=== PATIENT | female | born 1955 ===

== ENCOUNTER → 2024-04-05 | Outpatient (CLI) | payer MEDICARE, OTHER ==
--- NOTE | 2024-04-06 10:08 | CA ---
Transthoracic Echo Report Name: Juliana Clement Age: 68 Gender: F : 1955 Exam Date: 04/05/2024 11:27 Exam Location: [facility] Ht (in): 61 Wt (lb): 145 Ordering Physician: Kathie Guillen MD Attending/Referring Phys: Kathie Guillen MD [employer] Mae Mcgee RDCS Procedure CPT: Indications: R06.02 SOB Cardiac Hx: Technical Quality: Fair Contrast 1: Total Dose (mL): Contrast 2: Total Dose (mL): MEASUREMENTS (Male / Female) Normal Values 2D ECHO LV Diastolic Diameter PLAX 4.6 cm 4.2 - 5.9 / 3.9 - 5.3 cm LV Systolic Diameter PLAX 2.6 cm IVS Diastolic Thickness 1.0 cm 0.6 - 1.0 / 0.6 - 0.9 cm LVPW Diastolic Thickness 0.9 cm 0.6 - 1.0 / 0.6 - 0.9 cm LV Relative Wall Thickness 0.4 RV Internal Dim ED PLAX 3.8 cm LVOT Diameter 1.8 cm LA Volume 78.8 cm??? 18 - 58 / 22 - 52 cm??? LA Volume Index 46.3 cm???/m??? 16 - 28 cm???/m??? M-MODE Aortic Root Diameter MM 2.9 cm LA Systolic Diameter MM 4.5 cm LA Ao Ratio MM 1.6 AV Cusp Separation MM 2.0 cm DOPPLER AV Peak Velocity 130.0 cm/s AV Peak Gradient 6.8 mmHg AV Mean Velocity 101.8 cm/s AV Mean Gradient 4.5 mmHg AV Velocity Time Integral 34.1 cm LVOT Peak Velocity 101.2 cm/s LVOT Peak Gradient 4.1 mmHg LVOT Velocity Time Integral 23.1 cm LVOT Stroke Volume 58.7 cm??? LVOT Stroke Volume Index 35.6 ml/m??? AV Area Cont Eq vti 1.7 cm??? AV Area Cont Eq pk 2.0 cm??? MV Area PHT 4.1 cm??? Mitral E Point Velocity 86.8 cm/s Mitral A Point Velocity 71.5 cm/s Mitral E to A Ratio 1.2 MV Deceleration Time 184.4 ms MV E' Velocity 7.6 cm/s Mitral E to MV E' Ratio 11.3 TR Peak Velocity 254.8 cm/s TR Peak Gradient 26.0 mmHg Right Ventricular Systolic Press 29.5 mmHg FINDINGS Left Ventricle Mildly increased left ventricular wall thickness. Left ventricular cavity size normal. Normal left ventricular systolic function with no obvious regional wall motion abnormalities. Left ventricular ejection fraction is estimated at 55-60 %. Grade 1 diastolic dysfunction. Right Ventricle Mild right ventricular dilatation. Right ventricular systolic pressure within normal limits. Right Atrium Normal right atrial size. Left Atrium Severely increased left atrial volume. Mildly increased left atrial area. Mitral Valve Structurally normal mitral valve. Moderate mitral regurgitation. Aortic Valve Trileaflet aortic valve. No aortic valve stenosis or regurgitation. Tricuspid Valve Structurally normal tricuspid valve. Mild tricuspid regurgitation. Pulmonic Valve Structurally normal pulmonic valve. Pericardium Small Loculated pericardial effusion. Aorta Normal size aortic root and proximal ascending aorta. CONCLUSIONS Normal LV systolic function Small loculated pericardial effusion Moderate mitral regurgitation Previewed by: Dr. French Palacios MD (Electronically Signed) Final Date: 06 April 2024 10:07
== END | disposition home or self-care (01) ==
LOC: RADECHMAIN 10:31
PROVIDERS: ATTEND Family Medicine
DX: I34.0 Nonrheumatic mitral (valve) insufficiency (principal); I31.39 Other pericardial effusion (noninflammatory)
CPT/HCPCS: 93306

== ENCOUNTER 2024-07-26 16:57 | Inpatient (IN) | payer MEDICARE, OTHER ==
--- NOTE | 2024-07-26 18:12 | XR ---
EXAMINATION TYPE: XR chest 2V DATE OF EXAM: 07/26/2024 COMPARISON: None INDICATION: Difficulty breathing, history of lung cancer and right lung removal TECHNIQUE: Frontal and lateral views of the chest are obtained. FINDINGS: The heart size is normal. The pulmonary vasculature is normal. There is a mild left lower lobe infiltrate. Some patchy infiltrate may be in the mid to outer left mi d lung. Consider atypical pneumonia. A small left pleural effusion is present. Patient's post right pneumonectomy. There is opacification to the right lung. No significant shift of mediastinum is evident.. IMPRESSION: 1. Mild left lower lobe infiltrate. Correlate for atelectasis and pneumonia. Consider atypical pneumo krupa. 2. Small left pleural effusion. [facility], , 07/26/2024 6:09 PM
--- NOTE | 2024-07-26 18:38 | ED ---
SOB HPI - General Source: patient, RN notes reviewed Mode of arrival: wheelchair Limitations: no limitations <Nury Molina - Last Filed: 07/26/24 18:37> - General Source: patient, RN notes reviewed Mode of arrival: wheelchair Limitations: no limitations <Bob Mayberry - Last Filed: 07/26/24 20:19> - General Chief Complaint: Shortness of Breath Stated Complaint: congestion,vomiting Time Seen by Provider: 07/26/24 17:12 - History of Present Illness Initial Comments: Quick [id number] female with history of COPD presents emergency department chief complaint of shortness of breath that has been worsening over the past week. States that she does have a history of right lobe lung cancer that she believes is currently in remission and she is on oral chemotherapy. Patient was evaluated yesterday at [facility] and was discharged home in stable condition. (Nury Molina) 68-year-old female presents emergency department chief complaint shortness of breath, cough congestion, weakness. Patient states that she has not felt well for over a week. She states she has a productive cough. Patient states she does have a history of COPD, lung cancer with lobectomy right lung in 2015. Patient states that she was seen at an outside ER facility and was sent home. Patient states that she has had increased nausea vomiting and dyspnea. (Bob Mayberry) - Related Data Allergies Allergy/AdvReac Type Severity Reaction Status Date / Time diphenhydramine Allergy Unknown Verified 07/26/24 17:17 [From Benadryl] Penicillins Allergy Unknown Verified 07/26/24 17:17 Review of Systems ROS Other: All systems not noted in ROS Statement are negative. <Nury Molina - Last Filed: 07/26/24 18:37> ROS Other: All systems not noted in ROS Statement are negative. <Bob Mayberry - Last Filed: 07/26/24 20:19> ROS Statement: Those systems with pertinent positive or pertinent negative responses have been documented in the HPI. Past Medical History Past Medical History: Cancer, COPD, Hypertension, Seizure Disorder Additional Past Medical History / Comment(s): lung cancer History of Any Multi-Drug Resistant Organisms: None Reported Additional Past Surgical History / Comment(s): lower right lobectomy 2014 Past Psychological History: No Psychological Hx Reported Smoking Status: Former smoker Past Alcohol Use History: None Reported Past Drug Use History: None Reported <Nury Molina - Last Filed: 07/26/24 18:37> General Exam Limitations: no limitations <Nury Molina - Last Filed: 07/26/24 18:37> General appearance: alert, in no apparent distress Head exam: Present: atraumatic, normocephalic, normal inspection Eye exam: Present: normal appearance, PERRL, EOMI. Absent: scleral icterus, conjunctival injection, periorbital swelling ENT exam: Present: normal exam, normal oropharynx, mucous membranes moist Neck exam: Present: normal inspection, full ROM. Absent: tenderness, meningismus, lymphadenopathy Respiratory exam: Present: wheezes, rhonchi. Absent: respiratory distress, rales, stridor Cardiovascular Exam: Present: normal rhythm, tachycardia, normal heart sounds. Absent: systolic murmur, diastolic murmur, rubs, gallop, clicks GI/Abdominal exam: Present: soft, normal bowel sounds. Absent: distended, tenderness, guarding, rebound, rigid <Bob Mayberry - Last Filed: 07/26/24 20:19> - General Exam Comments Initial Comments: Visual Physical Exam Vital signs reviewed General: Well-appearing, nontoxic, no acute distress. Head: Normocephalic, atraumatic Eyes: PERRLA, EOMI ENT: Airway patent Chest: Nonlabored breathing Skin: No visual rash, normal skin tone Neuro: Alert and oriented 3 Musculoskeletal: No gross abnormalities (Nury Molina) Course Vital Signs 07/26/24 17:11 Temperature 98.7 F Pulse Rate 132 H Respiratory 20 Rate Blood Pressure 98/70 O2 Sat by Pulse 93 L Oximetry Medical Decision Making <Nury Molina - Last Filed: 07/26/24 18:37> - Lab Data Result diagrams: 07/26/24 19:21 07/26/24 19:21 - EKG Data -: EKG Interpreted by Me <Bob Mayberry - Last Filed: 07/26/24 20:19> - Medical Decision Making I completed the quick note portion of this chart signed Nury Molina PA-C (Nury Molina) Was pt. sent in by a medical professional or institution (DERRICK Perez, DESULPHURING OPERATOR, urgent care, hospital, or fpc...) When possible be specific @ -No Did you speak to anyone other than the patient for history (EMS, parent, family, police, friend...)? What history was obtained from this source @ -No Did you review nursing and triage notes (agree or disagree)? Why? @ -I reviewed and agree with nursing and triage notes Were old charts reviewed (outside hosp., previous admission, EMS record, old EKG, old radiological studies, urgent care reports/EKG's, fpc records)? Report findings @ -No old charts were reviewed Differential Diagnosis (chest pain, altered mental status, abdominal pain women, abdominal pain men, vaginal bleeding, weakness, fever, dyspnea, syncope, headache, dizziness, GI bleed, back pain, seizure, CVA, palpatations, mental health, musculoskeletal)? @ -Differential Dyspnea: Coronary syndrome, arrhythmia, tamponade, asthma, COPD, pulmonary embolism, pneumonia, pneumothorax, pulmonary effusion, anaphylaxis, diabetic ketoacidosis, flailed chest, pulmonary contusion, diaphragmatic rupture, anemia, neuromuscular, this is not meant to be an all-inclusive list. EKG interpreted by me (3pts min.). @ -As above X-rays interpreted by me (1pt min.). @ -Chest x-ray shows left lobe pneumonia CT interpreted by me (1pt min.). @ -None done U/S interpreted by me (1pt. min.). @ -None done What testing was considered but not performed or refused? (CT, X-rays, U/S, labs)? Why? @ -None What meds were considered but not given or refused? Why? @ -None Did you discuss the management of the patient with other professionals (professionals i.e. DERRICK Perez, DESULPHURING OPERATOR, lab, RT, psych nurse, protective services social worker, case sealer, teacher, environmental technical officer, case repairer)? Give summary @ -EMH for admission Was smoking cessation discussed for >3mins.? @ -No Was critical care preformed (if so, how long)? @ -No Were there social determinants of health that impacted care today? How? (Homelessness, low income, unemployed, alcoholism, drug addiction, transportation, low edu. Level, literacy, decrease access to med. care, penitentiary, rehab)? @ -No Was there de-escalation of care discussed even if they declined (Discuss DNR or withdrawal of care, Hospice)? DNR status @ -No What co-morbidities impacted this encounter? (DM, HTN, Smoking, COPD, CAD, Cancer, CVA, ARF, Chemo, Hep., AIDS, mental health diagnosis, sleep apnea, morbid obesity)? @ -COPD, lung cancer Was patient admitted / discharged? Hospital course, mention meds given and route, prescriptions, significant lab abnormalities, going to OR and other pertinent info. @ -Admitted patient is found to have left pneumonia, patient started on Rocephin, azithromycin. Patient said increased tachycardia, leukocytosis IV fluids ordered, blood cultures, lactic acid, breathing treatments. Patient on pulmonary consult. Undiagnosed new problem with uncertain prognosis? @ -No Drug Therapy requiring intensive monitoring for toxicity (Heparin, Nitro, Insulin, Cardizem)? @ -No Were any procedures done? @ -No Diagnosis/symptom? @ -Pneumonia, dehydration, leukocytosis Acute, or Chronic, or Acute on Chronic? @ -Acute Uncomplicated (without systemic symptoms) or Complicated (systemic symptoms)? @ -Complicated Side effects of treatment? @ -No Exacerbation, Progression, or Severe Exacerbation? @ -No Poses a threat to life or bodily function? How? (Chest pain, [place], NH, pneumonia, PE, COPD, DKA, ARF, appy, cholecystitis, CVA, Diverticulitis, Homicidal, Suicidal, threat to staff... and all critical care pts) @ -Yes pneumonia, respiratory failure (Bob Mayberry) - Lab Data Lab Results 07/26/24 07/26/24 07/26/24 Range/Units 19:21 19:21 19:21 WBC 24.1 H (3.8-10.6) k/uL RBC 4.46 (3.80-5.40) m/uL Hgb 12.5 (11.4-16.0) gm/dL Hct 39.0 (34.0-46.0) % MCV 87.5 (80.0-100.0) fL MCH 27.9 (25.0-35.0) pg MCHC 31.9 (31.0-37.0) g/dL RDW 13.3 (11.5-15.5) % Plt Count 385 (150-450) k/uL MPV 8.1 Neutrophils % 90 % Lymphocytes % 3 % Monocytes % 6 % Eosinophils % 1 % Basophils % 0 % Neutrophils # 21.5 H (1.3-7.7) k/uL Lymphocytes # 0.6 L (1.0-4.8) k/uL Monocytes # 1.5 H (0-1.0) k/uL Eosinophils # 0.1 (0-0.7) k/uL Basophils # 0.0 (0-0.2) k/uL PT 11.7 (10.0-12.5) sec INR 1.1 (<1.2) APTT 27.5 (22.0-30.0) sec Sodium 132 L (137-145) mmol/L Potassium 5.3 H (3.5-5.1) mmol/L Chloride 92 L (98-107) mmol/L Carbon Dioxide 26 (22-30) mmol/L Anion Gap 14 mmol/L BUN 15 (7-17) mg/dL Creatinine 0.77 (0.52-1.04) mg/dL Est GFR (CKD-EPI)AfAm >90 (>60 ml/min/1.73 sqM) Est GFR (CKD-EPI)NonAf 80 (>60 ml/min/1.73 sqM) Glucose 103 H (74-99) mg/dL Plasma Lactic Acid Lionel (0.7-2.0) mmol/L Calcium 10.5 H (8.4-10.2) mg/dL Total Bilirubin 1.1 (0.2-1.3) mg/dL AST 29 (14-36) U/L ALT 8 (4-34) U/L Alkaline Phosphatase 60 (38-126) U/L Troponin I (0.000-0.034) ng/mL NT-Pro-B Natriuret Pep 414 pg/mL Total Protein 7.3 (6.3-8.2) g/dL Albumin 4.6 (3.5-5.0) g/dL 07/26/24 07/26/24 Range/Units 19:21 19:21 WBC (3.8-10.6) k/uL RBC (3.80-5.40) m/uL Hgb (11.4-16.0) gm/dL Hct (34.0-46.0) % MCV (80.0-100.0) fL MCH (25.0-35.0) pg MCHC (31.0-37.0) g/dL RDW (11.5-15.5) % Plt Count (150-450) k/uL MPV Neutrophils % % Lymphocytes % % Monocytes % % Eosinophils % % Basophils % % Neutrophils # (1.3-7.7) k/uL Lymphocytes # (1.0-4.8) k/uL Monocytes # (0-1.0) k/uL Eosinophils # (0-0.7) k/uL Basophils # (0-0.2) k/uL PT (10.0-12.5) sec INR (<1.2) APTT (22.0-30.0) sec Sodium (137-145) mmol/L Potassium (3.5-5.1) mmol/L Chloride (98-107) mmol/L Carbon Dioxide (22-30) mmol/L Anion Gap mmol/L BUN (7-17) mg/dL Creatinine (0.52-1.04) mg/dL Est GFR (CKD-EPI)AfAm (>60 ml/min/1.73 sqM) Est GFR (CKD-EPI)NonAf (>60 ml/min/1.73 sqM) Glucose (74-99) mg/dL Plasma Lactic Acid Lionel 1.8 (0.7-2.0) mmol/L Calcium (8.4-10.2) mg/dL Total Bilirubin (0.2-1.3) mg/dL AST (14-36) U/L ALT (4-34) U/L Alkaline Phosphatase (38-126) U/L Troponin I <0.012 (0.000-0.034) ng/mL NT-Pro-B Natriuret Pep pg/mL Total Protein (6.3-8.2) g/dL Albumin (3.5-5.0) g/dL - EKG Data EKG Comments: EKG performed at 19: 05 sinus tachycardia rate of 118 VT 140 QRS 80 QT/QTc 334/404 (Bob Mayberry) Disposition <Nury Molina - Last Filed: 07/26/24 18:37> Time of Disposition: 20:19 <Bob Mayberry - Last Filed: 07/26/24 20:19> Clinical Impression: Pneumonia Disposition: ADMITTED IP TO THIS HOSP Condition: Fair Referrals: Kathie Guillen MD [Primary Care Provider] - 1-2 days
[2024-07-26 19:44] LABS: Basophils % (A) 0 %; Eosinophils # (A) 0.1 k/uL (0-0.7); Eosinophils % (A) 1 %; HGB 12.5 gm/dL (11.4-16.0); Lymphocytes # (A) 0.6 k/uL (1.0-4.8); Lymphocytes % (A) 3 %; MCH 27.9 pg (25.0-35.0); MCHC 31.9 g/dL (31.0-37.0); MCV 87.5 fL (80.0-100.0); Mean Platelet Volume 8.1; Monocytes # (A) 1.5 k/uL (0-1.0); Monocytes % (A) 6 %; Neutrophils # (A) 21.5 k/uL (1.3-7.7); Neutrophils % (A) 90 %; Platelet Count 385 k/uL (150-450); RBC 4.46 m/uL (3.80-5.40); RDW 13.3 % (11.5-15.5); WBC 24.1 k/uL (3.8-10.6)
[2024-07-26 19:52] LABS: ALT 8 U/L (4-34); AST 29 U/L (14-36); African American GFR (CKD) >90 (>60 ml/min/1.73 sqM); Albumin 4.6 g/dL (3.5-5.0); Alkaline Phosphatase 60 U/L (38-126); Anion Gap 14 mmol/L; Blood Urea Nitrogen 15 mg/dL (7-17); Calcium 10.5 mg/dL (8.4-10.2); Carbon Dioxide 26 mmol/L (22-30); Chloride 92 mmol/L (98-107); Glucose 103 mg/dL (74-99); Non-African American GFR(CKD) 80 (>60 ml/min/1.73 sqM); Potassium 5.3 mmol/L (3.5-5.1); Sodium 132 mmol/L (137-145); Total Bilirubin 1.1 mg/dL (0.2-1.3); Total Protein 7.3 g/dL (6.3-8.2)
[2024-07-26 19:58] LABS: INR 1.1 (<1.2); Partial Thromboplastin Time 27.5 sec (22.0-30.0); Prothrombin Time 11.7 sec (10.0-12.5)
[2024-07-26 20:00] LABS: NT-Pro-B-Type Natriuretic Pept 414 pg/mL
[2024-07-26] MEDS ORDERED: PNEUMONIA PROTOCOL UTILIZED 1 EACH MISC PO PRN (20:19)
[2024-07-26] MEDS ORDERED: ACETAMINOPHEN TAB 325 MG TAB PO PRN (20:19)
[2024-07-26] MEDS: AZITHROMYCIN 500 MG in SODIUM CHLORIDE 0.9% 250 ML IVPB STA (21:53)
[2024-07-26] MEDS: SODIUM CHLORIDE 0.9% 1,000 ML IV ONE (21:54)
[2024-07-26] MEDS: SODIUM CHLORIDE 0.9% 1,000 ML IV SCH (21:55)
[2024-07-27] MEDS ORDERED: FUROSEMIDE 20 MG TAB PO PRN (06:01)
[2024-07-27] MEDS ORDERED: ALBUTEROL NEBULIZED 2.5 MG/3 ML INHALATION PRN (06:01)
--- NOTE | 2024-07-27 06:27 | P.HPIM ---
History of Present Illness This is a pleasant 68 years old female with past medical history of COPD, hypertension, seizure disorder. Patient presents because of worsening dyspnea and coughing x 1 week, not improved as an outpatient associated with chest pain/abdominal pain with coughing Patient states she has no phlegm also she denies abdominal pain and she has normal bowel movement But patient has been vomiting all day yesterday with no blood in her vomitus or coffee-ground vomitus as per patient also patient had low appetite for 3 days No urinary complaint. She has been feeling dizzy but no headache, no weakness or tingling but has been using the walker more frequently lately because of her generalized weakness Patient states she was not using steroids or antibiotic prior to admission She wants her home medication of Keppra and Pearce 7.5 to resumed. Also patient complaining from some pain in her chest with the swallowing Patient is afebrile She was tachycardic and hypotensive on admission, currently blood pressure improved and heart rate is lower WBC is elevated at 24,000 INR, unremarkable, sodium slightly low 132, potassium 5.3 and creatinine 0.7 Liver enzymes, troponin are not elevated Influenza A and type B, RSV, SARS (coronavirus) are undetected proBNP is 414 EKG showing sinus tachycardia at [address]-T changes Chest x-ray reviewed by myself showing mild left lower lobe infiltrate with small left pleural effusion and status post right pneumonectomy with complete opacification of the right side Pro- Calcitonin is within the reference range at 0.1 Review of Systems Review of systems CONSTITUTIONAL: No fever, no malaise, no fatigue. HEENT: No recent visual problems or hearing problems. Denied any sore throat. CARDIOVASCULAR: No orthopnea, PND, no palpitations, no syncope. PULMONARY: No chest wall tenderness h, no hemoptysis. GASTROINTESTINAL: No diarrhea, no nausea, no vomiting, no abdominal pain. Normoactive bowel sounds. NEUROLOGICAL: No headaches, no weakness, no numbness. HEMATOLOGICAL: Denies any bleeding or petechiae. GENITOURINARY: Denies any burning micturition, frequency, or urgency. MUSCULOSKELETAL/RHEUMATOLOGICAL: Denies any joint pain, swelling, or any muscle pain. ENDOCRINE: Denies any polyuria or polydipsia. Past Medical History Past Medical History: Cancer, COPD, Hypertension, Seizure Disorder Additional Past Medical History / Comment(s): lung cancer History of Any Multi-Drug Resistant Organisms: None Reported Additional Past Surgical History / Comment(s): lower right lobectomy 2015 Past Psychological History: No Psychological Hx Reported Smoking Status: Former smoker Past Alcohol Use History: None Reported Past Drug Use History: None Reported Medications and Allergies Home Medications Medication Instructions Recorded Confirmed Type Albuterol Inhaler [Ventolin Hfa 2 puff INHALATION RT-Q6H PRN 07/26/24 07/26/24 History Inhaler] Azithromycin [Zithromax] See Taper PO DIRECTED 07/26/24 07/26/24 History Citalopram Hydrobromide [CeleXA] 20 mg PO DAILY@149907/26/24 07/26/24 History Clopidogrel [Plavix] 75 mg PO DAILY@149907/26/24 07/26/24 History Folic Acid 1 mg PO DAILY 07/26/24 07/26/24 History Furosemide [Lasix] 20 mg PO DAILY PRN 07/26/24 07/26/24 History Milk Thistle 1,000mg 1,000 mg PO BID 07/26/24 07/26/24 History Osimertinib Mesylate [Tagrisso] 80 mg PO DAILY@149907/26/24 07/26/24 History Potassium Chloride ER [K-Dur 20] 20 meq PO DAILY PRN 07/26/24 07/26/24 History Rosuvastatin Calcium [Crestor] 5 mg PO DAILY@149907/26/24 07/26/24 History Valsartan [Diovan] 80 mg PO DAILY@149907/26/24 07/26/24 History levETIRAcetam [Keppra] 750 mg PO BID@0900,209907/26/24 07/26/24 History oxyCODONE-APAP 7.5-325MG [Percocet 1 tab PO Q4-6H PRN 07/26/24 07/26/24 History 7.5-325 mg] predniSONE [Deltasone] 40 mg PO DIRECTED 07/26/24 07/26/24 History Allergies Allergy/AdvReac Type Severity Reaction Status Date / Time diphenhydramine Allergy Unknown Verified 07/26/24 17:17 [From Benadryl] Penicillins Allergy Unknown Verified 07/26/24 17:17 Physical Exam Vitals: Vital Signs Temp Pulse Resp BP Pulse Ox 07/27/24 05:42 98 18 115/71 92 L 07/27/24 02:07 128 H 15 113/71 92 L 07/26/24 23:23 110 H 16 108/73 92 L 07/26/24 22:52 112 H 16 100/75 93 L 07/26/24 20:27 116 H 20 99/78 96 07/26/24 17:11 98.7 F 132 H 20 98/70 93 L Intake and Output 07/26/24 07/26/24 07/27/24 14:59 22:59 06:59 Other: Weight 63.503 kg GENERAL: The patient is alert and oriented x3, not in any acute distress. Well developed, well nourished. HEENT: Pupils are round and equally reacting to light. EOMI. No scleral icterus. No conjunctival pallor. Normocephalic, atraumatic. No pharyngeal erythema. No thyromegaly. CARDIOVASCULAR: S1 and S2 present. No murmurs, rubs, or gallops. -PULMONARY: Chest is clear to auscultation, no wheezing , no crackles. Patient is tachypneic and coughing ABDOMEN: Soft, nontender, nondistended, normoactive bowel sounds. No palpable organomegaly. MUSCULOSKELETAL: No joint swelling or deformity. EXTREMITIES: No cyanosis, clubbing, or pedal edema. NEUROLOGICAL: Gross neurological examination did not reveal any focal deficits. SKIN: No rashes. no petechiae. Results CBC & Chem 7: 07/26/24 19:21 07/26/24 19:21 Labs: Abnormal Lab Results - Last 24 Hours (Table) 07/26/24 07/26/24 Range/Units 19:21 19:21 WBC 24.1 H (3.8-10.6) k/uL Neutrophils # 21.5 H (1.3-7.7) k/uL Lymphocytes # 0.6 L (1.0-4.8) k/uL Monocytes # 1.5 H (0-1.0) k/uL Sodium 132 L (137-145) mmol/L Potassium 5.3 H (3.5-5.1) mmol/L Chloride 92 L (98-107) mmol/L Glucose 103 H (74-99) mg/dL Calcium 10.5 H (8.4-10.2) mg/dL Assessment and Plan Assessment: Left lower lobe infiltrate, there was suspicion for pneumonia however patient with no fever. She has leukocytosis and pro- Calcitonin is negative Hypotension with tachycardia related to hypovolemia, improving lung cancer, s/p right pneumonectomy Seizure disorder COPD with possible acute exacerbation Hypertension, currently she was hypotensive on admission Plan: Continue with normal saline, keep monitor vitals and blood pressure Add Robitussin Patient was started on ceftriaxone however procalcitonin is negative, we will consult pulmonary service Resume Plavix and Keppra Hold Valsartan 80 mg Labs and medication were reviewed.. Continue same treatment. Continue with symptomatic treatment. Resume home medication. Monitor labs and vitals. DVT and GI prophylaxis. Further recommendations as per clinical course of the patient DVT prophylaxis: Subcutaneous heparin GI Prophylaxis: Pepcid PT/OT: Pending Prognosis is guarded
[2024-07-27] MEDS: oxyCODONE-APAP 7.5-325MG 1 EACH TAB PO PRN (06:37)
[2024-07-27] MEDS: guaiFENesin-DM 100-10MG/5ML 10 ML CUP PO SCH (07:16)
[2024-07-27] MEDS: FOLIC ACID 1 MG TAB PO SCH (08:55)
[2024-07-27] MEDS: FAMOTIDINE 20 MG/2 ML VIAL IV SCH (08:57)
[2024-07-27] MEDS: HEPARIN SODIUM,PORCINE 5,000 UNIT/ML 1 ML VIAL SQ SCH (09:02)
[2024-07-27 09:18] LABS: HCT 33.7 % (37.2-46.3); HGB 10.9 g/dL (12.0-15.0); MCH 27.9 pg (27.0-32.0); MCHC 32.3 g/dL (32.0-37.0); MCV 86.2 FL (80.0-97.0); Mean Platelet Volume 11.8 FL (9.5-12.2); NRBC Per 100 WBC 0 X 10*3/uL (0.00-0.01); Platelet Count 331 X 10*3/uL (140-440); RBC 3.91 X 10*6/uL (4.10-5.20); RDW 13.7 % (11.5-14.5); WBC 21.47 X 10*3/uL (4.50-10.00)
[2024-07-27] MEDS: IPRATROPIUM-ALBUTEROL 3 ML NEB INHALATION SCH (09:20)
[2024-07-27 10:44] LABS: Blood Urea Nitrogen 16.8 mg/dL (9.0-27.0); Calcium 9.5 mg/dL (8.7-10.3); Carbon Dioxide 21.9 mmol/L (21.6-31.8); Chloride 94 mmol/L (96-109); Glucose 89 mg/dL (70-110); Potassium 4.2 mmol/L (3.5-5.5); Sodium 134 mmol/L (135-145)
[2024-07-27 11:04] LABS: Basophils # (A) 0.03 X 10*3/uL (0.00-0.10); Basophils % (A) 0.1 %; Eosinophils # (A) 0.01 X 10*3/uL (0.04-0.35); Eosinophils % (A) 0 %; Lymphocytes % (A) 2.8 %; Monocytes # (A) 2.24 X 10*3/uL (0.20-1.00); Monocytes % (A) 10.4 %; Neutrophils # (A) 18.46 X 10*3/uL (1.80-7.70); Neutrophils % (A) 86.1 %; RBC Morphology Normal (Normal)
--- NOTE | 2024-07-27 11:51 | CT ---
EXAMINATION TYPE: CT angio chest CT DLP: 230.6 mGycm, Automated exposure control for dose reduction was used. DATE OF EXAM: 07/27/2024 11:34 AM COMPARISON: Chest radiograph 07/26/2024, no prior lung cancer staging imaging available. CLINICAL INDICATION:Female, 68 years old with history of dyspnea, LLL pneumonia, rule out PE; SOB, LL L pneumonia right lung removal due to stage 4 lung CA TECHNIQUE/CONTRAST: CTA scan of the thorax is performed with IV Contrast, patient injected with 100 mL of Isovue 370, pul monary embolism protocol. MIP images are created and reviewed. FINDINGS: Pulmonary Artery: There is no evidence for a filling defect within the pulmonary vasculature to sugge st acute pulmonary embolism. The pulmonary artery is of normal size. Lungs/Pleura: No pneumothorax. Trace left effusion with adjacent suspected atelectasis. Few scattered regions of small consolidative opacities in the left lung. Moderate-sized peripheral enhancing right anterior lung fluid collection measuring grossly 10.8 x 3.7 cm in TV and AP dimensions. There is abr upt cut off of the right mainstem bronchus with consolidation of the right middle and lower lobes. Pl eural calcification identified along the inferior right pleura. Right-sided volume loss. Airway: Abrupt cut off of the right mainstem bronchus. Heart: Enlarged. Small pericardial effusion. Vasculature: No evidence of aortic aneurysm. Mediastinum: Ill-defined attenuation surrounding the trachea and its branches. No other discrete medi astinal lymphadenopathy. Musculoskeletal: No acute osseous abnormalities. Large 2.8 cm sclerotic lesion involving the right hu meral head. No other suspicious osseous lesions. Scoliotic curvature of the visualized spine. Soft Tissues: Unremarkable. Lower neck: No significant findings. Upper Abdomen: Perihepatic ascites near the dome. IMPRESSION: 1. No evidence of pulmonary embolism. 2. Masslike consolidation of the right middle and lower lobes with abrupt cut off of the right mainst em bronchus. Etiologies include malignancy and/or pneumonia. Correlation with prior imaging is recomm ended. 3. Peripherally enhancing moderate size right anterior pleural fluid collection with peripheral calci fication. May represent chronic pleural effusion with empyema not entirely excluded. 4. Ill-defined soft tissue surrounding the trachea and its branches likely related to #2. 5. Trace left pleural effusion with few patchy consolidative opacities within the left lung which may represent metastatic disease and/or infectious process. Correlation with prior imaging is recommende d. 6. Abnormal sclerotic lesion involving the right humeral head suspicious for metastasis. Correlate wi th prior imaging. 7. Cardiomegaly with small pericardial effusion. [facility], , 07/27/2024 11:49 AM
--- NOTE | 2024-07-27 11:53 | P.CNPUL ---
History of Present Illness Consult date: 07/27/24 Reason for consult: dyspnea, COPD History of present illness: This is a 68-year-old female patient with previous history of lung cancer and the patient had undergone a right pneumonectomy back in 2019 and since then the patient has been maintained on Tagrisso. The patient was have increased cough and congestion and shortness of breath which initially presented to [facility] where she was given a course of antibiotics and she was discharged. Nevertheless, the patient was unable to take the antibiotics. She progressed and her condition got worse and she continued to have increased cough and congestion worsening shortness of breath at baseline that she came into our emergency department. Chest x-ray in the emergency showed a left lower lobe infiltrate and signs of a right pneumonectomy. The patient is currently running a white cell count of 24 with a hemoglobin 12.5 with a platelet count of 385. The sodium is at 132, potassium is at 5.3, BUN is 15 with a creatinine of 0.7. The viral screen was negative. Legionella urine antigen was negative. Procalcitonin level is 0.1. proBNP level is at 414. Troponins are also negative. I also noted some nodular changes in the left upper lobe area that needs to be further investigated. She is currently on room air oxygen. No edema lower extremities. No previous history of DVT or pulmonary embolism. Review of Systems Constitutional: Reports fatigue, Reports fever Eyes: denies as per HPI, denies blurred vision, denies bulging eye, denies decreased vision, denies diplopia, denies discharge, denies dry eye, denies irritation, denies itching, denies pain, denies photophobia, denies loss of peripheral vision, denies loss of vision, denies tunnel vision/blind spots Ears: deny: decreased hearing, ear discharge, earache, tinnitus Ears, nose, mouth and throat: Reports as per HPI Breasts: absent: as per HPI, change in shape, gynecomastia, masses, nipple discharge, pain, skin changes, swelling Cardiovascular: Reports decreased exercise tolerance, Reports dyspnea on exertion Respiratory: Reports congestion, Reports cough, Reports cough with sputum, Reports dyspnea, Reports wheezing Gastrointestinal: Reports as per HPI Genitourinary: Reports as per HPI Menstruation: Reports as per HPI Musculoskeletal: Reports as per HPI Musculoskeletal: absent: ankle pain, ankle stiffness, ankle swelling, as per HPI, elbow pain, elbow stiffness, elbow swelling, foot pain, foot stiffness, foot swelling, hand pain, hand stiffness, hand swelling, hip pain, hip stiffness, hip swelling, knee pain, knee stiffness, knee swelling, shoulder pain, shoulder stiffness, shoulder swelling, wrist pain, wrist stiffness, wrist swelling Integumentary: Reports as per HPI Neurological: Reports as per HPI Psychiatric: Reports as per HPI Endocrine: Reports as per HPI Hematologic/Lymphatic: Reports as per HPI Past Medical History Past Medical History: Cancer (Lung cancer), COPD, Hyperlipidemia, Hypertension, Seizure Disorder Additional Past Medical History / Comment(s): lung cancer, right pneumonectomy 2019 History of Any Multi-Drug Resistant Organisms: None Reported Additional Past Surgical History / Comment(s): lower right lobectomy 2015 Past Psychological History: No Psychological Hx Reported Smoking Status: Former smoker Past Alcohol Use History: None Reported Past Drug Use History: None Reported Medications and Allergies Home Medications Medication Instructions Recorded Confirmed Type Albuterol Inhaler [Ventolin Hfa 2 puff INHALATION RT-Q6H PRN 07/26/24 07/26/24 H istory Inhaler] Azithromycin [Zithromax] See Taper PO DIRECTED 07/26/24 07/26/24 History Citalopram Hydrobromide [CeleXA] 20 mg PO DAILY@149907/26/24 07/26/24 History Clopidogrel [Plavix] 75 mg PO DAILY@149907/26/24 07/26/24 History Folic Acid 1 mg PO DAILY 07/26/24 07/26/24 History Furosemide [Lasix] 20 mg PO DAILY PRN 07/26/24 07/26/24 History Milk Thistle 1,000mg 1,000 mg PO BID 07/26/24 07/26/24 History Osimertinib Mesylate [Tagrisso] 80 mg PO DAILY@149907/26/24 07/26/24 History Potassium Chloride ER [K-Dur 20] 20 meq PO DAILY PRN 07/26/24 07/26/24 History Rosuvastatin Calcium [Crestor] 5 mg PO DAILY@149907/26/24 07/26/24 History Valsartan [Diovan] 80 mg PO DAILY@149907/26/24 07/26/24 History levETIRAcetam [Keppra] 750 mg PO BID@0900,2100 07/26/24 07/26/24 History oxyCODONE-APAP 7.5-325MG [Percocet 1 tab PO Q4-6H PRN 07/26/24 07/26/24 History 7.5-325 mg] predniSONE [Deltasone] 40 mg PO DIRECTED 07/26/24 07/26/24 History Allergies Allergy/AdvReac Type Severity Reaction Status Date / Time diphenhydramine Allergy Unknown Verified 07/26/24 17:17 [From Benadryl] Penicillins Allergy Unknown Verified 07/26/24 17:17 Physical Exam Vitals: Vital Signs Temp Pulse Resp BP Pulse Ox 07/27/24 09:28 84 18 07/27/24 09:22 91 18 95 07/27/24 08:52 96 18 109/67 94 L 07/27/24 05:42 98 18 115/71 92 L 07/27/24 02:07 128 H 15 113/71 92 L 07/26/24 23:23 110 H 16 108/73 92 L 07/26/24 22:52 112 H 16 100/75 93 L 07/26/24 20:27 116 H 20 99/78 96 07/26/24 17:11 98.7 F 132 H 20 98/70 93 L Intake and Output 07/26/24 07/27/24 07/27/24 22:59 06:59 14:59 Other: Weight 63.503 kg Calm and comfortable, currently on room air oxygen. No significant respiratory distress. Head exam was generally normal. There was no scleral icterus or corneal arcus. Mucous membranes were moist. Neck was supple and without jugular venous distension, thyromegaly, or carotid bruits. Carotids were easily palpable bilaterally. There was no adenopathy. Lung sounds are absent on the right, diminished breath sound the left lung base along with crackles Cardiac exam revealed the PMI to be normally situated and sized. The rhythm was regular and no extrasystoles were noted during several minutes of auscultation. The first and second heart sounds were normal and physiologic splitting of the second heart sound was noted. There were no murmurs, rubs, clicks, or gallops. Abdominal exam revealed normal bowel sounds. The abdomen was soft, non-tender, and without masses, organomegaly, or appreciable enlargement of the abdominal aorta. Examination of the extremities revealed easily palpable radial, femoral and pedal pulses. There was no cyanosis, clubbing or edema. Examination of the skin revealed no evidence of significant rashes, suspicious appearing nevi or other concerning lesions. Neurologically, the patient is awake and alert and the patient does not have any focal neurological deficit. Cranial nerves are essentially intact. Results - Laboratory Findings CBC and BMP: 07/27/24 03:47 07/27/24 03:47 PT/INR, D-dimer PT 11.7 sec (10.0-12.5) 07/26/24 19:21 INR 1.1 (<1.2) 07/26/24 19:21 Abnormal lab findings: Abnormal Labs 07/26/24 07/26/24 07/27/24 19:21 19:21 03:47 WBC 24.1 H 21.47 H RBC 3.91 L Hgb 10.9 L Hct 33.7 L Neutrophils # 21.5 H Lymphocytes # 0.6 L Monocytes # 1.5 H Sodium 132 L Potassium 5.3 H Chloride 92 L Glucose 103 H Calcium 10.5 H - Diagnostic Findings Chest x-ray: image reviewed Assessment and Plan Plan: Acute left lower lobe pneumonia and the patient has an area of consolidation left lung base on today's chest x-ray along with some nodular opacities in the left upper lobe that needs to be further investigated. Acute on shortness of breath secondary to above Previous history of non-small cell lung cancer with previous right pneumonectomy 2018 and the patient has been maintained on Tagrisso on outpatient basis Acute COPD exacerbation secondary to above. No maintenance inhalers and the patient is utilizing albuterol HFA on an as-needed basis Seizure disorder Hypertension Hyperlipidemia Plan Patient is currently on room air oxygen. The procalcitonin level is minimally elevated at this point. Patient is covered with a combination of Rocephin and Zithromax Continue DuoNeb nebulized treatments [id number] IV Solu-Medrol 60 mg every 6 hours Sputum Gram stain and culture Obtain a CT of the chest to characterize the above-mentioned abnormalities Normal saline at rate of 75 cc an hour Resume home medications Will continue to follow
[2024-07-27] MEDS: methylPREDNISolone SOD SUCCI 125 MG/2 ML VIAL IV SCH (12:35)
[2024-07-27] MEDS: ATORVASTATIN 10 MG TAB PO SCH (15:24)
[2024-07-27] MEDS: CLOPIDOGREL 75 MG TAB PO SCH (15:24)
[2024-07-27] MEDS: CITALOPRAM HYDROBROMIDE 20 MG TAB PO SCH (16:15)
[2024-07-28 04:57] LABS: Basophils % (A) 0 %; Eosinophils # (A) 0.2 k/uL (0-0.7); Eosinophils % (A) 1 %; HCT 33.6 % (34.0-46.0); HGB 11.1 gm/dL (11.4-16.0); Lymphocytes # (A) 0.6 k/uL (1.0-4.8); Lymphocytes % (A) 4 %; MCH 28.6 pg (25.0-35.0); MCV 86.5 fL (80.0-100.0); Mean Platelet Volume 9.1; Monocytes # (A) 0.6 k/uL (0-1.0); Monocytes % (A) 4 %; Neutrophils # (A) 12.9 k/uL (1.3-7.7); Neutrophils % (A) 90 %; Platelet Count 279 k/uL (150-450); RBC 3.88 m/uL (3.80-5.40); RDW 13.5 % (11.5-15.5); WBC 14.4 k/uL (3.8-10.6)
[2024-07-28 05:17] LABS: African American GFR (CKD) >90 (>60 ml/min/1.73 sqM); Anion Gap 5 mmol/L; Blood Urea Nitrogen 12 mg/dL (7-17); Calcium 9.9 mg/dL (8.4-10.2); Carbon Dioxide 27 mmol/L (22-30); Chloride 94 mmol/L (98-107); Glucose 142 mg/dL (74-99); Non-African American GFR(CKD) >90 (>60 ml/min/1.73 sqM); Potassium 4.3 mmol/L (3.5-5.1); Sodium 126 mmol/L (137-145)
--- NOTE | 2024-07-28 07:05 | P.PN ---
Subjective This is a pleasant 68 years old female with past medical history of COPD, hypertension, seizure disorder. Patient presents because of worsening dyspnea and coughing x 1 week, not improved as an outpatient associated with chest pain/abdominal pain with coughing Patient states she has no phlegm also she denies abdominal pain and she has normal bowel movement But patient has been vomiting all day yesterday with no blood in her vomitus or coffee-ground vomitus as per patient also patient had low appetite for 3 days No urinary complaint. She has been feeling dizzy but no headache, no weakness or tingling but has been using the walker more frequently lately because of her generalized weakness Patient states she was not using steroids or antibiotic prior to admission She wants her home medication of Keppra and Hernando 7.5 to resumed. Also patient complaining from some pain in her chest with the swallowing Patient is afebrile She was tachycardic and hypotensive on admission, currently blood pressure improved and heart rate is lower WBC is elevated at 24,000 INR, unremarkable, sodium slightly low 132, potassium 5.3 and creatinine 0.7 Liver enzymes, troponin are not elevated Influenza A and type B, RSV, SARS (coronavirus) are undetected proBNP is 414 EKG showing sinus tachycardia at [address]-T changes Chest x-ray reviewed by myself showing mild left lower lobe infiltrate with small left pleural effusion and status post right pneumonectomy with complete opacification of the right side Pro- Calcitonin is within the reference range at 0.1 07/28 Patient still feeling same, her dyspnea is slightly better but she is still coughing. No significant chest pain or abdominal pain. Patient does not seem in distress Patient have difficulty talking because of her shortness of breath but not that bad. No other new complaint CTA of the chest was negative for PE but showing right middle and lower infiltrate suspicious for a mass or metastasis versus pneumonia. While the left lower lobe consolidation is noted to also suspicious for pneumonia versus metastatic disease. Right humerus head showing sclerotic lesion suspicious for metastatic disease. Also patient sodium today dropped to 134 down to 126 while she is on normal saline which was discontinued. We put the patient on fluid restriction 1200 mL/day. Also will check for urine sodium and osmolality with close monitoring of sodium. Review of systems CONSTITUTIONAL: No fever, no malaise, no fatigue. HEENT: No recent visual problems or hearing problems. Denied any sore throat. CARDIOVASCULAR: No orthopnea, PND, no palpitations, no syncope. GASTROINTESTINAL: No diarrhea, no nausea, no vomiting, no abdominal pain. Normoactive bowel sounds. NEUROLOGICAL: No headaches, no weakness, no numbness. HEMATOLOGICAL: Denies any bleeding or petechiae. GENITOURINARY: Denies any burning micturition, frequency, or urgency. Active Medications Generic Name Dose Route Start Last Admin Trade Name Freq PRN Reason Stop Dose Admin Acetaminophen 650 mg 07/26/24 20:19 Acetaminophen Tab 325 Mg Tab PO Q4HR PRN Fever and/ or Pain Albuterol Sulfate 2.5 mg 07/27/24 06:01 Albuterol Nebulized 2.5 Mg/3 Ml INHALATION RT-Q6H PRN Shortness Of Breath Albuterol/Ipratropium 3 ml 07/27/24 08:00 07/27/24 19:57 Ipratropium-Albuterol 3 Ml Neb INHALATION 3 ml RT-QID RIVER Administration Albuterol/Ipratropium 3 ml 07/26/24 20:19 Ipratropium-Albuterol 3 Ml Neb INHALATION RT-Q4H PRN shortness of breath Atorvastatin Calcium 10 mg 07/27/24 15:00 07/27/24 15:24 Atorvastatin 10 Mg Tab PO 10 mg DAILY@1500 RIVER Administration Citalopram Hydrobromide 20 mg 07/27/24 15:00 07/27/24 16:15 Citalopram Hydrobromide 20 Mg Tab PO 20 mg DAILY@1500 RIVER Administration Clopidogrel Bisulfate 75 mg 07/27/24 15:00 07/27/24 15:24 Clopidogrel 75 Mg Tab PO 75 mg DAILY@1500 RIVER Administration Famotidine 20 mg 07/27/24 09:00 07/27/24 21:09 Famotidine 20 Mg/2 Ml Vial IV Not Given Q12HR RIVER Folic Acid 1 mg 07/27/24 09:00 07/27/24 08:55 Folic Acid 1 Mg Tab PO 1 mg DAILY RIVER Administration Furosemide 20 mg 07/27/24 06:01 Furosemide 20 Mg Tab PO DAILY PRN Edema Guaifenesin/Dextromethorphan 10 ml 07/27/24 06:15 07/28/24 05:33 Guaifenesin-Dm 100-10mg/5ml 10 Ml Cup PO 07/30/24 06:14 10 ml Q6HR RIVER Administration Heparin Sodium (Porcine) 5,000 unit 07/27/24 09:00 07/27/24 21:16 Heparin Sodium,Porcine 5,000 Unit/Ml 1 Ml Vial SQ 5,000 unit Q12HR RIVER Administration Ceftriaxone Sodium 2 gm/ 50 mls @ 100 mls/hr 07/27/24 09:00 07/27/24 09:04 Sodium Chloride IVPB 07/30/24 09:29 100 mls/hr Q24HR RIVER Administration Protocol Levetiracetam 750 mg 07/27/24 09:00 07/27/24 21:14 Levetiracetam 750 Mg Tab PO 750 mg BID@0900,2100 RIVER Administration Methylprednisolone Sodium Succinate 60 mg 07/27/24 12:00 07/28/24 05:33 Methylprednisolone Sod Succi 125 Mg/2 Ml Vial IV 60 mg Q6HR RIVER Administration Miscellaneous Information 1 each 07/26/24 20:19 Pneumonia Protocol Utilized 1 Each Misc PO ONCE PRN Per Protocol Oxycodone/Acetaminophen 1 each 07/27/24 06:01 07/28/24 05:32 Oxycodone-Apap 7.5-325mg 1 Each Tab PO 1 each Q6H PRN Administration Pain Objective - Vital Signs Vital signs: Vital Signs Temp 97.7 F 07/28/24 06:27 Pulse 81 07/28/24 06:27 Resp 19 07/28/24 06:27 BP 123/78 07/28/24 06:27 Pulse Ox 93 L 07/28/24 06:27 FiO2 - Exam GENERAL: The patient is alert and oriented x3, not in any acute distress. Well developed, well nourished. HEENT: Pupils are round and equally reacting to light. EOMI. No scleral icterus. No conjunctival pallor. Normocephalic, atraumatic. No pharyngeal erythema. No thyromegaly. CARDIOVASCULAR: S1 and S2 present. No murmurs, rubs, or gallops. PULMONARY: No breath sounds on the right side. Chest is clear to auscultation, no wheezing , no crackles. Mild tachypnea ABDOMEN: Soft, nontender, nondistended, normoactive bowel sounds. No palpable organomegaly. MUSCULOSKELETAL: No joint swelling or deformity. EXTREMITIES: No cyanosis, clubbing, or pedal edema. NEUROLOGICAL: Gross neurological examination did not reveal any focal deficits. SKIN: No rashes. no petechiae. - Labs CBC & Chem 7: 07/28/24 04:36 07/28/24 04:36 Labs: Abnormal Lab Results - Last 24 Hours (Table) 07/27/24 07/27/24 07/28/24 Range/Units 03:47 03:47 04:36 WBC 21.47 H 14.4 H (4.50-10.00) X 10*3/uL RBC 3.91 L (4.10-5.20) X 10*6/uL Hgb 10.9 L 11.1 L (12.0-15.0) g/dL Hct 33.7 L 33.6 L (37.2-46.3) % Immature Gran # 0.13 H (0.00-0.04) X 10*3/uL Neutrophils # 18.46 H 12.9 H (1.80-7.70) X 10*3/uL Lymphocytes # 0.60 L 0.6 L (0.90-5.00) X 10*3/uL Monocytes # 2.24 H (0.20-1.00) X 10*3/uL Eosinophils # 0.01 L (0.04-0.35) X 10*3/uL Sodium 134 L (135-145) mmol/L Chloride 94 L (96-109) mmol/L Anion Gap 18.10 H (4.00-12.00) mmol/L BUN/Creatinine Ratio 21.00 H (12.00-20.00) Ratio Glucose (74-99) mg/dL 07/28/24 Range/Units 04:36 WBC (4.50-10.00) X 10*3/uL RBC (4.10-5.20) X 10*6/uL Hgb (12.0-15.0) g/dL Hct (37.2-46.3) % Immature Gran # (0.00-0.04) X 10*3/uL Neutrophils # (1.80-7.70) X 10*3/uL Lymphocytes # (0.90-5.00) X 10*3/uL Monocytes # (0.20-1.00) X 10*3/uL Eosinophils # (0.04-0.35) X 10*3/uL Sodium 126 L (135-145) mmol/L Chloride 94 L (96-109) mmol/L Anion Gap (4.00-12.00) mmol/L BUN/Creatinine Ratio (12.00-20.00) Ratio Glucose 142 H (74-99) mg/dL Microbiology - Last 24 Hours (Table) 07/26/24 19:21 Blood Culture - Preliminary Blood 07/27/24 09:18 Gram Stain - Preliminary Sputum Assessment and Plan Assessment: Left lower lobe infiltrate, right middle and lower lobe infiltrate there was suspicion for metastatic disease versus pneumonia however patient with no fever. She has leukocytosis and pro- Calcitonin is negative Sepsis with leukocytosis and tachycardia present on admission Euvolemic hyponatremia, suspicious for an SIADH Hypotension with tachycardia related to hypovolemia, improving lung cancer, s/p right pneumonectomy Seizure disorder COPD with possible acute exacerbation Hypertension, currently she was hypotensive on admission Plan: Discontinue normal saline, keep monitor vitals and blood pressure Fluid restriction and check urine sodium and osmolality Add Robitussin Patient was started on ceftriaxone however procalcitonin is negative, continue antibiotic as per consult pulmonary service will follow the case closely Resume Plavix and Keppra Hold Valsartan 80 mg Labs and medication were reviewed.. Continue same treatment. Continue with symptomatic treatment. Resume home medication. Monitor labs and vitals. DVT and GI prophylaxis. Further recommendations as per clinical course of the patient DVT prophylaxis: Subcutaneous heparin GI Prophylaxis: Pepcid PT/OT: Pending Prognosis is guarded
--- NOTE | 2024-07-28 19:49 | P.PN ---
Subjective Progress Note Date: 07/28/24 This is a 68-year-old female patient with previous history of lung cancer and the patient had undergone a right pneumonectomy back in 2019 and since then the patient has been maintained on Tagrisso. The patient was have increased cough and congestion and shortness of breath which initially presented to [facility] where she was given a course of antibiotics and she was discharged. Nevertheless, the patient was unable to take the antibiotics. She progressed and her condition got worse and she continued to have increased cough and congestion worsening shortness of breath at baseline that she came into our emergency department. Chest x-ray in the emergency showed a left lower lobe in filtrate and signs of a right pneumonectomy. The patient is currently running a white cell count of 24 with a hemoglobin 12.5 with a platelet count of 385. The sodium is at 132, potassium is at 5.3, BUN is 15 with a creatinine of 0.7. The viral screen was negative. Legionella urine antigen was negative. Procalcitonin level is 0.1. proBNP level is at 414. Troponins are also negative. I also noted some nodular changes in the left upper lobe area that needs to be further investigated. She is currently on room air oxygen. No edema lower extremities. No previous history of DVT or pulmonary embolism. On 07/28/2024, I am seeing the patient for a follow-up. Less short of breath. Less bronchospastic and wheezy compared to yesterday. Remains on IV Rocephin. The white cell count is down to 14.4 with a hemoglobin 11.1. Sodium is at 126 BUN is 12 with a creatinine of 0.6 and a bicarb is at 27. His procalcitonin level is at 0.12. CAT scan of the chest was reviewed. It is possible the patient did not have a full pneumonectomy. There is abrupt cut off the right sided bronchus with complete atelectasis of what seems to be the right middle lobe and possibly the right upper lobe showed the patient underwent right lower lobe resection. There is also pleural calcification identified along the right pleura. There is chronic right-sided volume loss. Of significance also, there are areas of patchy nodular changes involving the left lung. This could be consolidation versus malignancy and the possibility of metastatic lung disease cannot be completely excluded. I favor infectious changes however. 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 She is currently on room air oxygen with a pulse ox of 94%. No significant sputum production. Sputum Gram stain and culture was collected yesterday and results are still pending. Few gram-negative bacilli and few gram-positive cocci are present. Objective - Vital Signs Vital signs: Vital Signs Temp 97.7 F 07/28/24 06:27 Pulse 83 07/28/24 07:30 Resp 18 07/28/24 07:30 BP 123/78 07/28/24 07:30 Pulse Ox 94 L 07/28/24 07:30 FiO2 Intake & Output 07/27/24 07/28/24 07/28/24 18:59 06:59 18:59 Intake Total 1569 Balance 1569 Intake: Intake, IV Titration 150 Amount Sodium Chloride 0.9% 1, 150 000 ml @ 75 mls/hr IV . [id number] [facility] Rx#:[id number] Oral 1419 - Exam Calm and comfortable, currently on room air oxygen. No significant respiratory distress. Head exam was generally normal. There was no scleral icterus or corneal arcus. Mucous membranes were moist. Neck was supple and without jugular venous distension, thyromegaly, or carotid bruits. Carotids were easily palpable bilaterally. There was no adenopathy. Lung sounds are absent on the right, diminished breath sound the left lung base along with crackles Cardiac exam revealed the PMI to be normally situated and sized. The rhythm was regular and no extrasystoles were noted during several minutes of auscultation. The first and second heart sounds were normal and physiologic splitting of the second heart sound was noted. There were no murmurs, rubs, clicks, or gallops. Abdominal exam revealed normal bowel sounds. The abdomen was soft, non-tender, and without masses, organomegaly, or appreciable enlargement of the abdominal aorta. Examination of the extremities revealed easily palpable radial, femoral and pedal pulses. There was no cyanosis, clubbing or edema. Examination of the skin revealed no evidence of significant rashes, suspicious appearing nevi or other concerning lesions. Neurologically, the patient is awake and alert and the patient does not have any focal neurological deficit. Cranial nerves are essentially intact. - Labs CBC & Chem 7: 07/28/24 04:36 07/28/24 04:36 Labs: Abnormal Lab Results - Last 24 Hours (Table) 07/27/24 07/28/24 07/28/24 Range/Units 03:47 04:36 04:36 WBC 14.4 H (3.8-10.6) k/uL Hgb 11.1 L (11.4-16.0) gm/dL Hct 33.6 L (34.0-46.0) % Immature Gran # 0.13 H (0.00-0.04) X 10*3/uL Neutrophils # 18.46 H 12.9 H (1.80-7.70) X 10*3/uL Lymphocytes # 0.60 L 0.6 L (0.90-5.00) X 10*3/uL Monocytes # 2.24 H (0.20-1.00) X 10*3/uL Eosinophils # 0.01 L (0.04-0.35) X 10*3/uL Sodium 126 L (137-145) mmol/L Chloride 94 L (98-107) mmol/L Glucose 142 H (74-99) mg/dL Microbiology - Last 24 Hours (Table) 07/26/24 19:21 Blood Culture - Preliminary Blood 07/27/24 09:18 Gram Stain - Preliminary Sputum Assessment and Plan Plan: Acute left lower lobe pneumonia and the patient has an area of consolidation left lung base on today's chest x-ray along with some nodular opacities in the left upper lobe that needs to be further followed up in the future. This could be essentially infectious in nature. Possibility of malignancy cannot be completely excluded. As such, follow-up will be needed. Acute on shortness of breath secondary to above, improving Previous history of non-small cell lung cancer with previous right pneumonectomy 2018 and the patient has been maintained on Tagrisso on outpatient basis Acute COPD exacerbation secondary to above. No maintenance inhalers and the patient is utilizing albuterol HFA on an as-needed basis Seizure disorder Hypertension Hyperlipidemia Acute leukocytosis, improving Acute hyponatremia Plan Fluid restriction Patient is currently on room air oxygen. The procalcitonin level is minimally elevated at this point. Patient is covered with a combination of Rocephin and Zithromax Continue DuoNeb nebulized treatments [id number] IV Solu-Medrol 60 mg every 6 hours Sputum Gram stain and culture, results are still pending for now CAT scan of the chest was noted and the patient will need a follow-up CAT scan on outpatient basis in few months time to monitor the progression of those pulmonary nodules Will continue to follow
[2024-07-28] MEDS: FAMOTIDINE 20 MG TAB PO SCH (21:05)
[2024-07-29] MEDS ORDERED: oxyCODONE-APAP 7.5-325MG 1 EACH TAB ONE (04:40)
[2024-07-29] MEDS ORDERED: IPRATROPIUM-ALBUTEROL 3 ML NEB ONE (04:40)
[2024-07-29 08:38] LABS: African American GFR (CKD) 82 (>60 ml/min/1.73 sqM); Anion Gap 7 mmol/L; Blood Urea Nitrogen 22 mg/dL (7-17); Calcium 9.9 mg/dL (8.4-10.2); Carbon Dioxide 24 mmol/L (22-30); Chloride 97 mmol/L (98-107); Glucose 226 mg/dL (74-99); Non-African American GFR(CKD) 71 (>60 ml/min/1.73 sqM); Potassium 4.4 mmol/L (3.5-5.1); Sodium 128 mmol/L (137-145)
--- NOTE | 2024-07-29 09:21 | P.PN ---
Subjective This is a pleasant 68 years old female with past medical history of COPD, hypertension, seizure disorder. Patient presents because of worsening dyspnea and coughing x 1 week, not improved as an outpatient associated with chest pain/abdominal pain with coughing Patient states she has no phlegm also she denies abdominal pain and she has normal bowel movement But patient has been vomiting all day yesterday with no blood in her vomitus or coffee-ground vomitus as per patient also patient had low appetite for 3 days No urinary complaint. She has been feeling dizzy but no headache, no weakness or tingling but has been using the walker more frequently lately because of her generalized weakness Patient states she was not using steroids or antibiotic prior to admission She wants her home medication of Keppra and [place] 7.5 to resumed. Also patient complaining from some pain in her chest with the swallowing Patient is afebrile She was tachycardic and hypotensive on admission, currently blood pressure improved and heart rate is lower WBC is elevated at 24,000 INR, unremarkable, sodium slightly low 132, potassium 5.3 and creatinine 0.7 Liver enzymes, troponin are not elevated Influenza A and type B, RSV, SARS (coronavirus) are undetected proBNP is 414 EKG showing sinus tachycardia at [address]-T changes Chest x-ray reviewed by myself showing mild left lower lobe infiltrate with small left pleural effusion and status post right pneumonectomy with complete opacification of the right side Pro- Calcitonin is within the reference range at 0.1 07/28 Patient still feeling same, her dyspnea is slightly better but she is still coughing. No significant chest pain or abdominal pain. Patient does not seem in distress Patient have difficulty talking because of her shortness of breath but not that bad. No other new complaint CTA of the chest was negative for PE but showing right middle and lower infiltrate suspicious for a mass or metastasis versus pneumonia. While the left lower lobe consolidation is noted to also suspicious for pneumonia versus metastatic disease. Right humerus head showing sclerotic lesion suspicious for metastatic disease. Also patient sodium today dropped to 134 down to 126 while she is on normal saline which was discontinued. We put the patient on fluid restriction 1200 mL/day. Also will check for urine sodium and osmolality with close monitoring of sodium. 07/29 Patient still complaining from shortness of breath, she has mild tachypnea at rest. She has good oxygen saturation. She is still getting breathing treatment this morning She is on fluid restriction and sodium improved this 126 up to 128, discussed with the patient and she agrees, currently 1500 mL/day She is still covered with ceftriaxone for her pneumonia. However pro- Calcitonin were negative on 2 occasions. Patient will require to repeat CAT scan of the chest as an outpatient to assess stability She is also on IV Solu-Medrol Objective - Vital Signs Vital signs: Vital Signs Temp 98.1 F 07/29/24 07:36 Pulse 82 07/29/24 09:02 Resp 16 07/29/24 09:02 BP 127/76 07/29/24 07:36 Pulse Ox 97 07/29/24 08:51 FiO2 Intake & Output 07/28/24 07/29/24 07/29/24 18:59 06:59 18:59 Intake Total 1569 Balance 1569 Weight 63.503 kg Intake: Intake, IV Titration 150 Amount Sodium Chloride 0.9% 1, 150 000 ml @ 75 mls/hr IV . [id number] [facility] Rx#:[id number] Oral 1419 Other: # Voids 1 - Exam GENERAL: The patient is alert and oriented x3, not in any acute distress. Well developed, well nourished. HEENT: Pupils are round and equally reacting to light. EOMI. No scleral icterus. No conjunctival pallor. Normocephalic, atraumatic. No pharyngeal erythema. No thyromegaly. CARDIOVASCULAR: S1 and S2 present. No murmurs, rubs, or gallops. PULMONARY: No breath sounds on the right side. Chest is clear to auscultation, no wheezing , no crackles. Mild tachypnea ABDOMEN: Soft, nontender, nondistended, normoactive bowel sounds. No palpable organomegaly. MUSCULOSKELETAL: No joint swelling or deformity. EXTREMITIES: No cyanosis, clubbing, or pedal edema. NEUROLOGICAL: Gross neurological examination did not reveal any focal deficits. SKIN: No rashes. no petechiae. - Labs CBC & Chem 7: 07/28/24 04:36 07/29/24 08:06 Labs: Abnormal Lab Results - Last 24 Hours (Table) 07/29/24 Range/Units 08:06 Sodium 128 L (137-145) mmol/L Chloride 97 L (98-107) mmol/L BUN 22 H (7-17) mg/dL Glucose 226 H (74-99) mg/dL Microbiology - Last 24 Hours (Table) 07/26/24 19:21 Blood Culture - Preliminary Blood 07/27/24 09:18 Gram Stain - Preliminary Sputum Sputum Culture - Preliminary Assessment and Plan Assessment: Left lower lobe infiltrate, right middle and lower lobe infiltrate there was suspicion for metastatic disease versus pneumonia however patient with no fever. She has leukocytosis and pro- Calcitonin is negative Sepsis with leukocytosis and tachycardia present on admission Euvolemic hyponatremia, suspicious for an SIADH Hypotension with tachycardia related to hypovolemia, improving lung cancer, s/p right pneumonectomy Seizure disorder COPD with possible acute exacerbation Hypertension, currently she was hypotensive on admission Plan: Continue with IV Solu-Medrol 60 mg Continue with ceftriaxone Fluid restriction and check urine sodium and osmolality Continue with Robitussin Resume Plavix and Keppra Hold Valsartan 80 mg Labs and medication were reviewed.. Continue same treatment. Continue with symptomatic treatment. Resume home medication. Monitor labs and vitals. DVT and GI prophylaxis. Further recommendations as per clinical course of the patient DVT prophylaxis: Subcutaneous heparin GI Prophylaxis: Pepcid PT/OT: Pending Prognosis is guarded CODE STATUS: DNR, I discussed with the patient in details and she wants to be DNR. Patient has capacity to make medical decision
[2024-07-29 11:02] LABS: Basophils % (A) 0 %; Eosinophils % (A) 0 %; HCT 33.7 % (34.0-46.0); HGB 10.7 gm/dL (11.4-16.0); Hypochromasia Slight; Lymphocytes # (A) 0.3 k/uL (1.0-4.8); Lymphocytes % (A) 2 %; MCH 28.3 pg (25.0-35.0); MCHC 31.9 g/dL (31.0-37.0); MCV 88.7 fL (80.0-100.0); Mean Platelet Volume 8.1; Monocytes # (A) 0.9 k/uL (0-1.0); Monocytes % (A) 6 %; Neutrophils # (A) 12.2 k/uL (1.3-7.7); Neutrophils % (A) 90 %; Platelet Count 411 k/uL (150-450); RDW 13.4 % (11.5-15.5); WBC 13.5 k/uL (3.8-10.6)
[2024-07-29] MEDS: predniSONE 20 MG TAB PO SCH (12:38)
[2024-07-29] MEDS: LEVOFLOXACIN 500 MG TAB PO SCH (12:38)
--- NOTE | 2024-07-29 14:41 | P.PN ---
Subjective Progress Note Date: 07/29/24 This is a 68-year-old female patient with previous history of lung cancer and the patient had undergone a right pneumonectomy back in 2019 and since then the patient has been maintained on Tagrisso. The patient was have increased cough and congestion and shortness of breath which initially presented to [facility] where she was given a course of antibiotics and she was discharged. Nevertheless, the patient was unable to take the antibiotics. She progressed and her condition got worse and she continued to have increased cough and congestion worsening shortness of breath at baseline that she came into our emergency department. Chest x-ray in the emergency showed a left lower lobe in filtrate and signs of a right pneumonectomy. The patient is currently running a white cell count of 24 with a hemoglobin 12.5 with a platelet count of 385. The sodium is at 132, potassium is at 5.3, BUN is 15 with a creatinine of 0.7. The viral screen was negative. Legionella urine antigen was negative. Procalcitonin level is 0.1. proBNP level is at 414. Troponins are also negative. I also noted some nodular changes in the left upper lobe area that needs to be further investigated. She is currently on room air oxygen. No edema lower extremities. No previous history of DVT or pulmonary embolism. On 07/28/2024, I am seeing the patient for a follow-up. Less short of breath. Less bronchospastic and wheezy compared to yesterday. Remains on IV Rocephin. The white cell count is down to 14.4 with a hemoglobin 11.1. Sodium is at 126 BUN is 12 with a creatinine of 0.6 and a bicarb is at 27. His procalcitonin level is at 0.12. CAT scan of the chest was reviewed. It is possible the patient did not have a full pneumonectomy. There is abrupt cut off the right sided bronchus with complete atelectasis of what seems to be the right middle lobe and possibly the right upper lobe showed the patient underwent right lower lobe resection. There is also pleural calcification identified along the right pleura. There is chronic right-sided volume loss. Of significance also, there are areas of patchy nodular changes involving the left lung. This could be consolidation versus malignancy and the possibility of metastatic lung disease cannot be completely excluded. I favor infectious changes however. 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 She is currently on room air oxygen with a pulse ox of 94%. No significant sputum production. Sputum Gram stain and culture was collected yesterday and results are still pending. Few gram-negative bacilli and few gram-positive cocci are present. On 07/29/2024, seen the patient for a follow-up. Patient is doing well. Her main complaint continues to be cough and some chest wall pain and discomfort when swallowing her food. She is less bronchospastic and wheezy. The ventricle is down to 13.5. Hemoglobin is 10.7. The patient remains on DuoNeb nebulized treatments [id number]. The patient remains on IV Solu-Medrol. She is on Percocet for pain control. No altered mentation. Oxygenation stable and the patient is currently on 94% room air oxygen. No signs of any significant oropharyngeal candidiasis. Objective - Vital Signs Vital signs: Vital Signs Temp 98.1 F 07/29/24 07:36 Pulse 82 07/29/24 09:02 Resp 16 07/29/24 09:02 BP 127/76 07/29/24 07:36 Pulse Ox 97 07/29/24 08:51 FiO2 Intake & Output 07/28/24 07/29/24 07/29/24 18:59 06:59 18:59 Intake Total 1569 Balance 1569 Weight 63.503 kg Intake: Intake, IV Titration 150 Amount Sodium Chloride 0.9% 1, 150 000 ml @ 75 mls/hr IV . [id number] [facility] Rx#:[id number] Oral 1419 Other: Voiding Method Toilet # Voids 1 - Exam Calm and comfortable, currently on room air oxygen. No significant respiratory distress. Head exam was generally normal. There was no scleral icterus or corneal arcus. Mucous membranes were moist. Neck was supple and without jugular venous distension, thyromegaly, or carotid bruits. Carotids were easily palpable bilaterally. There was no adenopathy. Lung sounds are absent on the right, diminished breath sound the left lung base along with crackles Cardiac exam revealed the PMI to be normally situated and sized. The rhythm was regular and no extrasystoles were noted during several minutes of auscultation. The first and second heart sounds were normal and physiologic splitting of the second heart sound was noted. There were no murmurs, rubs, clicks, or gallops. Abdominal exam revealed normal bowel sounds. The abdomen was soft, non-tender, and without masses, organomegaly, or appreciable enlargement of the abdominal aorta. Examination of the extremities revealed easily palpable radial, femoral and pedal pulses. There was no cyanosis, clubbing or edema. Examination of the skin revealed no evidence of significant rashes, suspicious appearing nevi or other concerning lesions. Neurologically, the patient is awake and alert and the patient does not have any focal neurological deficit. Cranial nerves are essentially intact. - Labs CBC & Chem 7: 07/29/24 10:19 07/29/24 08:06 Labs: Abnormal Lab Results - Last 24 Hours (Table) 07/29/24 07/29/24 Range/Units 08:06 10:19 WBC 13.5 H (3.8-10.6) k/uL Hgb 10.7 L (11.4-16.0) gm/dL Hct 33.7 L (34.0-46.0) % Neutrophils # 12.2 H (1.3-7.7) k/uL Lymphocytes # 0.3 L (1.0-4.8) k/uL Sodium 128 L (137-145) mmol/L Chloride 97 L (98-107) mmol/L BUN 22 H (7-17) mg/dL Glucose 226 H (74-99) mg/dL Microbiology - Last 24 Hours (Table) 07/27/24 09:18 Gram Stain - Final Sputum Sputum Culture - Final 07/26/24 19:21 Blood Culture - Preliminary Blood Assessment and Plan Plan: Acute left lower lobe pneumonia and the patient has an area of consolidation left lung base on today's chest x-ray along with some nodular opacities in the left upper lobe that needs to be further followed up in the future. This could be essentially infectious in nature. Possibility of malignancy cannot be completely excluded. As such, follow-up will be needed. Acute on shortness of breath secondary to above, improving Previous history of non-small cell lung cancer with previous right pneumonectomy 2018 and the patient has been maintained on Tagrisso on outpatient basis Acute COPD exacerbation secondary to above. No maintenance inhalers and the patient is utilizing albuterol HFA on an as-needed basis Seizure disorder Hypertension Hyperlipidemia Acute leukocytosis, improving Acute hyponatremia Plan Fluid restriction, awaiting follow-up labs and electrolytes from today. The patient's white cell count is improving. Patient is currently on room air oxygen. The procalcitonin level is minimally elevated at this point. Patient is covered IV Rocephin Continue DuoNeb nebulized treatments [id number] IV Solu-Medrol 60 mg every 6 hours for another 24 hours Percocet for pain control CAT scan of the chest was noted and the patient will need a follow-up CAT scan on outpatient basis in few months time to monitor the progression of those pulmonary nodules Monitor electrolytes Will continue to follow
[2024-07-29] MEDS: oxyCODONE-APAP 10-325MG 1 EACH TAB PO PRN (15:20)
[2024-07-30] MEDS: IPRATROPIUM-ALBUTEROL 3 ML NEB INHALATION PRN (04:09)
[2024-07-30] MEDS: FAMOTIDINE 20 MG TAB PO SCH (08:03)
--- NOTE | 2024-07-30 14:59 | P.PN ---
Subjective Progress Note Date: 07/30/24 This is a 68-year-old female patient with previous history of lung cancer and the patient had undergone a right pneumonectomy back in 2019 and since then the patient has been maintained on Tagrisso. The patient was have increased cough and congestion and shortness of breath which initially presented to [facility] where she was given a course of antibiotics and she was discharged. Nevertheless, the patient was unable to take the antibiotics. She progressed and her condition got worse and she continued to have increased cough and congestion worsening shortness of breath at baseline that she came into our emergency department. Chest x-ray in the emergency showed a left lower lobe in filtrate and signs of a right pneumonectomy. The patient is currently running a white cell count of 24 with a hemoglobin 12.5 with a platelet count of 385. The sodium is at 132, potassium is at 5.3, BUN is 15 with a creatinine of 0.7. The viral screen was negative. Legionella urine antigen was negative. Procalcitonin level is 0.1. proBNP level is at 414. Troponins are also negative. I also noted some nodular changes in the left upper lobe area that needs to be further investigated. She is currently on room air oxygen. No edema lower extremities. No previous history of DVT or pulmonary embolism. On 07/28/2024, I am seeing the patient for a follow-up. Less short of breath. Less bronchospastic and wheezy compared to yesterday. Remains on IV Rocephin. The white cell count is down to 14.4 with a hemoglobin 11.1. Sodium is at 126 BUN is 12 with a creatinine of 0.6 and a bicarb is at 27. His procalcitonin level is at 0.12. CAT scan of the chest was reviewed. It is possible the patient did not have a full pneumonectomy. There is abrupt cut off the right sided bronchus with complete atelectasis of what seems to be the right middle lobe and possibly the right upper lobe showed the patient underwent right lower lobe resection. There is also pleural calcification identified along the right pleura. There is chronic right-sided volume loss. Of significance also, there are areas of patchy nodular changes involving the left lung. This could be consolidation versus malignancy and the possibility of metastatic lung disease cannot be completely excluded. I favor infectious changes however. 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 She is currently on room air oxygen with a pulse ox of 94%. No significant sputum production. Sputum Gram stain and culture was collected yesterday and results are still pending. Few gram-negative bacilli and few gram-positive cocci are present. On 07/29/2024, seen the patient for a follow-up. Patient is doing well. Her main complaint continues to be cough and some chest wall pain and discomfort when swallowing her food. She is less bronchospastic and wheezy. The ventricle is down to 13.5. Hemoglobin is 10.7. The patient remains on DuoNeb nebulized treatments [id number]. The patient remains on IV Solu-Medrol. She is on Percocet for pain control. No altered mentation. Oxygenation stable and the patient is currently on 94% room air oxygen. No signs of any significant oropharyngeal candidiasis. On 07/30/2024, [facility] the patient for a follow-up. Resting comfortably in bed. No new complaints. Still having some shortness of breath and diffuse bodyaches more so than her right shoulder area. Labs from today are still pending. The patient remains on bronchodilators with DuoNeb updrafts. The patient remains on steroids and the patient has been placed on oral prednisone starting with 60 mg p.o. daily. She was also switched to oral antibiotics. I am going to obtain a follow-up chest x-ray for this patient for tomorrow. Objective - Vital Signs Vital signs: Vital Signs Temp 97.5 F L 07/30/24 08:00 Pulse 98 07/30/24 08:00 Resp 17 07/30/24 08:00 BP 151/85 07/30/24 08:00 Pulse Ox 96 07/30/24 08:00 FiO2 Intake & Output 07/29/24 07/30/24 07/30/24 18:59 06:59 18:59 Output Total 300 Balance -300 Output: Urine 300 Other: Voiding Method Toilet Toilet # Voids 3 2 - Exam Calm and comfortable, currently on room air oxygen. No significant respiratory distress. Head exam was generally normal. There was no scleral icterus or corneal arcus. Mucous membranes were moist. Neck was supple and without jugular venous distension, thyromegaly, or carotid bruits. Carotids were easily palpable bilaterally. There was no adenopathy. Lung sounds are absent on the right, diminished breath sound the left lung base along with crackles Cardiac exam revealed the PMI to be normally situated and sized. The rhythm was regular and no extrasystoles were noted during several minutes of auscultation. The first and second heart sounds were normal and physiologic splitting of the second heart sound was noted. There were no murmurs, rubs, clicks, or gallops. Abdominal exam revealed normal bowel sounds. The abdomen was soft, non-tender, and without masses, organomegaly, or appreciable enlargement of the abdominal aorta. Examination of the extremities revealed easily palpable radial, femoral and pedal pulses. There was no cyanosis, clubbing or edema. Examination of the skin revealed no evidence of significant rashes, suspicious appearing nevi or other concerning lesions. Neurologically, the patient is awake and alert and the patient does not have any focal neurological deficit. Cranial nerves are essentially intact. - Labs CBC & Chem 7: 07/29/24 10:19 07/29/24 08:06 Labs: Abnormal Lab Results - Last 24 Hours (Table) 07/29/24 07/29/24 07/29/24 Range/Units 10:19 10:19 16:00 WBC 13.5 H (3.8-10.6) k/uL Hgb 10.7 L (11.4-16.0) gm/dL Hct 33.7 L (34.0-46.0) % Neutrophils # 12.2 H (1.3-7.7) k/uL Lymphocytes # 0.3 L (1.0-4.8) k/uL TSH 0.177 L (0.350-5.500) UIU/ML Ur Random Sodium <20 L (40-220) mmol/L Microbiology - Last 24 Hours (Table) 07/26/24 19:21 Blood Culture - Preliminary Blood 07/27/24 09:18 Gram Stain - Final Sputum Sputum Culture - Final Assessment and Plan Plan: Acute left lower lobe pneumonia and the patient has an area of consolidation left lung base on today's chest x-ray along with some nodular opacities in the l eft upper lobe that needs to be further followed up in the future. This could be essentially infectious in nature. Possibility of malignancy cannot be completely excluded. As such, follow-up will be needed. Acute on shortness of breath secondary to above, improving Previous history of non-small cell lung cancer with previous right pneumonectomy 2018 and the patient has been maintained on Tagrisso on outpatient basis Acute COPD exacerbation secondary to above. No maintenance inhalers and the patient is utilizing albuterol HFA on an as-needed basis Seizure disorder Hypertension Hyperlipidemia Acute leukocytosis, improving Acute hyponatremia Plan Clinically stable and slightly improved Obtain a follow-up chest x-ray for tomorrow The procalcitonin level is minimally elevated at this point. Patient is covered oral Levaquin Continue DuoNeb nebulized treatments [id number] Prednisone 60 mg p.o. daily as part of the burst taper Percocet for pain control CAT scan of the chest was noted and the patient will need a follow-up CAT scan on outpatient basis in few months time to monitor the progression of those pulmonary nodules Monitor electrolytes Will continue to follow
[2024-07-30] MEDS: guaiFENesin-DM 100-10MG/5ML 10 ML CUP PO PRN (15:20)
--- NOTE | 2024-07-30 23:56 | P.PN ---
Subjective This is a pleasant 68 years old female with past medical history of COPD, hypertension, seizure disorder. Patient presents because of worsening dyspnea and coughing x 1 week, not improved as an outpatient associated with chest pain/abdominal pain with coughing Patient states she has no phlegm also she denies abdominal pain and she has normal bowel movement But patient has been vomiting all day yesterday with no blood in her vomitus or coffee-ground vomitus as per patient also patient had low appetite for 3 days No urinary complaint. She has been feeling dizzy but no headache, no weakness or tingling but has been using the walker more frequently lately because of her generalized weakness Patient states she was not using steroids or antibiotic prior to admission She wants her home medication of Keppra and [place] 7.5 to resumed. Also patient complaining from some pain in her chest with the swallowing Patient is afebrile She was tachycardic and hypotensive on admission, currently blood pressure improved and heart rate is lower WBC is elevated at 24,000 INR, unremarkable, sodium slightly low 132, potassium 5.3 and creatinine 0.7 Liver enzymes, troponin are not elevated Influenza A and type B, RSV, SARS (coronavirus) are undetected proBNP is 414 EKG showing sinus tachycardia at [address]-T changes Chest x-ray reviewed by myself showing mild left lower lobe infiltrate with small left pleural effusion and status post right pneumonectomy with complete opacification of the right side Pro- Calcitonin is within the reference range at 0.1 07/28 Patient still feeling same, her dyspnea is slightly better but she is still coughing. No significant chest pain or abdominal pain. Patient does not seem in distress Patient have difficulty talking because of her shortness of breath but not that bad. No other new complaint CTA of the chest was negative for PE but showing right middle and lower infiltrate suspicious for a mass or metastasis versus pneumonia. While the left lower lobe consolidation is noted to also suspicious for pneumonia versus metastatic disease. Right humerus head showing sclerotic lesion suspicious for metastatic disease. Also patient sodium today dropped to 134 down to 126 while she is on normal saline which was discontinued. We put the patient on fluid restriction 1200 mL/day. Also will check for urine sodium and osmolality with close monitoring of sodium. 07/29 Patient still complaining from shortness of breath, she has mild tachypnea at rest. She has good oxygen saturation. She is still getting breathing treatment this morning She is on fluid restriction and sodium improved this 126 up to 128, discussed with the patient and she agrees, currently 1500 mL/day She is still covered with ceftriaxone for her pneumonia. However pro- Calcitonin were negative on 2 occasions. Patient will require to repeat CAT scan of the chest as an outpatient to assess stability She is also on IV Solu-Medrol 07/30 Patient still complaining from shortness of breath today and found to have coughing Patient has not in fact for shortness of breath this morning. Patient on fluid restriction of sodium improving slowly and gradually. Discussed with the patient and agrees with this current plan. Pulmonary team recommend to repeat CAT scan in a few months to assess stability of his lung nodules Currently on antibiotic, cefuroxime switched to Levaquin Also started on a prednisone burst taper starting at 60 mg daily Objective - Vital Signs Vital signs: Vital Signs Temp 97.5 F L 07/30/24 08:00 Pulse 98 07/30/24 08:05 Resp 17 07/30/24 08:05 BP 151/85 07/30/24 08:00 Pulse Ox 96 07/30/24 08:00 FiO2 Intake & Output 07/29/24 07/30/24 07/30/24 18:59 06:59 18:59 Output Total 300 Balance -300 Output: Urine 300 Other: Voiding Method Toilet Toilet Toilet # Voids 3 2 - Exam GENERAL: The patient is alert and oriented x3, not in any acute distress. Well developed, well nourished. HEENT: Pupils are round and equally reacting to light. EOMI. No scleral icterus. No conjunctival pallor. Normocephalic, atraumatic. No pharyngeal erythema. No thyromegaly. CARDIOVASCULAR: S1 and S2 present. No murmurs, rubs, or gallops. PULMONARY: No breath sounds on the right side. Chest is clear to auscultation, no wheezing , no crackles. Mild tachypnea ABDOMEN: Soft, nontender, nondistended, normoactive bowel sounds. No palpable organomegaly. MUSCULOSKELETAL: No joint swelling or deformity. EXTREMITIES: No cyanosis, clubbing, or pedal edema. NEUROLOGICAL: Gross neurological examination did not reveal any focal deficits. SKIN: No rashes. no petechiae. - Labs CBC & Chem 7: 07/29/24 10:19 07/29/24 08:06 Labs: Abnormal Lab Results - Last 24 Hours (Table) 07/29/24 07/29/24 Range/Units 10:19 16:00 TSH 0.177 L (0.350-5.500) UIU/ML Ur Random Sodium <20 L (40-220) mmol/L Microbiology - Last 24 Hours (Table) 07/26/24 19:21 Blood Culture - Preliminary Blood 07/27/24 09:18 Gram Stain - Final Sputum Sputum Culture - Final Assessment and Plan Assessment: Left lower lobe infiltrate, right middle and lower lobe infiltrate there was suspicion for metastatic disease versus pneumonia however patient with no fever. She has leukocytosis and pro- Calcitonin is negative andPulmonary team on the case and recommended to repeat CAT scan in few minutes to assess stability of the lung nodules Sepsis with leukocytosis and tachycardia present on admission Euvolemic hyponatremia, suspicious for an SIADH Hypotension with tachycardia related to hypovolemia, improving lung cancer, s/p right pneumonectomy Seizure disorder COPD with possible acute exacerbation Hypertension, currently she was hypotensive on admission Plan: Continue with prednisone 60 mg Continue with Levaquin and DC ceftriaxone Continue with Robitussin Resume Plavix and Keppra Hold Valsartan 80 mg Pulmonary team on the case and recommended to repeat CAT scan in few minutes to assess stability of the lung nodules Labs and medication were reviewed.. Continue same treatment. Continue with symptomatic treatment. Resume home medication. Monitor labs and vitals. DVT and GI prophylaxis. Further recommendations as per clinical course of the patient DVT prophylaxis: Subcutaneous heparin GI Prophylaxis: Pepcid PT/OT: Pending Prognosis is guarded CODE STATUS: DNR, I discussed with the patient in details and she wants to be DNR. Patient has capacity to make medical decision
--- NOTE | 2024-07-31 07:13 | XR ---
EXAMINATION TYPE: XR chest 1V DATE OF EXAM: 07/31/2024 COMPARISON: 07/26/2024 HISTORY: Follow-up pneumonia TECHNIQUE: Single frontal view of the chest is obtained. FINDINGS: There is complete opacification of the right hemithorax which according to history is secondary to pn eumonectomy. There is no change in the left lung base where there is a small left effusion and possibly a small pa rtially consolidative infiltrate indicating pneumonia or atelectasis. There is no left lung pneumothorax. IMPRESSION: No significant interval change compared to previous. [facility], Workstation: [facility], 07/31/2024 7:11 AM
[2024-07-31 09:11] LABS: MCHC 32.4 g/dL (32.0-37.0); MCV 86.5 FL (80.0-97.0); Mean Platelet Volume 11.7 FL (9.5-12.2); NRBC Per 100 WBC 0.02 X 10*3/uL (0.00-0.01); Platelet Count 467 X 10*3/uL (140-440); RBC 3.93 X 10*6/uL (4.10-5.20); RDW 14.1 % (11.5-14.5); WBC 13.54 X 10*3/uL (4.50-10.00)
[2024-07-31 09:39] LABS: Blood Urea Nitrogen 28.4 mg/dL (9.0-27.0); Chloride 94 mmol/L (96-109); Glucose 98 mg/dL (70-110); Potassium 5.5 mmol/L (3.5-5.5); Sodium 131 mmol/L (135-145)
[2024-07-31 10:07] LABS: Basophils # (M) 0 X 10*3/uL (0.00-0.10); Eosinophils # (M) 0 X 10*3/uL (0.04-0.35); Lymphocytes # (M) 0.41 X 10*3/uL (0.90-5.00); Monocytes # (M) 1.49 X 10*3/uL (0.20-1.00); Myelocytes % 4 % (0-0); Neutrophils % (M) 82 %
--- NOTE | 2024-07-31 11:18 | P.PN ---
Subjective This is a pleasant 68 years old female with past medical history of COPD, hypertension, seizure disorder. Patient presents because of worsening dyspnea and coughing x 1 week, not improved as an outpatient associated with chest pain/abdominal pain with coughing Patient states she has no phlegm also she denies abdominal pain and she has normal bowel movement But patient has been vomiting all day yesterday with no blood in her vomitus or coffee-ground vomitus as per patient also patient had low appetite for 3 days No urinary complaint. She has been feeling dizzy but no headache, no weakness or tingling but has been using the walker more frequently lately because of her generalized weakness Patient states she was not using steroids or antibiotic prior to admission She wants her home medication of Keppra and [place] 7.5 to resumed. Also patient complaining from some pain in her chest with the swallowing Patient is afebrile She was tachycardic and hypotensive on admission, currently blood pressure improved and heart rate is lower WBC is elevated at 24,000 INR, unremarkable, sodium slightly low 132, potassium 5.3 and creatinine 0.7 Liver enzymes, troponin are not elevated Influenza A and type B, RSV, SARS (coronavirus) are undetected proBNP is 414 EKG showing sinus tachycardia at [address]-T changes Chest x-ray reviewed by myself showing mild left lower lobe infiltrate with small left pleural effusion and status post right pneumonectomy with complete opacification of the right side Pro- Calcitonin is within the reference range at 0.1 07/28 Patient still feeling same, her dyspnea is slightly better but she is still coughing. No significant chest pain or abdominal pain. Patient does not seem in distress Patient have difficulty talking because of her shortness of breath but not that bad. No other new complaint CTA of the chest was negative for PE but showing right middle and lower infiltrate suspicious for a mass or metastasis versus pneumonia. While the left lower lobe consolidation is noted to also suspicious for pneumonia versus metastatic disease. Right humerus head showing sclerotic lesion suspicious for metastatic disease. Also patient sodium today dropped to 134 down to 126 while she is on normal saline which was discontinued. We put the patient on fluid restriction 1200 mL/day. Also will check for urine sodium and osmolality with close monitoring of sodium. 07/29 Patient still complaining from shortness of breath, she has mild tachypnea at rest. She has good oxygen saturation. She is still getting breathing treatment this morning She is on fluid restriction and sodium improved this 126 up to 128, discussed with the patient and she agrees, currently 1500 mL/day She is still covered with ceftriaxone for her pneumonia. However pro- Calcitonin were negative on 2 occasions. Patient will require to repeat CAT scan of the chest as an outpatient to assess stability She is also on IV Solu-Medrol 07/30 Patient still complaining from shortness of breath today and found to have coughing Patient has not in fact for shortness of breath this morning. Patient on fluid restriction of sodium improving slowly and gradually. Discussed with the patient and agrees with this current plan. Pulmonary team recommend to repeat CAT scan in a few months to assess stability of his lung nodules Currently on antibiotic, cefuroxime switched to Levaquin Also started on a prednisone burst taper starting at 60 mg daily 07/31 Patient skipped her breathing treatment this morning, after that she felt little short of breath No significant bronchospastic breath sounds, pneumonia looks improving and currently she was placed on Levaquin Also her steroids switched to prednisone She looks little anxious we will add Xanax as needed Swallow evaluation in the morning is requested Objective - Vital Signs Vital signs: Vital Signs Temp 97.8 F 07/31/24 07:43 Pulse 78 07/31/24 11:10 Resp 17 07/31/24 07:43 BP 127/79 07/31/24 07:43 Pulse Ox 95 07/31/24 07:43 FiO2 Intake & Output 07/30/24 07/31/24 07/31/24 18:59 06:59 18:59 Intake Total 920 Balance 920 Intake: Oral 920 Other: Voiding Method Toilet Toilet Toilet # Voids 2 - Exam GENERAL: The patient is alert and oriented x3, not in any acute distress. Well developed, well nourished. HEENT: Pupils are round and equally reacting to light. EOMI. No scleral icterus. No conjunctival pallor. Normocephalic, atraumatic. No pharyngeal erythema. No thyromegaly. CARDIOVASCULAR: S1 and S2 present. No murmurs, rubs, or gallops. PULMONARY: No breath sounds on the right side. Chest is clear to auscultation, no wheezing , no crackles. Mild tachypnea ABDOMEN: Soft, nontender, nondistended, normoactive bowel sounds. No palpable organomegaly. MUSCULOSKELETAL: No joint swelling or deformity. EXTREMITIES: No cyanosis, clubbing, or pedal edema. NEUROLOGICAL: Gross neurological examination did not reveal any focal deficits. SKIN: No rashes. no petechiae. - Labs CBC & Chem 7: 07/31/24 03:17 07/31/24 03:17 Labs: Abnormal Lab Results - Last 24 Hours (Table) 07/31/24 07/31/24 Range/Units 03:17 03:17 WBC 13.54 H (4.50-10.00) X 10*3/uL RBC 3.93 L (4.10-5.20) X 10*6/uL Hgb 11.0 L (12.0-15.0) g/dL Hct 34.0 L (37.2-46.3) % Plt Count 467 H (140-440) X 10*3/uL Neutrophils # (Manual) 11.10 H (1.80-7.70) X 10*3/uL Lymphocytes # (Manual) 0.41 L (0.90-5.00) X 10*3/uL Monocytes # (Manual) 1.49 H (0.20-1.00) X 10*3/uL Eosinophils # (Manual) 0 L (0.04-0.35) X 10*3/uL NRBC/100 WBC Diff 0.02 H (0.00-0.01) X 10*3/uL Sodium 131 L (135-145) mmol/L Chloride 94 L (96-109) mmol/L BUN 28.4 H (9.0-27.0) mg/dL BUN/Creatinine Ratio 28.40 H (12.00-20.00) Ratio Assessment and Plan Assessment: Left lower lobe infiltrate, right middle and lower lobe infiltrate there was suspicion for metastatic disease versus pneumonia however patient with no fever. She has leukocytosis and pro- Calcitonin is negative andPulmonary team on the case and recommended to repeat CAT scan in few minutes to assess stability of the lung nodules Sepsis with leukocytosis and tachycardia present on admission Euvolemic hyponatremia, suspicious for an SIADH Hypotension with tachycardia related to hypovolemia, improving lung cancer, s/p right pneumonectomy Seizure disorder COPD with possible acute exacerbation Hypertension, currently she was hypotensive on admission Plan: Continue with prednisone 60 mg Continue with Levaquin and DC ceftriaxone Continue with Robitussin Resume Plavix and Keppra Hold Valsartan 80 mg Pulmonary team on the case and recommended to repeat CAT scan in few minutes to assess stability of the lung nodules Labs and medication were reviewed.. Continue same treatment. Continue with symptomatic treatment. Resume home medication. Monitor labs and vitals. DVT and GI prophylaxis. Further recommendations as per clinical course of the adrián ent DVT prophylaxis: Subcutaneous heparin GI Prophylaxis: Pepcid PT/OT: Pending Prognosis is guarded CODE STATUS: DNR, I discussed with the patient in details and she wants to be DNR. Patient has capacity to make medical decision
[2024-07-31] MEDS ORDERED: ALPRAZolam 0.5 MG TAB PO PRN (11:19)
[2024-07-31] MEDS: PANTOPRAZOLE 40 MG TABLET PO SCH (12:04)
--- NOTE | 2024-07-31 14:33 | P.PN ---
Subjective Progress Note Date: 07/31/24 This is a 68-year-old female patient with previous history of lung cancer and the patient had undergone a right pneumonectomy back in 2019 and since then the patient has been maintained on Tagrisso. The patient was have increased cough and congestion and shortness of breath which initially presented to [facility] where she was given a course of antibiotics and she was discharged. Nevertheless, the patient was unable to take the antibiotics. She progressed and her condition got worse and she continued to have increased cough and congestion worsening shortness of breath at baseline that she came into our emergency department. Chest x-ray in the emergency showed a left lower lobe in filtrate and signs of a right pneumonectomy. The patient is currently running a white cell count of 24 with a hemoglobin 12.5 with a platelet count of 385. The sodium is at 132, potassium is at 5.3, BUN is 15 with a creatinine of 0.7. The viral screen was negative. Legionella urine antigen was negative. Procalcitonin level is 0.1. proBNP level is at 414. Troponins are also negative. I also noted some nodular changes in the left upper lobe area that needs to be further investigated. She is currently on room air oxygen. No edema lower extremities. No previous history of DVT or pulmonary embolism. On 07/28/2024, I am seeing the patient for a follow-up. Less short of breath. Less bronchospastic and wheezy compared to yesterday. Remains on IV Rocephin. The white cell count is down to 14.4 with a hemoglobin 11.1. Sodium is at 126 BUN is 12 with a creatinine of 0.6 and a bicarb is at 27. His procalcitonin level is at 0.12. CAT scan of the chest was reviewed. It is possible the patient did not have a full pneumonectomy. There is abrupt cut off the right sided bronchus with complete atelectasis of what seems to be the right middle lobe and possibly the right upper lobe showed the patient underwent right lower lobe resection. There is also pleural calcification identified along the right pleura. There is chronic right-sided volume loss. Of significance also, there are areas of patchy nodular changes involving the left lung. This could be consolidation versus malignancy and the possibility of metastatic lung disease cannot be completely excluded. I favor infectious changes however. 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 She is currently on room air oxygen with a pulse ox of 94%. No significant sputum production. Sputum Gram stain and culture was collected yesterday and results are still pending. Few gram-negative bacilli and few gram-positive cocci are present. On 07/29/2024, seen the patient for a follow-up. Patient is doing well. Her main complaint continues to be cough and some chest wall pain and discomfort when swallowing her food. She is less bronchospastic and wheezy. The ventricle is down to 13.5. Hemoglobin is 10.7. The patient remains on DuoNeb nebulized treatments [id number]. The patient remains on IV Solu-Medrol. She is on Percocet for pain control. No altered mentation. Oxygenation stable and the patient is currently on 94% room air oxygen. No signs of any significant oropharyngeal candidiasis. On 07/30/2024, MC the patient for a follow-up. Resting comfortably in bed. No new complaints. Still having some shortness of breath and diffuse bodyaches more so than her right shoulder area. Labs from today are still pending. The patient remains on bronchodilators with DuoNeb updrafts. The patient remains on steroids and the patient has been placed on oral prednisone starting with 60 mg p.o. daily. She was also switched to oral antibiotics. I am going to obtain a follow-up chest x-ray for this patient for tomorrow. 07/31/2024, patient is complaining of squeezing sensation over the anterior chest area. She is also having some occasional difficulty swallowing. Breath sounds is adequate on the left lung. Repeat chest x-ray was done today this morning and the previous described nodular opacity in the left lung was not seen. The patient is post right pneumonectomy. The patient remains on 2 L of oxygen by nasal cannula. She is also able to come off the oxygen. The white cell count of 13, hemoglobin 11 and platelet count is 467. Sodium is at 131, potassium level is at 5.5, BUN is 28 with a creatinine of 1.0. The patient remains on DuoNeb updrafts, prednisone starting with 60 mg and taper down to 40 mg. The patient is also on Levaquin 5 mg p.o. daily. She is on Pepcid and I am going to add IV Protonix and obtain a modified barium swallow. Objective - Vital Signs Vital signs: Vital Signs Temp 97.8 F 07/31/24 07:43 Pulse 87 07/31/24 07:43 Resp 17 07/31/24 07:43 BP 127/79 07/31/24 07:43 Pulse Ox 95 07/31/24 07:43 FiO2 Intake & Output 07/30/24 07/31/24 07/31/24 18:59 06:59 18:59 Intake Total 920 Balance 920 Intake: Oral 920 Other: Voiding Method Toilet Toilet Toilet # Voids 2 - Exam Calm and comfortable, currently on room air oxygen. No significant respiratory distress. Head exam was generally normal. There was no scleral icterus or corneal arcus. Mucous membranes were moist. Neck was supple and without jugular venous distension, thyromegaly, or carotid bruits. Carotids were easily palpable bilaterally. There was no adenopathy. Lung sounds are absent on the right, diminished breath sound the left lung base along with crackles Cardiac exam revealed the PMI to be normally situated and sized. The rhythm was regular and no extrasystoles were noted during several minutes of auscultation. The first and second heart sounds were normal and physiologic splitting of the second heart sound was noted. There were no murmurs, rubs, clicks, or gallops. Abdominal exam revealed normal bowel sounds. The abdomen was soft, non-tender, and without masses, organomegaly, or appreciable enlargement of the abdominal aorta. Examination of the extremities revealed easily palpable radial, femoral and pedal pulses. There was no cyanosis, clubbing or edema. Examination of the skin revealed no evidence of significant rashes, suspicious appearing nevi or other concerning lesions. Neurologically, the patient is awake and alert and the patient does not have any focal neurological deficit. Cranial nerves are essentially intact. - Labs CBC & Chem 7: 07/31/24 03:17 07/31/24 03:17 Labs: Abnormal Lab Results - Last 24 Hours (Table) 07/31/24 07/31/24 Range/Units 03:17 03:17 WBC 13.54 H (4.50-10.00) X 10*3/uL RBC 3.93 L (4.10-5.20) X 10*6/uL Hgb 11.0 L (12.0-15.0) g/dL Hct 34.0 L (37.2-46.3) % Plt Count 467 H (140-440) X 10*3/uL Neutrophils # (Manual) 11.10 H (1.80-7.70) X 10*3/uL Lymphocytes # (Manual) 0.41 L (0.90-5.00) X 10*3/uL Monocytes # (Manual) 1.49 H (0.20-1.00) X 10*3/uL Eosinophils # (Manual) 0 L (0.04-0.35) X 10*3/uL NRBC/100 WBC Diff 0.02 H (0.00-0.01) X 10*3/uL Sodium 131 L (135-145) mmol/L Chloride 94 L (96-109) mmol/L BUN 28.4 H (9.0-27.0) mg/dL BUN/Creatinine Ratio 28.40 H (12.00-20.00) Ratio Assessment and Plan Plan: Acute left lower lobe pneumonia and the patient has an area of consolidation left lung base on today's chest x-ray along with some nodular opacities in the left upper lobe that needs to be further followed up in the future. This could be essentially infectious in nature. Possibility of malignancy cannot be completely excluded. As such, follow-up will be needed. Acute on shortness of breath secondary to above, improving Previous history of non-small cell lung cancer with previous right pneumonectomy 2019 and the patient has been maintained on Tagrisso on outpatient basis Acute COPD exacerbation secondary to above. No maintenance inhalers and the p atient is utilizing albuterol HFA on an as-needed basis Seizure disorder Hypertension Hyperlipidemia Acute leukocytosis, improving Acute hyponatremia Plan Clinically stable and slightly improved, however, the exact cause for her ongoing squeezing sensation over the anterior chest is not clear to me. I am going to put her on Protonix and she is already on Pepcid. Will obtain also a modified barium swallow Obtain a follow-up chest x-ray from today shows no acute abnormalities. The procalcitonin level is minimally elevated at this point. Patient is covered oral Levaquin Continue DuoNeb nebulized treatments [id number] Prednisone will be reduced down to 40 mg p.o. daily. Percocet for pain control CAT scan of the chest was noted and the patient will need a follow-up CAT scan on outpatient basis in few months time to monitor the progression of those pulmonary nodules Will continue to follow
[2024-08-01 09:12] LABS: Blood Urea Nitrogen 22.2 mg/dL (9.0-27.0); Calcium 9.5 mg/dL (8.7-10.3); Chloride 94 mmol/L (96-109); Glucose 104 mg/dL (70-110); Potassium 6.1 mmol/L (3.5-5.5); Sodium 131 mmol/L (135-145)
--- NOTE | 2024-08-01 09:28 | P.PN ---
Subjective This is a pleasant 68 years old female with past medical history of COPD, hypertension, seizure disorder. Patient presents because of worsening dyspnea and coughing x 1 week, not improved as an outpatient associated with chest pain/abdominal pain with coughing Patient states she has no phlegm also she denies abdominal pain and she has normal bowel movement But patient has been vomiting all day yesterday with no blood in her vomitus or coffee-ground vomitus as per patient also patient had low appetite for 3 days No urinary complaint. She has been feeling dizzy but no headache, no weakness or tingling but has been using the walker more frequently lately because of her generalized weakness Patient states she was not using steroids or antibiotic prior to admission She wants her home medication of Keppra and [place] 7.5 to resumed. Also patient complaining from some pain in her chest with the swallowing Patient is afebrile She was tachycardic and hypotensive on admission, currently blood pressure improved and heart rate is lower WBC is elevated at 24,000 INR, unremarkable, sodium slightly low 132, potassium 5.3 and creatinine 0.7 Liver enzymes, troponin are not elevated Influenza A and type B, RSV, SARS (coronavirus) are undetected proBNP is 414 EKG showing sinus tachycardia at [address]-T changes Chest x-ray reviewed by myself showing mild left lower lobe infiltrate with small left pleural effusion and status post right pneumonectomy with complete opacification of the right side Pro- Calcitonin is within the reference range at 0.1 07/28 Patient still feeling same, her dyspnea is slightly better but she is still coughing. No significant chest pain or abdominal pain. Patient does not seem in distress Patient have difficulty talking because of her shortness of breath but not that bad. No other new complaint CTA of the chest was negative for PE but showing right middle and lower infiltrate suspicious for a mass or metastasis versus pneumonia. While the left lower lobe consolidation is noted to also suspicious for pneumonia versus metastatic disease. Right humerus head showing sclerotic lesion suspicious for metastatic disease. Also patient sodium today dropped to 134 down to 126 while she is on normal saline which was discontinued. We put the patient on fluid restriction 1200 mL/day. Also will check for urine sodium and osmolality with close monitoring of sodium. 07/29 Patient still complaining from shortness of breath, she has mild tachypnea at rest. She has good oxygen saturation. She is still getting breathing treatment this morning She is on fluid restriction and sodium improved this 126 up to 128, discussed with the patient and she agrees, currently 1500 mL/day She is still covered with ceftriaxone for her pneumonia. However pro- Calcitonin were negative on 2 occasions. Patient will require to repeat CAT scan of the chest as an outpatient to assess stability She is also on IV Solu-Medrol 07/30 Patient still complaining from shortness of breath today and found to have coughing Patient has not in fact for shortness of breath this morning. Patient on fluid restriction of sodium improving slowly and gradually. Discussed with the patient and agrees with this current plan. Pulmonary team recommend to repeat CAT scan in a few months to assess stability of his lung nodules Currently on antibiotic, cefuroxime switched to Levaquin Also started on a prednisone burst taper starting at 60 mg daily 07/31 Patient skipped her breathing treatment this morning, after that she felt little short of breath No significant bronchospastic breath sounds, pneumonia looks improving and currently she was placed on Levaquin Also her steroids switched to prednisone She looks little anxious we will add Xanax as needed Swallow evaluation in the morning is requested 08/01 Patient still has respiratory difficulty, even with talking. No chest pain. Still has coughing Patient is going for swallow evaluation today Vital stable, creatinine is stable but potassium went up to 6.1 today, she received the cocktail for the hyperkalemia and we will going to recheck potassium level later on she is mildly tachycardic but saturating 91% on room air. She has stable leukocytosis at 13.5 and hemoglobin stable at 11.0. Sodium is 131 and potassium6.0. Patient currently on Levaquin and prednisone 60 mg for her pneumonia of the left lower lobe and COPD exacerbation. Objective - Vital Signs Vital signs: Vital Signs Temp 98.1 F 08/01/24 07:00 Pulse 100 08/01/24 08:37 Resp 18 08/01/24 07:00 BP 136/85 08/01/24 07:00 Pulse Ox 91 L 08/01/24 07:00 FiO2 Intake & Output 07/31/24 08/01/24 08/01/24 18:59 06:59 18:59 Intake Total 200 Balance 200 Intake: Oral 200 Other: Voiding Method Toilet Toilet # Voids 3 4 # Bowel Movements 1 - Exam GENERAL: The patient is alert and oriented x3, not in any acute distress. Well developed, well nourished. HEENT: Pupils are round and equally reacting to light. EOMI. No scleral icterus. No conjunctival pallor. Normocephalic, atraumatic. No pharyngeal erythema. No thyromegaly. CARDIOVASCULAR: S1 and S2 present. No murmurs, rubs, or gallops. PULMONARY: No breath sounds on the right side. Chest is clear to auscultation, no wheezing , no crackles. Mild tachypnea ABDOMEN: Soft, nontender, nondistended, normoactive bowel sounds. No palpable organomegaly. MUSCULOSKELETAL: No joint swelling or deformity. EXTREMITIES: No cyanosis, clubbing, or pedal edema. NEUROLOGICAL: Gross neurological examination did not reveal any focal deficits. SKIN: No rashes. no petechiae. - Labs CBC & Chem 7: 07/31/24 03:17 08/01/24 02:52 Labs: Abnormal Lab Results - Last 24 Hours (Table) 07/31/24 07/31/24 08/01/24 Range/Units 03:17 03:17 02:52 Neutrophils # (Manual) 11.10 H (1.80-7.70) X 10*3/uL Lymphocytes # (Manual) 0.41 L (0.90-5.00) X 10*3/uL Monocytes # (Manual) 1.49 H (0.20-1.00) X 10*3/uL Eosinophils # (Manual) 0 L (0.04-0.35) X 10*3/uL Sodium 131 L 131 L (135-145) mmol/L Potassium 6.1 A* (3.5-5.5) mmol/L Chloride 94 L 94 L (96-109) mmol/L BUN 28.4 H (9.0-27.0) mg/dL BUN/Creatinine Ratio 28.40 H 22.20 H (12.00-20.00) Ratio Microbiology - Last 24 Hours (Table) 07/26/24 19:21 Blood Culture - Final Blood Assessment and Plan Assessment: Left lower lobe infiltrate, right middle and lower lobe infiltrate there was suspicion for metastatic disease versus pneumonia however patient with no fever. She has leukocytosis and pro- Calcitonin is negative andPulmonary team on the case and recommended to repeat CAT scan in few minutes to assess stability of the lung nodules Sepsis with leukocytosis and tachycardia present on admission Euvolemic hyponatremia, suspicious for an SIADH Hypotension with tachycardia related to hypovolemia, improving lung cancer, s/p right pneumonectomy Seizure disorder COPD with possible acute exacerbation Hypertension, currently she was hypotensive on admission Plan: Continue with prednisone 60 mg Continue with Levaquin Follow-up swallow evaluation Given the cocktail for hyperkalemia and will follow up the level. Add Lokelma Continue with Robitussin Resume Plavix and Keppra Hold Valsartan 80 mg Pulmonary team on the case and recommended to repeat CAT scan in few minutes to assess stability of the lung nodules Labs and medication were reviewed.. Continue same treatment. Continue with symptomatic treatment. Resume home medication. Monitor labs and vitals. DVT and GI prophylaxis. Further recommendations as per clinical course of the patient DVT prophylaxis: Subcutaneous heparin GI Prophylaxis: Pepcid PT/OT: Pending Prognosis is guarded CODE STATUS: DNR, I discussed with the patient in details and she wants to be DNR. Patient has capacity to make medical decision
[2024-08-01] MEDS: predniSONE 20 MG TAB PO SCH (09:32)
--- NOTE | 2024-08-01 09:54 | FL ---
Exam Date: 08/01/2024 9:28 AM. Modified barium swallow for dysphagia. Consistencies administered: Various consistency of barium. Fluoro time: 50 sec No images were sent to PACS. Please see speech pathology report. DAP: 50.54 mGym2 Gycm2 1 oz thin barium, 1 oz pudding, 1 oz nectar, 1 oz honey [facility], , 08/01/2024 9:52 AM
[2024-08-01] MEDS: SODIUM ZIRCONIUM CYCLOSILICATE 10 GM PACKET PO SCH (10:49)
--- NOTE | 2024-08-01 11:08 | P.PN ---
Subjective This is a pleasant 68 years old female with past medical history of COPD, hypertension, seizure disorder. Patient presents because of worsening dyspnea and coughing x 1 week, not improved as an outpatient associated with chest pain/abdominal pain with coughing Patient states she has no phlegm also she denies abdominal pain and she has normal bowel movement But patient has been vomiting all day yesterday with no blood in her vomitus or coffee-ground vomitus as per patient also patient had low appetite for 3 days No urinary complaint. She has been feeling dizzy but no headache, no weakness or tingling but has been using the walker more frequently lately because of her generalized weakness Patient states she was not using steroids or antibiotic prior to admission She wants her home medication of Keppra and [place] 7.5 to resumed. Also patient complaining from some pain in her chest with the swallowing Patient is afebrile She was tachycardic and hypotensive on admission, currently blood pressure improved and heart rate is lower WBC is elevated at 24,000 INR, unremarkable, sodium slightly low 132, potassium 5.3 and creatinine 0.7 Liver enzymes, troponin are not elevated Influenza A and type B, RSV, SARS (coronavirus) are undetected proBNP is 414 EKG showing sinus tachycardia at [address]-T changes Chest x-ray reviewed by myself showing mild left lower lobe infiltrate with small left pleural effusion and status post right pneumonectomy with complete opacification of the right side Pro- Calcitonin is within the reference range at 0.1 07/28 Patient still feeling same, her dyspnea is slightly better but she is still coughing. No significant chest pain or abdominal pain. Patient does not seem in distress Patient have difficulty talking because of her shortness of breath but not that bad. No other new complaint CTA of the chest was negative for PE but showing right middle and lower infiltrate suspicious for a mass or metastasis versus pneumonia. While the left lower lobe consolidation is noted to also suspicious for pneumonia versus metastatic disease. Right humerus head showing sclerotic lesion suspicious for metastatic disease. Also patient sodium today dropped to 134 down to 126 while she is on normal saline which was discontinued. We put the patient on fluid restriction 1200 mL/day. Also will check for urine sodium and osmolality with close monitoring of sodium. 07/29 Patient still complaining from shortness of breath, she has mild tachypnea at rest. She has good oxygen saturation. She is still getting breathing treatment this morning She is on fluid restriction and sodium improved this 126 up to 128, discussed with the patient and she agrees, currently 1500 mL/day She is still covered with ceftriaxone for her pneumonia. However pro- Calcitonin were negative on 2 occasions. Patient will require to repeat CAT scan of the chest as an outpatient to assess stability She is also on IV Solu-Medrol 07/30 Patient still complaining from shortness of breath today and found to have coughing Patient has not in fact for shortness of breath this morning. Patient on fluid restriction of sodium improving slowly and gradually. Discussed with the patient and agrees with this current plan. Pulmonary team recommend to repeat CAT scan in a few months to assess stability of his lung nodules Currently on antibiotic, cefuroxime switched to Levaquin Also started on a prednisone burst taper starting at 60 mg daily 07/31 Patient skipped her breathing treatment this morning, after that she felt little short of breath No significant bronchospastic breath sounds, pneumonia looks improving and currently she was placed on Levaquin Also her steroids switched to prednisone She looks little anxious we will add Xanax as needed Swallow evaluation in the morning is requested 08/01 Patient still has respiratory difficulty, even with talking. No chest pain. Still has coughing Patient is going for swallow evaluation today Vital stable, creatinine is stable but potassium went up to 6.1 today, she received the cocktail for the hyperkalemia and we will going to recheck potassium level later on she is mildly tachycardic but saturating 91% on room air. She has stable leukocytosis at 13.5 and hemoglobin stable at 11.0. Sodium is 131 and potassium 6.1 Patient currently on Levaquin and prednisone 60 mg for her pneumonia of the left lower lobe and COPD exacerbation. Treatment cocktail for hyperkalemia was initiated, however patient declines placing IV line after several failed attempts including central line in the emergency room as per staff. I have lengthy discussion with the patient with risk benefits and alternative explained to her in details, she agrees to one- time trial only. We are going to order PICC line but patient might still decline Therefore we will start treatment with albuterol, oral sodium bicarb and calcium as she refused the IV doses, also we started her on Lokelma with close monitoring of potassium. We placed low potassium diet Discussed with staff Patient also passed swallow evaluation for the oral and pharyngeal part, barium swallow x-rays ordered and is pending Active Medications Generic Name Dose Route Start Last Admin Trade Name Freq PRN Reason Stop Dose Admin Acetaminophen 650 mg 07/26/24 20:19 Acetaminophen Tab 325 Mg Tab PO Q4HR PRN Fever and/ or Pain Albuterol Sulfate 2.5 mg 07/27/24 06:01 Albuterol Nebulized 2.5 Mg/3 Ml INHALATION RT-Q6H PRN Shortness Of Breath Albuterol/Ipratropium 3 ml 07/27/24 08:00 08/01/24 08:21 Ipratropium-Albuterol 3 Ml Neb INHALATION 3 ml RT-QID RIVER Administration Albuterol/Ipratropium 3 ml 07/26/24 20:19 08/01/24 04:39 Ipratropium-Albuterol 3 Ml Neb INHALATION 3 ml RT-Q4H PRN Administration shortness of breath Alprazolam 0.5 mg 07/31/24 11:19 Alprazolam 0.5 Mg Tab PO BID PRN Anxiety Atorvastatin Calcium 10 mg 07/27/24 15:00 07/31/24 14:36 Atorvastatin 10 Mg Tab PO 10 mg DAILY@1500 RIVER Administration Calcium Carbonate/Glycine 1,000 mg 08/01/24 11:11 Calcium Carbonate 500 Mg Chewable PO 08/01/24 11:12 ONCE ONE Citalopram Hydrobromide 20 mg 07/27/24 15:00 07/31/24 14:36 Citalopram Hydrobromide 20 Mg Tab PO 20 mg DAILY@1500 [place]IVER Administration Clopidogrel Bisulfate 75 mg 07/27/24 15:00 07/31/24 14:36 Clopidogrel 75 Mg Tab PO 75 mg DAILY@1500 [place]IVER Administration Famotidine 20 mg 07/30/24 09:00 08/01/24 09:32 Famotidine 20 Mg Tab PO 20 mg DAILY RIVER Administration Folic Acid 1 mg 07/27/24 09:00 08/01/24 09:32 Folic Acid 1 Mg Tab PO 1 mg DAILY RIVER Administration Furosemide 20 mg 07/27/24 06:01 Furosemide 20 Mg Tab PO DAILY PRN Edema Guaifenesin/Dextromethorphan 10 ml 07/30/24 15:04 07/31/24 21:28 Guaifenesin-Dm 100-10mg/5ml 10 Ml Cup PO 10 ml Q6HR PRN Administration Cough Heparin Sodium (Porcine) 5,000 unit 07/27/24 09:00 08/01/24 09:32 Heparin Sodium,Porcine 5,000 Unit/Ml 1 Ml Vial SQ 5,000 unit Q12HR [place] Administration Levetiracetam 750 mg 07/27/24 09:00 08/01/24 09:32 Levetiracetam 750 Mg Tab PO 750 mg BID@0900,2100 [place] Administration Levofloxacin 500 mg 08/02/24 12:00 Levofloxacin 500 Mg Tab PO Q48H [facility] Protocol Miscellaneous Information 1 each 07/26/24 20:19 Pneumonia Protocol Utilized 1 Each Misc PO ONCE PRN Per Protocol Oxycodone/Acetaminophen 1 each 07/29/24 11:18 08/01/24 04:53 Oxycodone-Apap 10-325mg 1 Each Tab PO 1 each Q6HR PRN Administration Pain Pantoprazole Sodium 40 mg 07/31/24 11:00 08/01/24 06:54 Pantoprazole 40 Mg Tablet PO 40 mg AC-BID RIVER Administration Prednisone 40 mg 08/01/24 09:00 08/01/24 09:32 Prednisone 20 Mg Tab PO 40 mg DAILY [place] Administration Sodium Bicarbonate 650 mg 08/01/24 11:15 Sodium Bicarbonate Tab 650 Mg Tab PO 08/01/24 22:01 TID RIVER Sodium Zirconium Cyclosilicate 5 gm 08/01/24 09:30 08/01/24 10:49 Sodium Zirconium Cyclosilicate 10 Gm Packet PO 08/01/24 22:01 5 gm TID RIVER Administration Objective - Vital Signs Vital signs: Vital Signs Temp 98.1 F 08/01/24 07:00 Pulse 100 08/01/24 08:37 Resp 18 08/01/24 07:00 BP 136/85 08/01/24 07:00 Pulse Ox 91 L 08/01/24 07:00 FiO2 Intake & Output 07/31/24 08/01/24 08/01/24 18:59 06:59 18:59 Intake Total 200 Balance 200 Intake: Oral 200 Other: Voiding Method Toilet Toilet # Voids 3 4 # Bowel Movements 1 - Exam GENERAL: The patient is alert and oriented x3, not in any acute distress. Well developed, well nourished. HEENT: Pupils are round and equally reacting to light. EOMI. No scleral icterus. No conjunctival pallor. Normocephalic, atraumatic. No pharyngeal erythema. No thyromegaly. CARDIOVASCULAR: S1 and S2 present. No murmurs, rubs, or gallops. PULMONARY: No breath sounds on the right side. Chest is clear to auscultation, no wheezing , no crackles. Mild tachypnea ABDOMEN: Soft, nontender, nondistended, normoactive bowel sounds. No palpable or ganomegaly. MUSCULOSKELETAL: No joint swelling or deformity. EXTREMITIES: No cyanosis, clubbing, or pedal edema. NEUROLOGICAL: Gross neurological examination did not reveal any focal deficits. SKIN: No rashes. no petechiae. - Labs CBC & Chem 7: 07/31/24 03:17 08/01/24 02:52 Labs: Abnormal Lab Results - Last 24 Hours (Table) 08/01/24 Range/Units 02:52 Sodium 131 L (135-145) mmol/L Potassium 6.1 A* (3.5-5.5) mmol/L Chloride 94 L (96-109) mmol/L BUN/Creatinine Ratio 22.20 H (12.00-20.00) Ratio Microbiology - Last 24 Hours (Table) 07/26/24 19:21 Blood Culture - Final Blood Assessment and Plan Assessment: Left lower lobe infiltrate, right middle and lower lobe infiltrate there was suspicion for metastatic disease versus pneumonia however patient with no fever. She has leukocytosis and pro- Calcitonin is negative andPulmonary team on the case and recommended to repeat CAT scan in few minutes to assess stability of the lung nodules Hyperkalemia Sepsis with leukocytosis and tachycardia present on admission Euvolemic hyponatremia, suspicious for an SIADH Hypotension with tachycardia related to hypovolemia, improving lung cancer, s/p right pneumonectomy Seizure disorder COPD with possible acute exacerbation Hypertension, currently she was hypotensive on admission Plan: Patient agrees to one-time trial for placing PICC line. Continue with treatment for hyperkalemia with a cocktail and monitor potassium level. Continue with prednisone 60 mg Continue with Levaquin Follow-up swallow evaluation Given the cocktail for hyperkalemia and will follow up the level. Add Lokelma Continue with Robitussin Resume Plavix and Keppra Hold Valsartan 80 mg Pulmonary team on the case and recommended to repeat CAT scan in few minutes to assess stability of the lung nodules Labs and medication were reviewed.. Continue same treatment. Continue with symptomatic treatment. Resume home medication. Monitor labs and vitals. DVT and GI prophylaxis. Further recommendations as per clinical course of the patient DVT prophylaxis: Subcutaneous heparin GI Prophylaxis: Pepcid PT/OT: Pending Prognosis is guarded CODE STATUS: DNR, I discussed with the patient in details and she wants to be DNR. Patient has capacity to make medical decision
[2024-08-01] MEDS: SODIUM ZIRCONIUM CYCLOSILICATE 10 GM PACKET PO ONE (11:21)
[2024-08-01] MEDS: ALBUTEROL NEBULIZED 2.5 MG/3 ML INHALATION STA (11:31)
[2024-08-01] MEDS: CALCIUM CARBONATE 500 MG CHEWABLE PO ONE (12:34)
[2024-08-01] MEDS: SODIUM BICARBONATE TAB 650 MG TAB PO SCH (12:34)
[2024-08-01] MEDS: INSULIN REGULAR 100 UNIT/ML VIAL (IV) IV ONE (16:05)
[2024-08-01] MEDS: DEXTROSE 50% SYRINGE 50 ML IVP STA (16:05)
[2024-08-01] MEDS: SODIUM BICARB 8.4% 50 ML SYR (1 MEQ/ML) IV STA (16:09)
[2024-08-01] MEDS: CALCIUM GLUCONATE IN NACL 1 GM in SALINE 1 100ML.BAG IVPB ONE (16:11)
--- NOTE | 2024-08-01 16:52 | P.PN ---
Subjective Progress Note Date: 08/01/24 This is a 68-year-old female patient with previous history of lung cancer and the patient had undergone a right pneumonectomy back in 2019 and since then the patient has been maintained on Tagrisso. The patient was have increased cough and congestion and shortness of breath which initially presented to [facility] where she was given a course of antibiotics and she was discharged. Nevertheless, the patient was unable to take the antibiotics. She progressed and her condition got worse and she continued to have increased cough and congestion worsening shortness of breath at baseline that she came into our emergency department. Chest x-ray in the emergency showed a left lower lobe inf iltrate and signs of a right pneumonectomy. The patient is currently running a white cell count of 24 with a hemoglobin 12.5 with a platelet count of 385. The sodium is at 132, potassium is at 5.3, BUN is 15 with a creatinine of 0.7. The viral screen was negative. Legionella urine antigen was negative. Procalcitonin level is 0.1. proBNP level is at 414. Troponins are also negative. I also noted some nodular changes in the left upper lobe area that needs to be further investigated. She is currently on room air oxygen. No edema lower extremities. No previous history of DVT or pulmonary embolism. On 07/28/2024, I am seeing the patient for a follow-up. Less short of breath. Less bronchospastic and wheezy compared to yesterday. Remains on IV Rocephin. The white cell count is down to 14.4 with a hemoglobin 11.1. Sodium is at 126 BUN is 12 with a creatinine of 0.6 and a bicarb is at 27. His procalcitonin level is at 0.12. CAT scan of the chest was reviewed. It is possible the patient did not have a full pneumonectomy. There is abrupt cut off the right sided bronchus with complete atelectasis of what seems to be the right middle lobe and possibly the right upper lobe showed the patient underwent right lower lobe resection. There is also pleural calcification identified along the right pleura. There is chronic right-sided volume loss. Of significance also, there are areas of patchy nodular changes involving the left lung. This could be consolidation versus malignancy and the possibility of metastatic lung disease cannot be completely excluded. I favor infectious changes however. 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 She is currently on room air oxygen with a pulse ox of 94%. No significant sputum production. Sputum Gram stain and culture was collected yesterday and results are still pending. Few gram-negative bacilli and few gram-positive cocci are present. On 07/29/2024, seen the patient for a follow-up. Patient is doing well. Her main complaint continues to be cough and some chest wall pain and discomfort when swallowing her food. She is less bronchospastic and wheezy. The ventricle is down to 13.5. Hemoglobin is 10.7. The patient remains on DuoNeb nebulized treatments [id number]. The patient remains on IV Solu-Medrol. She is on Percocet for pain control. No altered mentation. Oxygenation stable and the patient is currently on 94% room air oxygen. No signs of any significant oropharyngeal candidiasis. On 07/30/2024, MC the patient for a follow-up. Resting comfortably in bed. No new complaints. Still having some shortness of breath and diffuse bodyaches more so than her right shoulder area. Labs from today are still pending. The patient remains on bronchodilators with DuoNeb updrafts. The patient remains on steroids and the patient has been placed on oral prednisone starting with 60 mg p.o. daily. She was also switched to oral antibiotics. I am going to obtain a follow-up chest x-ray for this patient for tomorrow. 07/31/2024, patient is complaining of squeezing sensation over the anterior chest area. She is also having some occasional difficulty swallowing. Breath sounds is adequate on the left lung. Repeat chest x-ray was done today this morning and the previous described nodular opacity in the left lung was not seen. The patient is post right pneumonectomy. The patient remains on 2 L of oxygen by nasal cannula. She is also able to come off the oxygen. The white cell count of 13, hemoglobin 11 and platelet count is 467. Sodium is at 131, potassium level is at 5.5, BUN is 28 with a creatinine of 1.0. The patient remains on DuoNeb updrafts, prednisone starting with 60 mg and taper down to 40 mg. The patient is also on Levaquin 5 mg p.o. daily. She is on Pepcid and I am going to add IV Protonix and obtain a modified barium swallow. The patient is seen today August 01, 2020 for follow-up on the regular medical floor. She is currently sitting up in bed. Awake and alert in no acute distress. Still feels weak and short of breath at times. Barium swallow from yesterday showed no evidence of aspiration. Sputum culture revealed no growth. Sodium 131. Potassium 5.4. Bicarb 29. BUN 22. Creatinine 1.0. Glucose 104. She remains on DuoNeb and elations. Antibiotics in the form of Levaquin. Initiated on a prednisone taper. Remains on oral diuretics. Objective - Vital Signs Vital signs: Vital Signs Temp 97.8 F 08/01/24 13:37 Pulse 92 08/01/24 15:53 Resp 17 08/01/24 13:37 BP 123/79 08/01/24 13:37 Pulse Ox 96 08/01/24 13:37 FiO2 Intake & Output 07/31/24 08/01/24 08/01/24 18:59 06:59 18:59 Intake Total 200 Balance 200 Intake: Oral 200 Other: Voiding Method Toilet Toilet # Voids 3 4 # Bowel Movements 1 - Exam GENERAL EXAM: Alert, 68-year-old female, sitting up in a chair, on 2 L nasal cannula, fairly comfortable in no apparent distress. HEAD: Normocephalic. EYES: Normal reaction of pupils, equal size. NOSE: Clear with pink turbinates. THROAT: No erythema or exudates. NECK: No masses, no JVD. CHEST: No chest wall deformity. LUNGS: Equal air entry with few scattered rhonchi. CVS: S1 and S2 normal with no audible murmur, regular rhythm. ABDOMEN: No hepatosplenomegaly, normal bowel sounds, no guarding or rigidity. SPINE: No scoliosis or deformity SKIN: No rashes CENTRAL NERVOUS SYSTEM: No focal deficits, tone is normal in all 4 extremities. EXTREMITIES: There is no peripheral edema. No clubbing, no cyanosis. Peripheral pulses are intact. - Labs CBC & Chem 7: 07/31/24 03:17 08/01/24 15:27 Labs: Abnormal Lab Results - Last 24 Hours (Table) 08/01/24 08/01/24 Range/Units 02:52 15:27 Sodium 131 L (135-145) mmol/L Potassium 6.1 A* 5.4 H (3.5-5.5) mmol/L Chloride 94 L (96-109) mmol/L BUN/Creatinine Ratio 22.20 H (12.00-20.00) Ratio Microbiology - Last 24 Hours (Table) 07/26/24 19:21 Blood Culture - Final Blood Assessment and Plan Assessment: Acute left lower lobe pneumonia and the patient has an area of consolidation left lung base on today's chest x-ray along with some nodular opacities in the left upper lobe that needs to be further followed up in the future. This could be essentially infectious in nature. Possibility of malignancy cannot be completely excluded. As such, follow-up will be needed. Acute on shortness of breath secondary to above, improving Hyperkalemia, receiving Lokelma Previous history of non-small cell lung cancer with previous right pneumonectomy 2018 and the patient has been maintained on Tagrisso on outpatient basis Acute COPD exacerbation secondary to above. No maintenance inhalers and the patient is utilizing albuterol HFA on an as-needed basis Seizure disorder Hypertension Hyperlipidemia Acute leukocytosis, improving Acute hyponatremia Plan: The patient was seen and evaluated Barium swallow results reviewed Labs and medications reviewed Continue the current treatment plan Recommend outpatient PET scan regarding pulmonary abnormalities Receiving Lokelma for hyperkalemia We will continue to follow I have personally seen and examined the patient, performed the documentation and the assessment and plan as written. Number of minutes spent on the visit: 10.
[2024-08-02 08:45] LABS: BUN/Creat Ratio 19.89 Ratio (12.00-20.00); Blood Urea Nitrogen 17.9 mg/dL (9.0-27.0); Calcium 9.6 mg/dL (8.7-10.3); Chloride 92 mmol/L (96-109); Glucose 88 mg/dL (70-110); Sodium 132 mmol/L (135-145)
[2024-08-02 10:15] LABS: Basophils # (M) 0 X 10*3/uL (0.00-0.10); Eosinophils # (M) 0.17 X 10*3/uL (0.04-0.35); HCT 33.3 % (37.2-46.3); HGB 10.9 g/dL (12.0-15.0); Lymphocytes # (M) 0.69 X 10*3/uL (0.90-5.00); MCH 27.7 pg (27.0-32.0); MCHC 32.7 g/dL (32.0-37.0); MCV 84.5 FL (80.0-97.0); Mean Platelet Volume 10.9 FL (9.5-12.2); Monocytes # (M) 1.39 X 10*3/uL (0.20-1.00); Myelocytes % 6 % (0-0); NRBC Per 100 WBC 0.04 X 10*3/uL (0.00-0.01); Neutrophils # (M) 14.05 X 10*3/uL (1.80-7.70); Neutrophils % (M) 81 %; Platelet Count 472 X 10*3/uL (140-440); RBC 3.94 X 10*6/uL (4.10-5.20); RBC Morphology Normal (Normal); RDW 14.3 % (11.5-14.5); WBC 17.35 X 10*3/uL (4.50-10.00)
[2024-08-02] MEDS: LEVOFLOXACIN 500 MG TAB PO SCH (11:25)
--- NOTE | 2024-08-02 14:31 | P.PN ---
Subjective Progress Note Date: 08/02/24 This is a 68-year-old female patient with previous history of lung cancer and the patient had undergone a right pneumonectomy back in 2019 and since then the patient has been maintained on Tagrisso. The patient was have increased cough and congestion and shortness of breath which initially presented to [facility] where she was given a course of antibiotics and she was discharged. Nevertheless, the patient was unable to take the antibiotics. She progressed and her condition got worse and she continued to have increased cough and congestion worsening shortness of breath at baseline that she came into our emergency department. Chest x-ray in the emergency showed a left lower lobe inf iltrate and signs of a right pneumonectomy. The patient is currently running a white cell count of 24 with a hemoglobin 12.5 with a platelet count of 385. The sodium is at 132, potassium is at 5.3, BUN is 15 with a creatinine of 0.7. The viral screen was negative. Legionella urine antigen was negative. Procalcitonin level is 0.1. proBNP level is at 414. Troponins are also negative. I also noted some nodular changes in the left upper lobe area that needs to be further investigated. She is currently on room air oxygen. No edema lower extremities. No previous history of DVT or pulmonary embolism. On 07/28/2024, I am seeing the patient for a follow-up. Less short of breath. Less bronchospastic and wheezy compared to yesterday. Remains on IV Rocephin. The white cell count is down to 14.4 with a hemoglobin 11.1. Sodium is at 126 BUN is 12 with a creatinine of 0.6 and a bicarb is at 27. His procalcitonin level is at 0.12. CAT scan of the chest was reviewed. It is possible the patient did not have a full pneumonectomy. There is abrupt cut off the right sided bronchus with complete atelectasis of what seems to be the right middle lobe and possibly the right upper lobe showed the patient underwent right lower lobe resection. There is also pleural calcification identified along the right pleura. There is chronic right-sided volume loss. Of significance also, there are areas of patchy nodular changes involving the left lung. This could be consolidation versus malignancy and the possibility of metastatic lung disease cannot be completely excluded. I favor infectious changes however. 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 She is currently on room air oxygen with a pulse ox of 94%. No significant sputum production. Sputum Gram stain and culture was collected yesterday and results are still pending. Few gram-negative bacilli and few gram-positive cocci are present. On 07/29/2024, seen the patient for a follow-up. Patient is doing well. Her main complaint continues to be cough and some chest wall pain and discomfort when swallowing her food. She is less bronchospastic and wheezy. The ventricle is down to 13.5. Hemoglobin is 10.7. The patient remains on DuoNeb nebulized treatments [id number]. The patient remains on IV Solu-Medrol. She is on Percocet for pain control. No altered mentation. Oxygenation stable and the patient is currently on 94% room air oxygen. No signs of any significant oropharyngeal candidiasis. On 07/30/2024, MC the patient for a follow-up. Resting comfortably in bed. No new complaints. Still having some shortness of breath and diffuse bodyaches more so than her right shoulder area. Labs from today are still pending. The patient remains on bronchodilators with DuoNeb updrafts. The patient remains on steroids and the patient has been placed on oral prednisone starting with 60 mg p.o. daily. She was also switched to oral antibiotics. I am going to obtain a follow-up chest x-ray for this patient for tomorrow. 07/31/2024, patient is complaining of squeezing sensation over the anterior chest area. She is also having some occasional difficulty swallowing. Breath sounds is adequate on the left lung. Repeat chest x-ray was done today this morning and the previous described nodular opacity in the left lung was not seen. The patient is post right pneumonectomy. The patient remains on 2 L of oxygen by nasal cannula. She is also able to come off the oxygen. The white cell count of 13, hemoglobin 11 and platelet count is 467. Sodium is at 131, potassium level is at 5.5, BUN is 28 with a creatinine of 1.0. The patient remains on DuoNeb updrafts, prednisone starting with 60 mg and taper down to 40 mg. The patient is also on Levaquin 5 mg p.o. daily. She is on Pepcid and I am going to add IV Protonix and obtain a modified barium swallow. The patient is seen today August 01, 2020 for follow-up on the regular medical floor. She is currently sitting up in bed. Awake and alert in no acute distress. Still feels weak and short of breath at times. Barium swallow from yesterday showed no evidence of aspiration. Sputum culture revealed no growth. Sodium 131. Potassium 5.4. Bicarb 29. BUN 22. Creatinine 1.0. Glucose 104. She remains on DuoNeb and elations. Antibiotics in the form of Levaquin. Initiated on a prednisone taper. Remains on oral diuretics. The patient is seen today August 02, 2024 in follow-up on the regular medical floor. She is currently resting in bed. Awake and alert in no acute distress. She is maintaining good O2 saturations in the 90s on room air. He is continued on bronchodilators. Robitussin for her cough. Heparin for DVT prophylaxis. Remains on antibiotics in the form of Levaquin. Completing a prednisone taper. Remains on oral diuretics. Sputum culture reveals no growth. Blood cultures revealed no growth. White count 17.3. Hemoglobin 10.9. Platelets 472. Sodium 132. Potassium 6.0. Bicarb 32. BUN 18. Creatinine 0.9. Glucose 88. Troponin negative. Objective - Vital Signs Vital signs: Vital Signs Temp 98.2 F 08/02/24 13:25 Pulse 139 H 08/02/24 13:25 Resp 17 08/02/24 13:25 BP 93/60 08/02/24 13:25 Pulse Ox 94 L 08/02/24 13:25 FiO2 Intake & Output 08/01/24 08/02/24 08/02/24 18:59 06:59 18:59 Intake Total 240 Balance 240 Intake: Oral 240 Other: Voiding Method Toilet # Voids 3 1 - Exam GENERAL EXAM: Alert, 68-year-old female, resting in bed, on room air, fairly comfortable in no apparent distress. HEAD: Normocephalic. EYES: Normal reaction of pupils, equal size. NOSE: Clear with pink turbinates. THROAT: No erythema or exudates. NECK: No masses, no JVD. CHEST: No chest wall deformity. LUNGS: Equal air entry with few scattered rhonchi. CVS: S1 and S2 normal with no audible murmur, regular rhythm. ABDOMEN: No hepatosplenomegaly, normal bowel sounds, no guarding or rigidity. SPINE: No scoliosis or deformity SKIN: No rashes CENTRAL NERVOUS SYSTEM: No focal deficits, tone is normal in all 4 extremities. EXTREMITIES: There is no peripheral edema. No clubbing, no cyanosis. Peripheral pulses are intact. - Labs CBC & Chem 7: 08/02/24 03:04 08/02/24 03:04 Labs: Abnormal Lab Results - Last 24 Hours (Table) 08/01/24 08/02/24 08/02/24 Range/Units 15:27 03:04 03:04 WBC 17.35 H (4.50-10.00) X 10*3/uL RBC 3.94 L (4.10-5.20) X 10*6/uL Hgb 10.9 L (12.0-15.0) g/dL Hct 33.3 L (37.2-46.3) % Plt Count 472 H (140-440) X 10*3/uL Neutrophils # (Manual) 14.05 H (1.80-7.70) X 10*3/uL Lymphocytes # (Manual) 0.69 L (0.90-5.00) X 10*3/uL Monocytes # (Manual) 1.39 H (0.20-1.00) X 10*3/uL NRBC/100 WBC Diff 0.04 H (0.00-0.01) X 10*3/uL Sodium 132 L (135-145) mmol/L Potassium 5.4 H 6.0 H (3.5-5.1) mmol/L Chloride 92 L (96-109) mmol/L Carbon Dioxide 32.0 H (21.6-31.8) mmol/L Assessment and Plan Assessment: Acute left lower lobe pneumonia and the patient has an area of consolidation left lung base on today's chest x-ray along with some nodular opacities in the left upper lobe that needs to be further followed up in the future. This could be essentially infectious in nature. Possibility of malignancy cannot be completely excluded. As such, follow-up will be needed. Acute on shortness of breath secondary to above, improving Hyperkalemia, receiving Lokelma Previous history of non-small cell lung cancer with previous right pneumonectomy 2018 and the patient has been maintained on Tagrisso on outpatient basis Acute COPD exacerbation secondary to above. No maintenance inhalers and the patient is utilizing albuterol HFA on an as-needed basis Seizure disorder Hypertension Hyperlipidemia Acute leukocytosis, improving Acute hyponatremia Plan: The patient was seen and evaluated Labs and medications reviewed Continue the current treatment plan Outpatient PET scan regarding pulmonary abnormalities Receiving Lokelma for hyperkalemia Plan is for home with home care at discharge I have personally seen and examined the patient, performed the documentation and the assessment and plan as written. Number of minutes spent on the visit: 10.
[2024-08-02 16:47] VITALS: BMI 26.4
[2024-08-03 02:44] LABS: Glucose,Whole Blood 120 mg/dL (70-110)
[2024-08-03] MEDS: INSULIN ASPART (NovoLOG) 100 UNIT/ML VIAL SQ ONE (02:47)
[2024-08-03] MEDS: DEXTROSE 50% SYRINGE 50 ML IVP STA (02:47)
[2024-08-03] MEDS: SODIUM ZIRCONIUM CYCLOSILICATE 10 GM PACKET PO ONE (02:47)
[2024-08-03 08:50] LABS: HCT 31.8 % (37.2-46.3); HGB 10.2 g/dL (12.0-15.0); MCH 27.3 pg (27.0-32.0); MCHC 32.1 g/dL (32.0-37.0); MCV 85.3 FL (80.0-97.0); Mean Platelet Volume 10.8 FL (9.5-12.2); NRBC Per 100 WBC 0.02 X 10*3/uL (0.00-0.01); Platelet Count 412 X 10*3/uL (140-440); RBC 3.73 X 10*6/uL (4.10-5.20); RDW 14.7 % (11.5-14.5)
[2024-08-03 09:08] LABS: BUN/Creat Ratio 15.83 Ratio (12.00-20.00); Calcium 9.4 mg/dL (8.7-10.3); Carbon Dioxide 27.3 mmol/L (21.6-31.8); Chloride 93 mmol/L (96-109); Glucose 158 mg/dL (70-110); Potassium 4.9 mmol/L (3.5-5.5); Sodium 131 mmol/L (135-145)
[2024-08-03 09:47] LABS: Basophils # (M) 0 X 10*3/uL (0.00-0.10); Eosinophils # (M) 0 X 10*3/uL (0.04-0.35); Lymphocytes # (M) 0.79 X 10*3/uL (0.90-5.00); Metamyelocytes % 1 % (0-0); Monocytes # (M) 0.79 X 10*3/uL (0.20-1.00); Myelocytes % 6 % (0-0); Neutrophils % (M) 81 %; Promyelocytes # (M) 0.32 k/uL (0); Promyelocytes % 2 %
--- NOTE | 2024-08-03 09:49 | P.PN ---
Subjective Progress Note Date: 08/02/24 This is a pleasant 68 years old female with past medical history of COPD, hypertension, seizure disorder. Patient presents because of worsening dyspnea and coughing x 1 week, not improved as an outpatient associated with chest pain/abdominal pain with coughing Patient states she has no phlegm also she denies abdominal pain and she has normal bowel movement But patient has been vomiting all day yesterday with no blood in her vomitus or coffee-ground vomitus as per patient also patient had low appetite for 3 days No urinary complaint. She has been feeling dizzy but no headache, no weakness or tingling but has been using the walker more frequently lately because of her generalized weakness Patient states she was not using steroids or antibiotic prior to admission She wants her home medication of Keppra and [place] 7.5 to resumed. Also patient complaining from some pain in her chest with the swallowing Patient is afebrile She was tachycardic and hypotensive on admission, currently blood pressure improved and heart rate is lower WBC is elevated at 24,000 INR, unremarkable, sodium slightly low 132, potassium 5.3 and creatinine 0.7 Liver enzymes, troponin are not elevated Influenza A and type B, RSV, SARS (coronavirus) are undetected proBNP is 414 EKG showing sinus tachycardia at [address]-T changes Chest x-ray reviewed by myself showing mild left lower lobe infiltrate with small left pleural effusion and status post right pneumonectomy with complete opacification of the right side Pro- Calcitonin is within the reference range at 0.1 07/28 Patient still feeling same, her dyspnea is slightly better but she is still coughing. No significant chest pain or abdominal pain. Patient does not seem in distress Patient have difficulty talking because of her shortness of breath but not that bad. No other new complaint CTA of the chest was negative for PE but showing right middle and lower infiltrate suspicious for a mass or metastasis versus pneumonia. While the left lower lobe consolidation is noted to also suspicious for pneumonia versus metastatic disease. Right humerus head showing sclerotic lesion suspicious for metastatic disease. Also patient sodium today dropped to 134 down to 126 while she is on normal saline which was discontinued. We put the patient on fluid restriction 1200 mL/day. Also will check for urine sodium and osmolality with close monitoring of sodium. 07/29 Patient still complaining from shortness of breath, she has mild tachypnea at rest. She has good oxygen saturation. She is still getting breathing treatment this morning She is on fluid restriction and sodium improved this 126 up to 128, discussed with the patient and she agrees, currently 1500 mL/day She is still covered with ceftriaxone for her pneumonia. However pro- C alcitonin were negative on 2 occasions. Patient will require to repeat CAT scan of the chest as an outpatient to assess stability She is also on IV Solu-Medrol 07/30 Patient still complaining from shortness of breath today and found to have coughing Patient has not in fact for shortness of breath this morning. Patient on fluid restriction of sodium improving slowly and gradually. Discussed with the patient and agrees with this current plan. Pulmonary team recommend to repeat CAT scan in a few months to assess stability of his lung nodules Currently on antibiotic, cefuroxime switched to Levaquin Also started on a prednisone burst taper starting at 60 mg daily 07/31 Patient skipped her breathing treatment this morning, after that she felt little short of breath No significant bronchospastic breath sounds, pneumonia looks improving and currently she was placed on Levaquin Also her steroids switched to prednisone She looks little anxious we will add Xanax as needed Swallow evaluation in the morning is requested 08/01 Patient still has respiratory difficulty, even with talking. No chest pain. Still has coughing Patient is going for swallow evaluation today Vital stable, creatinine is stable but potassium went up to 6.1 today, she received the cocktail for the hyperkalemia and we will going to recheck potassium level later on she is mildly tachycardic but saturating 91% on room a ir. She has stable leukocytosis at 13.5 and hemoglobin stable at 11.0. Sodium is 131 and potassium 6.1 Patient currently on Levaquin and prednisone 60 mg for her pneumonia of the left lower lobe and COPD exacerbation. Treatment cocktail for hyperkalemia was initiated, however patient declines placing IV line after several failed attempts including central line in the emergency room as per staff. I have lengthy discussion with the patient with risk benefits and alternative explained to her in details, she agrees to one- time trial only. We are going to order PICC line but patient might still decline Therefore we will start treatment with albuterol, oral sodium bicarb and calcium as she refused the IV doses, also we started her on Lokelma with close monitoring of potassium. We placed low potassium diet Discussed with staff Patient also passed swallow evaluation for the oral and pharyngeal part, barium swallow x-rays ordered 08/02/2024 Patient is lying in the bed. Awake and alert x 3. Complains of cough and chest tightness. No nausea or vomiting abdominal pain or diarrhea. Patient is tolerating oral diet. Currently on room air. Patient is being continued on antibiotics at home with Levaquin. Also on prednisone tapering course, 40 mg daily now. Laboratory test showed WBC 17.3 hemoglobin 10.9 and platelets 472 sodium 132 potassium 6.0 chloride 92 bicarb is 32 BUN 17.9 and creatinine 0.9 and blood sugar 88. Troponin x 1 negative cortisol level is 3.5. Current medications reviewed.. Objective - Vital Signs Vital signs: Vital Signs Temp 98.2 F 08/02/24 13:25 Pulse 99 08/02/24 21:02 Resp 18 08/02/24 21:02 BP 93/60 08/02/24 13:25 Pulse Ox 94 L 08/02/24 13:25 FiO2 Intake & Output 08/02/24 08/02/24 08/03/24 06:59 18:59 06:59 Intake Total 480 Balance 480 Weight 63.503 kg Intake: Oral 480 Other: Voiding Method Toilet # Voids 1 7 # Bowel Movements 7 - Exam - Exam GENERAL: The patient is alert and oriented x3, not in any acute distress. Well developed, well nourished. HEENT: Pupils are round and equally reacting to light. EOMI. No scleral icterus. No conjunctival pallor. Normocephalic, atraumatic. No pharyngeal erythema. No thyromegaly. CARDIOVASCULAR: S1 and S2 present. No murmurs, rubs, or gallops. PULMONARY: No breath sounds on the right side. Chest is clear to auscultation, no wheezing , no crackles. Mild tachypnea ABDOMEN: Soft, nontender, nondistended, normoactive bowel sounds. No palpable organomegaly. MUSCULOSKELETAL: No joint swelling or deformity. EXTREMITIES: No cyanosis, clubbing, or pedal edema. NEUROLOGICAL: Gross neurological examination did not reveal any focal deficits. SKIN: No rashes. no petechiae. - Labs CBC & Chem 7: 08/03/24 03:23 08/03/24 09:04 Labs: Abnormal Lab Results - Last 24 Hours (Table) 08/02/24 08/02/24 Range/Units 03:04 03:04 WBC 17.35 H (4.50-10.00) X 10*3/uL RBC 3.94 L (4.10-5.20) X 10*6/uL Hgb 10.9 L (12.0-15.0) g/dL Hct 33.3 L (37.2-46.3) % Plt Count 472 H (140-440) X 10*3/uL Neutrophils # (Manual) 14.05 H (1.80-7.70) X 10*3/uL Lymphocytes # (Manual) 0.69 L (0.90-5.00) X 10*3/uL Monocytes # (Manual) 1.39 H (0.20-1.00) X 10*3/uL NRBC/100 WBC Diff 0.04 H (0.00-0.01) X 10*3/uL Sodium 132 L (135-145) mmol/L Potassium 6.0 H (3.5-5.5) mmol/L Chloride 92 L (96-109) mmol/L Carbon Dioxide 32.0 H (21.6-31.8) mmol/L Assessment and Plan Assessment: Left lower lobe infiltrate, right middle and lower lobe infiltrate there was suspicion for metastatic disease versus pneumonia however patient with no fever. She has leukocytosis and pro- Calcitonin is negative and space pulmonary team on the case and recommended to repeat CAT scan later to assess stability of the lung nodules Hyperkalemia Sepsis with leukocytosis and tachycardia present on admission Euvolemic hyponatremia, suspicious for an SIADH Hypotension with tachycardia related to hypovolemia, improving Non-small cell lung cancer, s/p right pneumonectomy Seizure disorder COPD with acute exacerbation Hypertension, currently she was hypotensive on admission Plan: Patient agrees to one-time trial for placing PICC line. Continue with treatment for hyperkalemia with a cocktail and monitor potassium level. Continue with prednisone 60>40 mg daily Continue with Levaquin Patient was started on oral diet. Continue with Robitussin Resume Plavix and Keppra Hold Valsartan 80 mg Pulmonary team on the case and recommended to repeat CAT scan in few months to assess stability of the lung nodules Labs and medication were reviewed DVT prophylaxis: Subcutaneous heparin GI Prophylaxis: Pepcid PT/OT: Pending Prognosis is guarded CODE STATUS: DNR, I discussed with the patient in details and she wants to be DNR. Patient has capacity to make medical decision Time with Patient: Greater than 30
--- NOTE | 2024-08-03 14:20 | P.PN ---
Subjective Progress Note Date: 08/03/24 This is a 68-year-old female patient with previous history of lung cancer and the patient had undergone a right pneumonectomy back in 2019 and since then the patient has been maintained on Tagrisso. The patient was have increased cough and congestion and shortness of breath which initially presented to [facility] where she was given a course of antibiotics and she was discharged. Nevertheless, the patient was unable to take the antibiotics. She progressed and her condition got worse and she continued to have increased cough and congestion worsening shortness of breath at baseline that she came into our emergency department. Chest x-ray in the emergency showed a left lower lobe inf iltrate and signs of a right pneumonectomy. The patient is currently running a white cell count of 24 with a hemoglobin 12.5 with a platelet count of 385. The sodium is at 132, potassium is at 5.3, BUN is 15 with a creatinine of 0.7. The viral screen was negative. Legionella urine antigen was negative. Procalcitonin level is 0.1. proBNP level is at 414. Troponins are also negative. I also noted some nodular changes in the left upper lobe area that needs to be further investigated. She is currently on room air oxygen. No edema lower extremities. No previous history of DVT or pulmonary embolism. On 07/28/2024, I am seeing the patient for a follow-up. Less short of breath. Less bronchospastic and wheezy compared to yesterday. Remains on IV Rocephin. The white cell count is down to 14.4 with a hemoglobin 11.1. Sodium is at 126 BUN is 12 with a creatinine of 0.6 and a bicarb is at 27. His procalcitonin level is at 0.12. CAT scan of the chest was reviewed. It is possible the patient did not have a full pneumonectomy. There is abrupt cut off the right sided bronchus with complete atelectasis of what seems to be the right middle lobe and possibly the right upper lobe showed the patient underwent right lower lobe resection. There is also pleural calcification identified along the right pleura. There is chronic right-sided volume loss. Of significance also, there are areas of patchy nodular changes involving the left lung. This could be consolidation versus malignancy and the possibility of metastatic lung disease cannot be completely excluded. I favor infectious changes however. 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 She is currently on room air oxygen with a pulse ox of 94%. No significant sputum production. Sputum Gram stain and culture was collected yesterday and results are still pending. Few gram-negative bacilli and few gram-positive cocci are present. On 07/29/2024, seen the patient for a follow-up. Patient is doing well. Her main complaint continues to be cough and some chest wall pain and discomfort when swallowing her food. She is less bronchospastic and wheezy. The ventricle is down to 13.5. Hemoglobin is 10.7. The patient remains on DuoNeb nebulized treatments [id number]. The patient remains on IV Solu-Medrol. She is on Percocet for pain control. No altered mentation. Oxygenation stable and the patient is currently on 94% room air oxygen. No signs of any significant oropharyngeal candidiasis. On 07/30/2024, [facility] the patient for a follow-up. Resting comfortably in bed. No new complaints. Still having some shortness of breath and diffuse bodyaches more so than her right shoulder area. Labs from today are still pending. The patient remains on bronchodilators with DuoNeb updrafts. The patient remains on steroids and the patient has been placed on oral prednisone starting with 60 mg p.o. daily. She was also switched to oral antibiotics. I am going to obtain a follow-up chest x-ray for this patient for tomorrow. 07/31/2024, patient is complaining of squeezing sensation over the anterior chest area. She is also having some occasional difficulty swallowing. Breath sounds is adequate on the left lung. Repeat chest x-ray was done today this morning and the previous described nodular opacity in the left lung was not seen. The patient is post right pneumonectomy. The patient remains on 2 L of oxygen by nasal cannula. She is also able to come off the oxygen. The white cell count of 13, hemoglobin 11 and platelet count is 467. Sodium is at 131, potassium level is at 5.5, BUN is 28 with a creatinine of 1.0. The patient remains on DuoNeb updrafts, prednisone starting with 60 mg and taper down to 40 mg. The patient is also on Levaquin 5 mg p.o. daily. She is on Pepcid and I am going to add IV Protonix and obtain a modified barium swallow. The patient is seen today August 01, 2020 for follow-up on the regular medical floor. She is currently sitting up in bed. Awake and alert in no acute distress. Still feels weak and short of breath at times. Barium swallow from yesterday showed no evidence of aspiration. Sputum culture revealed no growth. Sodium 131. Potassium 5.4. Bicarb 29. BUN 22. Creatinine 1.0. Glucose 104. She remains on DuoNeb and elations. Antibiotics in the form of Levaquin. Initiated on a prednisone taper. Remains on oral diuretics. The patient is seen today August 02, 2024 in follow-up on the regular medical floor. She is currently resting in bed. Awake and alert in no acute distress. She is maintaining good O2 saturations in the 90s on room air. He is continued on bronchodilators. Robitussin for her cough. Heparin for DVT prophylaxis. Remains on antibiotics in the form of Levaquin. Completing a prednisone taper. Remains on oral diuretics. Sputum culture reveals no growth. Blood cultures revealed no growth. White count 17.3. Hemoglobin 10.9. Platelets 472. Sodium 132. Potassium 6.0. Bicarb 32. BUN 18. Creatinine 0.9. Glucose 88. Troponin negative. The patient is seen today August 03, 2024 in follow-up on the regular medical floor. She is currently awake and alert in no acute distress. Maintaining O2 saturations in the 90s on room air. Denies any worsening shortness of breath, cough or congestion. She is afebrile. Hemodynamically stable. Blood culture revealed no growth. Sputum culture revealed no growth. White count 15.8. Hemoglobin 10.2. Platelets 412. Sodium 131. Potassium 4.9. Bicarb 27. BUN 19. Creatinine 1.2. Glucose 158. She remains on bronchodilators steroids, prednisone. Remains on oral diuretics. Heparin for DVT prophylaxis. Continued on Levaquin. Objective - Vital Signs Vital signs: Vital Signs Temp 98.5 F 08/03/24 13:20 Pulse 110 H 08/03/24 13:20 Resp 16 08/03/24 13:20 BP 114/71 08/03/24 13:20 Pulse Ox 93 L 08/03/24 13:20 FiO2 Intake & Output 08/02/24 08/03/24 08/03/24 18:59 06:59 18:59 Intake Total 480 Balance 480 Weight 63.503 kg Intake: Oral 480 Other: Voiding Method Toilet Toilet # Voids 7 1 1 # Bowel Movements 7 - Exam GENERAL EXAM: Alert, 68-year-old female, on room air, comfortable in no apparent distress. HEAD: Normocephalic. EYES: Normal reaction of pupils, equal size. NOSE: Clear with pink turbinates. THROAT: No erythema or exudates. NECK: No masses, no JVD. CHEST: No chest wall deformity. LUNGS: Equal air entry with few scattered rhonchi. CVS: S1 and S2 normal with no audible murmur, regular rhythm. ABDOMEN: No hepatosplenomegaly, normal bowel sounds, no guarding or rigidity. SPINE: No scoliosis or deformity SKIN: No rashes CENTRAL NERVOUS SYSTEM: No focal deficits, tone is normal in all 4 extremities. EXTREMITIES: There is no peripheral edema. No clubbing, no cyanosis. Peripheral pulses are intact. - Labs CBC & Chem 7: 08/03/24 03:23 08/03/24 09:04 Labs: Abnormal Lab Results - Last 24 Hours (Table) 08/03/24 08/03/24 08/03/24 Range/Units 02:32 03:23 03:23 WBC 15.80 H (4.50-10.00) X 10*3/uL RBC 3.73 L (4.10-5.20) X 10*6/uL Hgb 10.2 L (12.0-15.0) g/dL Hct 31.8 L (37.2-46.3) % RDW 14.7 H (11.5-14.5) % Neutrophils # (Manual) 12.80 H (1.80-7.70) X 10*3/uL Lymphocytes # (Manual) 0.79 L (0.90-5.00) X 10*3/uL Eosinophils # (Manual) 0 L (0.04-0.35) X 10*3/uL NRBC/100 WBC Diff 0.02 H (0.00-0.01) X 10*3/uL Sodium 131 L (135-145) mmol/L Chloride 93 L (96-109) mmol/L Est GFR (CKD-EPI) 50 L (>=60) Glucose 158 H (70-110) mg/dL POC Glucose (mg/dL) 120 H (70-110) mg/dL Assessment and Plan Assessment: Acute left lower lobe pneumonia and the patient has an area of consolidation left lung base on today's chest x-ray along with some nodular opacities in the left upper lobe that needs to be further followed up in the future. This could be essentially infectious in nature. Continued on Levaquin. Possibility of malignancy cannot be completely excluded. As such, follow-up will be needed. Outpatient PET scan recommended Acute hypoxic respiratory failure secondary to above, recovered and on room air Hyperkalemia, received Lokelma. Current potassium 4.9 Previous history of non-small cell lung cancer with previous right pneumonectomy 2019 and the patient has been maintained on Tagrisso on outpatient basis Acute COPD exacerbation secondary to above. No maintenance inhalers and the patient is utilizing albuterol HFA on an as-needed basis Seizure disorder Hypertension Hyperlipidemia Acute leukocytosis, improving Acute hyponatremia Plan: The patient was seen and evaluated Labs and medications reviewed Currently stable and on room air Continue the current treatment plan Outpatient PET scan regarding pulmonary abnormalities Cleared for discharge from the pulmonary standpoint Plan is for home with home care at discharge I have personally seen and examined the patient, performed the documentation and the assessment and plan as written. Number of minutes spent on the visit: 10.
[2024-08-04 05:55] LABS: Glucose,Whole Blood 84 mg/dL (70-110)
[2024-08-04] MEDS: DILTIAZEM DRIP BOLUS FROM BAG 1 MG SOLN IV ONE (06:30)
[2024-08-04] MEDS: DILTIAZEM 125 MG in SODIUM CHLORIDE 0.9% 100 ML IV SCH (06:31)
[2024-08-04 06:43] LABS: HCT 34.7 % (34.0-46.0); HGB 11.1 gm/dL (11.4-16.0); MCH 27.8 pg (25.0-35.0); MCHC 32.1 g/dL (31.0-37.0); MCV 86.5 fL (80.0-100.0); Mean Platelet Volume 8.3; Platelet Count 425 k/uL (150-450); RBC 4.01 m/uL (3.80-5.40); RDW 14.6 % (11.5-15.5); WBC 14.5 k/uL (3.8-10.6)
[2024-08-04 07:03] LABS: INR 0.9 (<1.2); Partial Thromboplastin Time 22.4 sec (22.0-30.0); Prothrombin Time 10.3 sec (10.0-12.5)
[2024-08-04] MEDS: HEPARIN SOD,PORK IN 0.45% NACL 25,000 UNIT in 0.45% NACL 1 250ML.BAG IV SCH (07:08)
[2024-08-04] MEDS: HEPARIN SODIUM 1,000 UN/ML (10ML VL) IV ONE (07:11)
[2024-08-04 07:29] LABS: Band Neutrophils % 3 %; Eosinophils # (M) 0.29 k/uL (0-0.7); Lymphocytes # (M) 1.45 k/uL (1.0-4.8); Metamyelocytes # (M) 0.44 k/uL (0); Metamyelocytes % 3 %; Monocytes # (M) 0.87 k/uL (0-1.0); Myelocytes # (M) 0.44 k/uL (0); Myelocytes % 3 %; Neutrophils % (M) 75 %; Nucleated Red Blood Cells 0 /100 WBC (0-0); Total Cells Counted 200
[2024-08-04 07:32] LABS: RBC Morphology Normal
[2024-08-04 08:43] LABS: BUN/Creat Ratio 24.12 Ratio (12.00-20.00); Blood Urea Nitrogen 19.3 mg/dL (9.0-27.0); Carbon Dioxide 28.7 mmol/L (21.6-31.8); Chloride 94 mmol/L (96-109); Glucose 94 mg/dL (70-110); Potassium 5.9 mmol/L (3.5-5.5); Sodium 134 mmol/L (135-145)
[2024-08-04 08:44] LABS: Calcium 9.5 mg/dL (8.7-10.3)
--- NOTE | 2024-08-04 11:22 | P.PN ---
Subjective Progress Note Date: 08/03/24 This is a pleasant 68 years old female with past medical history of COPD, hypertension, seizure disorder. Patient presents because of worsening dyspnea and coughing x 1 week, not improved as an outpatient associated with chest pain/abdominal pain with coughing Patient states she has no phlegm also she denies abdominal pain and she has normal bowel movement But patient has been vomiting all day yesterday with no blood in her vomitus or coffee-ground vomitus as per patient also patient had low appetite for 3 days No urinary complaint. She has been feeling dizzy but no headache, no weakness or tingling but has been using the walker more frequently lately because of her generalized weakness Patient states she was not using steroids or antibiotic prior to admission She wants her home medication of Keppra and [place] 7.5 to resumed. Also patient complaining from some pain in her chest with the swallowing Patient is afebrile She was tachycardic and hypotensive on admission, currently blood pressure improved and heart rate is lower WBC is elevated at 24,000 INR, unremarkable, sodium slightly low 132, potassium 5.3 and creatinine 0.7 Liver enzymes, troponin are not elevated Influenza A and type B, RSV, SARS (coronavirus) are undetected proBNP is 414 EKG showing sinus tachycardia at [address]-T changes Chest x-ray reviewed by myself showing mild left lower lobe infiltrate with small left pleural effusion and status post right pneumonectomy with complete opacification of the right side Pro- Calcitonin is within the reference range at 0.1 07/28 Patient still feeling same, her dyspnea is slightly better but she is still coughing. No significant chest pain or abdominal pain. Patient does not seem in distress Patient have difficulty talking because of her shortness of breath but not that bad. No other new complaint CTA of the chest was negative for PE but showing right middle and lower infiltrate suspicious for a mass or metastasis versus pneumonia. While the left lower lobe consolidation is noted to also suspicious for pneumonia versus metastatic disease. Right humerus head showing sclerotic lesion suspicious for metastatic disease. Also patient sodium today dropped to 134 down to 126 while she is on normal saline which was discontinued. We put the patient on fluid restriction 1200 mL/day. Also will check for urine sodium and osmolality with close monitoring of sodium. 07/29 Patient still complaining from shortness of breath, she has mild tachypnea at rest. She has good oxygen saturation. She is still getting breathing treatment this morning She is on fluid restriction and sodium improved this 126 up to 128, discussed with the patient and she agrees, currently 1500 mL/day She is still covered with ceftriaxone for her pneumonia. However pro- C alcitonin were negative on 2 occasions. Patient will require to repeat CAT scan of the chest as an outpatient to assess stability She is also on IV Solu-Medrol 07/30 Patient still complaining from shortness of breath today and found to have coughing Patient has not in fact for shortness of breath this morning. Patient on fluid restriction of sodium improving slowly and gradually. Discussed with the patient and agrees with this current plan. Pulmonary team recommend to repeat CAT scan in a few months to assess stability of his lung nodules Currently on antibiotic, cefuroxime switched to Levaquin Also started on a prednisone burst taper starting at 60 mg daily 07/31 Patient skipped her breathing treatment this morning, after that she felt little short of breath No significant bronchospastic breath sounds, pneumonia looks improving and currently she was placed on Levaquin Also her steroids switched to prednisone She looks little anxious we will add Xanax as needed Swallow evaluation in the morning is requested 08/01 Patient still has respiratory difficulty, even with talking. No chest pain. Still has coughing Patient is going for swallow evaluation today Vital stable, creatinine is stable but potassium went up to 6.1 today, she received the cocktail for the hyperkalemia and we will going to recheck potassium level later on she is mildly tachycardic but saturating 91% on room a ir. She has stable leukocytosis at 13.5 and hemoglobin stable at 11.0. Sodium is 131 and potassium 6.1 Patient currently on Levaquin and prednisone 60 mg for her pneumonia of the left lower lobe and COPD exacerbation. Treatment cocktail for hyperkalemia was initiated, however patient declines placing IV line after several failed attempts including central line in the emergency room as per staff. I have lengthy discussion with the patient with risk benefits and alternative explained to her in details, she agrees to one- time trial only. We are going to order PICC line but patient might still decline Therefore we will start treatment with albuterol, oral sodium bicarb and calcium as she refused the IV doses, also we started her on Lokelma with close monitoring of potassium. We placed low potassium diet Discussed with staff Patient also passed swallow evaluation for the oral and pharyngeal part, barium swallow x-rays ordered 08/02/2024 Patient is lying in the bed. Awake and alert x 3. Complains of cough and chest tightness. No nausea or vomiting abdominal pain or diarrhea. Patient is tolerating oral diet. Currently on room air. Patient is being continued on antibiotics at home with Levaquin. Also on prednisone tapering course, 40 mg daily now. Laboratory test showed WBC 17.3 hemoglobin 10.9 and platelets 472 sodium 132 potassium 6.0 chloride 92 bicarb is 32 BUN 17.9 and creatinine 0.9 and blood sugar 88. Troponin x 1 negative cortisol level is 3.5. 08/03/2024atient is currently lying in the bed. Awake alert and oriented x 3. Chest tightness is better today. Less cough. Currently on room air saturating at 90%. Denied any worsening shortness of breath. Patient has been afebrile. Potassium level came down to 4.9 Patient remains on antibiotics in the form of Levaquin. Other laboratory showed WBC trending down to 15.8 hemoglobin 10.2 and platelets 412 sodium 131 potassium 4.9 chloride 93 bicarb is 27.3 BUN 19.0 and creatinine 1.2 and blood sugar 158. Patient is tachycardic today afternoon and EKG showed sinus tachycardia with premature atrial complexes with aberrant conduction. Placed on telemonitoring. Current medications reviewed.. Objective - Vital Signs Vital signs: Vital Signs Temp 98.0 F 08/03/24 07:33 Pulse 96 08/03/24 08:24 Resp 17 08/03/24 07:33 BP 118/80 08/03/24 07:33 Pulse Ox 96 08/03/24 08:09 FiO2 Intake & Output 08/02/24 08/03/24 08/03/24 18:59 06:59 18:59 Intake Total 480 Balance 480 Weight 63.503 kg Intake: Oral 480 Other: Voiding Method Toilet # Voids 7 1 # Bowel Movements 7 - Exam - Exam GENERAL: The patient is alert and oriented x3, not in any acute distress. Well developed, well nourished. HEENT: Pupils are round and equally reacting to light. EOMI. No scleral icterus. No conjunctival pallor. Normocephalic, atraumatic. No pharyngeal erythema. No thyromegaly. CARDIOVASCULAR: S1 and S2 present. No murmurs, rubs, or gallops. PULMONARY: No breath sounds on the right side. Chest is clear to auscultation, no wheezing , no crackles. Mild tachypnea ABDOMEN: Soft, nontender, nondistended, normoactive bowel sounds. No palpable organomegaly. MUSCULOSKELETAL: No joint swelling or deformity. EXTREMITIES: No cyanosis, clubbing, or pedal edema. NEUROLOGICAL: Gross neurological examination did not reveal any focal deficits. SKIN: No rashes. no petechiae. - Labs CBC & Chem 7: 08/04/24 04:44 08/04/24 04:44 Labs: Abnormal Lab Results - Last 24 Hours (Table) 08/02/24 08/03/24 08/03/24 Range/Units 03:04 02:32 03:23 WBC 17.35 H 15.80 H (4.50-10.00) X 10*3/uL RBC 3.94 L 3.73 L (4.10-5.20) X 10*6/uL Hgb 10.9 L 10.2 L (12.0-15.0) g/dL Hct 33.3 L 31.8 L (37.2-46.3) % RDW 14.7 H (11.5-14.5) % Plt Count 472 H (140-440) X 10*3/uL Neutrophils # (Manual) 14.05 H 12.80 H (1.80-7.70) X 10*3/uL Lymphocytes # (Manual) 0.69 L 0.79 L (0.90-5.00) X 10*3/uL Monocytes # (Manual) 1.39 H (0.20-1.00) X 10*3/uL Eosinophils # (Manual) 0 L (0.04-0.35) X 10*3/uL NRBC/100 WBC Diff 0.04 H 0.02 H (0.00-0.01) X 10*3/uL Sodium (135-145) mmol/L Chloride (96-109) mmol/L Est GFR (CKD-EPI) (>=60) Glucose (70-110) mg/dL POC Glucose (mg/dL) 120 H (70-110) mg/dL 08/03/24 Range/Units 03:23 WBC (4.50-10.00) X 10*3/uL RBC (4.10-5.20) X 10*6/uL Hgb (12.0-15.0) g/dL Hct (37.2-46.3) % RDW (11.5-14.5) % Plt Count (140-440) X 10*3/uL Neutrophils # (Manual) (1.80-7.70) X 10*3/uL Lymphocytes # (Manual) (0.90-5.00) X 10*3/uL Monocytes # (Manual) (0.20-1.00) X 10*3/uL Eosinophils # (Manual) (0.04-0.35) X 10*3/uL NRBC/100 WBC Diff (0.00-0.01) X 10*3/uL Sodium 131 L (135-145) mmol/L Chloride 93 L (96-109) mmol/L Est GFR (CKD-EPI) 50 L (>=60) Glucose 158 H (70-110) mg/dL POC Glucose (mg/dL) (70-110) mg/dL Assessment and Plan Assessment: Left lower lobe infiltrate, right middle and lower lobe infiltrate there was suspicion for metastatic disease versus pneumonia however patient with no fever. She has leukocytosis and pro- Calcitonin is negative and space pulmonary team on the case and recommended to repeat CAT scan later to assess stability of the lung nodules Hyperkalemia Sepsis with leukocytosis and tachycardia present on admission Euvolemic hyponatremia, suspicious for an SIADH Hypotension with tachycardia related to hypovolemia, improving Non-small cell lung cancer, s/p right pneumonectomy Seizure disorder COPD with acute exacerbation Hypertension, currently she was hypotensive on admission Sinus tachycardia. Plan: Patient was placed on telemonitoring. EKG showed sinus tachycardia. Continue with treatment for hyperkalemia with a cocktail and monitor potassium level. Continue with prednisone 60>40 mg daily Continue with Levaquin Patient was started on oral diet. Continue with Robitussin Resume Plavix and Keppra Hold Valsartan 80 mg Pulmonary team on the case and recommended to repeat CAT scan in few months to assess stability of the lung nodules Labs and medication were reviewed DVT prophylaxis: Subcutaneous heparin GI Prophylaxis: Pepcid PT/OT: Pending Prognosis is guarded CODE STATUS: DNR, I discussed with the patient in details and she wants to be DNR. Patient has capacity to make medical decision Time with Patient: Greater than 30
[2024-08-04] MEDS: DEXTROSE 50% SYRINGE 50 ML IVP STA (12:47)
[2024-08-04] MEDS: INSULIN REGULAR 100 UNIT/ML VIAL (IV) IV ONE (12:47)
[2024-08-04] MEDS: SODIUM ZIRCONIUM CYCLOSILICATE 10 GM PACKET PO ONE (12:47)
[2024-08-04] MEDS: HEPARIN SODIUM 1,000 UN/ML (10ML VL) IV PRN (13:14)
--- NOTE | 2024-08-04 15:13 | P.PN ---
Subjective Progress Note Date: 08/04/24 Principal diagnosis: Acute hypoxic respiratory failure and acute left lower lobe pneumonia with underlying COPD and history of non-small cell lung cancer This is a 68-year-old female patient with previous history of lung cancer and the patient had undergone a right pneumonectomy back in 2019 and since then the patient has been maintained on Tagrisso. The patient was have increased cough and congestion and shortness of breath which initially presented to [facility] where she was given a course of antibiotics and she was discharged. Nevertheless, the patient was unable to take the antibiotics. She progressed and her condition got worse and she continued to have increased cough and congestion worsening shortness of breath at baseline that she came into our emergency department. Chest x-ray in the emergency showed a left lower lobe infiltrate and signs of a right pneumonectomy. The patient is currently running a white cell count of 24 with a hemoglobin 12.5 with a platelet count of 385. The sodium is at 132, potassium is at 5.3, BUN is 15 with a creatinine of 0.7. The viral screen was negative. Legionella urine antigen was negative. Procalcitonin level is 0.1. proBNP level is at 414. Troponins are also negative. I also noted some nodular changes in the left upper lobe area that needs to be further investigated. She is currently on room air oxygen. No edema lower extremities. No previous history of DVT or pulmonary embolism. On 07/28/2024, I am seeing the patient for a follow-up. Less short of breath. Less bronchospastic and wheezy compared to yesterday. Remains on IV Rocephin. The white cell count is down to 14.4 with a hemoglobin 11.1. Sodium is at 126 BUN is 12 with a creatinine of 0.6 and a bicarb is at 27. His procalcitonin level is at 0.12. CAT scan of the chest was reviewed. It is possible the patient did not have a full pneumonectomy. There is abrupt cut off the right sided bronchus with complete atelectasis of what seems to be the right middle lobe and possibly the right upper lobe showed the patient underwent right lower lobe resection. There is also pleural calcification identified along the right pleura. There is chronic right-sided volume loss. Of significance also, there are areas of patchy nodular changes involving the left lung. This could be consolidation versus malignancy and the possibility of metastatic lung disease cannot be completely excluded. I favor infectious changes however. 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 She is currently on room air oxygen with a pulse ox of 94%. No significant sputum production. Sputum Gram stain and culture was collected yesterday and results are still pending. Few gram-negative bacilli and few gram-positive cocci are present. On 07/29/2024, seen the patient for a follow-up. Patient is doing well. Her main complaint continues to be cough and some chest wall pain and discomfort when swallowing her food. She is less bronchospastic and wheezy. The ventricle is down to 13.5. Hemoglobin is 10.7. The patient remains on DuoNeb nebulized treatments [id number]. The patient remains on IV Solu-Medrol. She is on Percocet for pain control. No altered mentation. Oxygenation stable and the patient is currently on 94% room air oxygen. No signs of any significant oropharyngeal candidiasis. On 07/30/2024, [facility] the patient for a follow-up. Resting comfortably in bed. No new complaints. Still having some shortness of breath and diffuse bodyaches more so than her right shoulder area. Labs from today are still pending. The patient remains on bronchodilators with DuoNeb updrafts. The patient remains on steroids and the patient has been placed on oral prednisone starting with 60 mg p.o. daily. She was also switched to oral antibiotics. I am going to obtain a follow-up chest x-ray for this patient for tomorrow. 07/31/2024, patient is complaining of squeezing sensation over the anterior chest area. She is also having some occasional difficulty swallowing. Breath sounds is adequate on the left lung. Repeat chest x-ray was done today this morning and the previous described nodular opacity in the left lung was not seen. The patient is post right pneumonectomy. The patient remains on 2 L of oxygen by nasal cannula. She is also able to come off the oxygen. The white cell count of 13, hemoglobin 11 and platelet count is 467. Sodium is at 131, potassium level is at 5.5, BUN is 28 with a creatinine of 1.0. The patient remains on DuoNeb updrafts, prednisone starting with 60 mg and taper down to 40 mg. The p atient is also on Levaquin 5 mg p.o. daily. She is on Pepcid and I am going to add IV Protonix and obtain a modified barium swallow. The patient is seen today August 01, 2020 for follow-up on the regular medical floor. She is currently sitting up in bed. Awake and alert in no acute distress. Still feels weak and short of breath at times. Barium swallow from yesterday showed no evidence of aspiration. Sputum culture revealed no growth. Sodium 131. Potassium 5.4. Bicarb 29. BUN 22. Creatinine 1.0. Glucose 104. She remains on DuoNeb and elations. Antibiotics in the form of Levaquin. Initiated on a prednisone taper. Remains on oral diuretics. The patient is seen today August 02, 2024 in follow-up on the regular medical floor. She is currently resting in bed. Awake and alert in no acute distress. She is maintaining good O2 saturations in the 90s on room air. He is continued on bronchodilators. Robitussin for her cough. Heparin for DVT prophylaxis. Remains on antibiotics in the form of Levaquin. Completing a prednisone taper. Remains on oral diuretics. Sputum culture reveals no growth. Blood cultures revealed no growth. White count 17.3. Hemoglobin 10.9. Platelets 472. Sodium 132. Potassium 6.0. Bicarb 32. BUN 18. Creatinine 0.9. Glucose 88. Tr oponin negative. The patient is seen today August 03, 2024 in follow-up on the regular medical floor. She is currently awake and alert in no acute distress. Maintaining O2 saturations in the 90s on room air. Denies any worsening shortness of breath, cough or congestion. She is afebrile. Hemodynamically stable. Blood culture revealed no growth. Sputum culture revealed no growth. White count 15.8. Hemoglobin 10.2. Platelets 412. Sodium 131. Potassium 4.9. Bicarb 27. BUN 19. Creatinine 1.2. Glucose 158. She remains on bronchodilators steroids, prednisone. Remains on oral diuretics. Heparin for DVT prophylaxis. Continued on Levaquin. Patient was seen today on 08/04/2024, patient had to be transferred last night to the ICU because of atrial fibrillation with RVR, new onset. Patient was placed on Cardizem, and soon after she arrived to the ICU went into sinus rhythm. Pat ient is back to her baseline, does not seem to be in any distress, she is in sinus rhythm, remains on antibiotics, bronchodilators, steroids. I have cleared the patient to be discharged home and she needs to follow-up with Dr. Scott Objective - Vital Signs Vital signs: Vital Signs Temp 98.0 F 08/04/24 12:00 Pulse 96 08/04/24 13:52 Resp 18 08/04/24 13:52 BP 124/75 08/04/24 12:00 Pulse Ox 93 L 08/04/24 12:00 FiO2 Intake & Output 08/03/24 08/04/24 08/04/24 18:59 06:59 18:59 Intake Total 720 12.167 46.609 Output Total 0 Balance 720 12.167 46.609 Intake: IV 10 KVO 10 Intake, IV Titration 2.167 46.609 Amount Diltiazem 125 mg In 2.167 Sodium Chloride 0.9% 100 ml @ 5 MG/HR 5 mls/hr IV .Q24H RIVER Rx#:[id number] Heparin Sod,Pork in 0.45% 46.609 NaCl 25,000 unit In 0.45 % NaCl 1 250ml.bag @ 12 UNITS/KG/HR 7.62 mls/hr IV .Q24H RIVER Rx#: [id number] Oral 720 Output: Urine 0 Other: Voiding Method Toilet Toilet # Voids 3 - Exam GENERAL EXAM: Alert, 68-year-old female, on room air, comfortable in no apparent distress. HEAD: Normocephalic. EYES: Normal reaction of pupils, equal size. NOSE: Clear with pink turbinates. THROAT: No erythema or exudates. NECK: No masses, no JVD. CHEST: No chest wall deformity. LUNGS: Equal air entry with few scattered rhonchi. CVS: S1 and S2 normal with no audible murmur, regular rhythm. ABDOMEN: No hepatosplenomegaly, normal bowel sounds, no guarding or rigidity. SKIN: No rashes CENTRAL NERVOUS SYSTEM: No focal deficits, tone is normal in all 4 extremities. EXTREMITIES: There is no peripheral edema. No clubbing, no cyanosis. Peripheral pulses are intact. - Labs CBC & Chem 7: 08/04/24 04:44 08/04/24 04:44 Labs: Abnormal Lab Results - Last 24 Hours (Table) 08/03/24 08/04/24 08/04/24 Range/Units 03:23 04:44 04:44 WBC 14.5 H (3.8-10.6) k/uL Hgb 11.1 L (11.4-16.0) gm/dL Neutrophils # (Manual) 11.30 H (1.3-7.7) k/uL Metamyelocytes # (Man) 0.44 H (0) k/uL Myelocytes # (Manual) 0.44 H (0) k/uL Promyelocytes # (Man) 0.32 H (0) k/uL APTT (22.0-30.0) sec Sodium 134 L (135-145) mmol/L Potassium 5.9 H (3.5-5.5) mmol/L Chloride 94 L (96-109) mmol/L BUN/Creatinine Ratio 24.12 H (12.00-20.00) Ratio 08/04/24 Range/Units 12:31 WBC (3.8-10.6) k/uL Hgb (11.4-16.0) gm/dL Neutrophils # (Manual) (1.3-7.7) k/uL Metamyelocytes # (Man) (0) k/uL Myelocytes # (Manual) (0) k/uL Promyelocytes # (Man) (0) k/uL APTT 42.4 H (22.0-30.0) sec Sodium (135-145) mmol/L Potassium (3.5-5.5) mmol/L Chloride (96-109) mmol/L BUN/Creatinine Ratio (12.00-20.00) Ratio Assessment and Plan Assessment: Impression Acute left lower lobe pneumonia, likely community-acquired, underlying malignancy involving the left lower lobe is not entirely ruled out, and this needs to be addressed on outpatient basis especially with the nodular changes noted patient will need an outpatient PET scan Acute hypoxic respiratory failure secondary to above, recovered and on room air Hyperkalemia, received Lokelma. Current potassium 4.9Previous history of non- small cell lung cancer with previous right pneumonectomy 2018 and the patient has been maintained on Tagrisso on outpatient basis Acute COPD exacerbation secondary to above. No maintenance inhalers and the patient is utilizing albuterol HFA on an as-needed basis Seizure disorder Hypertension Hyperlipidemia Acute leukocytosis, improving Acute hyponatremia New onset atrial fibrillation with RVR requiring transfer to the ICU overnight Recommendation Continue present supportive care measures Continue antibiotics Patient will need a PET scan on outpatient basis Will clear the patient for discharge once she is cleared by cardiology. Will continue to follow in the meantime. Patient was advised to make appointment with Dr. Scott in postdischarge to evaluate her nodular changes in the left lower lobe Time with Patient: Less than 30
--- NOTE | 2024-08-04 16:01 | P.CRDCN ---
History of Present Illness History of present illness: HISTORY OF PRESENTING ILLNESS This is a pleasant 69-year-old with past medical history significant for hypertension, hyperlipidemia, family history of CAD, seizures, questionable previous stroke on Plavix, lung cancer stage IV in remission per patient. 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 She states she has been getting increased shortness breath or last 3 weeks. Therefore she was admitted to the hospital and has undergone workup or the past 1 week with findings of right ma instem bronchus occluded, possible prior lobectomy with right lung collapse which may be more chronic. Patient was feeling somewhat better however then wanted A. fib with RVR with heart rates up to the 130s. Patient was transferred to ICU for Cardizem drip and also placed on a heparin drip. She states she has been on Plavix since having a mini stroke question around the time of his seizure. She does have family history of CAD however no CAD herself. She denies any chest pain or pressure other than if she takes in a deep breath. Mainly she gets short of breath with minimal exertion. She did have prior echo from April 2024 with preserved EF and small loculated pericardial effusion. CAT scan does show again a small pericardial effusion. REVIEW OF SYSTEMS At the time of my exam: CONSTITUTIONAL: Denies fever or chills. CARDIOVASCULAR: Denies chest pain, + shortness of breath, no orthopnea, PND or palpitations. RESPIRATORY: Denies cough. GASTROINTESTINAL: Denies abdominal pain, diarrhea, constipation, nausea or vomiting. MUSCULOSKELETAL: Denies myalgias. NEUROLOGIC: Denies numbness, tingling or weakness. ENDOCRINE: Denies fatigue, weight change, polydipsia or polyurina. GENITOURINARY: Denies burning, hematuria or urgency with micturation. HEMATOLOGIC: Denies history of anemia or bleeding. PHYSICAL EXAMINATION Vital signs reviewed. CONSTITUTIONAL: No apparent distress. HEENT: Head is normocephalic. Pupils are equal, round. Sclerae anicteric. Mucous membranes of the mouth are moist. No JVD. No carotid bruit. CHEST EXAMINATION: Lungs are clear to auscultation. Decreased breath sounds on the right HEART EXAMINATION: Regular rate and rhythm. S1, S2 heard. No murmurs, gallops or rub. ABDOMEN: Soft, nontender. Positive bowel sounds. EXTREMITIES: 2+ peripheral pulses, no lower extremity edema and no calf tenderness. NEUROLOGIC EXAMINATION: Patient is awake, alert and oriented x3. ASSESSMENT New-onset paroxysmal atrial fibrillation Acute on chronic respiratory failure Lung cancer stage IV per patient in remission Collapsed right lung History of stroke on Plavix Atypical chest pain Family history of CAD Small loculated pericardial effusion PLAN Majority of patient's symptoms of shortness breath appear more lung related. She does however have new onset of atrial fibrillation. Discussed recommendations of anticoagulation and stop Plavix. Patient is agreeable. Check limited repeat 2-D echo to evaluate left ventricular ejection fraction as well as pericardial effusion. Past Medical History Past Medical History: Cancer, COPD, Hyperlipidemia, Hypertension, Seizure Disorder Additional Past Medical History / Comment(s): lung cancer, right pneumonectomy 2019 History of Any Multi-Drug Resistant Organisms: None Reported Additional Past Surgical History / Comment(s): lower right lobectomy 2015 Past Psychological History: No Psychological Hx Reported Smoking Status: Former smoker Past Alcohol Use History: None Reported Past Drug Use History: None Reported - Past Family History Father Family Medical History: No Reported History Medications and Allergies Home Medications Medication Instructions Recorded Confirmed Type Albuterol Inhaler [Ventolin Hfa 2 puff INHALATION RT-Q6H PRN 07/26/24 07/26/24 History Inhaler] Azithromycin [Zithromax] See Taper PO DIRECTED 07/26/24 07/26/24 History Citalopram Hydrobromide [CeleXA] 20 mg PO DAILY@149907/26/24 07/26/24 History Clopidogrel [Plavix] 75 mg PO DAILY@149907/26/24 07/26/24 History Folic Acid 1 mg PO DAILY 07/26/24 07/26/24 History Furosemide [Lasix] 20 mg PO DAILY PRN 07/26/24 07/26/24 History Milk Thistle 1,000mg 1,000 mg PO BID 07/26/24 07/26/24 History Osimertinib Mesylate [Tagrisso] 80 mg PO DAILY@149907/26/24 07/26/24 History Potassium Chloride ER [K-Dur 20] 20 meq PO DAILY PRN 07/26/24 07/26/24 History Rosuvastatin Calcium [Crestor] 5 mg PO DAILY@149907/26/24 07/26/24 History Valsartan [Diovan] 80 mg PO DAILY@149907/26/24 07/26/24 History levETIRAcetam [Keppra] 750 mg PO BID@0900,2100 07/26/24 07/26/24 History oxyCODONE-APAP 7.5-325MG [Percocet 1 tab PO Q4-6H PRN 07/26/24 07/26/24 History 7.5-325 mg] predniSONE [Deltasone] 40 mg PO DIRECTED 07/26/24 07/26/24 History Allergies Allergy/AdvReac Type Severity Reaction Status Date / Time diphenhydramine Allergy Unknown Verified 07/26/24 17:17 [From Benadryl] Penicillins Allergy Unknown Verified 07/26/24 17:17 Physical Exam Vitals: Vital Signs Temp Pulse Pulse Resp BP Pulse Ox 08/04/24 15:54 92 99 08/04/24 13:52 96 18 08/04/24 12:00 98.0 F 107 H 18 124/75 93 L 08/04/24 08:00 97.8 F 88 18 109/77 91 L 08/04/24 06:00 98 F 161 H 12 138/86 90 L 08/04/24 04:32 138 H 08/04/24 03:39 160 H 08/04/24 02:57 86 08/04/24 01:54 98.2 F 62 17 118/76 94 L 08/03/24 22:04 84 08/03/24 21:54 86 08/03/24 21:23 17 08/03/24 20:33 98.4 F 96 17 127/79 95 Intake and Output 08/04/24 08/04/24 08/04/24 06:59 14:59 22:59 Intake Total 12.167 46.609 Output Total 0 Balance 12.167 46.609 Intake: IV 10 KVO 10 Intake, IV Titration 2.167 46.609 Amount Diltiazem 125 mg In 2.167 Sodium Chloride 0.9% 100 ml @ 5 MG/HR 5 mls/hr IV .Q24H [facility] Rx#:[id number] Heparin Sod,Pork in 0.45% 46.609 NaCl 25,000 unit In 0.45 % NaCl 1 250ml.bag @ 12 UNITS/KG/HR 7.62 mls/hr IV .Q24H [facility] Rx#: [id number] Output: Urine 0 Other: Voiding Method Toilet Results 08/04/24 04:44 08/04/24 04:44 Coagulation 08/04/24 08/04/24 Range/Units 06:33 12:31 PT 10.3 (10.0-12.5) sec APTT 22.4 42.4 H (22.0-30.0) sec CBC 08/04/24 Range/Units 04:44 WBC 14.5 H (3.8-10.6) k/uL RBC 4.01 (3.80-5.40) m/uL Hgb 11.1 L (11.4-16.0) gm/dL Hct 34.7 (34.0-46.0) % Plt Count 425 (150-450) k/uL Comprehensive Metabolic Panel 08/04/24 Range/Units 04:44 Sodium 134 L (135-145) mmol/L Potassium 5.9 H (3.5-5.5) mmol/L Chloride 94 L (96-109) mmol/L Carbon Dioxide 28.7 (21.6-31.8) mmol/L BUN 19.3 (9.0-27.0) mg/dL Creatinine 0.8 (0.6-1.5) mg/dL Glucose 94 (70-110) mg/dL Calcium 9.5 (8.7-10.3) mg/dL Current Medications Generic Name Dose Route Start Last Admin Trade Name Freq PRN Reason Stop Dose Admin Acetaminophen 650 mg 07/26/24 20:19 Acetaminophen Tab 325 Mg Tab PO Q4HR PRN Fever and/ or Pain Albuterol Sulfate 2.5 mg 07/27/24 06:01 Albuterol Nebulized 2.5 Mg/3 Ml INHALATION RT-Q6H PRN Shortness Of Breath Albuterol/Ipratropium 3 ml 07/27/24 08:00 08/04/24 15:51 Ipratropium-Albuterol 3 Ml Neb INHALATION 3 ml RT-QID [facility] Administration Albuterol/Ipratropium 3 ml 07/26/24 20:19 08/02/24 04:53 Ipratropium-Albuterol 3 Ml Neb INHALATION 3 ml RT-Q4H PRN Administration shortness of breath Alprazolam 0.5 mg 07/31/24 11:19 Alprazolam 0.5 Mg Tab PO BID PRN Anxiety Atorvastatin Calcium 10 mg 07/27/24 15:00 08/03/24 15:06 Atorvastatin 10 Mg Tab PO 10 mg DAILY@1500 [facility] Administration Citalopram Hydrobromide 20 mg 07/27/24 15:00 08/03/24 15:06 Citalopram Hydrobromide 20 Mg Tab PO 20 mg DAILY@1500 [facility] Administration Clopidogrel Bisulfate 75 mg 07/27/24 15:00 08/03/24 15:06 Clopidogrel 75 Mg Tab PO 75 mg DAILY@1500 [facility] Administration Famotidine 20 mg 07/30/24 09:00 08/04/24 08:09 Famotidine 20 Mg Tab PO 20 mg DAILY [facility] Administration Folic Acid 1 mg 07/27/24 09:00 08/04/24 08:09 Folic Acid 1 Mg Tab PO 1 mg DAILY [facility] Administration Furosemide 20 mg 07/27/24 06:01 Furosemide 20 Mg Tab PO DAILY PRN Edema Guaifenesin/Dextromethorphan 10 ml 07/30/24 15:04 08/02/24 03:08 Guaifenesin-Dm 100-10mg/5ml 10 Ml Cup PO 10 ml Q6HR PRN Administration Cough Heparin Sodium (Porcine) 0 unit 08/04/24 06:12 08/04/24 13:14 Heparin Sodium 1,000 Un/Ml (10ml Vl) IV 1,575 unit PER PROTOCOL PRN Administration Low PTT Protocol Heparin Sodium/Sodium Chloride 250 mls @ 8.89 mls/hr 08/04/24 06:15 08/04/24 13:15 25,000 unit/ Sodium Chloride IV 14 units/kg/hr .Q24H [facility] 8.89 mls/hr Administration Protocol 14 UNITS/KG/HR Levetiracetam 750 mg 07/27/24 09:00 08/04/24 08:28 Levetiracetam 750 Mg Tab PO 750 mg BID@0900,2100 [facility] Administration Levofloxacin 500 mg 08/05/24 12:00 Levofloxacin 500 Mg Tab PO Q24H [facility] Protocol Miscellaneous Information 1 each 07/26/24 20:19 Pneumonia Protocol Utilized 1 Each Misc PO ONCE PRN Per Protocol Oxycodone/Acetaminophen 1 each 07/29/24 11:18 08/04/24 11:23 Oxycodone-Apap 10-325mg 1 Each Tab PO 1 each Q6HR PRN Administration Pain Pantoprazole Sodium 40 mg 07/31/24 11:00 08/04/24 08:09 Pantoprazole 40 Mg Tablet PO 40 mg AC-BID [facility] Administration Prednisone 40 mg 08/01/24 09:00 08/04/24 08:09 Prednisone 20 Mg Tab PO 40 mg DAILY [facility] Administration Intake and Output 08/04/24 08/04/24 08/04/24 06:59 14:59 22:59 Intake Total 12.167 46.609 Output Total 0 Balance 12.167 46.609 Intake: IV 10 KVO 10 Intake, IV Titration 2.167 46.609 Amount Diltiazem 125 mg In 2.167 Sodium Chloride 0.9% 100 ml @ 5 MG/HR 5 mls/hr IV .Q24H [facility] Rx#:[id number] Heparin Sod,Pork in 0.45% 46.609 NaCl 25,000 unit In 0.45 % NaCl 1 250ml.bag @ 12 UNITS/KG/HR 7.62 mls/hr IV .Q24H [facility] Rx#: [id number] Output: Urine 0 Other: Voiding Method Toilet 08/04/24 04:44 08/04/24 04:44
--- NOTE | 2024-08-04 17:04 | CA ---
Transthoracic Echo Report Name: Juliana Clement Age: 69 Gender: F : 1955 Exam Date: 08/04/2024 16:27 Exam Location: [place] [facility] Ht (in): 61 Wt (lb): 140 Ordering Physician: Trevon Barrientos DO ([email or web address]) Attending/Referring Phys: Life Enrichment Specialist Marquita Naranjo RDCS Procedure CPT: Indications: eval LV function Cardiac Hx: Technical Quality: Fair Contrast 1: Total Dose (mL): Contrast 2: Total Dose (mL): MEASUREMENTS (Male / Female) Normal Values 2D ECHO LV Diastolic Diameter PLAX 2.6 cm 4.2 - 5.9 / 3.9 - 5.3 cm LV Systolic Diameter PLAX 1.8 cm IVS Diastolic Thickness 0.9 cm 0.6 - 1.0 / 0.6 - 0.9 cm LVPW Diastolic Thickness 0.9 cm 0.6 - 1.0 / 0.6 - 0.9 cm LV Relative Wall Thickness 0.7 FINDINGS Left Ventricle Left ventricular ejection fraction is estimated at 60-65 %. Left ventricular cavity size normal. Left ventricular wall thickness normal. No obvious regional wall motion abnormalities. Right Ventricle Normal right ventricular size and function. Unable to estimate the right ventricular systolic pressure. Right Atrium Right atrium not assessed. Left Atrium Left atrium not assessed. Mitral Valve Structurally normal mitral valve. No mitral stenosis, regurgitation or prolapse. Aortic Valve Trileaflet aortic valve. No aortic valve stenosis or regurgitation. Tricuspid Valve Structurally normal tricuspid valve. No tricuspid stenosis. Trace tricuspid regurgitation. Pulmonic Valve Pulmonic valve not well visualized. No pulmonic stenosis. No pulmonic regurgitation. Pericardium Moderate pericardial effusion. Aorta Aortic root and proximal ascending aorta not assessed. CONCLUSIONS Normal LV function Moderate pericardial effusion No 2 d evidence of tamponade Previewed by: Dr. French Palacios MD (Electronically Signed) Final Date: 04 August 2024 17:04
[2024-08-04] MEDS: APIXABAN 5 MG TAB PO SCH (21:53)
[2024-08-05 04:54] VITALS: RESP 16
[2024-08-05 07:15] LABS: Basophils # (A) 0.1 k/uL (0-0.2); Basophils % (A) 0 %; Eosinophils # (A) 0.1 k/uL (0-0.7); Eosinophils % (A) 1 %; HCT 34.1 % (34.0-46.0); HGB 10.8 gm/dL (11.4-16.0); Lymphocytes # (A) 1.2 k/uL (1.0-4.8); Lymphocytes % (A) 9 %; MCH 27.9 pg (25.0-35.0); MCHC 31.8 g/dL (31.0-37.0); MCV 87.7 fL (80.0-100.0); Mean Platelet Volume 7.5; Monocytes # (A) 0.9 k/uL (0-1.0); Monocytes % (A) 6 %; Neutrophils # (A) 11.2 k/uL (1.3-7.7); Neutrophils % (A) 82 %; Platelet Count 385 k/uL (150-450); RBC 3.88 m/uL (3.80-5.40); RDW 14.4 % (11.5-15.5); WBC 13.6 k/uL (3.8-10.6)
[2024-08-05 09:47] VITALS: TEMP 97.9
--- NOTE | 2024-08-05 10:52 | P.PN ---
Subjective HISTORY OF PRESENT ILLNESS: This is a pleasant 69-year-old with past medical history significant for hypertension, hyperlipidemia, family history of CAD, seizures, questionable previous stroke on Plavix, lung cancer stage IV in remission per patient. 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 She states she has been getting increased shortness breath or last 3 weeks. Therefore she was admitted to the hospital and has undergone workup or the past 1 week with findings of right mainstem bronchus occluded, possible prior lobectomy with right lung collapse which may be more chronic. Patient was feeling somewhat better however then wanted A. fib with RVR with heart rates up to the 130s. Patient was transferred to ICU for Cardizem drip and also placed on a heparin drip. She states she has been on Plavix since having a mini stroke question around the time of his seizure. She does have family history of CAD however no CAD herself. She denies any chest pain or pressure other than if she takes in a deep breath. Mainly she gets short of breath with minimal exertion. She did have prior echo from April 2024 with preserved EF and small loculated pericardial effusion. CAT scan does show again a small pericardial effusion. 08/05/2024 Patient examined this morning the bedside. Patient currently denies chest pain or pressure. She reports improvement in her shortness of breath this morning. Vital signs are stable. She is maintaining sinus mechanism. 2D echo completed revealing normal LV systolic function with moderate pericardial effusion no evidence of tamponade. PHYSICAL EXAM: VITAL SIGNS: Reviewed. GENERAL: Well-developed in no acute distress. NECK: Supple. No JVD or thyromegaly LUNGS: Respirations even and unlabored. Lungs essentially clear to auscultation bilaterally. HEART: Regular rate and rhythm. S1 and S2 heard. EXTREMITIES: Normal range of motion. No clubbing or cyanosis. Peripheral pulses intact. No lower extremity edema ASSESSMENT: New-onset paroxysmal atrial fibrillation, currently maintaining sinus mechanism Acute on chronic respiratory failure Lung cancer stage IV per patient in remission Collapsed right lung History of stroke on Plavix Atypical chest pain Family history of CAD Small to moderate loculated pericardial effusion PLAN: Continue current cardiac medications Continue telemetry monitoring Patient has been started on Eliquis. Plavix has been discontinued Patient is currently stable from a cardiac standpoint Further recommendations pending patient course Nurse practitioner note has been reviewed by physician. Signing provider agrees with the documented findings, assessment, and plan of care documented by ELECTRIC VEHICLE ELECTRICIAN as a scribe. Objective - Vital Signs Vital signs: Vital Signs Temp 97.9 F 08/05/24 09:30 Pulse 87 08/05/24 09:31 Resp 16 08/05/24 09:31 BP 126/79 08/05/24 09:30 Pulse Ox 95 08/05/24 09:30 FiO2 Intake & Output 08/04/24 08/05/24 08/05/24 18:59 06:59 18:59 Intake Total 691.057 180 Balance 691.057 180 Weight 67.9 kg Intake: IV 80 KVO 80 Intake, IV Titration 71.057 Amount Heparin Sod,Pork in 0.45% 71.057 NaCl 25,000 unit In 0.45 % NaCl 1 250ml.bag @ 14 UNITS/KG/HR 8.89 mls/hr IV .Q24H [facility] Rx#: [id number] Oral 540 180 Other: Voiding Method Toilet Toilet Toilet # Voids 5 - Labs CBC & Chem 7: 08/05/24 06:38 08/04/24 15:55 Labs: Abnormal Lab Results - Last 24 Hours (Table) 08/03/24 08/04/24 08/05/24 Range/Units 03:23 12:31 06:38 WBC 13.6 H (3.8-10.6) k/uL Hgb 10.8 L (11.4-16.0) gm/dL Neutrophils # 11.2 H (1.3-7.7) k/uL Promyelocytes # (Man) 0.32 H (0) k/uL APTT 42.4 H (22.0-30.0) sec
[2024-08-05] MEDS: METOPROLOL TARTRATE 25 MG TAB PO SCH (11:18)
[2024-08-05] MEDS: LEVOFLOXACIN 500 MG TAB PO SCH (11:18)
[2024-08-05 11:21] VITALS: BP 120/73; PULSE 83
--- NOTE | 2024-08-05 11:29 | P.PN ---
Subjective Progress Note Date: 08/04/24 This is a pleasant 68 years old female with past medical history of COPD, hypertension, seizure disorder. Patient presents because of worsening dyspnea and coughing x 1 week, not improved as an outpatient associated with chest pain/abdominal pain with coughing Patient states she has no phlegm also she denies abdominal pain and she has normal bowel movement But patient has been vomiting all day yesterday with no blood in her vomitus or coffee-ground vomitus as per patient also patient had low appetite for 3 days No urinary complaint. She has been feeling dizzy but no headache, no weakness or tingling but has been using the walker more frequently lately because of her generalized weakness Patient states she was not using steroids or antibiotic prior to admission She wants her home medication of Keppra and Gay 7.5 to resumed. Also patient complaining from some pain in her chest with the swallowing Patient is afebrile She was tachycardic and hypotensive on admission, currently blood pressure improved and heart rate is lower WBC is elevated at 24,000 INR, unremarkable, sodium slightly low 132, potassium 5.3 and creatinine 0.7 Liver enzymes, troponin are not elevated Influenza A and type B, RSV, SARS (coronavirus) are undetected proBNP is 414 EKG showing sinus tachycardia at [address]-T changes Chest x-ray reviewed by myself showing mild left lower lobe infiltrate with small left pleural effusion and status post right pneumonectomy with complete opacification of the right side Pro- Calcitonin is within the reference range at 0.1 07/28 Patient still feeling same, her dyspnea is slightly better but she is still coughing. No significant chest pain or abdominal pain. Patient does not seem in distress Patient have difficulty talking because of her shortness of breath but not that bad. No other new complaint CTA of the chest was negative for PE but showing right middle and lower infiltrate suspicious for a mass or metastasis versus pneumonia. While the left lower lobe consolidation is noted to also suspicious for pneumonia versus metastatic disease. Right humerus head showing sclerotic lesion suspicious for metastatic disease. Also patient sodium today dropped to 134 down to 126 while she is on normal saline which was discontinued. We put the patient on fluid restriction 1200 mL/day. Also will check for urine sodium and osmolality with close monitoring of sodium. 07/29 Patient still complaining from shortness of breath, she has mild tachypnea at rest. She has good oxygen saturation. She is still getting breathing treatment this morning She is on fluid restriction and sodium improved this 126 up to 128, discussed with the patient and she agrees, currently 1500 mL/day She is still covered with ceftriaxone for her pneumonia. However pro- C alcitonin were negative on 2 occasions. Patient will require to repeat CAT scan of the chest as an outpatient to assess stability She is also on IV Solu-Medrol 07/30 Patient still complaining from shortness of breath today and found to have coughing Patient has not in fact for shortness of breath this morning. Patient on fluid restriction of sodium improving slowly and gradually. Discussed with the patient and agrees with this current plan. Pulmonary team recommend to repeat CAT scan in a few months to assess stability of his lung nodules Currently on antibiotic, cefuroxime switched to Levaquin Also started on a prednisone burst taper starting at 60 mg daily 07/31 Patient skipped her breathing treatment this morning, after that she felt little short of breath No significant bronchospastic breath sounds, pneumonia looks improving and currently she was placed on Levaquin Also her steroids switched to prednisone She looks little anxious we will add Xanax as needed Swallow evaluation in the morning is requested 08/01 Patient still has respiratory difficulty, even with talking. No chest pain. Still has coughing Patient is going for swallow evaluation today Vital stable, creatinine is stable but potassium went up to 6.1 today, she received the cocktail for the hyperkalemia and we will going to recheck potassium level later on she is mildly tachycardic but saturating 91% on room a ir. She has stable leukocytosis at 13.5 and hemoglobin stable at 11.0. Sodium is 131 and potassium 6.1 Patient currently on Levaquin and prednisone 60 mg for her pneumonia of the left lower lobe and COPD exacerbation. Treatment cocktail for hyperkalemia was initiated, however patient declines placing IV line after several failed attempts including central line in the emergency room as per staff. I have lengthy discussion with the patient with risk benefits and alternative explained to her in details, she agrees to one- time trial only. We are going to order PICC line but patient might still decline Therefore we will start treatment with albuterol, oral sodium bicarb and calcium as she refused the IV doses, also we started her on Lokelma with close monitoring of potassium. We placed low potassium diet Discussed with staff Patient also passed swallow evaluation for the oral and pharyngeal part, barium swallow x-rays ordered 08/02/2024 Patient is lying in the bed. Awake and alert x 3. Complains of cough and chest tightness. No nausea or vomiting abdominal pain or diarrhea. Patient is tolerating oral diet. Currently on room air. Patient is being continued on antibiotics at home with Levaquin. Also on prednisone tapering course, 40 mg daily now. Laboratory test showed WBC 17.3 hemoglobin 10.9 and platelets 472 sodium 132 potassium 6.0 chloride 92 bicarb is 32 BUN 17.9 and creatinine 0.9 and blood sugar 88. Troponin x 1 negative cortisol level is 3.5. 08/03/2024atient is currently lying in the bed. Awake alert and oriented x 3. Chest tightness is better today. Less cough. Currently on room air saturating at 90%. Denied any worsening shortness of breath. Patient has been afebrile. Potassium level came down to 4.9 Patient remains on antibiotics in the form of Levaquin. Other laboratory showed WBC trending down to 15.8 hemoglobin 10.2 and platelets 412 sodium 131 potassium 4.9 chloride 93 bicarb is 27.3 BUN 19.0 and creatinine 1.2 and blood sugar 158. Patient is tachycardic today afternoon and EKG showed sinus tachycardia with premature atrial complexes with aberrant conduction. Placed on telemonitoring. 08/04/2024 Patient is transferred to MICU. She was found to have atrial fibrillation with rapid rate. Patient was started on Cardizem drip and heparin drip. Cardiology was consulted. Otherwise patient states that she is feeling better. No complaints of chest pain. No worsening shortness of breath. No headache or dizziness or lightheadedness. Patient is converted to sinus rhythm. Remains on antibiotics in the form of Levaquin. Laboratory data showed WBC 14.4 hemoglobin 11.1 and platelets 425 sodium 134 potassium 5.9 2D echocardiogram showed normal LV function. Moderate pericardial effusion. No evidence of tamponade. Cardiology and pulmonary is on board. Current medications reviewed.. Objective - Vital Signs Vital signs: Vital Signs Temp 97.8 F 08/04/24 08:00 Pulse 88 08/04/24 08:00 Resp 18 08/04/24 08:00 BP 109/77 08/04/24 08:00 Pulse Ox 91 L 08/04/24 08:00 FiO2 Intake & Output 08/03/24 08/04/24 08/04/24 18:59 06:59 18:59 Intake Total 720 12.167 Output Total 0 Balance 720 12.167 Intake: IV 10 KVO 10 Intake, IV Titration 2.167 Amount Diltiazem 125 mg In 2.167 Sodium Chloride 0.9% 100 ml @ 5 MG/HR 5 mls/hr IV .Q24H [facility] Rx#:[id number] Oral 720 Output: Urine 0 Other: Voiding Method Toilet Toilet # Voids 3 - Exam - Exam GENERAL: The patient is alert and oriented x3, not in any acute distress. Well developed, well nourished. HEENT: Pupils are round and equally reacting to light. EOMI. No scleral icterus. No conjunctival pallor. Normocephalic, atraumatic. No pharyngeal erythema. No thyromegaly. CARDIOVASCULAR: S1 and S2 present. No murmurs, rubs, or gallops. PULMONARY: No breath sounds on the right side. Chest is clear to auscultation, no wheezing , no crackles. Mild tachypnea ABDOMEN: Soft, nontender, nondistended, normoactive bowel sounds. No palpable organomegaly. MUSCULOSKELETAL: No joint swelling or deformity. EXTREMITIES: No cyanosis, clubbing, or pedal edema. NEUROLOGICAL: Gross neurological examination did not reveal any focal deficits. SKIN: No rashes. no petechiae. - Labs CBC & Chem 7: 08/05/24 06:38 08/04/24 15:55 Labs: Abnormal Lab Results - Last 24 Hours (Table) 08/03/24 08/04/24 08/04/24 Range/Units 03:23 04:44 04:44 WBC 14.5 H (3.8-10.6) k/uL Hgb 11.1 L (11.4-16.0) gm/dL Neutrophils # (Manual) 11.30 H (1.3-7.7) k/uL Metamyelocytes # (Man) 0.44 H (0) k/uL Myelocytes # (Manual) 0.44 H (0) k/uL Promyelocytes # (Man) 0.32 H (0) k/uL Sodium 134 L (135-145) mmol/L Potassium 5.9 H (3.5-5.5) mmol/L Chloride 94 L (96-109) mmol/L BUN/Creatinine Ratio 24.12 H (12.00-20.00) Ratio Assessment and Plan Assessment: Left lower lobe infiltrate, right middle and lower lobe infiltrate there was suspicion for metastatic disease versus pneumonia however patient with no fever. She has leukocytosis and pro- Calcitonin is negative and space pulmonary team on the case and recommended to repeat CAT scan later to assess stability of the lung nodules New onset atrial fibrillation with rapid regular response. Moderate pericardial effusion. No tamponade. Hyperkalemia Sepsis with leukocytosis and tachycardia present on admission Euvolemic hyponatremia, suspicious for an SIADH Hypotension with tachycardia related to hypovolemia, improving Non-small cell lung cancer, s/p right pneumonectomy Seizure disorder COPD with acute exacerbation Hypertension, currently she was hypotensive on admission Sinus tachycardia. Plan: Continue with daily monitoring. Converted to sinus rhythm now. Patient was started on heparin drip. Cardizem drip has been discontinued. Continue with treatment for hyperkalemia with a cocktail and monitor potassium level. Continue with prednisone 60>40 mg daily Continue with Levaquin Patient was started on oral diet. Continue with Robitussin Resume Plavix and Keppra Hold Valsartan 80 mg Pulmonary team on the case and recommended to repeat CAT scan in few months to assess stability of the lung nodules Labs and medication were reviewed DVT prophylaxis: Subcutaneous heparin GI Prophylaxis: Pepcid PT/OT: Pending Prognosis is guarded CODE STATUS: DNR, I discussed with the patient in details and she wants to be DNR. Patient has capacity to make medical decision Time with Patient: Greater than 30
[2024-08-05 11:51] LABS: African American GFR (CKD) 66 (>60 ml/min/1.73 sqM); Anion Gap 5 mmol/L; Blood Urea Nitrogen 27 mg/dL (7-17); Calcium 9.6 mg/dL (8.4-10.2); Carbon Dioxide 30 mmol/L (22-30); Chloride 94 mmol/L (98-107); Glucose 81 mg/dL (74-99); Non-African American GFR(CKD) 57 (>60 ml/min/1.73 sqM); Potassium 4.1 mmol/L (3.5-5.1); Sodium 129 mmol/L (137-145)
--- NOTE | 2024-08-05 14:39 | P.PN ---
Subjective Progress Note Date: 08/05/24 Principal diagnosis: Acute hypoxic respiratory failure and acute left lower lobe pneumonia with underlying COPD and history of non-small cell lung cancer This is a 68-year-old female patient with previous history of lung cancer and the patient had undergone a right pneumonectomy back in 2019 and since then the patient has been maintained on Tagrisso. The patient was have increased cough and congestion and shortness of breath which initially presented to [facility] where she was given a course of antibiotics and she was discharged. Nevertheless, the patient was unable to take the antibiotics. She progressed and her condition got worse and she continued to have increased cough and congestion worsening shortness of breath at baseline that she came into our emergency department. Chest x-ray in the emergency showed a left lower lobe infiltrate and signs of a right pneumonectomy. The patient is currently running a white cell count of 24 with a hemoglobin 12.5 with a platelet count of 385. The sodium is at 132, potassium is at 5.3, BUN is 15 with a creatinine of 0.7. The viral screen was negative. Legionella urine antigen was negative. Procalcitonin level is 0.1. proBNP level is at 414. Troponins are also negative. I also noted some nodular changes in the left upper lobe area that needs to be further investigated. She is currently on room air oxygen. No edema lower extremities. No previous history of DVT or pulmonary embolism. On 07/28/2024, I am seeing the patient for a follow-up. Less short of breath. Less bronchospastic and wheezy compared to yesterday. Remains on IV Rocephin. The white cell count is down to 14.4 with a hemoglobin 11.1. Sodium is at 126 BUN is 12 with a creatinine of 0.6 and a bicarb is at 27. His procalcitonin level is at 0.12. CAT scan of the chest was reviewed. It is possible the patient did not have a full pneumonectomy. There is abrupt cut off the right sided bronchus with complete atelectasis of what seems to be the right middle lobe and possibly the right upper lobe showed the patient underwent right lower lobe resection. There is also pleural calcification identified along the right pleura. There is chronic right-sided volume loss. Of significance also, there are areas of patchy nodular changes involving the left lung. This could be consolidation versus malignancy and the possibility of metastatic lung disease cannot be completely excluded. I favor infectious changes however. 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 She is currently on room air oxygen with a pulse ox of 94%. No significant sputum production. Sputum Gram stain and culture was collected yesterday and results are still pending. Few gram-negative bacilli and few gram-positive cocci are present. On 07/29/2024, seen the patient for a follow-up. Patient is doing well. Her main complaint continues to be cough and some chest wall pain and discomfort when swallowing her food. She is less bronchospastic and wheezy. The ventricle is down to 13.5. Hemoglobin is 10.7. The patient remains on DuoNeb nebulized treatments [id number]. The patient remains on IV Solu-Medrol. She is on Percocet for pain control. No altered mentation. Oxygenation stable and the patient is currently on 94% room air oxygen. No signs of any significant oropharyngeal candidiasis. On 07/30/2024, [facility] the patient for a follow-up. Resting comfortably in bed. No new complaints. Still having some shortness of breath and diffuse bodyaches more so than her right shoulder area. Labs from today are still pending. The patient remains on bronchodilators with DuoNeb updrafts. The patient remains on steroids and the patient has been placed on oral prednisone starting with 60 mg p.o. daily. She was also switched to oral antibiotics. I am going to obtain a follow-up chest x-ray for this patient for tomorrow. 07/31/2024, patient is complaining of squeezing sensation over the anterior chest area. She is also having some occasional difficulty swallowing. Breath sounds is adequate on the left lung. Repeat chest x-ray was done today this morning and the previous described nodular opacity in the left lung was not seen. The patient is post right pneumonectomy. The patient remains on 2 L of oxygen by nasal cannula. She is also able to come off the oxygen. The white cell count of 13, hemoglobin 11 and platelet count is 467. Sodium is at 131, potassium level is at 5.5, BUN is 28 with a creatinine of 1.0. The patient remains on DuoNeb updrafts, prednisone starting with 60 mg and taper down to 40 mg. The p atient is also on Levaquin 5 mg p.o. daily. She is on Pepcid and I am going to add IV Protonix and obtain a modified barium swallow. The patient is seen today August 01, 2020 for follow-up on the regular medical floor. She is currently sitting up in bed. Awake and alert in no acute distress. Still feels weak and short of breath at times. Barium swallow from yesterday showed no evidence of aspiration. Sputum culture revealed no growth. Sodium 131. Potassium 5.4. Bicarb 29. BUN 22. Creatinine 1.0. Glucose 104. She remains on DuoNeb and elations. Antibiotics in the form of Levaquin. Initiated on a prednisone taper. Remains on oral diuretics. The patient is seen today August 02, 2024 in follow-up on the regular medical floor. She is currently resting in bed. Awake and alert in no acute distress. She is maintaining good O2 saturations in the 90s on room air. He is continued on bronchodilators. Robitussin for her cough. Heparin for DVT prophylaxis. Remains on antibiotics in the form of Levaquin. Completing a prednisone taper. Remains on oral diuretics. Sputum culture reveals no growth. Blood cultures revealed no growth. White count 17.3. Hemoglobin 10.9. Platelets 472. Sodium 132. Potassium 6.0. Bicarb 32. BUN 18. Creatinine 0.9. Glucose 88. Tr oponin negative. The patient is seen today August 03, 2024 in follow-up on the regular medical floor. She is currently awake and alert in no acute distress. Maintaining O2 saturations in the 90s on room air. Denies any worsening shortness of breath, cough or congestion. She is afebrile. Hemodynamically stable. Blood culture revealed no growth. Sputum culture revealed no growth. White count 15.8. Hemoglobin 10.2. Platelets 412. Sodium 131. Potassium 4.9. Bicarb 27. BUN 19. Creatinine 1.2. Glucose 158. She remains on bronchodilators steroids, prednisone. Remains on oral diuretics. Heparin for DVT prophylaxis. Continued on Levaquin. Patient was seen today on 08/04/2024, patient had to be transferred last night to the ICU because of atrial fibrillation with RVR, new onset. Patient was placed on Cardizem, and soon after she arrived to the ICU went into sinus rhythm. Pat ient is back to her baseline, does not seem to be in any distress, she is in sinus rhythm, remains on antibiotics, bronchodilators, steroids. I have cleared the patient to be discharged home and she needs to follow-up with Dr. Scott Patient was seen today on 08/05/2024, feeling better today compared to the last few days, breathing easier, patient remains on telemetry monitoring. She was seen by cardiology and felt to be stable, she is now on Eliquis and Plavix was discontinued. Pulmonary santoro the patient is doing well, and from my perspective the patient could be considered for discharge if cleared by cardiology she will need to follow-up with Dr. King. WBC count today 13.6 hemoglobin 10.8 sodium is 129 BUN is 27 creatinine 1.01 echocardiogram showed evidence of pericardial effusion, did not feel need for workup as noted by cardiology as noted considered small and loculated. Objective - Vital Signs Vital signs: Vital Signs Temp 97.9 F 08/05/24 11:17 Pulse 83 08/05/24 11:17 Resp 16 08/05/24 11:17 BP 120/73 08/05/24 11:17 Pulse Ox 96 08/05/24 11:17 FiO2 Intake & Output 08/04/24 08/05/24 08/05/24 18:59 06:59 18:59 Intake Total 691.057 180 Balance 691.057 180 Weight 67.9 kg Intake: IV 80 KVO 80 Intake, IV Titration 71.057 Amount Heparin Sod,Pork in 0.45% 71.057 NaCl 25,000 unit In 0.45 % NaCl 1 250ml.bag @ 14 UNITS/KG/HR 8.89 mls/hr IV .Q24H [facility] Rx#: [id number] Oral 540 180 Other: Voiding Method Toilet Toilet Toilet # Voids 5 4 # Bowel Movements 1 - Exam GENERAL EXAM: Alert, 68-year-old female, on room air, comfortable in no apparent distress. HEAD: Normocephalic. EYES: Normal reaction of pupils, equal size. NOSE: Clear with pink turbinates. THROAT: No erythema or exudates. NECK: No masses, no JVD. CHEST: No chest wall deformity. LUNGS: Equal air entry with few scattered rhonchi. CVS: S1 and S2 normal with no audible murmur, regular rhythm. ABDOMEN: No hepatosplenomegaly, normal bowel sounds, no guarding or rigidity. SKIN: No rashes CENTRAL NERVOUS SYSTEM: No focal deficits, tone is normal in all 4 extremities. EXTREMITIES: There is no peripheral edema. No clubbing, no cyanosis. Peripheral pulses are intact. - Labs CBC & Chem 7: 08/05/24 06:38 08/05/24 06:38 Labs: Abnormal Lab Results - Last 24 Hours (Table) 08/05/24 08/05/24 Range/Units 06:38 06:38 WBC 13.6 H (3.8-10.6) k/uL Hgb 10.8 L (11.4-16.0) gm/dL Neutrophils # 11.2 H (1.3-7.7) k/uL Sodium 129 L (137-145) mmol/L Chloride 94 L (98-107) mmol/L BUN 27 H (7-17) mg/dL Assessment and Plan Assessment: Impression Acute left lower lobe pneumonia, likely community-acquired, underlying malignancy involving the left lower lobe is not entirely ruled out, and this needs to be addressed on outpatient basis especially with the nodular changes noted patient will need an outpatient PET scan Acute hypoxic respiratory failure secondary to above, recovered and on room air Hyperkalemia, received Lokelma. Current potassium 4.9Previous history of non- small cell lung cancer with previous right pneumonectomy 2018 and the patient has been maintained on Tagrisso on outpatient basis Acute COPD exacerbation secondary to above. No maintenance inhalers and the patient is utilizing albuterol HFA on an as-needed basis Seizure disorder Hypertension Hyperlipidemia Acute leukocytosis, improving Acute hyponatremia New onset atrial fibrillation with RVR, resolved most likely secondary to her underlying pulmonary condition Moderate pericardial effusion as noted on echocardiogram. Recommendation continue bronchodilators Continue present supportive care measures Consider discharge planning if cleared by cardiology Patient will need a PET scan on outpatient basis Will continue to follow in the meantime. Patient was advised to make appointment with Dr. Scott in postdischarge to evaluate her nodular changes in the left lower lobe Time with Patient: Less than 30
== END 2024-08-05 15:53 | disposition home or self-care (01) | DRG 871 ==
LOC: EC 16:57 → 4SSUR 20:24 → 2SICU 08-04 06:03 → 3SCARD 08-04 17:36
PROVIDERS: ADMIT Hospitalist; ATTEND Hospitalist
DX: A41.89 Other specified sepsis (principal); J18.9 Pneumonia, unspecified organism; J96.21 Acute and chronic respiratory failure with hypoxia; I31.39 Other pericardial effusion (noninflammatory); E22.2 Syndrome of inappropriate secretion of antidiuretic hormone; C34.31 Malignant neoplasm of lower lobe, right bronchus or lung; J44.1 Chronic obstructive pulmonary disease with (acute) exacerbation; J44.0 Chronic obstructive pulmonary disease with (acute) lower respiratory infection; J98.19 Other pulmonary collapse; G40.909 Epilepsy, unspecified, not intractable, without status epilepticus; I48.0 Paroxysmal atrial fibrillation; E87.5 Hyperkalemia; R13.10 Dysphagia, unspecified; I10 Essential (primary) hypertension; E86.0 Dehydration; E86.1 Hypovolemia; E78.5 Hyperlipidemia, unspecified; I49.1 Atrial premature depolarization; Z79.02 Long term (current) use of antithrombotics/antiplatelets; Z87.891 Personal history of nicotine dependence; Z90.2 Acquired absence of lung [part of]; Z79.899 Other long term (current) drug therapy; Z86.73 Personal history of transient ischemic attack (TIA), and cerebral infarction without residual deficits; Z88.0 Allergy status to penicillin; Z88.8 Allergy status to other drugs, medicaments and biological substances
CPT/HCPCS: 36410; 36415; 71045; 71046; 71275; 74230; 76937; 80048; 80053; 82533; 83605; 83880; 83935; 84132; 84145; 84300; 84439; 84443; 84484; 85025; 85610; 85730; 87040; 87070; 87205; 87449; 87636; 93005; 93308; 94640; 94667; 94760; 96361; 96365; 96366; 96367; 96372; 96375; 96376; 99285

== ENCOUNTER 2024-08-31 14:01 | Inpatient (IN) | payer MEDICARE, OTHER ==
--- NOTE | 2024-08-31 14:14 | ED ---
SOB HPI - General Stated Complaint: BAN Time Seen by Provider: 08/31/24 14:07 Source: patient, EMS, RN notes reviewed, old records reviewed Mode of arrival: EMS Limitations: no limitations - History of Present Illness Initial Comments: This is a 69-year-old female to the ER for evaluation of shortness of breath and dyspnea persistent shortness of breath without fever history of COPD MD Complaint: shortness of breath, cough, "asthma attack", anxiety -: days(s) Severity: severe Severity scale (1-10): 8 Quality: aching Consistency: constant Improves With: nothing Known History Of: COPD Context: recent URI, recent illness Associated Symptoms: denies other symptoms - Related Data Home Medications Medication Instructions Recorded Confirmed Albuterol Inhaler [Ventolin Hfa 2 puff INHALATION RT-Q6H PRN 07/26/24 08/31/24 Inhaler] Citalopram Hydrobromide [CeleXA] 20 mg PO DAILY@1500 07/26/24 08/31/24 Osimertinib Mesylate [Tagrisso] 80 mg PO DAILY@149907/26/24 08/31/24 Rosuvastatin Calcium [Crestor] 5 mg PO DAILY@1500 07/26/24 08/31/24 levETIRAcetam [Keppra] 750 mg PO BID 07/26/24 08/31/24 oxyCODONE-APAP 7.5-325MG [Percocet 1 tab PO Q6H PRN 07/26/24 08/31/24 7.5-325 mg] Cyanocobalamin (Vitamin B-12) 1,000 mcg PO DAILY 08/31/24 08/31/24 [Vitamin B-12] Milk Thistle 175mg 1 tab PO BID@0900,1500 08/31/24 08/31/24 Previous Rx's Medication Instructions Recorded Apixaban [Eliquis] 5 mg PO BID #60 tab 08/05/24 Metoprolol Tartrate [Lopressor] 25 mg PO BID #60 tab 08/05/24 Budesonide-Formot 160-4.5 Mcg 2 puff INHALATION RT-BID 30 Days 09/02/24 [Symbicort 160-4.5 Mcg Inhaler] #1 each Ipratropium-Albuterol Nebulize 3 ml INHALATION RT-QID PRN #120 09/02/24 [Duoneb 0.5 mg-3 mg/3 ml Soln] each predniSONE See Taper PO DAILY 8 Days #20 tab 09/02/24 Allergies Allergy/AdvReac Type Severity Reaction Status Date / Time diphenhydramine Allergy Unknown Verified 08/31/24 16:41 [From Benadryl] Penicillins Allergy Unknown Verified 08/31/24 16:41 codeine AdvReac Nausea & Verified 08/31/24 16:41 Vomiting Review of Systems ROS Statement: Those systems with pertinent positive or pertinent negative responses have been documented in the HPI. ROS Other: All systems not noted in ROS Statement are negative. Past Medical History Past Medical History: Cancer, COPD, Hyperlipidemia, Hypertension, Seizure Disorder Additional Past Medical History / Comment(s): lung cancer, right pneumonectomy 2019 History of Any Multi-Drug Resistant Organisms: None Reported Past Surgical History: Section, Hysterectomy, Orthopedic Surgery, Tonsillectomy Additional Past Surgical History / Comment(s): lower right lobectomy 2015, R rotator cuff repair Past Psychological History: No Psychological Hx Reported Smoking Status: Former smoker Past Alcohol Use History: None Reported Past Drug Use History: None Reported - Past Family History Father Family Medical History: No Reported History General Exam General appearance: anxious Head exam: Present: atraumatic, normocephalic, normal inspection Eye exam: Present: normal appearance, PERRL, EOMI. Absent: scleral icterus, conjunctival injection, periorbital swelling ENT exam: Present: normal exam, mucous membranes moist Neck exam: Present: normal inspection. Absent: tenderness, meningismus, lymphadenopathy Respiratory exam: Present: respiratory distress, wheezes, accessory muscle use, decreased breath sounds, prolonged expiratory. Absent: rales, rhonchi, stridor Cardiovascular Exam: Present: regular rate, normal rhythm, normal heart sounds. Absent: systolic murmur, diastolic murmur, rubs, gallop, clicks GI/Abdominal exam: Present: soft, normal bowel sounds. Absent: distended, tenderness, guarding, rebound, rigid Extremities exam: Present: normal inspection, full ROM, normal capillary refill. Absent: tenderness, pedal edema, joint swelling, calf tenderness Back exam: Present: normal inspection Neurological exam: Present: alert, oriented X3, CN II-XII intact Psychiatric exam: Present: normal affect, normal mood Skin exam: Present: warm, dry, intact, normal color. Absent: rash Course Vital Signs 08/31/24 08/31/24 08/31/24 14:02 14:24 15:11 Temperature 98.4 F Pulse Rate 78 72 Respiratory 18 Rate Blood Pressure 127/78 O2 Sat by Pulse 88 L 96 Oximetry 08/31/24 08/31/24 15:27 16:53 Temperature Pulse Rate 76 85 Respiratory 16 Rate Blood Pressure 134/74 O2 Sat by Pulse 96 Oximetry - Reevaluation(s) Reevaluation #1: 08/31/24 14:14 Medical records reviewed Reevaluation #2: 08/31/24 15:48 Patient improving with supplemental O2 oxygen improved Reevaluation #3: 08/31/24 15:48 Patient informed of results questions answered Reevaluation #4: Was pt. sent in by a medical professional or institution (, DERRICK, ENERGY CONSERVATION DIRECTOR, urgent care, hospital, or retirement...) When possible be specific @ -no Did you speak to anyone other than the patient for history (EMS, parent, family, police, friend...)? What history was obtained from this source @ -no Did you review nursing and triage notes (agree or disagree)? Why? @ -agree Are old charts reviewed (outside hosp., previous admission, EMS record, old EKG, old radiological studies, urgent care reports/EKG's, retirement records)? Re port findings @ -yes Differential Diagnosis (chest pain, altered mental status, abdominal pain women, abdominal pain men, vaginal bleeding, weakness, fever, dyspnea, syncope, headache, dizziness, GI bleed, back pain, seizure, CVA, palpatations, mental health, musculoskeletal)? @ -prior EKG interpreted by me (3pts min.). @ -yes X-rays interpreted by me (1pt min.). @ -yes negative for acute disease CT interpreted by me (1pt min.). @ -no U/S interpreted by me (1pt. min.). @ -no What testing was considered but not performed or refused? (CT, X-rays, U/S, labs)? Why? @ -none What meds were considered but not given or refused? Why? @ -none Did you discuss the management of the patient with other professionals (professionals i.e. Dr., PA, ENERGY CONSERVATION DIRECTOR, lab, RT, psych nurse, clinical social work aide, salt grinder, teacher, correctional program officer, home health care case manager)? Give summary @ -no Was smoking cessation discussed for >3mins.? @ -no Was critical care preformed (if so, how long)? @ -yes31 Were there social determinants of health that impacted care today? How? (Homelessness, low income, unemployed, alcoholism, drug addiction, transportation, low edu. Level, literacy, decrease access to med. care, [facility], rehab)? @ -none Was there de-escalation of care discussed even if they declined (Discuss DNR or withdrawal of care, Hospice)? DNR status @ -no What co-morbidities impacted this encounter? (DM, HTN, Smoking, COPD, CAD, Cancer, CVA, ARF, Chemo, Hep., AIDS, mental health diagnosis, sleep apnea, morbid obesity)? @ -none Was patient admitted / discharged? Hospital course, mention meds given and route, prescriptions, significant lab abnormalities, going to OR and other pertinent info. @ - 69 female to ER for evaluation of significant and severe COPD exacerbation will need for breathing treatments, pleurisy type pain chest pain and pulmonology evaluation Admitted Undiagnosed new problem with uncertain prognosis? @ -no Drug Therapy requiring intensive monitoring for toxicity (Heparin, Nitro, Insulin, Cardizem)? @ -no Were any procedures done? @ -no Diagnosis/symptom? @ -Severe COPD exacerbation Acute, or Chronic, or Acute on Chronic? @ -Acute Uncomplicated (without systemic symptoms) or Complicated (systemic symptoms)? @ -Complicated Side effects of treatment? @ -no Exacerbation, Progression, or Severe Exacerbation? @ -exacerbation Poses a threat to life or bodily function? How? (Chest pain, USA, OR, pneumonia, PE, COPD, DKA, ARF, appy, cholecystitis, CVA, Diverticulitis, Homicidal, Suicid al, threat to staff... and all critical care pts) @ -yes respiratory distress Reevaluation #5: Differential Dyspnea: Coronary syndrome, arrhythmia, tamponade, asthma, COPD, pulmonary embolism, pneumonia, pneumothorax, pulmonary effusion, anaphylaxis, diabetic ketoacidosis, flailed chest, pulmonary contusion, diaphragmatic rupture, anemia, neuromuscular, this is not meant to be an all-inclusive list. - Consultations Consultation #1: Spoke with [facility] who agrees to admit this patient Medical Decision Making - Medical Decision Making 69 female to ER for evaluation of significant and severe COPD exacerbation will need for breathing treatments, pleurisy type pain chest pain and pulmonology evaluation - Lab Data Result diagrams: 09/02/24 06:06 09/02/24 06:06 Lab Results 08/31/24 08/31/24 08/31/24 Range/Units 14:28 14:28 14:28 WBC 6.0 (3.8-10.6) k/uL RBC 4.35 (3.80-5.40) m/uL Hgb 11.9 (11.4-16.0) gm/dL Hct 38.2 (34.0-46.0) % MCV 87.9 (80.0-100.0) fL MCH 27.3 (25.0-35.0) pg MCHC 31.1 (31.0-37.0) g/dL RDW 14.5 (11.5-15.5) % Plt Count 295 (150-450) k/uL MPV 8.3 Neutrophils % 67 % Lymphocytes % 19 % Monocytes % 9 % Eosinophils % 1 % Basophils % 1 % Neutrophils # 4.0 (1.3-7.7) k/uL Lymphocytes # 1.2 (1.0-4.8) k/uL Monocytes # 0.5 (0-1.0) k/uL Eosinophils # 0.1 (0-0.7) k/uL Basophils # 0.0 (0-0.2) k/uL Hypochromasia Moderate PT 12.0 (10.0-12.5) sec INR 1.1 (<1.2) APTT 26.4 (22.0-30.0) sec Sodium 135 L (137-145) mmol/L Potassium 4.1 (3.5-5.1) mmol/L Chloride 100 (98-107) mmol/L Carbon Dioxide 29 (22-30) mmol/L Anion Gap 6 mmol/L BUN 14 (7-17) mg/dL Creatinine 0.87 (0.52-1.04) mg/dL Est GFR (CKD-EPI)AfAm 79 (>60 ml/min/1.73 sqM) Est GFR (CKD-EPI)NonAf 69 (>60 ml/min/1.73 sqM) Glucose 89 (74-99) mg/dL Plasma Lactic Acid Lionel (0.7-2.0) mmol/L Calcium 9.5 (8.4-10.2) mg/dL Magnesium 1.6 (1.6-2.3) mg/dL Total Bilirubin 0.3 (0.2-1.3) mg/dL AST 23 (14-36) U/L ALT 10 (4-34) U/L Alkaline Phosphatase 57 (38-126) U/L Troponin I (0.000-0.034) ng/mL NT-Pro-B Natriuret Pep 111 pg/mL Total Protein 6.3 (6.3-8.2) g/dL Albumin 4.0 (3.5-5.0) g/dL 08/31/24 08/31/24 Range/Units 14:28 14:28 WBC (3.8-10.6) k/uL RBC (3.80-5.40) m/uL Hgb (11.4-16.0) gm/dL Hct (34.0-46.0) % MCV (80.0-100.0) fL MCH (25.0-35.0) pg MCHC (31.0-37.0) g/dL RDW (11.5-15.5) % Plt Count (150-450) k/uL MPV Neutrophils % % Lymphocytes % % Monocytes % % Eosinophils % % Basophils % % Neutrophils # (1.3-7.7) k/uL Lymphocytes # (1.0-4.8) k/uL Monocytes # (0-1.0) k/uL Eosinophils # (0-0.7) k/uL Basophils # (0-0.2) k/uL Hypochromasia PT (10.0-12.5) sec INR (<1.2) APTT (22.0-30.0) sec Sodium (137-145) mmol/L Potassium (3.5-5.1) mmol/L Chloride (98-107) mmol/L Carbon Dioxide (22-30) mmol/L Anion Gap mmol/L BUN (7-17) mg/dL Creatinine (0.52-1.04) mg/dL Est GFR (CKD-EPI)AfAm (>60 ml/min/1.73 sqM) Est GFR (CKD-EPI)NonAf (>60 ml/min/1.73 sqM) Glucose (74-99) mg/dL Plasma Lactic Acid Lionel 1.2 (0.7-2.0) mmol/L Calcium (8.4-10.2) mg/dL Magnesium (1.6-2.3) mg/dL Total Bilirubin (0.2-1.3) mg/dL AST (14-36) U/L ALT (4-34) U/L Alkaline Phosphatase (38-126) U/L Troponin I <0.012 (0.000-0.034) ng/mL NT-Pro-B Natriuret Pep pg/mL Total Protein (6.3-8.2) g/dL Albumin (3.5-5.0) g/dL - EKG Data -: EKG Interpreted by Me (EKG is sinus 75 MA 176 QRS 89 QTc 408) - Radiology Data Radiology results: report reviewed (Chest x-ray is negative for acute disease recurrent pleural effusion), image reviewed Critical Care Time Critical Care Time: Yes Total Critical Care Time: 31 Disposition Clinical Impression: Acute exacerbation of chronic obstructive pulmonary disease, Asthma with acute exacerbation, Hypoxia Disposition: ADMITTED IP TO THIS HOSP Condition: Serious Is patient prescribed a controlled substance at d/c from ED?: No Time of Disposition: 15:45
[2024-08-31] MEDS: SODIUM CHLORIDE 0.9% 1,000 ML IV STA (14:29)
[2024-08-31 14:46] LABS: Basophils % (A) 1 %; Eosinophils # (A) 0.1 k/uL (0-0.7); Eosinophils % (A) 1 %; HCT 38.2 % (34.0-46.0); HGB 11.9 gm/dL (11.4-16.0); Hypochromasia Moderate; Lymphocytes # (A) 1.2 k/uL (1.0-4.8); Lymphocytes % (A) 19 %; MCH 27.3 pg (25.0-35.0); MCHC 31.1 g/dL (31.0-37.0); MCV 87.9 fL (80.0-100.0); Mean Platelet Volume 8.3; Monocytes # (A) 0.5 k/uL (0-1.0); Monocytes % (A) 9 %; Neutrophils % (A) 67 %; Platelet Count 295 k/uL (150-450); RBC 4.35 m/uL (3.80-5.40); RDW 14.5 % (11.5-15.5)
[2024-08-31 15:00] LABS: INR 1.1 (<1.2); Partial Thromboplastin Time 26.4 sec (22.0-30.0)
[2024-08-31 15:02] LABS: ALT 10 U/L (4-34); AST 23 U/L (14-36); African American GFR (CKD) 79 (>60 ml/min/1.73 sqM); Alkaline Phosphatase 57 U/L (38-126); Anion Gap 6 mmol/L; Blood Urea Nitrogen 14 mg/dL (7-17); Calcium 9.5 mg/dL (8.4-10.2); Carbon Dioxide 29 mmol/L (22-30); Chloride 100 mmol/L (98-107); Glucose 89 mg/dL (74-99); Magnesium 1.6 mg/dL (1.6-2.3); Non-African American GFR(CKD) 69 (>60 ml/min/1.73 sqM); Potassium 4.1 mmol/L (3.5-5.1); Sodium 135 mmol/L (137-145); Total Bilirubin 0.3 mg/dL (0.2-1.3); Total Protein 6.3 g/dL (6.3-8.2)
[2024-08-31 15:10] LABS: NT-Pro-B-Type Natriuretic Pept 111 pg/mL
[2024-08-31] MEDS: IPRATROPIUM-ALBUTEROL 3 ML NEB INHALATION STA ×2 (15:11→16:45)
--- NOTE | 2024-08-31 15:29 | XR ---
EXAMINATION TYPE: XR chest 2V DATE OF EXAM: 08/31/2024 COMPARISON: 07/31/2024 INDICATION: Difficulty breathing, history of right pneumonectomy TECHNIQUE: Frontal and lateral views of the chest are obtained. FINDINGS: The heart size is normal. The pulmonary vasculature is normal. There is a small left pleural effusion.. There is complete opacification of the right hemithorax compatible with prior pneumonectomy. IMPRESSION: 1. Small left pleural effusion [facility] Tiffany Powell, Workstation: [facility], 08/31/2024 3:26 PM
[2024-08-31] MEDS ORDERED: NALOXONE 0.4 MG/ML 1 ML VIAL IVP PRN (15:42)
[2024-08-31] MEDS ORDERED: ACETAMINOPHEN TAB 325 MG TAB PO PRN (15:42)
[2024-08-31] MEDS ORDERED: NALOXONE 0.4 MG/ML 1 ML VIAL IV PRN (15:42)
[2024-08-31] MEDS ORDERED: ONDANSETRON 4 MG/2 ML VIAL IVP PRN (15:42)
[2024-08-31] MEDS: HYDROmorphone 1 MG/ML 1 ML SYRINGE IVP STA (16:35)
[2024-08-31] MEDS: KETOROLAC 15 MG/ML 1 ML VIAL IVP STA (16:36)
[2024-08-31] MEDS: methylPREDNISolone SOD SUCCI 125 MG/2 ML VIAL IV STA (16:36)
[2024-08-31] MEDS: SODIUM CHLORIDE 0.9% 500 ML 500 ML IV STA (16:37)
[2024-08-31] MEDS: SODIUM CHLORIDE 0.9% 1,000 ML IV SCH (16:37)
[2024-08-31] MEDS: ALBUTEROL NEBULIZED 2.5 MG/3 ML INHALATION SCH (16:45)
[2024-08-31] MEDS: oxyCODONE-APAP 7.5-325MG 1 EACH TAB PO PRN (21:20)
[2024-08-31] MEDS: METOPROLOL TARTRATE 25 MG TAB PO SCH (21:20)
[2024-08-31] MEDS: APIXABAN 5 MG TAB PO SCH (21:20)
[2024-09-01] MEDS: methylPREDNISolone SOD SUCCI 125 MG/2 ML VIAL IV SCH ×2 (00:05→12:27)
[2024-09-01] MEDS: MORPHINE SULFATE 4 MG/ML SYRINGE IV PRN (01:29)
--- NOTE | 2024-09-01 07:17 | P.CNPUL ---
History of Present Illness Consult date: 09/01/24 Requesting physician: Munir Jorge Reason for consult: COPD Chief complaint: shortness of breath History of present illness: Patient is a 68-year-old female with past medical history significant for stage IV lung cancer undergoing previous right-sided pneumonectomy. She is currently maintained on Tagrisso. She wants to become established with a [facility] system as it is closer to home. Also, recently had a hospitalization earlier in the month for similar symptoms. Treated for possible pneumonia. [place] back to baseline on hospital discharge. Of late, she has been more short of breath than normal, has had coughing especially when bending over. No purulent sputum production or no hemoptysis. Endorses chest pain. Denies significant sick contacts. CBC unremarkable, without leukocytosis. CMP also unremarkable. Troponin less than 0.012. NT proBNP 111. Lactic 1.2. Chest x-ray showing opacification of the right hemithorax compatible with the patient's previous surgical history. There is also a small left-sided pleural effusion. She is currently resting comfortably in bed, on 2 L/min nasal cannula. States she becomes very short of breath with even minimal exertion such as ambulating to the bathroom. States she did not qualify for home O2 on her previous hospitalizations. Remains afebrile. Vitals are stable. Review of Systems Constitutional: Denies chills, Denies fever, Denies poor appetite, Denies weight gain Ears, nose, mouth and throat: Denies headache, Denies nasal congestion, Denies nasal discharge, Denies post-nasal drip, Denies sinus pain, Denies sinus pressure, Denies sore throat Cardiovascular: Reports chest pain, Reports decreased exercise tolerance, Denies leg edema, Denies lightheadedness, Denies orthopnea, Denies palpitations, Denies paroxysmal nocturnal dyspnea, Denies syncope Respiratory: Reports cough, Denies cough with sputum, Denies hemoptysis, Denies home oxygen Gastrointestinal: Denies abdominal pain, Denies change in bowel habits, Denies diarrhea, Denies loss of appetite, Denies nausea, Denies vomiting Genitourinary: Denies dysuria Musculoskeletal: Denies limitation of motion Integumentary: Denies rash Neurological: Reports seizures, Denies syncope Psychiatric: Denies anxiety, Denies depression Past Medical History Past Medical History: Cancer, COPD, Hyperlipidemia, Hypertension, Seizure Disorder Additional Past Medical History / Comment(s): lung cancer, right pneumonectomy 2019 History of Any Multi-Drug Resistant Organisms: None Reported Past Surgical History: Section, Hysterectomy, Orthopedic Surgery, Tonsillectomy Additional Past Surgical History / Comment(s): lower right lobectomy 2015, R rotator cuff repair Past Psychological History: No Psychological Hx Reported Smoking Status: Former smoker Past Alcohol Use History: None Reported Past Drug Use History: None Reported - Past Family History Father Family Medical History: No Reported History Medications and Allergies Home Medications Medication Instructions Recorded Confirmed Type Albuterol Inhaler [Ventolin Hfa 2 puff INHALATION RT-Q6H PRN 07/26/24 08/31/24 History Inhaler] Citalopram Hydrobromide [CeleXA] 20 mg PO DAILY@149907/26/24 08/31/24 History Osimertinib Mesylate [Tagrisso] 80 mg PO DAILY@149907/26/24 08/31/24 History Rosuvastatin Calcium [Crestor] 5 mg PO DAILY@149907/26/24 08/31/24 History levETIRAcetam [Keppra] 750 mg PO BID 07/26/24 08/31/24 History oxyCODONE-APAP 7.5-325MG [Percocet 1 tab PO Q6H PRN 07/26/24 08/31/24 History 7.5-325 mg] Apixaban [Eliquis] 5 mg PO BID #60 tab 08/05/24 08/31/24 Rx Metoprolol Tartrate [Lopressor] 25 mg PO BID #60 tab 08/05/24 08/31/24 Rx Cyanocobalamin (Vitamin B-12) 1,000 mcg PO DAILY 08/31/24 08/31/24 History [Vitamin B-12] Milk Thistle 175mg 1 tab PO BID@0900,1500 08/31/24 08/31/24 History Allergies Allergy/AdvReac Type Severity Reaction Status Date / Time diphenhydramine Allergy Unknown Verified 08/31/24 16:41 [From Benadryl] Penicillins Allergy Unknown Verified 08/31/24 16:41 codeine AdvReac Nausea & Verified 08/31/24 16:41 Vomiting Physical Exam Vitals: Vital Signs Temp Pulse Pulse Resp BP BP Pulse Ox 09/01/24 04:17 92 09/01/24 04:00 89 09/01/24 01:34 97.7 F 92 16 120/76 94 L 08/31/24 23:46 90 08/31/24 23:35 92 08/31/24 19:47 97.7 F 89 18 106/67 94 L 08/31/24 18:48 97.9 F 78 18 111/65 95 08/31/24 18:44 84 08/31/24 18:33 68 08/31/24 18:18 97.9 F 78 18 111/65 95 08/31/24 16:53 85 16 134/74 96 08/31/24 15:27 76 08/31/24 15:11 72 08/31/24 14:24 96 08/31/24 14:02 98.4 F 78 18 127/78 88 L Intake and Output 08/31/24 08/31/24 09/01/24 14:59 22:59 06:59 Other: Voiding Method Toilet Toilet # Voids 1 Weight 63.503 kg 63.503 kg GENERAL EXAM: Alert, 69-year-old female, comfortable in no apparent distress. HEAD: Normocephalic and atraumatic EYES: Normal reaction of pupils, equal size. NOSE: Clear with pink turbinates. THROAT: No erythema or exudates. NECK: No masses, no JVD. CHEST: No chest wall deformity. LUNGS: Equal air entry with diminished right hemithorax lung sounds and hy perresonance, left lung clear. On 2 L/min nasal cannula no conversational dyspnea or accessory muscle use.. CVS: S1 and S2 normal with no audible murmur, regular rhythm. No extra heart sounds ABDOMEN: No hepatosplenomegaly, active bowel sounds, no guarding or rigidity. SPINE: No scoliosis or deformity SKIN: No rashes CENTRAL NERVOUS SYSTEM: No focal deficits, tone is normal in all 4 extremities. EXTREMITIES: There is no peripheral edema, clubbing, or cyanosis. Peripheral pulses are intact. Results - Laboratory Findings CBC and BMP: 08/31/24 14:28 08/31/24 14:28 PT/INR, D-dimer PT 12.0 sec (10.0-12.5) 08/31/24 14: INR 1.1 (<1.2) 08/31/24 14:28 Abnormal lab findings: Abnormal Labs 08/31/24 14:28 Sodium 135 L - Diagnostic Findings Chest x-ray: image reviewed Assessment and Plan Assessment: Possible acute COPD exacerbation, chest x-ray showing opacification of the right hemithorax with a small left pleural effusion Acute on chronic shortness of breath, secondary to above Acute hypoxemic respiratory failure on 2 L/min nasal cannula History of non-small cell lung cancer with previous right pneumonectomy 2018 and the patient has been maintained on Tagrisso on outpatient basis History of small to moderate-sized pericardial effusion History of atrial fibrillation, anticoagulated on Eliquis Seizure disorder, no reported seizure in the last 8 months Hypertension Hyperlipidemia plan: Patient's medications, labs, chest x-ray reviewed Continue supplemental oxygen, maintain oxygen saturation of 92% or greater Reportedly previously did not qualify for home O2 Continue bronchodilators and high-dose IV steroids. Chest ultrasound Patient reportedly has a appointment with Dr. Brush scheduled for September 23, she would like a earlier appointment if possible I have personally seen and examined the patient, performed the documentation and the assessment and plan as written. Number of minutes spent on the visit:20 Time with Patient: Greater than 30
[2024-09-01] MEDS: PANTOPRAZOLE 40 MG/10 ML VIAL IV SCH (07:59)
[2024-09-01] MEDS ORDERED: IPRATROPIUM-ALBUTEROL 3 ML NEB INHALATION PRN (08:24)
[2024-09-01 08:39] LABS: HCT 34.6 % (37.2-46.3); HGB 10.7 g/dL (12.0-15.0); MCH 27.5 pg (27.0-32.0); MCHC 30.9 g/dL (32.0-37.0); MCV 88.9 FL (80.0-97.0); Mean Platelet Volume 11.7 FL (9.5-12.2); NRBC Per 100 WBC 0 X 10*3/uL (0.00-0.01); Platelet Count 272 X 10*3/uL (140-440); RBC 3.89 X 10*6/uL (4.10-5.20); WBC 4.67 X 10*3/uL (4.50-10.00)
--- NOTE | 2024-09-01 08:47 | US ---
EXAMINATION TYPE: US chest DATE OF EXAM: 09/01/2024 COMPARISON: NONE CLINICAL INDICATION: Female, 69 years old with history of evaluate left pleural effusion; TECHNIQUE: Grayscale imaging of the chest. Targeted ultrasound of the posterior lower left hemithora x FINDINGS: EXAM MEASUREMENTS: Right Pleural Effusion pocket size: NA cm Right skin surface to fluid distance: NA cm Left Pleural Effusion pocket size: 3.2 cm Left skin surface to fluid distance: 1.3 cm Left side not marked; Dr. Saha in room for exam - pocket only available between breaths. Pulmonologists are able to review the images in the patient?s EMR. IMPRESSIONS: Echometer Engineer reports small pleural effusion only available in between the breaths. [facility], , 09/01/2024 8:45 AM
[2024-09-01] MEDS: IPRATROPIUM-ALBUTEROL 3 ML NEB INHALATION SCH (08:52)
[2024-09-01 09:05] LABS: ALT 8 U/L (8-44); AST 18 U/L (13-35); Albumin 3.9 g/dL (3.8-4.9); Albumin/Globulin Ratio 2.05 Ratio (1.60-3.17); Alkaline Phosphatase 63 U/L (41-126); BUN/Creat Ratio 16.89 Ratio (12.00-20.00); Blood Urea Nitrogen 15.2 mg/dL (9.0-27.0); Calcium 9.3 mg/dL (8.7-10.3); Carbon Dioxide 20.3 mmol/L (21.6-31.8); Chloride 102 mmol/L (96-109); Globulin 1.9 g/dL (1.6-3.3); Glucose 172 mg/dL (70-110); Magnesium 1.6 mg/dL (1.5-2.4); Potassium 5.4 mmol/L (3.5-5.5); Sodium 134 mmol/L (135-145); Total Bilirubin 0.2 mg/dL (0.3-1.2); Total Protein 5.8 g/dL (6.2-8.2)
[2024-09-01] MEDS: CYANOCOBALAMIN 500 MCG TAB PO SCH (09:54)
[2024-09-01 10:02] LABS: Basophils # (A) 0.01 X 10*3/uL (0.00-0.10); Basophils % (A) 0.2 %; Eosinophils # (A) 0 X 10*3/uL (0.04-0.35); Eosinophils % (A) 0 %; Lymphocytes # (A) 0.53 X 10*3/uL (0.90-5.00); Lymphocytes % (A) 11.3 %; Monocytes # (A) 0.03 X 10*3/uL (0.20-1.00); Monocytes % (A) 0.6 %; Neutrophils # (A) 4.07 X 10*3/uL (1.80-7.70); Neutrophils % (A) 87.3 %; RBC Morphology Normal (Normal)
[2024-09-01] MEDS: FUROSEMIDE 10 MG/ML 2 ML VIAL IV SCH (12:27)
[2024-09-01] MEDS: NON FORMULARY DRUG (Osimertinib Mesylate [Tagrisso] 80 MG Tablet) PO SCH (15:32)
[2024-09-01] MEDS: CITALOPRAM HYDROBROMIDE 20 MG TAB PO SCH (15:32)
[2024-09-01] MEDS: ATORVASTATIN 10 MG TAB PO SCH (15:32)
--- NOTE | 2024-09-01 16:30 | P.HPIM ---
History of Present Illness H&P Date: 09/01/24 Chief Complaint: shortness of breath Patient is a 69-year-old female with COPD, atrial fibrillation (on Eliquis), hyperlipidemia, hypertension, seizure disorder, stage IV lung cancer s/p right- sided pneumonectomy, currently on chemotherapy with Tagrisso, presenting with shortness of breath. Patient states she has been short of breath more than normal recently. States she only has a cough when bending over, denies any sputum production. States shortness of breath is worse on exertion like when she gets up to bed and go to the bathroom. She has been previously admitted this month for pneumonia which has since resolved. Denies any sick contacts. Denies any headache, dizziness, syncope, chest pain, nausea, vomiting, diarrhea, constipation, urinary symptoms. EKG independently interpreted displays sinus rhythm, rate 75 bpm, QTc 408 ms CXR independently interpreted small left-sided pleural effusion Troponin <0.012, proBNP, lactic acid 1.2 111 NA 135 T98 F, LA 90, RR 17, BP 128/83, O2 sat 94 on 2 L nasal cannula ED documentation reviewed. Review of systems: Pertinent positives and negatives as discussed in HPI, a complete review of systems was performed and all other systems are negative. Physical examination: Vital signs reviewed General: non toxic, no distress, appears at stated age, normal weight Derm: no unusual rashes/lesions, warm Head: atraumatic, normocephalic, symmetric Eyes: EOMI, anicteric sclera, pupils equal round reactive to light ENT: Nose and ears atraumatic Neck: No cervical lymphadenopathy, trachea midline, supple Mouth: no lip lesion, mucus membranes moist Cardiovascular: S1S2 reg, no murmur, positive dorsalis pedis pulse bilateral, no edema Lungs: Diminished right-sided lung sounds due to pneumonectomy, left lung clear on auscultation, no accessory muscle use Abdominal: soft, nontender to palpation, no guarding Ext: muscle strength 5 out of 5 in all 4 extremities grossly, no gross muscle atrophy Neuro: CN II-XI grossly intact, no gross focal neuro deficits Psych: Alert, oriented to person, place, and time Assessment/Plan: Patient is a 69-year-old female with COPD, hyperlipidemia, hypertension, seizure disorder, stage IV lung cancer s/p right-sided pneumonectomy, currently on chemotherapy with Tagrisso, presenting with shortness of breath. #. Acute COPD exacerbation #. Acute hypoxemic respiratory failure On 2 L nasal cannula, maintain O2 sat between 88%-92% CXR independently interpreted displayed small left-sided pleural effusion Continue with IV Solu-Medrol 40 mg every 12 hours Continue with bronchodilators Chest ultrasound displayed small pleural effusion only available in between breaths Patient to be evaluated for home O2 use Respiratory therapy education and out of proper use inhalers Pulmonology consulted #. History of non-small cell cancer s/p right pneumonectomy in 2019 maintained on short Tagrisso Continue with Tagrisso 80 mg p.o. daily at 1500 #. Chronic atrial fibrillation Continue with Eliquis 5 mg p.o. daily #. Hypertension #. Hyperlipidemia #. Anxiety/depression #. Seizure disorder Resume necessary home medications for chronic conditions. Hold certain medications as needed. F: N/A E: Replete electrolytes as needed N: Regular diet A: Ambulatory DVT prophylaxis: Eliquis 5 mg p.o. twice daily The patient is admitted with an anticipated less than 2 midnight stay for evaluation of suspected COPD exacerbation. CODE STATUS: Full code Discussed with: Patient Anticipated discharge place: Home Attestation I have seen and examined this patient with my resident , discussed the same with the resident/MATILDA, and agree with the dictator's assessment and plan as written Dr. Nasir olivas Past Medical History Past Medical History: Cancer, COPD, Hyperlipidemia, Hypertension, Seizure Disorder Additional Past Medical History / Comment(s): lung cancer, right pneumonectomy 2019 History of Any Multi-Drug Resistant Organisms: None Reported Past Surgical History: Section, Hysterectomy, Orthopedic Surgery, Tonsillectomy Additional Past Surgical History / Comment(s): lower right lobectomy 2015, R rotator cuff repair Past Psychological History: No Psychological Hx Reported Smoking Status: Former smoker Past Alcohol Use History: None Reported Past Drug Use History: None Reported - Past Family History Father Family Medical History: No Reported History Medications and Allergies Home Medications Medication Instructions Recorded Confirmed Type Albuterol Inhaler [Ventolin Hfa 2 puff INHALATION RT-Q6H PRN 07/26/24 08/31/24 History Inhaler] Citalopram Hydrobromide [CeleXA] 20 mg PO DAILY@1500 07/26/24 08/31/24 History Osimertinib Mesylate [Tagrisso] 80 mg PO DAILY@1500 07/26/24 08/31/24 History Rosuvastatin Calcium [Crestor] 5 mg PO DAILY@1500 07/26/24 08/31/24 History levETIRAcetam [Keppra] 750 mg PO BID 07/26/24 08/31/24 History oxyCODONE-APAP 7.5-325MG [Percocet 1 tab PO Q6H PRN 07/26/24 08/31/24 History 7.5-325 mg] Apixaban [Eliquis] 5 mg PO BID #60 tab 08/05/24 08/31/24 Rx Metoprolol Tartrate [Lopressor] 25 mg PO BID #60 tab 08/05/24 08/31/24 Rx Cyanocobalamin (Vitamin B-12) 1,000 mcg PO DAILY 08/31/24 08/31/24 History [Vitamin B-12] Milk Thistle 175mg 1 tab PO BID@0900,1500 08/31/24 08/31/24 History Allergies Allergy/AdvReac Type Severity Reaction Status Date / Time diphenhydramine Allergy Unknown Verified 08/31/24 16:41 [From Benadryl] Penicillins Allergy Unknown Verified 08/31/24 16:41 codeine AdvReac Nausea & Verified 08/31/24 16:41 Vomiting Physical Exam Vitals: Vital Signs Temp Pulse Pulse Resp BP BP Pulse Ox 09/01/24 04:17 92 09/01/24 04:00 89 09/01/24 01:34 97.7 F 92 16 120/76 94 L 08/31/24 23:46 90 08/31/24 23:35 92 08/31/24 19:47 97.7 F 89 18 106/67 94 L 08/31/24 18:48 97.9 F 78 18 111/65 95 08/31/24 18:44 84 08/31/24 18:33 68 08/31/24 18:18 97.9 F 78 18 111/65 95 08/31/24 16:53 85 16 134/74 96 08/31/24 15:27 76 08/31/24 15:11 72 08/31/24 14:24 96 08/31/24 14:02 98.4 F 78 18 127/78 88 L Intake and Output 08/31/24 09/01/24 09/01/24 22:59 06:59 14:59 Other: Voiding Method Toilet Toilet # Voids 1 Weight 63.503 kg Results CBC & Chem 7: 09/02/24 06:06 09/02/24 06:06 Labs: Abnormal Lab Results - Last 24 Hours (Table) 08/31/24 Range/Units 14:28 Sodium 135 L (137-145) mmol/L Thrombosis Risk Factor Assmnt - Choose All That Apply Each Factor Represents 1 point: Abnormal pulmonary function (COPD), Obesity (BMI >25) Other Risk Factors: Yes Each Risk Factor Represents 2 Points: Age 61-74 years, Malignancy Thrombosis Risk Factor Assessment Total Risk Factor Score: 6 Thrombosis Risk Factor Assessment Level: High Risk
[2024-09-01] MEDS ORDERED: methylPREDNISolone SOD SUCCI 40 MG/ML 1 ML VIAL IV SCH (21:00)
[2024-09-01] MEDS: SYMBICORT 160-4.5 MCG INHALER INHALATION SCH (21:09)
[2024-09-02] MEDS: PANTOPRAZOLE 40 MG TABLET PO SCH (06:25)
[2024-09-02 08:19] LABS: Basophils # (A) 0.01 X 10*3/uL (0.00-0.10); Basophils % (A) 0.1 %; Eosinophils # (A) 0 X 10*3/uL (0.04-0.35); Eosinophils % (A) 0 %; HCT 35.1 % (37.2-46.3); HGB 10.9 g/dL (12.0-15.0); Lymphocytes # (A) 0.46 X 10*3/uL (0.90-5.00); MCH 27.4 pg (27.0-32.0); MCHC 31.1 g/dL (32.0-37.0); MCV 88.2 FL (80.0-97.0); Mean Platelet Volume 12.1 FL (9.5-12.2); Monocytes # (A) 0.25 X 10*3/uL (0.20-1.00); Monocytes % (A) 2.2 %; NRBC Per 100 WBC 0 X 10*3/uL (0.00-0.01); Neutrophils # (A) 10.61 X 10*3/uL (1.80-7.70); Neutrophils % (A) 93.3 %; Platelet Count 296 X 10*3/uL (140-440); RBC 3.98 X 10*6/uL (4.10-5.20); RDW 15.4 % (11.5-14.5); WBC 11.38 X 10*3/uL (4.50-10.00)
[2024-09-02 08:54] LABS: BUN/Creat Ratio 17.45 Ratio (12.00-20.00); Blood Urea Nitrogen 19.2 mg/dL (9.0-27.0); Calcium 9.5 mg/dL (8.7-10.3); Carbon Dioxide 27.4 mmol/L (21.6-31.8); Chloride 100 mmol/L (96-109); Glucose 151 mg/dL (70-110); Potassium 5.4 mmol/L (3.5-5.5); Sodium 139 mmol/L (135-145)
--- NOTE | 2024-09-02 13:09 | P.PN ---
Subjective Progress Note Date: 09/02/24 Patient is a 68-year-old female with past medical history significant for stage IV lung cancer undergoing previous right-sided pneumonectomy. She is currently maintained on Tagrisso. She wants to become established with a [facility] system as it is closer to home. Also, recently had a hospitalization earlier in the month for similar symptoms. Treated for possible pneumonia. [place] back to baseline on hospital discharge. Of late, she has been more short of breath than normal, has had coughing especially when bending over. No purulent sputum production or no hemoptysis. Endorses chest pain. Denies significant sick contacts. CBC unremarkable, without leukocytosis. CMP also unremarkable. Troponin less than 0.012. NT proBNP 111. Lactic 1.2. Chest x-ray showing opacification of the right hemithorax compatible with the patient's previous surgical history. There is also a small left-sided pleural effusion. She is currently resting comfortably in bed, on 2 L/min nasal cannula. States she becomes very short of breath with even minimal exertion such as ambulating to the bathroom. States she did not qualify for home O2 on her previous hospitalizations. Remains afebrile. Vitals are stable. The patient is seen today September 02, 2024 in follow-up on the regular medical floor. She is currently resting in bed. Maintaining good O2 saturations in the 90s on 2 L/min per nasal cannula. Ultrasound of the chest revealed no fluid on the right. Only 3.2 cm on the left. No plans for thoracentesis. White count 11.3. Hemoglobin 10.9. Platelets 296. Sodium 139. Potassium 5.4. Bicarb 27. BUN 19. Creatinine 1.1. Glucose 151. She is continued on DuoNeb inhalations, Symbicort, Solu-Medrol. Anticoagulated with Eliquis. Currently on IV diuretics. Continuing her home Tagrisso. Objective - Vital Signs Vital signs: Vital Signs Temp 97.5 F L 09/02/24 07:21 Pulse 84 09/02/24 12:15 Resp 16 09/02/24 07:21 BP 127/77 09/02/24 07:21 Pulse Ox 95 09/02/24 07:21 FiO2 Intake & Output 09/01/24 09/02/24 09/02/24 18:59 06:59 18:59 Intake Total 596 720 118 Balance 596 720 118 Intake: Oral 596 720 118 Other: Voiding Method Toilet Toilet # Voids 8 3 - Exam GENERAL EXAM: Alert, 69-year-old female, resting in bed, on 2 L nasal cannula, in no apparent distress. HEAD: Normocephalic. EYES: Normal reaction of pupils, equal size. NOSE: Clear with pink turbinates. THROAT: No erythema or exudates. NECK: No masses, no JVD. CHEST: No chest wall deformity. LUNGS: Equal air entry with diminished right hemithorax, left lung clear. CVS: S1 and S2 normal with no audible murmur, regular rhythm. ABDOMEN: No hepatosplenomegaly, normal bowel sounds, no guarding or rigidity. SPINE: No scoliosis or deformity SKIN: No rashes CENTRAL NERVOUS SYSTEM: No focal deficits, tone is normal in all 4 extremities. EXTREMITIES: There is no peripheral edema. No clubbing, no cyanosis. Peripheral pulses are intact. - Labs CBC & Chem 7: 09/02/24 06:06 09/02/24 06:06 Labs: Abnormal Lab Results - Last 24 Hours (Table) 09/02/24 09/02/24 Range/Units 06:06 06:06 WBC 11.38 H (4.50-10.00) X 10*3/uL RBC 3.98 L (4.10-5.20) X 10*6/uL Hgb 10.9 L (12.0-15.0) g/dL Hct 35.1 L (37.2-46.3) % MCHC 31.1 L (32.0-37.0) g/dL RDW 15.4 H (11.5-14.5) % Immature Gran # 0.05 H (0.00-0.04) X 10*3/uL Neutrophils # 10.61 H (1.80-7.70) X 10*3/uL Lymphocytes # 0.46 L (0.90-5.00) X 10*3/uL Eosinophils # 0 L (0.04-0.35) X 10*3/uL Est GFR (CKD-EPI) 55 L (>=60) Glucose 151 H (70-110) mg/dL Assessment and Plan Assessment: Possible acute COPD exacerbation, chest x-ray showing opacification of the right hemithorax with a small left pleural effusion. Only a 3.2 cm pocket on the left. No plans for thoracentesis Acute on chronic shortness of breath, secondary to above Acute hypoxemic respiratory failure on 2 L/min nasal cannula History of non-small cell lung cancer with previous right pneumonectomy 2018 and the patient has been maintained on Tagrisso on outpatient basis History of small to moderate-sized pericardial effusion History of atrial fibrillation, anticoagulated on Eliquis Seizure disorder, no reported seizure in the last 8 months Hypertension Hyperlipidemia Plan: The patient was seen and evaluated Labs and medications reviewed Stable and on 2 L nasal cannula Continue the current treatment plan No plans for thoracentesis Plan is for home with home care Follow-up in our office as scheduled I have personally seen and examined the patient, performed the documentation and the assessment and plan as written. Number of minutes spent on the visit: 10 Dictation was produced using [employer] dictation software. Please excuse any grammatical, word or spelling errors.
--- NOTE | 2024-09-02 14:27 | P.DS ---
Providers Date of admission: 08/31/24 15:44 Discharge Diagnosis: Acute COPD exacerbation Acute hypoxemic respiratory failure History of non-small cell cancer s/p right pneumonectomy in 2019 Chronic atrial fibrillation Hypertension Hyperlipidemia Anxiety/depression Seizure disorder Hospital Course: Patient is a 69-year-old female with COPD, atrial fibrillation (on Eliquis), hyperlipidemia, hypertension, seizure disorder, stage IV lung cancer s/p right- sided pneumonectomy, currently on chemotherapy with Tagrisso, presenting with shortness of breath. Patient states she has been short of breath more than normal recently. States she only has a cough when bending over, denies any sputum production. States shortness of breath is worse on exertion like when she gets up to bed and go to the bathroom. She has been previously admitted this month for pneumonia which has since resolved. Denies any sick contacts. Denies any headache, dizziness, syncope, chest pain, nausea, vomiting, diarrhea, constipation, urinary symptoms. EKG independently interpreted displays sinus rhythm, rate 75 bpm, QTc 408 ms CXR independently interpreted small left-sided pleural effusion Troponin <0.012, proBNP, lactic acid 1.2 111 NA 135 T98 F, AK 90, RR 17, BP 128/83, O2 sat 94 on 2 L nasal cannula Patient admitted to internal medicine services. Pulmonology consulted. 09/02/2024: Patient seen and evaluated bedside. No acute events overnight. No acute complaints. She is able to receive home oxygen. Chest ultrasound displayed small left-sided pleural effusion. Was seen and cleared by pulmonology. Patient hemodynamically stable and on 2 L nasal cannula. Patient will follow-up with her primary care provider and pulmonology. She is being discharged home with home services. Review of systems: Pertinent positives and negatives as discussed in HPI, a complete review of systems was performed and all other systems are negative. Vital signs reviewed and stable. Physical examination: Vital signs reviewed General: non toxic, no distress, appears at stated age, normal weight Derm: no unusual rashes/lesions, warm Head: atraumatic, normocephalic, symmetric Eyes: EOMI, anicteric sclera, pupils equal round reactive to light ENT: Nose and ears atraumatic Neck: No cervical lymphadenopathy, trachea midline, supple Mouth: no lip lesion, mucus membranes moist Cardiovascular: S1S2 reg, no murmur, positive dorsalis pedis pulse bilateral, no edema Lungs: Equal air entry with diminished right hemothorax, left lung clear Abdominal: soft, nontender to palpation, no guarding Ext: muscle strength 5 out of 5 in all 4 extremities grossly, no gross muscle atrophy Neuro: CN II-XI grossly intact, no gross focal neuro deficits Psych: Alert, oriented to person, place, and time A total of greater than minutes of time were spent preparing this complex discharge summary. Patient was discharge on September 02, 2024 at 12:57 PM. Attestation I have seen and examined this patient with my resident , discussed the same with the resident/MATILDA, and agree with the dictator's assessment and plan as written Dr. Nasir olivas Expected date of discharge: 09/02/24 Attending physician: Keith Sotelo Consults: 08/31/24 15:42 Consult Physician Routine Consulting Provider: Bert Saha Consult Reason/Comments: copd,known Do you want consulting provider notified?: Yes Primary care physician: Kathie Guillen Patient Condition at Discharge: Fair Plan - Discharge Summary New Discharge Prescriptions: New Ipratropium-Albuterol Nebulize [Duoneb 0.5 mg-3 mg/3 ml Soln] 3 ml INHALATION RT-QID PRN #120 each PRN Reason: Shortness Of Breath Budesonide-Formot 160-4.5 Mcg [Symbicort 160-4.5 Mcg Inhaler] 2 puff INHALATION RT-BID 30 Days #1 each predniSONE See Taper PO DAILY 8 Days #20 tab Continue Rosuvastatin Calcium [Crestor] 5 mg PO DAILY@1500 Citalopram Hydrobromide [CeleXA] 20 mg PO DAILY@1500 levETIRAcetam [Keppra] 750 mg PO BID Albuterol Inhaler [Ventolin Hfa Inhaler] 2 puff INHALATION RT-Q6H PRN PRN Reason: Shortness Of Breath oxyCODONE-APAP 7.5-325MG [Percocet 7.5-325 mg] 1 tab PO Q6H PRN PRN Reason: Pain Cyanocobalamin (Vitamin B-12) [Vitamin B-12] 1,000 mcg PO DAILY Osimertinib Mesylate [Tagrisso] 80 mg PO DAILY@1500 Apixaban [Eliquis] 5 mg PO BID #60 tab Metoprolol Tartrate [Lopressor] 25 mg PO BID #60 tab Milk Thistle 175mg 1 tab PO BID@0900,1500 Discharge Medication List Albuterol Inhaler [Ventolin Hfa Inhaler] 2 puff INHALATION RT-Q6H PRN 07/26/24 [History] Citalopram Hydrobromide [CeleXA] 20 mg PO DAILY@1500 07/26/24 [History] Osimertinib Mesylate [Tagrisso] 80 mg PO DAILY@149907/26/24 [History] Rosuvastatin Calcium [Crestor] 5 mg PO DAILY@149907/26/24 [History] levETIRAcetam [Keppra] 750 mg PO BID 07/26/24 [History] oxyCODONE-APAP 7.5-325MG [Percocet 7.5-325 mg] 1 tab PO Q6H PRN 07/26/24 [History] Apixaban [Eliquis] 5 mg PO BID #60 tab 08/05/24 [Rx] Metoprolol Tartrate [Lopressor] 25 mg PO BID #60 tab 08/05/24 [Rx] Cyanocobalamin (Vitamin B-12) [Vitamin B-12] 1,000 mcg PO DAILY 08/31/24 [History] Milk Thistle 175mg 1 tab PO BID@0900,1500 08/31/24 [History] Budesonide-Formot 160-4.5 Mcg [Symbicort 160-4.5 Mcg Inhaler] 2 puff INHALATION RT-BID 30 Days #1 each 09/02/24 [Rx] Ipratropium-Albuterol Nebulize [Duoneb 0.5 mg-3 mg/3 ml Soln] 3 ml INHALATION RT-QID PRN #120 each 09/02/24 [Rx] predniSONE See Taper PO DAILY 8 Days #20 tab 09/02/24 [Rx] Follow up Appointment(s)/Referral(s): [facility] [NON-STAFF] - As Needed (HOME O2 NEBULIZER) Kathie Guillen MD [Primary Care Provider] - 1-2 days [facility] [NON-STAFF] - As Needed Chhaya Brush MD [STAFF PHYSICIAN] - 1 Week Patient Instructions/Handouts: COPD (Chronic Obstructive Pulmonary Disease) (DC) Discharge Disposition: HOME WITH HOME HEALTH SERVICES
[2024-09-02 14:46] VITALS: BP 157/88; PULSE 78; RESP 17; TEMP 98.2
== END 2024-09-02 15:11 | disposition home health service (06) | DRG 190 ==
LOC: EC 14:01 → 6NMEDSUR 15:44 → OBSVTOIN 15:44 → 6NMEDSUR 17:15
PROVIDERS: ADMIT Hospitalist; ATTEND Hospitalist
DX: J44.1 Chronic obstructive pulmonary disease with (acute) exacerbation (principal); J96.01 Acute respiratory failure with hypoxia; I31.39 Other pericardial effusion (noninflammatory); J45.901 Unspecified asthma with (acute) exacerbation; C34.91 Malignant neoplasm of unspecified part of right bronchus or lung; I48.20 Chronic atrial fibrillation, unspecified; G40.909 Epilepsy, unspecified, not intractable, without status epilepticus; E78.5 Hyperlipidemia, unspecified; I10 Essential (primary) hypertension; F32.A Depression, unspecified; F41.9 Anxiety disorder, unspecified; Z79.01 Long term (current) use of anticoagulants; Z90.2 Acquired absence of lung [part of]; Z87.891 Personal history of nicotine dependence; Z79.51 Long term (current) use of inhaled steroids; Z79.899 Other long term (current) drug therapy
CPT/HCPCS: 36415; 71046; 76604; 80048; 80053; 83605; 83735; 83880; 84100; 84484; 85025; 85610; 85730; 93005; 94640; 96361; 96374; 96375; 99291

== ENCOUNTER 2024-09-30 17:50 | Inpatient (IN) | payer MEDICARE, OTHER ==
[2024-09-30 18:48] LABS: Basophils % (A) 1 %; Eosinophils # (A) 0.1 k/uL (0-0.7); Eosinophils % (A) 1 %; HGB 11.4 gm/dL (11.4-16.0); Hypochromasia Marked; Lymphocytes # (A) 0.7 k/uL (1.0-4.8); Lymphocytes % (A) 12 %; MCHC 30.8 g/dL (31.0-37.0); MCV 87.7 fL (80.0-100.0); Mean Platelet Volume 9.4; Monocytes # (A) 0.3 k/uL (0-1.0); Monocytes % (A) 5 %; Neutrophils # (A) 4.5 k/uL (1.3-7.7); Neutrophils % (A) 79 %; Platelet Count 323 k/uL (150-450); RBC 4.22 m/uL (3.80-5.40); RDW 14.7 % (11.5-15.5); WBC 5.7 k/uL (3.8-10.6)
--- NOTE | 2024-09-30 19:02 | ED ---
General Adult HPI - General Chief complaint: Shortness of Breath Stated complaint: SOB Time Seen by Provider: 09/30/24 17:53 Source: patient Mode of arrival: EMS Limitations: no limitations - History of Present Illness Initial comments: Dictation was produced using [employer] dictation software. please excuse any grammatical, word or spelling errors. Chief Complaint: 69-year-old female with dyspnea History of Present Illness: Patient 69-year-old female presents to the emergency department with dyspnea. Patient has a history of lung cancer and A-fib takes anticoagulation medication states that she has history of lobectomy. States that she has chronic shortness of breath that acutely worsened recently. Denies any cough. She does have some mild flank pain. She does follow-up with oncology and pulmonology. The ROS documented in this emergency department record has been reviewed and confirmed by me. Those systems with pertinent positive or negative responses have been documented in the HPI. All other systems are other negative and/or noncontributory. - Related Data Home Medications Medication Instructions Recorded Confirmed Albuterol Inhaler [Ventolin Hfa 2 puff INHALATION RT-Q6H PRN 07/26/24 09/30/24 Inhaler] Citalopram Hydrobromide [CeleXA] 20 mg PO DAILY@1500 07/26/24 09/30/24 Osimertinib Mesylate [Tagrisso] 80 mg PO DAILY@1500 07/26/24 09/30/24 Rosuvastatin Calcium [Crestor] 5 mg PO DAILY@1500 07/26/24 09/30/24 levETIRAcetam [Keppra] 750 mg PO BID@0900,209907/26/24 09/30/24 oxyCODONE-APAP 7.5-325MG [Percocet 1 tab PO Q6H PRN 07/26/24 09/30/24 7.5-325 mg] Milk Thistle 175mg 1 tab PO BID@0900,1500 08/31/24 09/30/24 Apixaban [Eliquis] 5 mg PO BID@0900,209909/30/24 09/30/24 Valsartan [Diovan] 80 mg PO DAILY@0900 09/30/24 09/30/24 Vitamin B-12(Unknown Dose) 1 tab PO DAILY@0900 09/30/24 09/30/24 Previous Rx's Medication Instructions Recorded Ipratropium-Albuterol Nebulize 3 ml INHALATION RT-QID PRN #120 09/02/24 [Duoneb 0.5 mg-3 mg/3 ml Soln] each Allergies Allergy/AdvReac Type Severity Reaction Status Date / Time diphenhydramine Allergy Unknown Verified 09/30/24 19:28 [From Benadryl] Penicillins Allergy Unknown Verified 09/30/24 19:28 codeine AdvReac Nausea & Verified 09/30/24 19:28 Vomiting Review of Systems ROS Statement: Those systems with pertinent positive or pertinent negative responses have been documented in the HPI. ROS Other: All systems not noted in ROS Statement are negative. Past Medical History Past Medical History: Atrial Flutter, Cancer, COPD, Hyperlipidemia, Hypertension, Seizure Disorder Additional Past Medical History / Comment(s): lung cancer, right pneumonectomy 2018, a-fib diagnosed 2023 History of Any Multi-Drug Resistant Organisms: None Reported Past Surgical History: Section, Hysterectomy, Orthopedic Surgery, Tons illectomy Additional Past Surgical History / Comment(s): lower right lobectomy 2014, R rotator cuff repair Past Psychological History: No Psychological Hx Reported Smoking Status: Former smoker Past Alcohol Use History: Rare Past Drug Use History: None Reported - Past Family History Father Family Medical History: No Reported History General Exam - General Exam Comments Initial Comments: PHYSICAL EXAM: General Impression: Alert and oriented x3, dyspneic at the bedside HEENT: Normocephalic atraumatic, extra-ocular movements intact, pupils equal and reactive to light bilaterally, mucous membranes moist. Cardiovascular: Heart regular rate and rhythm Chest: Able to complete full sentences, no retractions, no tachypnea, crackles to the left posterior lungs Abdomen: abdomen soft, non-tender, non-distended, no organomegaly Musculoskeletal: Pulses present and equal in all extremities, no peripheral edema Motor: no focal deficits noted Neurological: CN II-XII grossly intact, no focal motor or sensory deficits noted Skin: Intact with no visualized rashes Psych: Normal affect and mood Limitations: no limitations Course Vital Signs 09/30/24 09/30/24 09/30/24 17:57 18:00 19:43 Temperature 99 F Pulse Rate 121 H 110 H Pulse Rate [ 121 H Auto Glass Technician ] Respiratory 18 20 20 Rate Blood Pressure 127/87 118/82 O2 Sat by Pulse 95 99 Oximetry Medical Decision Making - Medical Decision Making Was pt. sent in by a medical professional or institution (, PA, FIRE MANAGER, urgent care, hospital, or fci...) When possible be specific @ -No Did you speak to anyone other than the patient for history (EMS, parent, family, police, friend...)? What history was obtained from this source @ -No Did you review nursing and triage notes (agree or disagree)? Why? @ -I reviewed and agree with nursing and triage notes Were old charts reviewed (outside hosp., previous admission, EMS record, old EKG, old radiological studies, urgent care reports/EKG's, fci records)? Report findings @ -No old charts were reviewed Differential Diagnosis (chest pain, altered mental status, abdominal pain women, abdominal pain men, vaginal bleeding, musculoskeletal, weakness, fever, dyspnea, syncope, headache, dizziness, GI bleed, back pain, seizure, CVA, palpatations, mental health)? @ -Differential Dyspnea: Coronary syndrome, arrhythmia, tamponade, asthma, COPD, pulmonary embolism, pneumonia, pneumothorax, pulmonary effusion, anaphylaxis, diabetic ketoacidosis, flailed chest, pulmonary contusion, diaphragmatic rupture, anemia, neuromuscular, this is not meant to be an all-inclusive list. EKG interpreted by me (3pts min.). @ -None done X-rays interpreted by me (1pt min.). @ -Chest x-ray shows complete opacification of the right hemithorax CT interpreted by me (1pt min.). @ -None done U/S interpreted by me (1pt. min.). @ -None done What testing was considered but not performed or refused? (CT, X-rays, U/S, labs)? Why? @ -None What meds were considered but not given or refused? Why? @ -None Was smoking cessation discussed for >3mins.? @ -No Were there social determinants of health that impacted care today? How? (Homelessness, low income, unemployed, alcoholism, drug addiction, transportation, low edu. Level, literacy, decrease access to med. care, detention, rehab)? @ -No Was there de-escalation of care discussed even if they declined (Discuss DNR or withdrawal of care, Hospice)? DNR status @ -No What co-morbidities impacted this encounter? (DM, HTN, Smoking, COPD, CAD, Cancer, CVA, ARF, Chemo, Hep., AIDS, mental health diagnosis, sleep apnea, morbid obesity)? @ -Lung cancer Was patient admitted / discharged? Hospital course, mention meds given and ro [place], prescriptions, significant lab abnormalities, going to OR and other pertinent info. @ -61-year-old female with dyspnea she has history of lung cancer and lobectomy on the right. Patient has complete opacification of the right lung dash. Laboratory evaluation obtained. Labs within acceptable limits except for some hypomagnesemia. Patient given magnesium replacement. Patient will be admitted consultation to pulmonology. Case discussed with hospitalist for admission. Did you discuss the management of the patient with other professionals (professionals i.e. , PA, FIRE MANAGER, lab, RT, psych nurse, perinatal social worker, industrial chemistry teacher, teacher, sales and service officer, nurse case management)? Give summary @ -See above Was critical care preformed (if so, how long)? @ -No Undiagnosed new problem with uncertain prognosis? @ -No Drug Therapy requiring intensive monitoring for toxicity (Heparin, Nitro, Insulin, Cardizem)? @ -No Were any procedures done? @ -No Diagnosis/symptom? Acute, or Chronic, or Acute on Chronic? Uncomplicated (without systemic symptoms) or Complicated (systemic symptoms)? @ -Pleural effusion Side effects of treatment? @ -No Exacerbation, Progression, or Severe Exacerbation? @ -No Poses a threat to life or bodily function? How? (Chest pain, [place], [place], pneumonia, PE, COPD, DKA, ARF, appy, cholecystitis, CVA, Diverticulitis, Homicidal, Suicidal, threat to staff... and all critical care pts) @ -yes - Lab Data Result diagrams: 09/30/24 18:42 09/30/24 18:30 Lab Results 09/30/24 09/30/24 09/30/24 Range/Units 18:30 18:30 18:42 WBC 5.7 (3.8-10.6) k/uL RBC 4.22 (3.80-5.40) m/uL Hgb 11.4 (11.4-16.0) gm/dL Hct 37.0 (34.0-46.0) % MCV 87.7 (80.0-100.0) fL MCH 27.0 (25.0-35.0) pg MCHC 30.8 L (31.0-37.0) g/dL RDW 14.7 (11.5-15.5) % Plt Count 323 (150-450) k/uL MPV 9.4 Neutrophils % 79 % Lymphocytes % 12 % Monocytes % 5 % Eosinophils % 1 % Basophils % 1 % Neutrophils # 4.5 (1.3-7.7) k/uL Lymphocytes # 0.7 L (1.0-4.8) k/uL Monocytes # 0.3 (0-1.0) k/uL Eosinophils # 0.1 (0-0.7) k/uL Basophils # 0.0 (0-0.2) k/uL Hypochromasia Marked Sodium 136 L (137-145) mmol/L Potassium 5.1 (3.5-5.1) mmol/L Chloride 101 (98-107) mmol/L Carbon Dioxide 24 (22-30) mmol/L Anion Gap 11 mmol/L BUN 12 (7-17) mg/dL Creatinine 0.78 (0.52-1.04) mg/dL Est GFR (CKD-EPI)AfAm >90 (>60 ml/min/1.73 sqM) Est GFR (CKD-EPI)NonAf 79 (>60 ml/min/1.73 sqM) Glucose 72 L (74-99) mg/dL Plasma Lactic Acid Lionel 1.6 (0.7-2.0) mmol/L Calcium 9.9 (8.4-10.2) mg/dL Magnesium 1.5 L (1.6-2.3) mg/dL Troponin I (0.000-0.034) ng/mL Influenza Type A (PCR) (Not Detectd) Influenza Type B (PCR) (Not Detectd) RSV (PCR) (Not Detectd) SARS-CoV-2 (PCR) (Not Detectd) 09/30/24 09/30/24 Range/Units 18:42 18:51 WBC (3.8-10.6) k/uL RBC (3.80-5.40) m/uL Hgb (11.4-16.0) gm/dL Hct (34.0-46.0) % MCV (80.0-100.0) fL MCH (25.0-35.0) pg MCHC (31.0-37.0) g/dL RDW (11.5-15.5) % Plt Count (150-450) k/uL MPV Neutrophils % % Lymphocytes % % Monocytes % % Eosinophils % % Basophils % % Neutrophils # (1.3-7.7) k/uL Lymphocytes # (1.0-4.8) k/uL Monocytes # (0-1.0) k/uL Eosinophils # (0-0.7) k/uL Basophils # (0-0.2) k/uL Hypochromasia Sodium (137-145) mmol/L Potassium (3.5-5.1) mmol/L Chloride (98-107) mmol/L Carbon Dioxide (22-30) mmol/L Anion Gap mmol/L BUN (7-17) mg/dL Creatinine (0.52-1.04) mg/dL Est GFR (CKD-EPI)AfAm (>60 ml/min/1.73 sqM) Est GFR (CKD-EPI)NonAf (>60 ml/min/1.73 sqM) Glucose (74-99) mg/dL Plasma Lactic Acid Lionel (0.7-2.0) mmol/L Calcium (8.4-10.2) mg/dL Magnesium (1.6-2.3) mg/dL Troponin I <0.012 (0.000-0.034) ng/mL Influenza Type A (PCR) Not Detected (Not Detectd) Influenza Type B (PCR) Not Detected (Not Detectd) RSV (PCR) Not Detected (Not Detectd) SARS-CoV-2 (PCR) Not Detected (Not Detectd) Disposition Clinical Impression: Pleural effusion Disposition: ADMITTED IP TO THIS HOSP Condition: Fair Referrals: Kathie Guillen MD [Primary Care Provider] - 1-2 days Decision Time: 20:00
[2024-09-30 19:06] LABS: African American GFR (CKD) >90 (>60 ml/min/1.73 sqM); Anion Gap 11 mmol/L; Blood Urea Nitrogen 12 mg/dL (7-17); Calcium 9.9 mg/dL (8.4-10.2); Carbon Dioxide 24 mmol/L (22-30); Chloride 101 mmol/L (98-107); Glucose 72 mg/dL (74-99); Magnesium 1.5 mg/dL (1.6-2.3); Non-African American GFR(CKD) 79 (>60 ml/min/1.73 sqM); Potassium 5.1 mmol/L (3.5-5.1); Sodium 136 mmol/L (137-145)
--- NOTE | 2024-09-30 19:27 | XR ---
EXAMINATION TYPE: XR chest 2V DATE OF EXAM: 09/30/2024 7:06 PM COMPARISON: 08/31/2024 CLINICAL INDICATION: Female, 69 years old with shortness of breath, history of dyspnea, , TECHNIQUE: PA and lateral views FINDINGS: Ongoing complete white out of the right hemithorax. Slightly enlarging, now small to moderate left pl eural effusion with left basilar opacity. Mild interstitial density remains in the left lung. Right h eart margin obscured by adjacent pleural parenchymal opacity. Degenerative change of the right should er. IMPRESSION: 1. Ongoing complete white out of the right hemithorax. 2. Slight increasing, now small to moderate left pleural effusion with adjacent atelectasis and/or co nsolidation. [facility], , 09/30/2024 7:25 PM
[2024-09-30] MEDS: oxyCODONE-APAP 7.5-325MG 1 EACH TAB PO STA (19:40)
[2024-09-30] MEDS ORDERED: NALOXONE 0.4 MG/ML 1 ML VIAL IV PRN (19:58)
[2024-09-30] MEDS: MAGNESIUM SULFATE-D5W PMX 1 GM in DEXTROSE/WATER 1 100ML.BAG IVPB SCH (20:53)
[2024-09-30] MEDS: APIXABAN 5 MG TAB PO SCH (21:25)
[2024-09-30] MEDS: SODIUM CHLORIDE 0.9% 1,000 ML IV SCH (21:29)
[2024-09-30] MEDS: MORPHINE SULFATE 4 MG/ML SYRINGE IV PRN (22:13)
[2024-10-01] MEDS: oxyCODONE-APAP 7.5-325MG 1 EACH TAB PO PRN (01:12)
[2024-10-01] MEDS: IPRATROPIUM-ALBUTEROL 3 ML NEB INHALATION PRN (07:53)
--- NOTE | 2024-10-01 14:49 | P.HPIM ---
History of Present Illness H&P Date: 10/01/24 Chief Complaint: Shortness of breath Patient is a 69 year old female with past medical history of atrial flutter, hypertension, seizure disorder, COPD with 4L home oxygen, lung cancer with metastasis to the brain with previous radiation therapy and right lower lobectomy presented to the ED with worsening shortness of breath. She mentions her symptoms started a couple months ago. She has experienced progressive shortness of breath. She has been admitted twice in the past month for similar symptoms. Everytime she would get discharged she will feel good at first but then her symptoms would recur within 2 weeks prompting another visit to the hospital. She also mentions having lung cancer. She was diagnosed in 2014, at that time she got a right lower lobectomy. There was recurrence of the cancer in 2019 at which point a drain was placed. It was found the cancer has metastasized to her brain for which she underwent radiation therapy. Subsequently she had chemotherapy and is now on chemotherapy pills(Tagrisso). Associated with that she also complains of dysphagia since 3 days and due to which her oral intake has been very poor. Also reports having runny nose and sometime blocked nose. Denies any reflux or regurgitation or past medical history of GERD, fever, chi lls, sore throat. Additionally she mentions having in her lower abdomen while having bowel movement. Denies constipation or diarrhea. Denies palpitations, nausea, vomiting, dysuria, hematuria, hematochezia, melena, numbness, tingling, joint pain, muscle aches. ED documentation reviewed. In the ED patient was treated with Percocet, Nebulised albuterol, Morphine, Levetiracetam. Vitals on admission T 99 F, [place] 121, RR 18, BP 127/87, O2 sat 95% on 4 L nasal cannula EKG independently interpreted as sinus tachycardia, rate 116 bpm, QTc 495 ms Chest x-ray shows ongoing complete whiteout of the right hemithorax, slight increasing no [id number] left pleural effusion with adjacent atelectasis/ consolidation Labs on admission show WBC 5.7, hemoglobin 11.4, sodium 136, magnesium 1.5, troponin I <0.012 Respiratory panel is negative Review of systems: Pertinent positives and negatives as discussed in HPI, a complete review of systems was performed and all other systems are negative. PMH: Atrial flutter, lung cancer, COPD, hyperlipidemia, hypertension, seizure disorder PSH: Right lung lower lobectomy, section, hysterectomy, tonsillectomy, orthopedic surgery Social history: Tobacco: Former smoker, quit in 2019 Alcohol: Former alcoholic, quit 6-8 months ago Recreational drugs: Denies use Travel: No recent travel history Sick contacts: None Physical examination: Vital signs reviewed General: nontoxic, no distress, appears at stated age Derm: warm, dry, intact Head: atraumatic, normocephalic, symmetric Eyes: EOMI, anicteric sclera Mouth: no lip lesion, mucus membranes moist Cardiovascular: S1 S2 reg, no murmur Lungs: Diminished lung sounds on the right Abdominal: soft, non-tender to palpation Extremities: No cyanosis, clubbing, or pedal edema. Neuro: Alert, Oriented, Gross neurological examination did not reveal any focal deficits. Psych: well appearing, appropriate affect Assessment/Plan: Patient is a 69-year-old female with past medical history of atrial flutter, hypertension, seizure disorder, COPD, lung cancer with metastasis to the brain with previous radiation therapy and right lower lobectomy presented to the ED with worsening shortness of breath. She has been admitted for acute on chronic hypoxic respiratory failure and is managed with breathing treatments. Active: #. Acute on chronic hypoxic respiratory failure #. History of lung cancer with metastatis to the brain, previous radiation therapy and right lower lobectomy Continue supplemental oxygen, currently on 4L oxygen via nasal cannula Continue Duonebs 3 ml QID PRN and Albuterol 2 puffs Q6HR PRN Continue Osimertinib Mesylate 80 mg PO daily Pulmnology is consulted #. Pain management Continue Percocet 7.5-325 PO Q6HR PRN and Morphine 4 mg IV Q4HR PRN Chronic: #. Atrial fibrillation, rate controlled, on anticoagulation Continue Apixaban 5 mg PO BID #. Anxiety/Depression Continue Citalopram 20 mg PO daily #. History of seizure disorder [place] Levetiracetam 750 mg PO BID #. Hyperlipidemia Continue Rosuvastatin 5 mg PO daily #. Hypertension Continue Valsartan 80 mg PO daily F: 0.9 normal saline at 20 ml/hr E: Replete as required N: Heart healthy diet A: Ambulatory DVT prophylaxis: Apixaban 5 mg PO BID and SCD The patient is admitted with an anticipated more than 2 midnight stay for evaluation of shortness of breath CODE STATUS: FULL CODE Discussed with: Patient Anticipated discharge place: Home Past Medical History Past Medical History: Atrial Flutter, Cancer, COPD, Hyperlipidemia, Hypertension, Seizure Disorder Additional Past Medical History / Comment(s): lung cancer, right pneumonectomy 2018, a-fib diagnosed 2023 History of Any Multi-Drug Resistant Organisms: None Reported Past Surgical History: Section, Hysterectomy, Orthopedic Surgery, Tonsillectomy Additional Past Surgical History / Comment(s): lower right lobectomy 2014, R rotator cuff repair Past Psychological History: No Psychological Hx Reported Smoking Status: Former smoker Past Alcohol Use History: Rare Past Drug Use History: None Reported - Past Family History Father Family Medical History: No Reported History Medications and Allergies Home Medications Medication Instructions Recorded Confirmed Type Albuterol Inhaler [Ventolin Hfa 2 puff INHALATION RT-Q6H PRN 07/26/24 09/30/24 History Inhaler] Citalopram Hydrobromide [CeleXA] 20 mg PO DAILY@1500 07/26/24 09/30/24 History Osimertinib Mesylate [Tagrisso] 80 mg PO DAILY@1500 07/26/24 09/30/24 History Rosuvastatin Calcium [Crestor] 5 mg PO DAILY@1500 07/26/24 09/30/24 History levETIRAcetam [Keppra] 750 mg PO BID@0900,2100 07/26/24 09/30/24 History oxyCODONE-APAP 7.5-325MG [Percocet 1 tab PO Q6H PRN 07/26/24 09/30/24 History 7.5-325 mg] Milk Thistle 175mg 1 tab PO BID@0900,1500 08/31/24 09/30/24 History Ipratropium-Albuterol Nebulize 3 ml INHALATION RT-QID PRN #120 09/02/24 09/30/24 Rx [Duoneb 0.5 mg-3 mg/3 ml Soln] each Apixaban [Eliquis] 5 mg PO BID@0900,2100 09/30/24 09/30/24 History Valsartan [Diovan] 80 mg PO DAILY@0900 09/30/24 09/30/24 History Vitamin B-12(Unknown Dose) 1 tab PO DAILY@0900 09/30/24 09/30/24 History Allergies Allergy/AdvReac Type Severity Reaction Status Date / Time diphenhydramine Allergy Unknown Verified 09/30/24 19:28 [From Benadryl] Penicillins Allergy Unknown Verified 09/30/24 19:28 codeine AdvReac Nausea & Verified 09/30/24 19:28 Vomiting Physical Exam Vitals: Vital Signs Temp Pulse Pulse Resp BP Pulse Ox 10/01/24 11:55 90 16 100/60 98 10/01/24 11:00 86 16 100/60 96 10/01/24 10:00 94 18 100/57 96 10/01/24 08:04 89 10/01/24 08:00 98 F 86 16 102/57 94 L 10/01/24 07:55 86 10/01/24 07:00 88 16 101/60 10/01/24 06:00 86 16 103/65 95 10/01/24 04:00 90 20 113/73 92 L 10/01/24 01:00 98 18 116/77 99 09/30/24 22:00 101 H 20 106/71 99 09/30/24 20:49 105 H 20 108/73 99 09/30/24 19:43 110 H 20 118/82 99 09/30/24 18:00 121 H 20 09/30/24 17:57 99 F 121 H 18 127/87 95 Intake and Output 09/30/24 10/01/24 10/01/24 22:59 06:59 14:59 Other: Weight 58.967 kg Results CBC & Chem 7: 09/30/24 18:42 09/30/24 18:30 Labs: Abnormal Lab Results - Last 24 Hours (Table) 09/30/24 09/30/24 Range/Units 18:30 18:42 MCHC 30.8 L (31.0-37.0) g/dL Lymphocytes # 0.7 L (1.0-4.8) k/uL Sodium 136 L (137-145) mmol/L Glucose 72 L (74-99) mg/dL Magnesium 1.5 L (1.6-2.3) mg/dL
[2024-10-01] MEDS: ATORVASTATIN 10 MG TAB PO SCH (15:17)
[2024-10-01] MEDS: CITALOPRAM HYDROBROMIDE 20 MG TAB PO SCH (15:18)
[2024-10-01] MEDS: Osimertinib Mesylate [Tagrisso] 80 MG Tablet PO SCH (15:19)
[2024-10-01] MEDS ORDERED: RX INFO: IV CONTRAST WAS GIVEN 1 EACH MISC MISCELLANE PRN (15:54)
--- NOTE | 2024-10-01 15:54 | P.CNPUL ---
History of Present Illness Consult date: 10/01/24 Reason for consult: dyspnea History of present illness: This is a 69-year-old female patient was being admitted for worsening shortness of breath. The patient is known to have non-small cell lung cancer the patient has undergone a previous pneumonectomy on the right back in 2018 and the patient remains on Tagrisso on outpatient basis. She was hospitalized back in July 2024 for a COPD exacerbation and left lung pneumonia with area of consolidation in the left lower lobe. She was treated accordingly. Her condition was stabilized and she was discharged home. She had another hospitalization on 09/01/2024 for worsening shortness of breath and COPD exacerbation. The patient was treated in discharged home on 09/02/2024. The patient is coming in for increased dyspnea, limited cough. No significant sputum production. No hemoptysis or pleurisy. She is afebrile. Hemodynamically stable encouraged and 40 Suboxone by nasal cannula. Chest x-ray shows pneumonectomy on the right, some atelectatic changes and small effusion on the left. The white cell count is 5.7 hemoglobin 11.4 and platelet count is at 323. Sodium is at 136, bicarb is at 24, BUN is 12 with a creatinine of 0.7. Troponins are negative. The viral screen has been negative. No altered mentation. No seizure activity has been reported. Review of Systems Constitutional: Reports fatigue, Reports fever Eyes: denies as per HPI, denies blurred vision, denies bulging eye, denies decreased vision, denies diplopia, denies discharge, denies dry eye, denies irritation, denies itching, denies pain, denies photophobia, denies loss of peripheral vision, denies loss of vision, denies tunnel vision/blind spots Ears: deny: decreased hearing, ear discharge, earache, tinnitus Ears, nose, mouth and throat: Reports as per HPI Breasts: absent: as per HPI, change in shape, gynecomastia, masses, nipple discharge, pain, skin changes, swelling Cardiovascular: Reports decreased exercise tolerance, Reports dyspnea on exertion Respiratory: Reports congestion, Reports cough, Reports cough with sputum, Reports dyspnea, Reports wheezing Gastrointestinal: Reports as per HPI Genitourinary: Reports as per HPI Menstruation: Reports as per HPI Musculoskeletal: Reports as per HPI Musculoskeletal: absent: ankle pain, ankle stiffness, ankle swelling, as per HPI, elbow pain, elbow stiffness, elbow swelling, foot pain, foot stiffness, foot swelling, hand pain, hand stiffness, hand swelling, hip pain, hip stiffness, hip swelling, knee pain, knee stiffness, knee swelling, shoulder pain, shoulder stiffness, shoulder swelling, wrist pain, wrist stiffness, wrist swelling Integumentary: Reports as per HPI Neurological: Reports as per HPI Psychiatric: Reports as per HPI Endocrine: Reports as per HPI Hematologic/Lymphatic: Reports as per HPI Past Medical History Past Medical History: Atrial Flutter, Cancer, COPD, Hyperlipidemia, Hypertension, Seizure Disorder Additional Past Medical History / Comment(s): lung cancer, right pneumonectomy 2018, a-fib diagnosed 2023 History of Any Multi-Drug Resistant Organisms: None Reported Past Surgical History: Section, Hysterectomy, Orthopedic Surgery, Tonsillectomy Additional Past Surgical History / Comment(s): lower right lobectomy 2014, R rotator cuff repair Past Psychological History: No Psychological Hx Reported Smoking Status: Former smoker Past Alcohol Use History: Rare Past Drug Use History: None Reported - Past Family History Father Family Medical History: No Reported History Medications and Allergies Home Medications Medication Instructions Recorded Confirmed Type Albuterol Inhaler [Ventolin Hfa 2 puff INHALATION RT-Q6H PRN 07/26/24 09/30/24 History Inhaler] Citalopram Hydrobromide [CeleXA] 20 mg PO DAILY@1500 07/26/24 09/30/24 History Osimertinib Mesylate [Tagrisso] 80 mg PO DAILY@1500 07/26/24 09/30/24 History Rosuvastatin Calcium [Crestor] 5 mg PO DAILY@1500 07/26/24 09/30/24 History levETIRAcetam [Keppra] 750 mg PO BID@0900,2100 07/26/24 09/30/24 History oxyCODONE-APAP 7.5-325MG [Percocet 1 tab PO Q6H PRN 07/26/24 09/30/24 History 7.5-325 mg] Milk Thistle 175mg 1 tab PO BID@0900,1500 08/31/24 09/30/24 History Ipratropium-Albuterol Nebulize 3 ml INHALATION RT-QID PRN #120 09/02/24 09/30/24 Rx [Duoneb 0.5 mg-3 mg/3 ml Soln] each Apixaban [Eliquis] 5 mg PO BID@0900,2100 09/30/24 09/30/24 History Valsartan [Diovan] 80 mg PO DAILY@0900 09/30/24 09/30/24 History Vitamin B-12(Unknown Dose) 1 tab PO DAILY@0900 09/30/24 09/30/24 History Allergies Allergy/AdvReac Type Severity Reaction Status Date / Time diphenhydramine Allergy Unknown Verified 09/30/24 19:28 [From Benadryl] Penicillins Allergy Unknown Verified 09/30/24 19:28 codeine AdvReac Nausea & Verified 09/30/24 19:28 Vomiting Physical Exam Vitals: Vital Signs Temp Pulse Pulse Resp BP Pulse Ox 10/01/24 11:55 90 16 100/60 98 10/01/24 11:00 86 16 100/60 96 10/01/24 10:00 94 18 100/57 96 10/01/24 08:04 89 10/01/24 08:00 98 F 86 16 102/57 94 L 10/01/24 07:55 86 10/01/24 07:00 88 16 101/60 10/01/24 06:00 86 16 103/65 95 10/01/24 04:00 90 20 113/73 92 L 10/01/24 01:00 98 18 116/77 99 09/30/24 22:00 101 H 20 106/71 99 09/30/24 20:49 105 H 20 108/73 99 09/30/24 19:43 110 H 20 118/82 99 09/30/24 18:00 121 H 20 09/30/24 17:57 99 F 121 H 18 127/87 95 Intake and Output 09/30/24 10/01/24 10/01/24 22:59 06:59 14:59 Other: Weight 58.967 kg Calm and comfortable, currently on room air oxygen. No significant respiratory distress. The patient is currently on 4 L of oxygen by nasal cannula Head exam was generally normal. There was no scleral icterus or corneal arcus. Mucous membranes were moist. Neck was supple and without jugular venous distension, thyromegaly, or carotid bruits. Carotids were easily palpable bilaterally. There was no adenopathy. Lung sounds are absent on the right, diminished breath sound the left lung base along with crackles, along with scattered expiratory wheezes Cardiac exam revealed the PMI to be normally situated and sized. The rhythm was regular and no extrasystoles were noted during several minutes of auscultation. The first and second heart sounds were normal and physiologic splitting of the second heart sound was noted. There were no murmurs, rubs, clicks, or gallops. Abdominal exam revealed normal bowel sounds. The abdomen was soft, non-tender, and without masses, organomegaly, or appreciable enlargement of the abdominal aorta. Examination of the extremities revealed easily palpable radial, femoral and pedal pulses. There was no cyanosis, clubbing or edema. Examination of the skin revealed no evidence of significant rashes, suspicious appearing nevi or other concerning lesions. Neurologically, the patient is awake and alert and the patient does not have any focal neurological deficit. Cranial nerves are essentially intact. Results - Laboratory Findings CBC and BMP: 09/30/24 18:42 09/30/24 18:30 Abnormal lab findings: Abnormal Labs 09/30/24 09/30/24 18:30 18:42 MCHC 30.8 L Lymphocytes # 0.7 L Sodium 136 L Glucose 72 L Magnesium 1.5 L - Diagnostic Findings Chest x-ray: image reviewed Assessment and Plan Plan: Acute exacerbation of COPD Acute hypoxic hakeem failure, currently on 40 of oxygen by nasal cannula Previous history of non-small cell lung cancer with previous right pneumonectomy 2018 and the patient has been maintained on Tagrisso on outpatient basis. I believe the patient had metastatic disease to the brain at time of admission the patient has received radiation therapy to her brain Seizure disorder maintained on Keppra Paroxysmal atrial fibrillation/flutter, maintained on long-term anticoagulation with Eliquis and the patient is currently in normal sinus rhythm Moderate mitral regurgitation/valvular heart disease Hypertension Hyperlipidemia Plan Titrate oxygen flow to maintain saturation above 90%, currently on 4 L DuoNeb nebulized treatments [id number] IV Solu-Medrol 60 mg every 6 hours Obtain a follow-up CAT scan of the chest with contrast to evaluate for any persistent opacity/malignancy involving the left lung. This will also be needed to evaluate for any pleural effusions Continue anticoagulation with Eliquis Resume home medication including antiepileptic medications Will continue to follow
--- NOTE | 2024-10-01 18:15 | CT ---
EXAMINATION TYPE: CT chest w con DATE OF EXAM: 10/01/2024 COMPARISON: 07/27/2024 HISTORY: 69-year-old female Hx of mass. TECHNIQUE: Contiguous axial scanning of the chest after the administration of 100ml mL of Isovue 300. Coronal/sagittal reconstructions performed. CT DLP: 156.9mGycm. Automatic exposure control utilized for a dose reduction. FINDINGS: The heart is borderline in size. Moderate pericardial effusion measures up to 2.1 cm thick versus 1.3 cm, previously. Ectatic ascending aorta 3.7 cm. Bovine configuration to the aortic arch. Mildly enlarged caliber main right and left pulmonary arteries measuring up to 2.6 cm suggests underl jose pulmonary arterial hypertension. There is some soft tissue thickening about the lower trachea and florencia region which appear similar c ompared to 07/27/2024. Chronic loculated pleural collection anterior right upper lobe extending up to the apex measuring up tor 14.2 cm craniocaudal by 10.4 cm wide, not significantly changed. There is complete opacification of the remainder of the right lung. Some focal fluid density at the opacified right apex measuring 2. 2 cm smaller from 07/27/2024. Pleural-based calcifications at the right base unchanged. There is a kyaln-oo-rwzhtrgm left pleural effusion now with worsening aeration basilar left lower lob e with air bronchograms. Lesser degree of patchy densities within the superior segment left lower lob e. A 2.0 cm groundglass focus anterior left upper lobe previously measured 1.7 cm. Nodule within the superior lingula measures 1.0 cm, unchanged. Visualized upper abdomen shows no gross abnormality. Bones: Levoconvex scoliosis of the thoracic spine. IMPRESSION: 1. Complete white out of right hemithorax secondary to chronic loculated pleural fluid collection ant erior right upper lobe extending up to the apex measuring up to 14.2 cm. There is opacification throu ghout the remainder of the right lung which persists from 07/27/2024. 2. New mdbkb-ya-rteljsir left pleural effusion with new extensive airspace disease at the basilar lef t lower lobe. Correlate for infectious or aspiration pneumonia. 3. Moderate pericardial effusion now 2.1 cm thick versus 1.3 cm, previously. 4. COPD with mild emphysema and pulmonary arterial hypertension. 5. A 2.0 cm groundglass focus left upper lobe previously measured 1.7 cm. Attention on follow-up to e xclude early neoplasm. [facility], , 10/01/2024 6:13 PM
[2024-10-02] MEDS: CEFEPIME 2 GM in SODIUM CHLORIDE 0.9% 100 ML IVPB SCH (08:48)
[2024-10-02 08:58] LABS: HCT 34.7 % (37.2-46.3); HGB 10.6 g/dL (12.0-15.0); MCH 26.8 pg (27.0-32.0); MCHC 30.5 g/dL (32.0-37.0); MCV 87.8 FL (80.0-97.0); Mean Platelet Volume 11.6 FL (9.5-12.2); NRBC Per 100 WBC 0 X 10*3/uL (0.00-0.01); Platelet Count 317 X 10*3/uL (140-440); RBC 3.95 X 10*6/uL (4.10-5.20); RDW 15.4 % (11.5-14.5); WBC 4.31 X 10*3/uL (4.50-10.00)
[2024-10-02] MEDS ORDERED: VALSARTAN 80 MG TAB PO SCH (09:00)
[2024-10-02] MEDS: VALSARTAN 40 MG TAB PO SCH (09:36)
[2024-10-02 09:47] LABS: BUN/Creat Ratio 15.38 Ratio (12.00-20.00); Blood Urea Nitrogen 12.3 mg/dL (9.0-27.0); Carbon Dioxide 29.3 mmol/L (21.6-31.8); Chloride 98 mmol/L (96-109); Glucose 105 mg/dL (70-110); Potassium 5.1 mmol/L (3.5-5.5); Sodium 136 mmol/L (135-145)
[2024-10-02 09:48] LABS: Calcium 9.6 mg/dL (8.7-10.3)
--- NOTE | 2024-10-02 14:57 | P.PN ---
Subjective Progress Note Date: 10/02/24 Patient is a 69 year old female with past medical history of atrial flutter, hypertension, seizure disorder, COPD with 4L home oxygen, lung cancer with metastasis to the brain with previous radiation therapy and right lower lobectomy presented to the ED with worsening shortness of breath. She mentions her symptoms started a couple months ago. She has experienced progressive shortness of breath. She has been admitted twice in the past month for similar symptoms. Everytime she would get discharged she will feel good at first but then her symptoms would recur within 2 weeks prompting another visit to the hospital. She also mentions having lung cancer. She was diagnosed in 2014, at that time she got a right lower lobectomy. There was recurrence of the cancer in 2019 at which point a drain was placed. It was found the cancer has metastasized to her brain for which she underwent radiation therapy. Subsequently she had chemotherapy and is now on chemotherapy pills(Tagrisso). Associated with that sh e also complains of dysphagia since 3 days and due to which her oral intake has been very poor. Also reports having runny nose and sometime blocked nose. Denies any reflux or regurgitation or past medical history of GERD, fever, chills, sore throat. Additionally she mentions having in her lower abdomen while having bowel movement. Denies constipation or diarrhea. Denies palpitations, nausea, vomit ing, dysuria, hematuria, hematochezia, melena, numbness, tingling, joint pain, muscle aches. ED documentation reviewed. In the ED patient was treated with Percocet, Nebulised albuterol, Morphine, Levetiracetam. Vitals on admission T 99 F, RI 121, RR 18, BP 127/87, O2 sat 95% on 4 L nasal cannula EKG independently interpreted as sinus tachycardia, rate 116 bpm, QTc 495 ms Chest x-ray shows ongoing complete whiteout of the right hemithorax, slight increasing no dlumg-[id number] left pleural effusion with adjacent atelectasis/consolidation Labs on admission show WBC 5.7, hemoglobin 11.4, sodium 136, magnesium 1.5, troponin I <0.012 Respiratory panel is negative 10/02/2024 Patient is eval today in follow-up in the medical floor. She is reporting significant shortness of breath. She continues on oxygen via nasal cannula at 4 L. Patient had a repeat chest CT which shows a complete whiteout of the right hemithorax with a chronic loculated effusion. There is a new small to moderate left pleural effusion with moderate pericardial effusion. Patient does have known small cell lung cancer and also has a right pnuemonectomy. She also has a noted left upper lobe nodule. She continues on IV cefepime with concern for postobstructive pneumonia. Pulmonary is following this patient closely. Work today reveals a white blood cell count of 4.31, hemoglobin 10.6, sodium of 136, potassium of 5.1. BUN of 12.3 creatinine 0.8. Her proBNP is less than 20. Her viral panel is negative. Review of Systems Constitutional: Denied any fatigue denied any fever. Cardio vascular: denied any chest pain, palpitations Gastrointestinal: denied any nausea, vomiting, diarrhea Pulmonary: Denied any shortness of breath cough Neurologic denied any new focal deficits All inpatient medications were reviewed and appropriate changes in these medications as dictated in the interval history and assessment and plan. PHYSICAL EXAMINATION: GENERAL: The patient is alert and oriented x3, not in any acute distress. Well developed, well nourished. HEENT: Pupils are round and equally reacting to light. EOMI. No scleral icterus. No conjunctival pallor. Normocephalic, atraumatic. No pharyngeal erythema. No thyromegaly. CARDIOVASCULAR: S1 and S2 present. No murmurs, rubs, or gallops. PULMONARY: Chest is clear to auscultation, no wheezing or crackles. ABDOMEN: Soft, nontender, nondistended, normoactive bowel sounds. No palpable organomegaly. MUSCULOSKELETAL: No joint swelling or deformity. EXTREMITIES: No cyanosis, clubbing, or pedal edema. NEUROLOGICAL: Gross neurological examination did not reveal any focal deficits. SKIN: No rashes. Assessment and Plan Right hemithorax with chronic loculated effusion. Smal to moderate left pleural effusion Moderate pericardial effusion, echocardiogram ordered Acute on chronic hypoxemic respiratory failure secondary to above Acute exacerbation of COPD History of nonsmall cell lung cancer with prior chemoradiation and right pneumonectomy in 2019; this is stage IV with brain metastasis Paroxysmal Atrial fibrillation, rate controlled on eliquis for anticoagulation Anxiety/depression History of seizure disorder maintained on keppra Hyperlipidemia Hypertension GI prophylaxis DVT prophylaxis Full Code Plan Pulmonary following On IV cefepime Continue IV solumedrol Let sided pleural effusion and pericardial effusion noted on chest CT. Echocardiogram ordered The impression and plan of care has been dictated by Debby Sarkar Nurse Practitioner as directed. Dr. Keaton MD I have performed a history and physical examination and medical decision making of this patient, discussed the same with the dictator, and agree with the d ictators assessment and plan as written, documented as a scribe. Based on total visit time, I have performed more than 50% of this visit. Objective - Vital Signs Vital signs: Vital Signs Temp 97.5 F L 10/02/24 11:46 Pulse 95 10/02/24 12:57 Resp 18 10/02/24 12:57 BP 109/71 10/02/24 11:46 Pulse Ox 95 10/02/24 12:51 FiO2 Intake & Output 10/01/24 10/02/24 10/02/24 18:59 06:59 18:59 Intake Total 380 Balance 380 Weight 58.967 kg Intake: Intake, IV Titration 180 Amount Sodium Chloride 0.9% 1, 180 000 ml @ 20 mls/hr IV . Q24H RIVER Rx#:[id number] Oral 200 Other: # Voids 1 2 - Labs CBC & Chem 7: 10/02/24 04:32 10/02/24 04:32 Labs: Abnormal Lab Results - Last 24 Hours (Table) 10/02/24 Range/Units 04:32 WBC 4.31 L (4.50-10.00) X 10*3/uL RBC 3.95 L (4.10-5.20) X 10*6/uL Hgb 10.6 L (12.0-15.0) g/dL Hct 34.7 L (37.2-46.3) % MCH 26.8 L (27.0-32.0) pg MCHC 30.5 L (32.0-37.0) g/dL RDW 15.4 H (11.5-14.5) % Assessment and Plan Time with Patient: Less than 30
--- NOTE | 2024-10-02 19:46 | P.PN ---
Subjective Progress Note Date: 10/02/24 This is a 69-year-old female patient was being admitted for worsening shortness of breath. The patient is known to have non-small cell lung cancer the patient has undergone a previous pneumonectomy on the right back in 2018 and the patient remains on Tagrisso on outpatient basis. She was hospitalized back in July 2024 for a COPD exacerbation and left lung pneumonia with area of consolidation in the left lower lobe. She was treated accordingly. Her condition was stabilized and she was discharged home. She had another hospitalization on 09/01/2024 for worsening shortness of breath and COPD exacerbation. The patient was treated in discharged home on 09/02/2024. The patient is coming in for increased dyspnea, limited cough. No significant sputum production. No hemoptysis or pleurisy. She is afebrile. Hemodynamically stable encouraged and 40 Suboxone by nasal cannula. Chest x-ray shows pneumonectomy on the right, some atelectatic changes and small effusion on the left. The white cell count is 5.7 hemoglobin 11.4 and platelet count is at 323. Sodium is at 136, bicarb is at 24, BUN is 12 with a creatinine of 0.7. Troponins are negative. The viral screen has been negative. No altered mentation. No seizure activity has been reported. On 10/02/24, the patient is being seen for a FU. The patient is stable and she is still on 02 at 4 L /min nasal canula and she is still having dyspnea with limited cough and sputum and she is has some minimal wheezing. The CT of the chest was completed and the patient has right pneumonectomy and she has airspace disease in the left lung base and she has also developed a left sided pleural effusion and there is a concern for a LLL pneumonia and based on that the patient was started on IV cefepime. Labs from today were noted the white cell count is at 4.06 and a platelet count of 317. The potassium level is at one 5.1, BUN is 12 with a creatinine of 0.8. proBNP level is less than 20. Meanwhile, the patient remains on Tagrisso. The patient remains on anticoagulation with Eliquis. The patient remains on DuoNeb updrafts and antibiotic coverage with IV cefepime. CAT scan of the chest also showed a small to moderate-sized per icardial effusion along with background COPD and some mild rectal edematous changes. Another 2 cm focus of groundglass opacity was seen in the left upper lobe Objective - Vital Signs Vital signs: Vital Signs Temp 97.5 F L 10/02/24 07:16 Pulse 95 10/02/24 07:16 Resp 18 10/02/24 07:16 BP 102/71 10/02/24 07:16 Pulse Ox 97 10/02/24 07:16 FiO2 Intake & Output 10/01/24 10/02/24 10/02/24 18:59 06:59 18:59 Intake Total 380 Balance 380 Weight 58.967 kg Intake: Intake, IV Titration 180 Amount Sodium Chloride 0.9% 1, 180 000 ml @ 20 mls/hr IV . Q24H RIVER Rx#:[id number] Oral 200 Other: # Voids 1 - Exam Calm and comfortable, currently on room air oxygen. No significant respiratory distress. The patient is currently on 4 L of oxygen by nasal cannula Head exam was generally normal. There was no scleral icterus or corneal arcus. Mucous membranes were moist. Neck was supple and without jugular venous distension, thyromegaly, or carotid bruits. Carotids were easily palpable bilaterally. There was no adenopathy. Lung sounds are absent on the right, diminished breath sound the left lung base along with crackles, along with scattered expiratory wheezes Cardiac exam revealed the PMI to be normally situated and sized. The rhythm was regular and no extrasystoles were noted during several minutes of auscultation. The first and second heart sounds were normal and physiologic splitting of the second heart sound was noted. There were no murmurs, rubs, clicks, or gallops. Abdominal exam revealed normal bowel sounds. The abdomen was soft, non-tender, and without masses, organomegaly, or appreciable enlargement of the abdominal aorta. Examination of the extremities revealed easily palpable radial, femoral and pedal pulses. There was no cyanosis, clubbing or edema. Examination of the skin revealed no evidence of significant rashes, suspicious appearing nevi or other concerning lesions. Neurologically, the patient is awake and alert and the patient does not have any focal neurological deficit. Cranial nerves are essentially intact. - Labs CBC & Chem 7: 10/02/24 04:32 10/02/24 04:32 Labs: Abnormal Lab Results - Last 24 Hours (Table) 10/02/24 Range/Units 04:32 WBC 4.31 L (4.50-10.00) X 10*3/uL RBC 3.95 L (4.10-5.20) X 10*6/uL Hgb 10.6 L (12.0-15.0) g/dL Hct 34.7 L (37.2-46.3) % MCH 26.8 L (27.0-32.0) pg MCHC 30.5 L (32.0-37.0) g/dL RDW 15.4 H (11.5-14.5) % Assessment and Plan Plan: Acute exacerbation of COPD Left lower lobe pneumonia and a small left sided pleural effusion (refer to the CT of the chest) Acute hypoxic respiratory failure, currently on 4L of oxygen by nasal cannula Previous history of non-small cell lung cancer with previous right pneumonectomy 2018 and the patient has been maintained on Tagrisso on outpatient basis. I believe the patient had metastatic disease to the brain at time of admission the patient has received radiation therapy to her brain Seizure disorder maintained on Keppra Paroxysmal atrial fibrillation/flutter, maintained on long-term anticoagulation with Eliquis and the patient is currently in normal sinus rhythm Moderate mitral regurgitation/valvular heart disease Hypertension Hyperlipidemia Plan Titrate oxygen flow to maintain saturation above 90%, currently on 4 L DuoNeb nebulized treatments [id number] IV Solu-Medrol 60 mg every 6 hours IV cefepime 2 gr q12 hours CAT scan of the chest with contrast was noted Continue anticoagulation with Eliquis Resume home medication including antiepileptic medications and the patient is on Tagrisso Will continue to follow
[2024-10-03 08:36] LABS: HCT 32.9 % (37.2-46.3); HGB 9.6 g/dL (12.0-15.0); MCH 26.3 pg (27.0-32.0); MCHC 29.2 g/dL (32.0-37.0); MCV 90.1 FL (80.0-97.0); NRBC Per 100 WBC 0 X 10*3/uL (0.00-0.01); Platelet Count 304 X 10*3/uL (140-440); RBC 3.65 X 10*6/uL (4.10-5.20); RDW 15.4 % (11.5-14.5); WBC 5.08 X 10*3/uL (4.50-10.00)
[2024-10-03 09:09] LABS: BUN/Creat Ratio 12.22 Ratio (12.00-20.00); Calcium 9.7 mg/dL (8.7-10.3); Carbon Dioxide 29.7 mmol/L (21.6-31.8); Chloride 100 mmol/L (96-109); Glucose 113 mg/dL (70-110); Potassium 5.9 mmol/L (3.5-5.5); Sodium 137 mmol/L (135-145)
--- NOTE | 2024-10-03 13:17 | CA ---
Transthoracic Echo Report Name: Juliana Clement Age: 69 Gender: F : 1955 Exam Date: 10/03/2024 09:52 Exam Location: [facility] Ht (in): 61 Wt (lb): 130 Ordering Physician: Debby Sarkar Attending/Referring Phys: Mello LUCAS Sole Skiver Marquita Naranjo RDCS Procedure CPT: Indications: pericardial effusion Cardiac Hx: Limited for effusion Technical Quality: Good Contrast 1: Total Dose (mL): Contrast 2: Total Dose (mL): MEASUREMENTS (Male / Female) Normal Values 2D ECHO LV Diastolic Diameter PLAX 4.0 cm 4.2 - 5.9 / 3.9 - 5.3 cm LV Systolic Diameter PLAX 2.8 cm IVS Diastolic Thickness 0.6 cm 0.6 - 1.0 / 0.6 - 0.9 cm LVPW Diastolic Thickness 0.8 cm 0.6 - 1.0 / 0.6 - 0.9 cm LV Relative Wall Thickness 0.3 FINDINGS Left Ventricle Left ventricular ejection fraction is estimated at 55-60 %. Left ventricular cavity size normal. Left ventricular wall thickness normal. No obvious regional wall motion abnormalities. Right Ventricle Normal right ventricular size and function. Right Atrium Left Atrium Mitral Valve Aortic Valve Tricuspid Valve Pulmonic Valve Pericardium Small to moderate pericardial effusion. Left pleural effusion. Respiratory variation of tricuspid flow. Respiratory variation of mitral flow. Aorta CONCLUSIONS Left ventricular ejection fraction 55-60% Moderate pericardial effusion measuring 1.4 cm with significant tricuspid valve respiratory variation greater than 50%, right atrial and right ventricular diastolic collapse consistent with tamponade physiology. Previewed by: Dr. Trevon Barrientos DO (Electronically Signed) Final Date: 03 October 2024 13:16
--- NOTE | 2024-10-03 13:50 | P.PN ---
Subjective Progress Note Date: 10/03/24 Patient is a 69 year old female with past medical history of atrial flutter, hypertension, seizure disorder, COPD with 4L home oxygen, lung cancer with metastasis to the brain with previous radiation therapy and right lower lobectomy presented to the ED with worsening shortness of breath. She mentions her symptoms started a couple months ago. She has experienced progressive shortness of breath. She has been admitted twice in the past month for similar symptoms. Everytime she would get discharged she will feel good at first but then her symptoms would recur within 2 weeks prompting another visit to the hospital. She also mentions having lung cancer. She was diagnosed in 2014, at that time she got a right lower lobectomy. There was recurrence of the cancer in 2019 at which point a drain was placed. It was found the cancer has metastasized to her brain for which she underwent radiation therapy. Subsequently she had chemotherapy and is now on chemotherapy pills(Tagrisso). Associated with that she also complains of dysphagia since 3 days and due to which her oral intake has been very poor. Also reports having runny nose and sometime blocked nose. Denies any reflux or regurgitation or past medical history of GERD, fever, chills, sore throat. Additionally she mentions having in her lower abdomen while having bowel movement. Denies constipation or diarrhea. Denies palpitations, nausea, vomiting, dysuria, hematuria, hematochezia, melena, numbness, tingling, joint pain, muscle aches. ED documentation reviewed. In the ED patient was treated with Percocet, Nebulised albuterol, Morphine, Levetiracetam. Vitals on admission T 99 F, NJ 121, RR 18, BP 127/87, O2 sat 95% on 4 L nasal cannula EKG independently interpreted as sinus tachycardia, rate 116 bpm, QTc 495 ms Chest x-ray shows ongoing complete whiteout of the right hemithorax, slight increasing no [id number] left pleural effusion with adjacent atelectasis/consolidation Labs on admission show WBC 5.7, hemoglobin 11.4, sodium 136, magnesium 1.5, troponin I <0.012 Respiratory panel is negative 10/02/2024 Patient is eval today in follow-up in the medical floor. She is reporting significant shortness of breath. She continues on oxygen via nasal cannula at 4 L. Patient had a repeat chest CT which shows a complete whiteout of the right hemithorax with a chronic loculated effusion. There is a new small to moderate left pleural effusion with moderate pericardial effusion. Patient does have known small cell lung cancer and also has a right pnuemonectomy. She also has a noted left upper lobe nodule. She continues on IV cefepime with concern for postobstructive pneumonia. Pulmonary is following this patient closely. Work today reveals a white blood cell count of 4.31, hemoglobin 10.6, sodium of 136, potassium of 5.1. BUN of 12.3 creatinine 0.8. Her proBNP is less than 20. Her viral panel is negative. 10-03-24 Patient seen and examined at bedside. No events overnight. Patient continues to have shortness of breath and cough that she states has not improved. WBC 5.08, sodium 137, potassium 5.9, BUN 11.0, creatinine 0.9, glucose 113. Hyperkalemia noted, discontinued valsartan. Echocardiogram finding significant for pericardial effusion and right atrial and right ventricular diastolic collapse consistent with tamponade. Cardiology consulted. Pulmonology continues to follow. Review of Systems: Reviewed, pertinent positives and negatives as per HPI PHYSICAL EXAMINATION: GENERAL: The patient is alert and oriented x3, not in any acute distress. Well developed, well nourished. HEENT: Pupils are round and equally reacting to light. EOMI. No scleral icterus. No conjunctival pallor. Normocephalic, atraumatic. No pharyngeal erythema. No thyromegaly. CARDIOVASCULAR: S1 and S2 present. No murmurs, rubs, or gallops. PULMONARY: Absent right-sided breath sounds, left-sided scattered rhonchi ABDOMEN: Soft, nontender, nondistended, normoactive bowel sounds. No palpable organomegaly. MUSCULOSKELETAL: No joint swelling or deformity. EXTREMITIES: No cyanosis, clubbing, or pedal edema. NEUROLOGICAL: Gross neurological examination did not reveal any focal deficits. SKIN: No rashes. Assessment and Plan Right hemithorax with chronic loculated effusion. Smal to moderate left pleural effusion Moderate pericardial effusion Acute on chronic hypoxemic respiratory failure secondary to above Acute exacerbation of COPD Hyperkalemia History of nonsmall cell lung cancer with prior chemoradiation and right pneumonectomy in 2019; this is stage IV with brain metastasis Paroxysmal Atrial fibrillation, rate controlled on eliquis for anticoagulation Anxiety/depression History of seizure disorder maintained on keppra Hyperlipidemia Hypertension GI prophylaxis DVT prophylaxis Full Code Plan Pulmonary following On IV cefepime Continue IV solumedrol Discontinue valsartan Let sided pleural effusion and pericardial effusion noted on chest CT. Echocardiogram with pericardial effusion measuring 1.4 cm, right atrial and right ventricular diastolic collapse consistent with tamponade physiology Cardiology consulted Dr. Keaton MD I have performed a history and physical examination and medical decision making of this patient, discussed the same with the dictator, and agree with the di ctators assessment and plan as written, documented as a scribe. Based on total visit time, I have performed more than 50% of this visit. Objective - Vital Signs Vital signs: Vital Signs Temp 98.1 F 10/03/24 13:13 Pulse 111 H 10/03/24 13:13 Resp 17 10/03/24 13:13 BP 101/66 10/03/24 13:13 Pulse Ox 94 L 10/03/24 13:13 FiO2 Intake & Output 10/02/24 10/03/24 10/03/24 18:59 06:59 18:59 Intake Total 120 Balance 120 Intake: Oral 120 Other: Voiding Method Toilet # Voids 2 3 - Labs CBC & Chem 7: 10/03/24 03:39 10/03/24 03:39 Labs: Abnormal Lab Results - Last 24 Hours (Table) 10/03/24 10/03/24 Range/Units 03:39 03:39 RBC 3.65 L (4.10-5.20) X 10*6/uL Hgb 9.6 L (12.0-15.0) g/dL Hct 32.9 L (37.2-46.3) % MCH 26.3 L (27.0-32.0) pg MCHC 29.2 L (32.0-37.0) g/dL RDW 15.4 H (11.5-14.5) % Potassium 5.9 H (3.5-5.5) mmol/L Glucose 113 H (70-110) mg/dL
--- NOTE | 2024-10-03 14:40 | P.PN ---
Subjective Progress Note Date: 10/03/24 This is a 69-year-old female patient was being admitted for worsening shortness of breath. The patient is known to have non-small cell lung cancer the patient has undergone a previous pneumonectomy on the right back in 2018 and the patient remains on Tagrisso on outpatient basis. She was hospitalized back in July 2024 for a COPD exacerbation and left lung pneumonia with area of consolidation in the left lower lobe. She was treated accordingly. Her condition was stabilized and she was discharged home. She had another hospitalization on 09/01/2024 for worsening shortness of breath and COPD exacerbation. The patient was treated in discharged home on 09/02/2024. The patient is coming in for increased dyspnea, limited cough. No significant sputum production. No hemoptysis or pleurisy. She is afebrile. Hemodynamically stable encouraged and 40 Suboxone by nasal cannula. Chest x-ray shows pneumonectomy on the right, some atelectatic changes and small effusion on the left. The white cell count is 5.7 hemoglobin 11.4 and platelet count is at 323. Sodium is at 136, bicarb is at 24, BUN is 12 with a creatinine of 0.7. Troponins are negative. The viral screen has been negative. No altered mentation. No seizure activity has been reported. On 10/02/24, the patient is being seen for a FU. The patient is stable and she is still on 02 at 4 L /min nasal canula and she is still having dyspnea with limited cough and sputum and she is has some minimal wheezing. The CT of the chest was completed and the patient has right pneumonectomy and she has airspace disease in the left lung base and she has also developed a left sided pleural effusion and there is a concern for a LLL pneumonia and based on that the patient was started on IV cefepime. Labs from today were noted the white cell count is at 4.06 and a platelet count of 317. The potassium level is at one 5.1, BUN is 12 with a creatinine of 0.8. proBNP level is less than 20. Meanwhile, the patient remains on Tagrisso. The patient remains on anticoagulation with Eliquis. The patient remains on DuoNeb updrafts and antibiotic coverage with IV cefepime. CAT scan of the chest also showed a small to moderate-sized aimee cardial effusion along with background COPD and some mild rectal edematous changes. Another 2 cm focus of groundglass opacity was seen in the left upper lobe The patient is seen today October 03, 2024 in follow-up on the regular medical floor. She is currently sitting up in bed. Awake and alert in no acute distress. Maintaining O2 saturations in the 90s on 3 L/min per nasal cannula. She has been afebrile. Hemodynamically stable. Echocardiogram reveals preserved left ventricular systolic function with ejection fraction 55 to 60%. White count 5.0. Hemoglobin 9.6. Platelets 304. Sodium 137. Potassium 5.9. Bicarb 30. BUN 11. Creatinine 0.9. Glucose 113. Procalcitonin was negative at 0.03. Is currently on cefepime. Continued on DuoNeb and elations. Anticoagulated with Eliquis. Continued on her Tagrisso. Objective - Vital Signs Vital signs: Vital Signs Temp 98.1 F 10/03/24 13:13 Pulse 111 H 10/03/24 13:13 Resp 17 10/03/24 13:13 BP 101/66 10/03/24 13:13 Pulse Ox 94 L 10/03/24 13:13 FiO2 Intake & Output 10/02/24 10/03/24 10/03/24 18:59 06:59 18:59 Intake Total 120 Balance 120 Intake: Oral 120 Other: Voiding Method Toilet # Voids 2 3 - Exam GENERAL EXAM: Alert, active, comfortable in no apparent distress. HEAD: Normocephalic. EYES: Normal reaction of pupils, equal size. NOSE: Clear with pink turbinates. THROAT: No erythema or exudates. NECK: No masses, no JVD. CHEST: No chest wall deformity. LUNGS: Equal air entry with crackles in the left lung base, diminished. Absent on the right. CVS: S1 and S2 normal with no audible murmur, regular rhythm. ABDOMEN: No hepatosplenomegaly, normal bowel sounds, no guarding or rigidity. SPINE: No scoliosis or deformity SKIN: No rashes CENTRAL NERVOUS SYSTEM: No focal deficits, tone is normal in all 4 extremities. EXTREMITIES: There is no peripheral edema. No clubbing, no cyanosis. Peripheral pulses are intact. - Labs CBC & Chem 7: 10/03/24 03:39 10/03/24 03:39 Labs: Abnormal Lab Results - Last 24 Hours (Table) 10/03/24 10/03/24 Range/Units 03:39 03:39 RBC 3.65 L (4.10-5.20) X 10*6/uL Hgb 9.6 L (12.0-15.0) g/dL Hct 32.9 L (37.2-46.3) % MCH 26.3 L (27.0-32.0) pg MCHC 29.2 L (32.0-37.0) g/dL RDW 15.4 H (11.5-14.5) % Potassium 5.9 H (3.5-5.5) mmol/L Glucose 113 H (70-110) mg/dL Assessment and Plan Assessment: Acute exacerbation of COPD Left lower lobe pneumonia and a small left sided pleural effusion (refer to the CT of the chest) Acute hypoxic respiratory failure, currently on 4L of oxygen by nasal cannula Previous history of non-small cell lung cancer with previous right pneumonectomy 2018 and the patient has been maintained on Tagrisso on outpatient basis. The patient had metastatic disease to the brain at time of admission the patient has received radiation therapy to her brain Seizure disorder maintained on Keppra Paroxysmal atrial fibrillation/flutter, maintained on long-term anticoagulation with Eliquis and the patient is currently in normal sinus rhythm Moderate mitral regurgitation/valvular heart disease Hypertension Hyperlipidemia Plan: The patient was seen and evaluated Labs and medications reviewed Procalcitonin negative Remains on bronchodilators, steroids Anticoagulated with Eliquis Continued on Tagrisso Titrate down the FiO2 as tolerated We will continue to follow I have personally seen and examined the patient, performed the documentation and the assessment and plan as written. Number of minutes spent on the visit: 10 Dictation was produced using [employer] software. Please excuse any grammatical, word or spelling errors.
[2024-10-03] MEDS: TAGRISSO 80 MG PO SCH (16:10)
--- NOTE | 2024-10-03 17:04 | P.CRDCN ---
History of Present Illness History of present illness: HISTORY OF PRESENTING ILLNESS This is a pleasant 69-year-old with past medical history significant for hypertension, hyperlipidemia, family history of CAD, seizures, questionable previous stroke on Plavix, lung cancer stage IV in remission per patient and atrial fibrillation. She has never seen a traveling construction superintendent however was seen by myself 2 months ago. Patient has a history of non-small cell lung cancer in 2019, had undergone pneumonectomy and remains onTagrisso on an outpatient basis. She has had a number of hospitalizations over the last 6 months. She states in general she had felt somewhat better however over the last 3 months especially she has noticed significant shortness breath with any sort of activity. Denies any fevers or chills. She was initially seen on 10/01 by pulmonology and treated for COPD exacerbation and a CT chest was obtained. CT chest showed complete right hemithorax white out and loculated pleural effusion measuring up to 14 cm. This is similar to prior from July 2024. There additionally was new small to moderate left pleural effusion as well as moderate pericardial effusion measuring 2.1 cm versus previous measurement of 1.3 cm and 2 cm groundglass opacity in the left upper lobe. Echocardiogram was performed which showed ejection fraction 55% with moderate pericardial effusion and tamponade physiology. REVIEW OF SYSTEMS At the time of my exam: CONSTITUTIONAL: Denies fever or chills. CARDIOVASCULAR: Denies chest pain, + shortness of breath, no orthopnea, PND or palpitations. RESPIRATORY: Denies cough. GASTROINTESTINAL: Denies abdominal pain, diarrhea, constipation, nausea or vomiting. MUSCULOSKELETAL: Denies myalgias. NEUROLOGIC: Denies numbness, tingling or weakness. ENDOCRINE: Denies fatigue, weight change, polydipsia or polyurina. GENITOURINARY: Denies burning, hematuria or urgency with micturation. HEMATOLOGIC: Denies history of anemia or bleeding. PHYSICAL EXAMINATION Vital signs reviewed. CONSTITUTIONAL: No apparent distress. HEENT: Head is normocephalic. Pupils are equal, round. Sclerae anicteric. Mucous membranes of the mouth are moist. No JVD. No carotid bruit. CHEST EXAMINATION: Lungs are clear to auscultation. Decreased breath sounds on the right HEART EXAMINATION: Regular rate and rhythm. S1, S2 heard. No murmurs, gallops or rub. ABDOMEN: Soft, nontender. Positive bowel sounds. EXTREMITIES: 2+ peripheral pulses, no lower extremity edema and no calf tenderness. NEUROLOGIC EXAMINATION: Patient is awake, alert and oriented x3. ASSESSMENT Pericardial effusion with tamponade physiology Paroxysmal atrial fibrillation Acute on chronic respiratory failure Lung cancer stage IV per patient in remission Collapsed right lung, history of pneumonectomy History of stroke previously on Plavix Family history of CAD PLAN Patient has had recurrent pleural effusions and currently pericardial effusion with tamponade physiology based off of repeat 2-D echo with diastolic collapse and respiratory variation. We will consult cardiothoracic surgery for possible pericardial window vs pericardiocentesis. Hold Eliquis for now. We will start colchicine and monitor response. Past Medical History Past Medical History: Atrial Flutter, Cancer, COPD, Hyperlipidemia, Hypertension, Seizure Disorder Additional Past Medical History / Comment(s): lung cancer, right pneumonectomy 2018, a-fib diagnosed 2023 History of Any Multi-Drug Resistant Organisms: None Reported Past Surgical History: Section, Hysterectomy, Orthopedic Surgery, Tonsillectomy Additional Past Surgical History / Comment(s): lower right lobectomy 2014, R rotator cuff repair Past Psychological History: No Psychological Hx Reported Smoking Status: Former smoker Past Alcohol Use History: Rare Past Drug Use History: None Reported - Past Family History Father Family Medical History: No Reported History Medications and Allergies Home Medications Medication Instructions Recorded Confirmed Type Albuterol Inhaler [Ventolin Hfa 2 puff INHALATION RT-Q6H PRN 07/26/24 09/30/24 History Inhaler] Citalopram Hydrobromide [CeleXA] 20 mg PO DAILY@149907/26/24 09/30/24 History Osimertinib Mesylate [Tagrisso] 80 mg PO DAILY@149907/26/24 09/30/24 History Rosuvastatin Calcium [Crestor] 5 mg PO DAILY@149907/26/24 09/30/24 History levETIRAcetam [Keppra] 750 mg PO BID@0900,209907/26/24 09/30/24 History oxyCODONE-APAP 7.5-325MG [Percocet 1 tab PO Q6H PRN 07/26/24 09/30/24 History 7.5-325 mg] Milk Thistle 175mg 1 tab PO BID@0900,1500 08/31/24 09/30/24 History Ipratropium-Albuterol Nebulize 3 ml INHALATION RT-QID PRN #120 09/02/24 09/30/24 Rx [Duoneb 0.5 mg-3 mg/3 ml Soln] each Apixaban [Eliquis] 5 mg PO BID@0900,2100 09/30/24 09/30/24 History Valsartan [Diovan] 80 mg PO DAILY@0900 09/30/24 09/30/24 History Vitamin B-12(Unknown Dose) 1 tab PO DAILY@0900 09/30/24 09/30/24 History Allergies Allergy/AdvReac Type Severity Reaction Status Date / Time diphenhydramine Allergy Unknown Verified 09/30/24 19:28 [From Benadryl] Penicillins Allergy Unknown Verified 09/30/24 19:28 codeine AdvReac Nausea & Verified 09/30/24 19:28 Vomiting Physical Exam Vitals: Vital Signs Temp Pulse Pulse Resp BP Pulse Ox 10/03/24 13:13 98.1 F 111 H 17 101/66 94 L 10/03/24 12:04 104 H 10/03/24 11:53 108 H 10/03/24 08:05 105 H 10/03/24 07:58 94 L 10/03/24 07:55 103 H 10/03/24 07:05 97.7 F 98 16 100/65 94 L 10/03/24 01:35 92 10/03/24 01:30 98.1 F 72 16 103/71 95 10/03/24 01:25 92 10/02/24 20:00 98.2 F 96 16 100/68 93 L 10/02/24 19:38 90 18 10/02/24 19:26 92 18 Intake and Output 10/03/24 10/03/24 10/03/24 06:59 14:59 22:59 Other: Voiding Method Toilet # Voids 3 Weight 58.967 kg Results 10/03/24 03:39 10/03/24 03:39 CBC 10/03/24 Range/Units 03:39 WBC 5.08 (4.50-10.00) X 10*3/uL RBC 3.65 L (4.10-5.20) X 10*6/uL Hgb 9.6 L (12.0-15.0) g/dL Hct 32.9 L (37.2-46.3) % Plt Count 304 (140-440) X 10*3/uL Comprehensive Metabolic Panel 10/03/24 Range/Units 03:39 Sodium 137 (135-145) mmol/L Potassium 5.9 H (3.5-5.5) mmol/L Chloride 100 (96-109) mmol/L Carbon Dioxide 29.7 (21.6-31.8) mmol/L BUN 11.0 (9.0-27.0) mg/dL Creatinine 0.9 (0.6-1.5) mg/dL Glucose 113 H (70-110) mg/dL Calcium 9.7 (8.7-10.3) mg/dL Current Medications Generic Name Dose Route Start Last Admin Trade Name Freq PRN Reason Stop Dose Admin Albuterol Sulfate 2 puff 10/01/24 14:29 Albuterol Hfa Inhaler INHALATION RT-Q6H PRN Shortness Of Breath Albuterol/Ipratropium 3 ml 09/30/24 20:57 10/03/24 11:53 Ipratropium-Albuterol 3 Ml Neb INHALATION 3 ml RT-QID PRN Administration Shortness Of Breath Or Wheezing Atorvastatin Calcium 10 mg 10/01/24 15:00 10/03/24 15:58 Atorvastatin 10 Mg Tab PO 10 mg DAILY@1500 RIVER Administration Citalopram Hydrobromide 20 mg 10/01/24 15:00 10/03/24 15:58 Citalopram Hydrobromide 20 Mg Tab PO 20 mg DAILY@1500 RIVER Administration Sodium Chloride 1,000 mls @ 20 mls/hr 09/30/24 20:00 10/02/24 20:02 Saline 0.9% IV 20 mls/hr .Q24H RIVER Administration Cefepime HCl 2 gm/ Sodium 100 mls @ 25 mls/hr 10/02/24 09:00 10/03/24 08:45 Chloride IVPB 25 mls/hr Q12HR RIVER Administration Protocol Levetiracetam 750 mg 09/30/24 21:00 10/03/24 08:45 Levetiracetam 750 Mg Tab PO 750 mg BID RIVER Administration Morphine Sulfate 4 mg 09/30/24 19:58 10/03/24 08:55 Morphine Sulfate 4 Mg/Ml Syringe IV 4 mg Q4HR PRN Administration Severe Pain (Scale 7 to 10) Naloxone HCl 0.2 mg 09/30/24 19:58 Naloxone 0.4 Mg/Ml 1 Ml Vial IV Q2M PRN Opioid Reversal Tagrisso ( 1 each 10/03/24 16:00 10/03/24 16:10 Osimertinib Mesylate PO 1 each ) 80 Mg Tablet DAILY@1500 RIVER Administration Oxycodone/Acetaminophen 1 each 09/30/24 20:56 10/03/24 13:44 Oxycodone-Apap 7.5-325mg 1 Each Tab PO 1 each Q6HR PRN Administration mild to moderate pain Intake and Output 10/03/24 10/03/24 10/03/24 06:59 14:59 22:59 Other: Voiding Method Toilet # Voids 3 Weight 58.967 kg Patient Weight 10/04/24 06:59 Weight 58.967 kg 10/03/24 03:39 10/03/24 03:39
[2024-10-03] MEDS: COLCHICINE 0.6 MG EACH PO SCH (18:02)
[2024-10-04 08:35] LABS: BUN/Creat Ratio 12.75 Ratio (12.00-20.00); Blood Urea Nitrogen 10.2 mg/dL (9.0-27.0); Calcium 9.9 mg/dL (8.7-10.3); Carbon Dioxide 29.4 mmol/L (21.6-31.8); Chloride 102 mmol/L (96-109); Glucose 103 mg/dL (70-110); HCT 37.2 % (37.2-46.3); HGB 11.2 g/dL (12.0-15.0); MCHC 30.1 g/dL (32.0-37.0); MCV 86.5 FL (80.0-97.0); Mean Platelet Volume 11.6 FL (9.5-12.2); NRBC Per 100 WBC 0 X 10*3/uL (0.00-0.01); Platelet Count 339 X 10*3/uL (140-440); Potassium 5.4 mmol/L (3.5-5.5); RDW 15.6 % (11.5-14.5); Sodium 140 mmol/L (135-145); WBC 7.31 X 10*3/uL (4.50-10.00)
[2024-10-04] MEDS: ONDANSETRON 4 MG/2 ML VIAL IVP PRN (09:08)
--- NOTE | 2024-10-04 09:35 | P.GSCN ---
History of Present Illness Consult date: 10/04/24 Reason for Consult: Pericardial effusion Requesting physician: Trevon Barrientos History of present illness: This is a 69-year-old female who follows outpatient with Dr. Guillen for primary care. She was previously established at [facility] for her cancer care, however she is recently established with Dr. Kate Carlson for oncology. She has a previous medical history of stage IV lung cancer with right sided pneumonectomy in 2019 subsequent chemotherapy, subsequent finding of brain metastasis status post radiation therapy, maintained on Tagrisso, previous tobacco dependence, COPD, previous EtOH use, hypertension, hyperlipidemia, seizure disorder with last seizure 9 months ago, and atrial fibrillation on Eliquis outpatient for anticoagulation. She has had multiple admissions this year for shortness of breath related to COPD, pneumonia, pleural effusion. She presented to [facility] emergency room this admission on September 30, 2024, again with complaints of shortness of breath which is chronic but had recently worsened. Her x-ray demonstrated whiteout of the right hemithorax, appropriate given history of pneumonectomy. It also demonstrated small to moderate left-sided pleural effusion with atelectasis. Lab work revealed WBC 5.7, hemoglobin 11.4, creatinine 0.78, sodium 136, lactic acid 1.6, magnesium 1.5, negative troponin, and virus screen was negative. She was admitted for evaluation and treatment with consultation placed to pulmonology. Chest CT was ordered demonstrating whiteout of the right hemithorax, small to moderate left pleural effusion with extensive airspace disease at the basilar left lower lobe concerning for infection, moderate pericardial effusion which increased slightly in size from previous CT scan, and 2 cm groundglass focus in the left upper lobe which also increased slightly from previous CAT scan concerning for early neoplasm. She was initiated on IV antibiotics, maintain on bronchodilators. Echocardiogram was completed demonstrating normal left ventricular systolic function with EF 55 to 60%, moderate pericardial effusion with right atrial and ventricular diastolic collapse consistent with tamponade physiology. Cardiology was consulted who consulted Dr. Parsons from cardiothoracic surgery. Discussion did take place yesterday between Dr. Parsons and Dr. Barrientos as they reviewed the patient's echocardiogram together. Review of Systems Review of systems was completed and was negative except as noted - Respiratory Reports as per HPI, Reports dyspnea Past Medical History Past Medical History: Atrial Flutter, Cancer, COPD, Hyperlipidemia, Hyperte nsion, Seizure Disorder Additional Past Medical History / Comment(s): lung cancer (post pneumonectomy and chemotherapy) with brain mets (post radiation) currently maintained on Tagrisso, a-fib diagnosed 2023 History of Any Multi-Drug Resistant Organisms: None Reported Past Surgical History: Section, Hysterectomy, Orthopedic Surgery, Tonsillectomy Additional Past Surgical History / Comment(s): lower right lobectomy 2014, right pneumonectomy 2018, R rotator cuff repair Past Psychological History: No Psychological Hx Reported Smoking Status: Former smoker Past Alcohol Use History: None Reported Additional Past Alcohol Use History / Comment(s): States that she quit drinking 6 months ago Past Drug Use History: None Reported Additional History: States that she quit smoking in 2019 - Past Family History Father Additional Family Medical History / Comment(s): , unknown cause Mother Additional Family Medical History / Comment(s): , unknown cause Medications and Allergies Home Medications Medication Instructions Recorded Confirmed Type Albuterol Inhaler [Ventolin Hfa 2 puff INHALATION RT-Q6H PRN 07/26/24 09/30/24 History Inhaler] Citalopram Hydrobromide [CeleXA] 20 mg PO DAILY@1500 07/26/24 09/30/24 History Osimertinib Mesylate [Tagrisso] 80 mg PO DAILY@149907/26/24 09/30/24 History Rosuvastatin Calcium [Crestor] 5 mg PO DAILY@1500 07/26/24 09/30/24 History levETIRAcetam [Keppra] 750 mg PO BID@0900,2100 07/26/24 09/30/24 History oxyCODONE-APAP 7.5-325MG [Percocet 1 tab PO Q6H PRN 07/26/24 09/30/24 History 7.5-325 mg] Milk Thistle 175mg 1 tab PO BID@0900,1500 08/31/24 09/30/24 History Ipratropium-Albuterol Nebulize 3 ml INHALATION RT-QID PRN #120 09/02/24 09/30/24 Rx [Duoneb 0.5 mg-3 mg/3 ml Soln] each Apixaban [Eliquis] 5 mg PO BID@0900,2100 09/30/24 09/30/24 History Valsartan [Diovan] 80 mg PO DAILY@0900 09/30/24 09/30/24 History Vitamin B-12(Unknown Dose) 1 tab PO DAILY@0900 09/30/24 09/30/24 History Allergies Allergy/AdvReac Type Severity Reaction Status Date / Time diphenhydramine Allergy Unknown Verified 09/30/24 19:28 [From Benadryl] Penicillins Allergy Unknown Verified 09/30/24 19:28 codeine AdvReac Nausea & Verified 09/30/24 19:28 Vomiting Surgical - Exam Vital Signs Temp Pulse Resp BP Pulse Ox 99 F 121 H 18 127/87 95 09/30/24 17:57 09/30/24 17:57 09/30/24 17:57 09/30/24 17:57 09/30/24 17:57 CONSTITUTIONAL: Awake and alert, appears short of breath, cooperative EYES: Pupils equal, round, reactive to light, normal ocular movement ENT: Moist mucous membranes without oral lesions present NECK: No masses, no bruits, trachea midline RESPIRATORY: Lungs sounds absent on the right, very diminished in the left base, coarse throughout the left side. Respirations slightly labored. Currently on Ventimask with oxygen saturation mid 80s. Strong cough. No chest wall deformities. No clubbing or cyanosis present CARDIOVASCULAR: S1, S2 present. Tacky but regular rate and rhythm. Palpable peripheral pulses bilaterally. No edema present. No calf pain or tenderness noted GASTROINTESTINAL: Abdomen soft, nontender, nondistended without masses or organomegaly noted. There is no rebound or guarding present. Active bowel sounds present 4 quadrants. GENITOURINARY: Deferred INTEGUMENTARY: Skin is warm and dry NEUROLOGIC: Cranial nerves II through XII intact, normal coordination, no obvious motor or sensory deficits, speech is normal MUSKULOSKELETAL: Able to move all extremities, strength equal bilaterally, normal posture PSYCHIATRIC: Alert and oriented to person place and time, appropriate affect, intact judgment and insight Results - Labs 10/04/24 03:45 10/04/24 03:45 Abnormal Lab Results - Last 24 Hours (Table) 10/03/24 10/04/24 Range/Units 03:39 03:45 Hgb 11.2 L (12.0-15.0) g/dL MCH 26.0 L (27.0-32.0) pg MCHC 30.1 L (32.0-37.0) g/dL RDW 15.6 H (11.5-14.5) % Potassium 5.9 H (3.5-5.5) mmol/L Glucose 113 H (70-110) mg/dL Diabetes panel 10/03/24 10/04/24 Range/Units 03:39 03:45 Sodium 137 140 (135-145) mmol/L Potassium 5.9 H 5.4 (3.5-5.5) mmol/L Chloride 100 102 (96-109) mmol/L Carbon Dioxide 29.7 29.4 (21.6-31.8) mmol/L BUN 11.0 10.2 (9.0-27.0) mg/dL Creatinine 0.9 0.8 (0.6-1.5) mg/dL Glucose 113 H 103 (70-110) mg/dL Calcium 9.7 9.9 (8.7-10.3) mg/dL Calcium panel 10/03/24 10/04/24 Range/Units 03:39 03:45 Calcium 9.7 9.9 (8.7-10.3) mg/dL Pituitary panel 10/03/24 10/04/24 Range/Units 03:39 03:45 Sodium 137 140 (135-145) mmol/L Potassium 5.9 H 5.4 (3.5-5.5) mmol/L Chloride 100 102 (96-109) mmol/L Carbon Dioxide 29.7 29.4 (21.6-31.8) mmol/L BUN 11.0 10.2 (9.0-27.0) mg/dL Creatinine 0.9 0.8 (0.6-1.5) mg/dL Glucose 113 H 103 (70-110) mg/dL Calcium 9.7 9.9 (8.7-10.3) mg/dL Adrenal panel 10/03/24 10/04/24 Range/Units 03:39 03:45 Sodium 137 140 (135-145) mmol/L Potassium 5.9 H 5.4 (3.5-5.5) mmol/L Chloride 100 102 (96-109) mmol/L Carbon Dioxide 29.7 29.4 (21.6-31.8) mmol/L BUN 11.0 10.2 (9.0-27.0) mg/dL Creatinine 0.9 0.8 (0.6-1.5) mg/dL Glucose 113 H 103 (70-110) mg/dL Calcium 9.7 9.9 (8.7-10.3) mg/dL - Imaging Chest x-ray: report reviewed, image reviewed CT scan - chest: report reviewed, image reviewed Additional studies: Echo films reviewed with Dr. Parsons and Dr. Barrientos Assessment and Plan Assessment: Left pleural effusion Pericardial effusion Acute hypoxic respiratory failure Left lower lobe pneumonia, currently on cefepime Shortness of breath secondary to above History of stage IV lung cancer with right sided pneumonectomy in 2019 subsequent chemotherapy, subsequent finding of brain metastasis status post radiation therapy, maintained on Tagrisso Previous tobacco dependence COPD Previous EtOH use Hypertension Hyperlipidemia Seizure disorder with last seizure 9 months ago Paroxysmal atrial fibrillation on Eliquis outpatient for anticoagulation, currently sinus, last dose of Eliquis 10/03/24 AM Plan: The patient was seen and examined yesterday at the bedside with Dr. Parsons, and again this morning. Chart/diagnostics reviewed. Dr. Parsons discussed with Dr. Barrientos that the pericardial effusion has been chronic as seen on CTs and e choes for the last couple of months and is likely not the biggest contributing factor to the patient's symptomatology. She does have a newer left-sided pleural effusion which should be drained. We did discuss this yesterday with the patient and again this morning. Our plan is for left-sided Pleurx catheter placement to allow for drainage of effusion. Patient was started on colchicine regarding her pericardial effusion. Will reserve decision regarding pericardial drainage for later time. The patient did have Eliquis yesterday morning, currently on hold. We were able to schedule her for left-sided Pleurx catheter placement tomorrow afternoon. Unfortunately her oxygen demands have gone up, ultrasound of the chest was ordered by pulmonology and patient may undergo thoracentesis, will defer judgment to pulmonology. Wean oxygen as tolerated, increase activity as tolerated. Medical management of other comorbidities per internal medicine, cardiology, pulmonology. More recommendations to follow. Thank you Dr. Barrientos for this consult, we will continue to follow along with you and make further recommendations as appropriate. I have personally seen and examined the patient, performed the documentation and the assessment and plan as written. Number of minutes spent on the visit: 30. NASH Rivera
--- NOTE | 2024-10-04 10:30 | US ---
EXAMINATION TYPE: US chest DATE OF EXAM: 10/04/2024 COMPARISON: CT 10/04/2024 CLINICAL INDICATION: Female, 69 years old with history of markings for chest tube/thoracentesis; TECHNIQUE: Grayscale imaging of the chest. Targeted ultrasound of the posterior lower Left FINDINGS: EXAM MEASUREMENTS: Right Pleural Effusion pocket size: NA cm Right skin surface to fluid distance: NA cm Left Pleural Effusion pocket size: 5.0 cm Left skin surface to fluid distance: 2.2 cm Left side marked for possible thoracentesis outside the dept. Pulmonologists are able to review the images in the patient?s EMR. IMPRESSIONS: Large left pleural effusion. [facility], , 10/04/2024 10:28 AM
--- NOTE | 2024-10-04 11:17 | P.PN ---
Subjective HISTORY OF PRESENTING ILLNESS This is a pleasant 69-year-old with past medical history significant for hypertension, hyperlipidemia, family history of CAD, seizures, questionable previous stroke on Plavix, lung cancer stage IV in remission per patient and atrial fibrillation. She has never seen a state game warden however was seen by myself 2 months ago. Patient has a history of non-small cell lung cancer in 2019, had undergone pneumonectomy and remains onTagrisso on an outpatient basis. She has had a number of hospitalizations over the last 6 months. She states in general she had felt somewhat better however over the last 3 months especially she has noticed significant shortness breath with any sort of activity. Denies any fevers or chills. She was initially seen on 10/01 by pulmonology and treated for COPD exacerbation and a CT chest was obtained. CT chest showed complete right hemithorax white out and loculated pleural effusion measuring up to 14 cm. This is similar to prior from July 2024. There additionally was new small to moderate left pleural effusion as well as moderate pericardial effusion measuring 2.1 cm versus previous measurement of 1.3 cm and 2 cm groundglass opacity in the left upper lobe. Echocardiogram was performed which showed ejection fraction 55% with moderate pericardial effusion and tamponade physiology. 10/04 Patient requiring increasing oxygen demand initially on a Ventimask and now on a nonrebreather. She is sitting up in bed with some mild tachypnea. She is being moved to cardiac floor. She denies any chest pain or pressure. She states she is feeling worse than yesterday. PHYSICAL EXAMINATION Vital signs reviewed. CONSTITUTIONAL: No apparent distress. HEENT: Head is normocephalic. Pupils are equal, round. Sclerae anicteric. Mucous membranes of the mouth are moist. No JVD. No carotid bruit. CHEST EXAMINATION: Lungs are clear to auscultation. Decreased breath sounds on the right HEART EXAMINATION: Regular rate and rhythm. S1, S2 heard. No murmurs, gallops or rub. ABDOMEN: Soft, nontender. Positive bowel sounds. EXTREMITIES: 2+ peripheral pulses, no lower extremity edema and no calf tenderness. NEUROLOGIC EXAMINATION: Patient is awake, alert and oriented x3. ASSESSMENT Pericardial effusion with tamponade physiology Paroxysmal atrial fibrillation Acute on chronic respiratory failure Lung cancer stage IV per patient in remission Collapsed right lung, history of pneumonectomy History of stroke previously on Plavix Family history of CAD PLAN Patient with worsening respiratory distress. Cardiothoracic surgery saw patient and case discussed with Dr. Parsons. He believes effusion is more chronic. Patient however with [place] not physiology and worsening clinical picture. Check chest x-ray. Agree with thoracentesis if significant fluid with chest ultrasound performed. If patient continues to deteriorate or continues to be significantly symptomatic likely performed pericardiocentesis in the next 24 hrs. Objective - Vital Signs Vital signs: Vital Signs Temp 98.2 F 10/04/24 07:34 Pulse 113 H 10/04/24 07:34 Resp 18 10/04/24 07:34 BP 113/79 10/04/24 07:34 Pulse Ox 86 L 10/04/24 07:34 FiO2 100 10/04/24 08:44 Intake & Output 10/03/24 10/04/24 10/04/24 18:59 06:59 18:59 Intake Total 780 Balance 780 Weight 58.967 kg Intake: Oral 780 Other: Voiding Method Toilet Toilet Toilet # Voids 3 3 - Labs CBC & Chem 7: 10/04/24 03:45 10/04/24 03:45 Labs: Abnormal Lab Results - Last 24 Hours (Table) 10/04/24 Range/Units 03:45 Hgb 11.2 L (12.0-15.0) g/dL MCH 26.0 L (27.0-32.0) pg MCHC 30.1 L (32.0-37.0) g/dL RDW 15.6 H (11.5-14.5) %
--- NOTE | 2024-10-04 11:45 | XR ---
EXAMINATION TYPE: XR chest 1V portable DATE OF EXAM: 10/04/2024 11:31 AM COMPARISON: Chest radiographs from 09/30/2024, CT chest 10/01/2024 TECHNIQUE: XR chest 1V portable Portable AP radiograph of the chest. CLINICAL INDICATION:Female, 69 years old with history of re: SOB; FINDINGS: Lungs/Pleura: Ongoing complete white out of the right hemithorax. Small to moderate-sized left pleura l effusion with left basilar opacity is similar. Mild interstitial density remains in the left lung. No pneumothorax. Heart/mediastinum: Cardiomediastinal silhouette is partially obscured due to overlying and adjacent o pacities. Atherosclerotic calcifications are seen in the aorta. Musculoskeletal: No acute osseous pathology. Degenerative changes of the right shoulder redemonstrate d. IMPRESSION: 1. Complete white out of the right hemithorax is redemonstrated. 2. Redemonstration of small to moderate left pleural effusion with adjacent atelectasis and/or conso lidation. [facility], , 10/04/2024 11:42 AM
[2024-10-04] MEDS ORDERED: LIDOCAINE 1% (10MG/ML) FOR IV START INTRADERMA PRN (13:41)
--- NOTE | 2024-10-04 14:02 | P.PN ---
Subjective Progress Note Date: 10/04/24 This is a 69-year-old female patient was being admitted for worsening shortness of breath. The patient is known to have non-small cell lung cancer the patient has undergone a previous pneumonectomy on the right back in 2018 and the patient remains on Tagrisso on outpatient basis. She was hospitalized back in July 2024 for a COPD exacerbation and left lung pneumonia with area of consolidation in the left lower lobe. She was treated accordingly. Her condition was stabilized and she was discharged home. She had another hospitalization on 09/01/2024 for worsening shortness of breath and COPD exacerbation. The patient was treated in discharged home on 09/02/2024. The patient is coming in for increased dyspnea, limited cough. No significant sputum production. No hemoptysis or pleurisy. She is afebrile. Hemodynamically stable encouraged and 40 Suboxone by nasal cannula. Chest x-ray shows pneumonectomy on the right, some atelectatic changes and small effusion on the left. The white cell count is 5.7 hemoglobin 11.4 and platelet count is at 323. Sodium is at 136, bicarb is at 24, BUN is 12 with a creatinine of 0.7. Troponins are negative. The viral screen has been negative. No altered mentation. No seizure activity has been reported. On 10/02/24, the patient is being seen for a FU. The patient is stable and she is still on 02 at 4 L /min nasal canula and she is still having dyspnea with limited cough and sputum and she is has some minimal wheezing. The CT of the chest was completed and the patient has right pneumonectomy and she has airspace disease in the left lung base and she has also developed a left sided pleural effusion and there is a concern for a LLL pneumonia and based on that the patient was started on IV cefepime. Labs from today were noted the white cell count is at 4.06 and a platelet count of 317. The potassium level is at one 5.1, BUN is 12 with a creatinine of 0.8. proBNP level is less than 20. Meanwhile, the patient remains on Tagrisso. The patient remains on anticoagulation with Eliquis. The patient remains on DuoNeb updrafts and antibiotic coverage with IV cefepime. CAT scan of the chest also showed a small to moderate-sized aimee cardial effusion along with background COPD and some mild rectal edematous changes. Another 2 cm focus of groundglass opacity was seen in the left upper lobe The patient is seen today October 03, 2024 in follow-up on the regular medical floor. She is currently sitting up in bed. Awake and alert in no acute distress. Maintaining O2 saturations in the 90s on 3 L/min per nasal cannula. She has been afebrile. Hemodynamically stable. Echocardiogram reveals preserved left ventricular systolic function with ejection fraction 55 to 60%. White count 5.0. Hemoglobin 9.6. Platelets 304. Sodium 137. Potassium 5.9. Bicarb 30. BUN 11. Creatinine 0.9. Glucose 113. Procalcitonin was negative at 0.03. Is currently on cefepime. Continued on DuoNeb and elations. Anticoagulated with Eliquis. Continued on her Tagrisso. The patient is seen today October 04, 2024 in follow-up on the regular medical floor. She was having increasing complaints of shortness of breath today. She was placed on BiPAP 10/5 and 100% FiO2. She is continued on DuoNeb inhalations. Ultrasound of the left chest did not reveal any significant pleural effusion. Pocket measured 5.0 cm. Chest x-ray revealed redemonstrated complete whiteout of the right hemithorax. Small to moderate left pleural effusion with adjacent atelectasis and/or consolidation. White count 7.3. Hemoglobin 11.2. Platelets 339. Sodium 140. Potassium 5.4. Bicarb 29. BUN 10. Creatinine 0.8. Procalcitonin was negative at 0.03. She is currently on cefepime. Echocardiogram revealed preserved left ventricular systolic function with ejection fraction 55 to 60%. There is a moderate pericardial effusion measuring 1.4 cm with significant tricuspid valve respiratory variation greater than 50%, right atrial and right ventricular diastolic collapse consistent with tamponade physiology. Objective - Vital Signs Vital signs: Vital Signs Temp 98.2 F 10/04/24 07:34 Pulse 111 H 10/04/24 13:15 Resp 22 10/04/24 13:15 BP 128/76 10/04/24 13:15 Pulse Ox 95 10/04/24 13:15 FiO2 80 10/04/24 13:15 Intake & Output 10/03/24 10/04/24 10/04/24 18:59 06:59 18:59 Intake Total 780 Balance 780 Weight 58.967 kg Intake: Oral 780 Other: Voiding Method Toilet Toilet Toilet # Voids 3 3 - Exam GENERAL EXAM: Alert, 69-year-old female, in mild respiratory distress, initially placed on BiPAP. HEAD: Normocephalic. EYES: Normal reaction of pupils, equal size. NOSE: Clear with pink turbinates. THROAT: No erythema or exudates. NECK: No masses, no JVD. CHEST: No chest wall deformity. LUNGS: Equal air entry with crackles in the left lung base, diminished. Absent on the right. CVS: S1 and S2 normal with no audible murmur, regular rhythm. ABDOMEN: No hepatosplenomegaly, normal bowel sounds, no guarding or rigidity. SPINE: No scoliosis or deformity SKIN: No rashes CENTRAL NERVOUS SYSTEM: No focal deficits, tone is normal in all 4 extremities. EXTREMITIES: There is no peripheral edema. No clubbing, no cyanosis. Peripheral pulses are intact. - Labs CBC & Chem 7: 10/04/24 03:45 10/04/24 03:45 Labs: Abnormal Lab Results - Last 24 Hours (Table) 10/04/24 Range/Units 03:45 Hgb 11.2 L (12.0-15.0) g/dL MCH 26.0 L (27.0-32.0) pg MCHC 30.1 L (32.0-37.0) g/dL RDW 15.6 H (11.5-14.5) % Assessment and Plan Assessment: Acute exacerbation of COPD Left lower lobe pneumonia and a small left sided pleural effusion. Ultrasound of the chest reveals a 5.0 cm pocket. Acute hypoxic respiratory failure, currently on BiPAP 10/5 and 100% FiO2 Moderate pericardial effusion measuring 1.4 cm with significant tricuspid valve respiratory variation greater than 50%, right atrial and right ventricular diastolic collapse consistent with tamponade physiology. Cardiology and cardiothoracic surgery on the case. This may be chronic in nature and no plans for emergent procedure Previous history of non-small cell lung cancer with previous right pneumonectomy 2018 and the patient has been maintained on Tagrisso on outpatient basis. The anthony painting had metastatic disease to the brain at time of admission the patient has received radiation therapy to her brain Seizure disorder maintained on Keppra Paroxysmal atrial fibrillation/flutter, maintained on long-term anticoagulation with Eliquis and the patient is currently in normal sinus rhythm Moderate mitral regurgitation/valvular heart disease Hypertension Hyperlipidemia Plan: The patient was seen and evaluated Imaging, labs and medications reviewed No plans for thoracentesis CT service planning Pleurx catheter placement Eliquis on hold Continue cefepime, bronchodilators Titrate down the FiO2 as tolerated We will continue to follow I have personally seen and examined the patient, performed the documentation and the assessment and plan as written. Number of minutes spent on the visit: 10 Dictation was produced using [employer] dictation software. Please excuse any grammatical, word or spelling errors.
--- NOTE | 2024-10-04 14:15 | P.PN ---
Subjective Progress Note Date: 10/04/24 Patient is a 69 year old female with past medical history of atrial flutter, hypertension, seizure disorder, COPD with 4L home oxygen, lung cancer with metastasis to the brain with previous radiation therapy and right lower lobectomy presented to the ED with worsening shortness of breath. She mentions her symptoms started a couple months ago. She has experienced progressive shortness of breath. She has been admitted twice in the past month for similar symptoms. Everytime she would get discharged she will feel good at first but then her symptoms would recur within 2 weeks prompting another visit to the hospital. She also mentions having lung cancer. She was diagnosed in 2014, at that time she got a right lower lobectomy. There was recurrence of the cancer in 2019 at which point a drain was placed. It was found the cancer has metastasized to her brain for which she underwent radiation therapy. Subsequently she had chemotherapy and is now on chemotherapy pills(Tagrisso). Associated with that she also complains of dysphagia since 3 days and due to which her oral intake has been very poor. Also reports having runny nose and sometime blocked nose. Denies any reflux or regurgitation or past medical history of GERD, fever, chills, sore throat. Additionally she mentions having in her lower abdomen while having bowel movement. Denies constipation or diarrhea. Denies palpitations, nausea, vomiting, dysuria, hematuria, hematochezia, melena, numbness, tingling, joint pain, muscle aches. ED documentation reviewed. In the ED patient was treated with Percocet, Nebulised albuterol, Morphine, Levetiracetam. Vitals on admission T 99 F, RI 121, RR 18, BP 127/87, O2 sat 95% on 4 L nasal cannula EKG independently interpreted as sinus tachycardia, rate 116 bpm, QTc 495 ms Chest x-ray shows ongoing complete whiteout of the right hemithorax, slight increasing no [id number] left pleural effusion with adjacent atelectasis/consolidation Labs on admission show WBC 5.7, hemoglobin 11.4, sodium 136, magnesium 1.5, troponin I <0.012 Respiratory panel is negative 10/02/2024 Patient is eval today in follow-up in the medical floor. She is reporting significant shortness of breath. She continues on oxygen via nasal cannula at 4 L. Patient had a repeat chest CT which shows a complete whiteout of the right hemithorax with a chronic loculated effusion. There is a new small to moderate left pleural effusion with moderate pericardial effusion. Patient does have known small cell lung cancer and also has a right pnuemonectomy. She also has a noted left upper lobe nodule. She continues on IV cefepime with concern for postobstructive pneumonia. Pulmonary is following this patient closely. Work today reveals a white blood cell count of 4.31, hemoglobin 10.6, sodium of 136, potassium of 5.1. BUN of 12.3 creatinine 0.8. Her proBNP is less than 20. Her viral panel is negative. 10-03-24 Patient seen and examined at bedside. No events overnight. Patient continues to have shortness of breath and cough that she states has not improved. WBC 5.08, sodium 137, potassium 5.9, BUN 11.0, creatinine 0.9, glucose 113. Hyperkalemia noted, discontinued valsartan. Echocardiogram finding significant for pericardial effusion and right atrial and right ventricular diastolic collapse consistent with tamponade. Cardiology consulted. Pulmonology continues to follow. 10-04-24 Patient seen and examined at bedside. Patient sitting up in bed and found with worsening respiratory distress. On BiPAP 10/5 and 100% FiO2. Ultrasound chest performed with large left pleural effusion. Chest x-ray also completed with left-sided pleural effusion noted in right hemithorax whiteout. No plans for thoracentesis by pulmonology. She is being followed by CT surgery who will plan for Pleurx catheter tomorrow. Eliquis on hold. Patient started on colchicine for pericardial effusion. She remains on cefepime and bronchodilators. CODE STATUS was discussed by patient who wishes to be no code. Labs WBC 7.3, hemoglobin 11.2, platelets 339, sodium 140, potassium 5.4, bicarb 29, BUN 10.2, creatinine 0.8. CT surgery, pulmonary, cardiology notes reviewed. Review of Systems: Reviewed, pertinent positives and negatives as per HPI PHYSICAL EXAMINATION: GENERAL: The patient is alert and oriented x3, in acute distress. well developed, well nourished. HEENT: Pupils are round and equally reacting to light. EOMI. No scleral icterus. No conjunctival pallor. Normocephalic, atraumatic. CARDIOVASCULAR: S1 and S2 present. No murmurs, rubs, or gallops. PULMONARY: Absent right-sided breath sounds, left-sided scattered rhonchi ABDOMEN: Soft, nontender, nondistended, normoactive bowel sounds. No palpable organomegaly. MUSCULOSKELETAL: No joint swelling or deformity. EXTREMITIES: No cyanosis, clubbing, or pedal edema. NEUROLOGICAL: Gross neurological examination did not reveal any focal deficits. SKIN: No rashes. Assessment and Plan Right hemithorax with chronic loculated effusion. Small to moderate left pleural effusion Moderate pericardial effusion Acute on chronic hypoxemic respiratory failure secondary to above Acute exacerbation of COPD Hyperkalemia, resolved History of nonsmall cell lung cancer with prior chemoradiation and right pneumonectomy in 2019; this is stage IV with brain metastasis Paroxysmal Atrial fibrillation, rate controlled on eliquis for anticoagulation Anxiety/depression History of seizure disorder maintained on keppra Hyperlipidemia Hypertension GI prophylaxis DVT prophylaxis No Code Plan Continue IV cefepime Continue bronchodilators Continue holding valsartan Left sided pleural effusion and pericardial effusion noted on chest CT plan for Pleurx by CT surgery, continue colchicine, holding Eliquis Echocardiogram with pericardial effusion measuring 1.4 cm, right atrial and right ventricular diastolic collapse consistent with tamponade physiology Cardiology following CT surgery following Pulmonary following Dr. Keaton MD I have performed a history and physical examination and medical decision making of this patient, discussed the same with the dictator, and agree with the dictators assessment and plan as written, documented as a scribe. Based on total visit time, I have performed more than 50% of this visit. Objective - Vital Signs Vital signs: Vital Signs Temp 98.2 F 10/04/24 07:34 Pulse 111 H 10/04/24 13:15 Resp 22 10/04/24 13:15 BP 128/76 10/04/24 13:15 Pulse Ox 95 10/04/24 13:15 FiO2 80 10/04/24 13:15 Intake & Output 10/03/24 10/04/24 10/04/24 18:59 06:59 18:59 Intake Total 780 Balance 780 Weight 58.967 kg Intake: Oral 780 Other: Voiding Method Toilet Toilet Toilet # Voids 3 3 - Labs CBC & Chem 7: 10/04/24 03:45 10/04/24 03:45 Labs: Abnormal Lab Results - Last 24 Hours (Table) 10/04/24 Range/Units 03:45 Hgb 11.2 L (12.0-15.0) g/dL MCH 26.0 L (27.0-32.0) pg MCHC 30.1 L (32.0-37.0) g/dL RDW 15.6 H (11.5-14.5) %
[2024-10-04] MEDS: LACTATED RINGERS 1,000 ML IV SCH (14:45)
[2024-10-04] MEDS: DEXAMETHASONE SOD PHOSPHATE 4 MG/ML 1 ML VIAL IV ONE (14:46)
[2024-10-04] MEDS: ONDANSETRON 4 MG/2 ML VIAL IVP ONE (14:46)
[2024-10-04] MEDS: LORazepam 2 MG/ML INJ IV STA (19:50)
[2024-10-05 05:44] LABS: HCT 36.5 % (34.0-46.0); Hypochromasia Marked; MCH 26.7 pg (25.0-35.0); MCHC 30.2 g/dL (31.0-37.0); MCV 88.2 fL (80.0-100.0); Mean Platelet Volume 9.6; Platelet Count 313 k/uL (150-450); RBC 4.14 m/uL (3.80-5.40); RDW 14.9 % (11.5-15.5); WBC 5.8 k/uL (3.8-10.6)
[2024-10-05 05:51] LABS: African American GFR (CKD) >90 (>60 ml/min/1.73 sqM); Anion Gap 2 mmol/L; Blood Urea Nitrogen 17 mg/dL (7-17); Calcium 9.7 mg/dL (8.4-10.2); Carbon Dioxide 34 mmol/L (22-30); Chloride 97 mmol/L (98-107); Glucose 115 mg/dL (74-99); Non-African American GFR(CKD) 89 (>60 ml/min/1.73 sqM); Potassium 5.4 mmol/L (3.5-5.1); Sodium 133 mmol/L (137-145)
[2024-10-05 05:52] LABS: Partial Thromboplastin Time 26.1 sec (22.0-30.0); Prothrombin Time 10.6 sec (10.0-12.5)
[2024-10-05] MEDS ORDERED: MIDAZOLAM 2 MG/2 ML VIAL IV PRN (07:00)
--- NOTE | 2024-10-05 09:35 | XR ---
EXAMINATION TYPE: XR chest 1V portable DATE OF EXAM: 10/05/2024 6:57 AM COMPARISON: 10/04/2024 CLINICAL INDICATION: Female, 69 years old with history of left effusion, , FINDINGS: Dense sclerosis right humeral head. Loss of the subacromial space on the right indicating chronic ful l-thickness rotator cuff tear. Ongoing complete white out of right hemithorax. Ongoing small to moder ate left pleural effusion with patchy opacity extending up to the left midlung level. IMPRESSION: 1. Ongoing complete white out of the right hemithorax. 2. Ongoing jcyec-ce-brhheloa left pleural effusion with prominent adjacent atelectasis and/or consoli dation extending up to the mid lung level. [facility], , 10/05/2024 9:33 AM
[2024-10-05] MEDS: SODIUM ZIRCONIUM CYCLOSILICATE 10 GM PACKET PO ONE (12:23)
--- NOTE | 2024-10-05 13:28 | P.PN ---
Subjective Progress Note Date: 10/05/24 Principal diagnosis: Acute exacerbation of COPD with acute hypoxic respiratory failure This is a 69-year-old female patient was being admitted for worsening shortness of breath. The patient is known to have non-small cell lung cancer the patient has undergone a previous pneumonectomy on the right back in 2018 and the patient remains on Tagrisso on outpatient basis. She was hospitalized back in July 2024 for a COPD exacerbation and left lung pneumonia with area of consolidation in the left lower lobe. She was treated accordingly. Her condition was stabilized and she was discharged home. She had another hospitalization on 09/01/2024 for worsening shortness of breath and COPD exacerbation. The patient was treated in discharged home on 09/02/2024. The patient is coming in for increased dyspnea, limited cough. No significant sputum production. No hemoptysis or pleurisy. She is afebrile. Hemodynamically stable encouraged and 40 Suboxone by nasal cannula. Chest x-ray shows pneumonectomy on the right, some atelectatic changes and small effusion on the left. The white cell count is 5.7 hemoglobin 11.4 and platelet count is at 323. Sodium is at 136, bicarb is at 24, BUN is 12 with a creatinine of 0.7. Troponins are negative. The viral screen has been negative. No altered mentation. No seizure activity has been reported. On 10/02/24, the patient is being seen for a FU. The patient is stable and she is still on 02 at 4 L /min nasal canula and she is still having dyspnea with limited cough and sputum and she is has some minimal wheezing. The CT of the chest was completed and the patient has right pneumonectomy and she has airspace disease in the left lung base and she has also developed a left sided pleural effusion and there is a concern for a LLL pneumonia and based on that the patient was started on IV cefepime. Labs from today were noted the white cell count is at 4.06 and a platelet count of 317. The potassium level is at one 5.1, BUN is 12 with a creatinine of 0.8. proBNP level is less than 20. Meanwhile, the patient remains on Tagrisso. The patient remains on anticoagulation with Eliquis. The patient remains on DuoNeb updrafts and antibiotic coverage with IV cefepime. CAT scan of the chest also showed a small to moderate-sized pericardial effusion along with background COPD and some mild rectal edematous changes. Another 2 cm focus of groundglass opacity was seen in the left upper lobe The patient is seen today October 03, 2024 in follow-up on the regular medical floor. She is currently sitting up in bed. Awake and alert in no acute distress. Maintaining O2 saturations in the 90s on 3 L/min per nasal cannula. She has been afebrile. Hemodynamically stable. Echocardiogram reveals preserved left ventricular systolic function with ejection fraction 55 to 60%. White count 5.0. Hemoglobin 9.6. Platelets 304. Sodium 137. Potassium 5.9. Bicarb 30. BUN 11. Creatinine 0.9. Glucose 113. Procalcitonin was negative at 0.03. Is currently on cefepime. Continued on DuoNeb and elations. Anticoagulated with Eliquis. Continued on her Tagrisso. The patient is seen today October 04, 2024 in follow-up on the regular medical floor. She was having increasing complaints of shortness of breath today. She was placed on BiPAP 10/5 and 100% FiO2. She is continued on DuoNeb inhalations. Ultrasound of the left chest did not reveal any significant pleural effusion. Pocket measured 5.0 cm. Chest x-ray revealed redemonstrated complete whiteout of the right hemithorax. Small to moderate left pleural effusion with adjacent atelectasis and/or consolidation. White count 7.3. Hemoglobin 11.2. Platelets 339. Sodium 140. Potassium 5.4. Bicarb 29. BUN 10. Creatinine 0.8. Procalcitonin was negative at 0.03. She is currently on cefepime. Echocardiogram revealed preserved left ventricular systolic function with ejection fraction 55 to 60%. There is a moderate pericardial effusion measuring 1.4 cm with significant tricuspid valve respiratory variation greater than 50%, right atrial and right ventricular diastolic collapse consistent with tamponade physiology. Patient was evaluated today on 10/05/2024, continues to have shortness of breath continues to have intermittent cough and wheezing chest x-ray has left-sided pleural effusion and left lower lobe atelectasis. Patient does not feel any better today compared to her baseline. She feels actually that she may even be worse. WBC count is 5.8 hemoglobin is 11 electrolytes are normal renal profile is normal procalcitonin level is 0.03 Objective - Vital Signs Vital signs: Vital Signs Temp 98.9 F 10/05/24 07:32 Pulse 109 H 10/05/24 12:00 Resp 25 H 10/05/24 12:00 BP 131/70 10/05/24 12:00 Pulse Ox 98 10/05/24 12:00 FiO2 70 10/05/24 12:00 Intake & Output 10/04/24 10/05/24 10/05/24 18:59 06:59 18:59 Intake Total 80 Output Total 600 Balance 80 -600 Weight 60 kg Intake: IV 80 Lactated Ringers 1,000 ml 80 @ 20 mls/hr IV .Q24H [facility] Rx#:[id number] Output: Urine 600 Straight 600 Other: Voiding Method Toilet External Catheter External Catheter - Exam GENERAL EXAM: 69-year-old female on BiPAP not in distress HEAD: Normocephalic. EYES: Normal reaction of pupils, equal size. NOSE: Clear with pink turbinates. THROAT: No erythema or exudates. NECK: No masses, no JVD. CHEST: No chest wall deformity. LUNGS: Rhonchi and wheezes noted on the left side breath sounds are diminished on the right side CVS: S1 and S2 normal with no audible murmur, regular rhythm. ABDOMEN: No hepatosplenomegaly, normal bowel sounds, no guarding or rigidity. SKIN: No rashes CENTRAL NERVOUS SYSTEM: No focal deficits, tone is normal in all 4 extremities. EXTREMITIES: There is no peripheral edema. No clubbing, no cyanosis. Peripheral pulses are intact. - Labs CBC & Chem 7: 10/05/24 05:18 10/05/24 05:18 Labs: Abnormal Lab Results - Last 24 Hours (Table) 10/05/24 10/05/24 Range/Units 05:18 05:18 Hgb 11.0 L (11.4-16.0) gm/dL MCHC 30.2 L (31.0-37.0) g/dL Sodium 133 L (137-145) mmol/L Potassium 5.4 H (3.5-5.1) mmol/L Chloride 97 L (98-107) mmol/L Carbon Dioxide 34 H (22-30) mmol/L Glucose 115 H (74-99) mg/dL Assessment and Plan Assessment: Impression: Acute exacerbation of COPD Left lower lobe pneumonia and a small left sided pleural effusion. Ultrasound of the chest reveals a 5.0 cm pocket. Acute hypoxic respiratory failure, currently on BiPAP 10/5 and 100% FiO2 Moderate pericardial effusion measuring 1.4 cm with significant tricuspid valve respiratory variation greater than 50%, right atrial and right ventricular diastolic collapse consistent with tamponade physiology. Cardiology and cardiothoracic surgery on the case. This may be chronic in nature and no plans for emergent procedure Previous history of non-small cell lung cancer with previous right pneumonectomy 2018 and the patient has been maintained on Tagrisso on outpatient basis. The patient had metastatic disease to the brain at time of admission the patient has received radiation therapy to her brain Seizure disorder maintained on Keppra Paroxysmal atrial fibrillation/flutter, maintained on long-term anticoagulation with Eliquis and the patient is currently in normal sinus rhythm Moderate mitral regurgitation/valvular heart disease Hypertension Hyperlipidemia Recommendation: Continue present supportive care measures Surgeries planning Pleurx catheter placement Continue to hold Eliquis Continue bronchodilators and antibiotics/cefepime Continue to titrate FiO2 accordingly and continue BiPAP as needed Long-term prognosis is extremely poor and guarded We will continue to follow Time with Patient: Less than 30
--- NOTE | 2024-10-05 14:23 | P.PN ---
Subjective Progress Note Date: 10/05/24 HISTORY OF PRESENTING ILLNESS This is a pleasant 69-year-old with past medical history significant for hyp ertension, hyperlipidemia, family history of CAD, seizures, questionable previous stroke on Plavix, lung cancer stage IV in remission per patient and atrial fibrillation. She has never seen a grinder and plater however was seen by myself 2 months ago. Patient has a history of non-small cell lung cancer in 2019, had undergone pneumonectomy and remains onTagrisso on an outpatient basis. She has had a number of hospitalizations over the last 6 months. She states in general she had felt somewhat better however over the last 3 months especially she has noticed significant shortness breath with any sort of activity. Denies any fevers or chills. She was initially seen on 10/01 by pulmonology and tr eated for COPD exacerbation and a CT chest was obtained. CT chest showed complete right hemithorax white out and loculated pleural effusion measuring up to 14 cm. This is similar to prior from July 2024. There additionally was new small to moderate left pleural effusion as well as moderate pericardial effusion measuring 2.1 cm versus previous measurement of 1.3 cm and 2 cm groundglass opacity in the left upper lobe. Echocardiogram was performed which showed ejection fraction 55% with moderate pericardial effusion and tamponade physiology. 10/04 Patient requiring increasing oxygen demand initially on a Ventimask and now on a nonrebreather. She is sitting up in bed with some mild tachypnea. She is being moved to cardiac floor. She denies any chest pain or pressure. She states she is feeling worse than yesterday. 10/05 Patient seen and examined on the cardiac stepdown unit. Patient has been transferred from the [facility] floor. She is currently on BiPAP unable to have this removed. She is scheduled for Pleurx catheter insertion today. Patient has not been taking her oral medications as she is complaining of difficulties with some swallowing. Heart rate is 10 9-1 23, respiratory rate 29, pulse ox 95% on 70% BiPAP, blood pressure 142/76. Repeat blood work reveals hemoglobin 11, sodium 133, potassium 5.4, creatinine 0.7. Chest x-ray: On going complete whiteout of the right hemithorax. Ongoing [id number] left pleural effusion with prominent adjacent atelectasis and/or consolidation extending up to the mid lung level. PHYSICAL EXAMINATION Vital signs reviewed. CONSTITUTIONAL: No apparent distress. HEENT: Head is normocephalic. Pupils are equal, round. Sclerae anicteric. Mucous membranes of the mouth are moist. No JVD. No carotid bruit. CHEST EXAMINATION: Lungs are clear to auscultation. Decreased breath sounds on the right HEART EXAMINATION: Regular rate and rhythm. S1, S2 heard. No murmurs, gallops or rub. ABDOMEN: Soft, nontender. Positive bowel sounds. EXTREMITIES: 2+ peripheral pulses, no lower extremity edema and no calf tenderness. NEUROLOGIC EXAMINATION: Patient is awake, alert and oriented x3. ASSESSMENT Pericardial effusion with tamponade physiology, chronic Paroxysmal atrial fibrillation on Eliquis--on hold for Pleurx catheter Acute on chronic hypoxic respiratory failure Acute exacerbation of COPD Left lower lobe pneumonia Non-small cell lung cancer with previous right pneumonectomy 2019 with metastatic disease to the brain s/p radiation therapy to the brain Seizure disorder History of stroke previously on Plavix Family history of CAD PLAN Patient with worsening respiratory distress. Cardiothoracic surgery saw patient and case discussed with Dr. Parsons. He believes pericardial effusion is more chronic. Patient however with Tamponade physiology and worsening clinical picture. Plan is for Pleurx catheter placement by CTS today Patient is at moderate risk for perioperative complications for this procedure. There is no absolute contraindications. If patient continues to deteriorate or continues to be significantly symptomatic likely performed pericardiocentesis. Nurse practitioner note has been reviewed, I agree with documented findings and plan of care. Patient was seen and examined. Objective - Vital Signs Vital signs: Vital Signs Temp 98.9 F 10/05/24 07:32 Pulse 123 H 10/05/24 07:32 Resp 29 H 10/05/24 07:32 BP 142/76 10/05/24 07:32 Pulse Ox 95 10/05/24 07:32 FiO2 70 10/05/24 08:22 Intake & Output 10/04/24 10/05/24 10/05/24 18:59 06:59 18:59 Intake Total 80 Output Total 600 Balance 80 -600 Weight 60 kg Intake: IV 80 Lactated Ringers 1,000 ml 80 @ 20 mls/hr IV .Q24H [facility] Rx#:[id number] Output: Urine 600 Straight 600 Other: Voiding Method Toilet External Catheter - Labs CBC & Chem 7: 10/05/24 05:18 10/05/24 05:18 Labs: Abnormal Lab Results - Last 24 Hours (Table) 10/05/24 10/05/24 Range/Units 05:18 05:18 Hgb 11.0 L (11.4-16.0) gm/dL MCHC 30.2 L (31.0-37.0) g/dL Sodium 133 L (137-145) mmol/L Potassium 5.4 H (3.5-5.1) mmol/L Chloride 97 L (98-107) mmol/L Carbon Dioxide 34 H (22-30) mmol/L Glucose 115 H (74-99) mg/dL
--- NOTE | 2024-10-05 14:54 | P.PN ---
Subjective Progress Note Date: 10/05/24 Patient is a 69 year old female with past medical history of atrial flutter, hypertension, seizure disorder, COPD with 4L home oxygen, lung cancer with metastasis to the brain with previous radiation therapy and right lower lobectomy presented to the ED with worsening shortness of breath. She mentions her symptoms started a couple months ago. She has experienced progressive shortness of breath. She has been admitted twice in the past month for similar symptoms. Everytime she would get discharged she will feel good at first but then her symptoms would recur within 2 weeks prompting another visit to the hospital. She also mentions having lung cancer. She was diagnosed in 2014, at that time she got a right lower lobectomy. There was recurrence of the cancer in 2019 at which point a drain was placed. It was found the cancer has metastasized to her brain for which she underwent radiation therapy. Subsequently she had chemotherapy and is now on chemotherapy pills(Tagrisso). Associated with that she also complains of dysphagia since 3 days and due to which her oral intake has been very poor. Also reports having runny nose and sometime blocked nose. Denies any reflux or regurgitation or past medical history of GERD, fever, chills, sore throat. Additionally she mentions having in her lower abdomen while having bowel movement. Denies constipation or diarrhea. Denies palpitations, nausea, vomiting, dysuria, hematuria, hematochezia, melena, numbness, tingling, joint pain, muscle aches. ED documentation reviewed. In the ED patient was treated with Percocet, Nebulised albuterol, Morphine, Levetiracetam. Vitals on admission T 99 F, IL 121, RR 18, BP 127/87, O2 sat 95% on 4 L nasal cannula EKG independently interpreted as sinus tachycardia, rate 116 bpm, QTc 495 ms Chest x-ray shows ongoing complete whiteout of the right hemithorax, slight increasing no [id number] left pleural effusion with adjacent atelectasis/consolidation Labs on admission show WBC 5.7, hemoglobin 11.4, sodium 136, magnesium 1.5, troponin I <0.012 Respiratory panel is negative 10/02/2024 Patient is eval today in follow-up in the medical floor. She is reporting significant shortness of breath. She continues on oxygen via nasal cannula at 4 L. Patient had a repeat chest CT which shows a complete whiteout of the right hemithorax with a chronic loculated effusion. There is a new small to moderate left pleural effusion with moderate pericardial effusion. Patient does have known small cell lung cancer and also has a right pnuemonectomy. She also has a noted left upper lobe nodule. She continues on IV cefepime with concern for postobstructive pneumonia. Pulmonary is following this patient closely. Work today reveals a white blood cell count of 4.31, hemoglobin 10.6, sodium of 136, potassium of 5.1. BUN of 12.3 creatinine 0.8. Her proBNP is less than 20. Her viral panel is negative. 10-03-24 Patient seen and examined at bedside. No events overnight. Patient continues to have shortness of breath and cough that she states has not improved. WBC 5.08, sodium 137, potassium 5.9, BUN 11.0, creatinine 0.9, glucose 113. Hyperkalemia noted, discontinued valsartan. Echocardiogram finding significant for pericardial effusion and right atrial and right ventricular diastolic collapse consistent with tamponade. Cardiology consulted. Pulmonology continues to follow. 10-04-24 Patient seen and examined at bedside. Patient sitting up in bed and found with worsening respiratory distress. On BiPAP 10/5 and 100% FiO2. Ultrasound chest performed with large left pleural effusion. Chest x-ray also completed with left-sided pleural effusion noted in right hemithorax whiteout. No plans for thoracentesis by pulmonology. She is being followed by CT surgery who will plan for Pleurx catheter tomorrow. Eliquis on hold. Patient started on colchicine for pericardial effusion. She remains on cefepime and bronchodilators. CODE STATUS was discussed by patient who wishes to be no code. Labs WBC 7.3, hemoglobin 11.2, platelets 339, sodium 140, potassium 5.4, bicarb 29, BUN 10.2, creatinine 0.8. CT surgery, pulmonary, cardiology notes reviewed. 10-05-24 Patient seen and examined at bedside. Patient sitting up in bed on BiPAP 10/5 and 70% FiO2. Work of breathing improved since yesterday. She is unable to tolerating oral medications at this time as she states it gives he throat pain. She is being followed by CT surgery who will plan for Pleurx catheter today. Eliquis on hold. Colchicine ordered for pericardial effusion. She remains on cefepime and bronchodilators. Labs WBC 5.8, hemoglobin 11.0, platelets 313, sodium 133, potassium 5.4, bicarb 34, BUN 17, creatinine 0.7. Review of Systems: Reviewed, pertinent positives and negatives as per HPI PHYSICAL EXAMINATION: GENERAL: The patient is alert and oriented x3. Anxious, well developed, well nourished. HEENT: Pupils are round and equally reacting to light. EOMI. No scleral icterus. No conjunctival pallor. Normocephalic, atraumatic. CARDIOVASCULAR: S1 and S2 present. No murmurs, rubs, or gallops. PULMONARY: Absent right-sided breath sounds, left-sided scattered rhonchi ABDOMEN: Soft, nontender, nondistended, normoactive bowel sounds. No palpable organomegaly. MUSCULOSKELETAL: No joint swelling or deformity. EXTREMITIES: No cyanosis, clubbing, or pedal edema. NEUROLOGICAL: Gross neurological examination did not reveal any focal deficits. SKIN: No rashes. Assessment and Plan Right hemithorax with chronic loculated effusion. Small to moderate left pleural effusion Moderate pericardial effusion Acute on chronic hypoxemic respiratory failure secondary to above Acute exacerbation of COPD Hyperkalemia, resolved History of nonsmall cell lung cancer with prior chemoradiation and right pneumonectomy in 2019; this is stage IV with brain metastasis Paroxysmal Atrial fibrillation, rate controlled on eliquis for anticoagulation Anxiety/depression History of seizure disorder maintained on keppra Hyperlipidemia Hypertension GI prophylaxis DVT prophylaxis No Code Plan Continue IV cefepime Continue bronchodilators Continue holding valsartan Left sided pleural effusion and pericardial effusion noted on chest CT plan for Pleurx by CT surgery, continue colchicine, holding Eliquis Echocardiogram with pericardial effusion measuring 1.4 cm, right atrial and right ventricular diastolic collapse consistent with tamponade physiology Cardiology following CT surgery following Pulmonary following Dr. Keaton MD I have performed a history and physical examination and medical decision making of this patient, discussed the same with the dictator, and agree with the dictators assessment and plan as written, documented as a scribe. Based on total visit time, I have performed more than 50% of this visit. Objective - Vital Signs Vital signs: Vital Signs Temp 98.9 F 10/05/24 07:32 Pulse 123 H 10/05/24 07:40 Resp 29 H 12/04/24 07:40 BP 142/76 10/05/24 07:32 Pulse Ox 95 10/05/24 07:32 FiO2 70 10/05/24 08:22 Intake & Output 10/04/24 10/05/24 10/05/24 18:59 06:59 18:59 Intake Total 80 Output Total 600 Balance 80 -600 Weight 60 kg Intake: IV 80 Lactated Ringers 1,000 ml 80 @ 20 mls/hr IV .Q24H [facility] Rx#:[id number] Output: Urine 600 Straight 600 Other: Voiding Method Toilet External Catheter External Catheter - Labs CBC & Chem 7: 10/05/24 05:18 10/05/24 05:18 Labs: Abnormal Lab Results - Last 24 Hours (Table) 10/05/24 10/05/24 Range/Units 05:18 05:18 Hgb 11.0 L (11.4-16.0) gm/dL MCHC 30.2 L (31.0-37.0) g/dL Sodium 133 L (137-145) mmol/L Potassium 5.4 H (3.5-5.1) mmol/L Chloride 97 L (98-107) mmol/L Carbon Dioxide 34 H (22-30) mmol/L Glucose 115 H (74-99) mg/dL
[2024-10-05] MEDS: IV FLUID CONTINUATION 1,000 ML IV ONE (17:49)
[2024-10-05] MEDS ORDERED: MIDAZOLAM 2 MG/2 ML VIAL ONE (18:48)
[2024-10-05] MEDS ORDERED: ESMOLOL 100 MG/10 ML VIAL ONE (18:48)
[2024-10-05] MEDS ORDERED: PROPOFOL 10 MG/ML 20 ML VIAL IV ONE (18:48)
[2024-10-05] MEDS: SODIUM CHLORIDE 0.9% 50 ML with ceFAZolin 2,000 MG IV ONE (18:50)
[2024-10-05] MEDS: LIDOCAINE 1% INJ 10MG/ML (20 ML MDV) SQ ONE (19:06)
--- NOTE | 2024-10-05 19:36 | P.OP ---
Date of Procedure: 10/05/24 Preoperative Diagnosis: Respiratory insufficiency, stage IV lung cancer, large left pleural effusion with associated left lower lobe atelectasis, status post right pneumonectomy, small pericardial effusion. Postoperative Diagnosis: Same Procedure(s) Performed: Left Pleurx catheter placement under fluoroscopy Implants: Pleurx catheter Anesthesia: MAC Surgeon: Daniel Parsons Estimated Blood Loss (ml): 1 IV fluids (ml): 200 Pathology: none sent Condition: stable Disposition: PACU Indications for Procedure: 69-year-old female status post right pneumonectomy with stage IV lung cancer presents with severe dyspnea. She was recently admitted to the hospital and diagnosed with a small pericardial effusion. This persists. However she has a new large left pleural effusion with lower lobe atelectasis. She is being treated for pneumonia. She is extremely hypoxic and having respiratory distress. PleurX catheter was indicated for improvement of lower lobe atelectasis associated with large left pleural effusion. We had to wait [address] it because the patient was on Eliquis. Operative Findings: We drained 750 cc of serous fluid. The left lower lobe did expand by fluoroscopic criteria in the OR. Description of Procedure: Patient was brought to the operating room. She was maintained on BiPAP. She was placed in semisitting position at about 45 degree angle. Left chest and left upper quadrant were sterilely prepped and draped after administering enough sedation that the patient could lay still. Eighth interspace in the anterior axillary line was anesthetized with 1% lidocaine and fluid located at this region. It was punctured with an 18-gauge needle and a guidewire threaded into the left pleural space under fluoroscopic guidance. Counterincision was made under local anesthesia over the left upper quadrant and the chest puncture site was enlarged with an 11 blade. PleurX catheter was tunneled from the abdominal to the chest incision and the cuff was left just under the skin at the abdominal exit point. Introducer and dilator were placed over the guidewire under fluoroscopic guidance and through the introducer sheath the Pleurx catheter was introduced into the pleural cavity. It was put to drainage and 750 cc of serous fluid drained. Once the patient experienced some discomfort and the fluid started to be blood-tinged we stopped drainage. Catheter was secured at the exit site with a 2-0 silk suture. The entry site was closed with 2 layers of 4- 0 Vicryl and skin glue. PleurX catheter was connected to a Pleur-evac and a standard Pleurx dressing was applied. The patient was transferred to recovery in stable condition.
[2024-10-05] MEDS: HYDROmorphone 0.5 MG/0.5 ML SYRINGE IVP PRN (19:41)
--- NOTE | 2024-10-05 19:54 | FL ---
EXAMINATION TYPE: FL guidance operating room DATE OF EXAM: 10/05/2024 CLINICAL HISTORY: Pleurx catheter insertion TECHNIQUE: Fluoroscopy. COMPARISON: None. FINDINGS: Fluoroscopic guidance was provided during Pleurx catheter insertion procedure . A total o f seconds of fluoroscopic time was utilized during the procedure and single spot image is acquired. Single image acquired shows catheter coiled within the lung base. Total dose area product (DAP) in uG y*m?, mGy*cm? (or similar: 0.1126. IMPRESSION: As Above. [facility], , 10/05/2024 7:51 PM
--- NOTE | 2024-10-05 20:10 | XR ---
EXAMINATION TYPE: XR chest 1V portable DATE OF EXAM: 10/05/2024 CLINICAL HISTORY: Post left Pleurx catheter placement. TECHNIQUE: Single AP portable upright view of the chest is obtained. COMPARISON: Chest x-ray from earlier today FINDINGS: Pleurx pleural drainage catheter now overlies the right lung base. Persistent completely o pacified right lung. Silhouetting right heart border again seen. Improved left lower lung opacity. Hy perdense lesion right humeral head is redemonstrated. IMPRESSION: Persistent completely opacified right hemithorax despite right pleural basilar drainage catheter insertion. [facility], , 10/05/2024 8:08 PM
[2024-10-06] MEDS: LORazepam 2 MG/ML INJ IV PRN (00:43)
[2024-10-06 07:31] LABS: HCT 35.2 % (34.0-46.0); HGB 10.7 gm/dL (11.4-16.0); Hypochromasia Marked; MCH 27.1 pg (25.0-35.0); MCHC 30.4 g/dL (31.0-37.0); Mean Platelet Volume 8.2; Platelet Count 302 k/uL (150-450); RBC 3.95 m/uL (3.80-5.40); RDW 14.9 % (11.5-15.5); WBC 6.8 k/uL (3.8-10.6)
[2024-10-06 08:21] LABS: African American GFR (CKD) >90 (>60 ml/min/1.73 sqM); Anion Gap 4 mmol/L; Blood Urea Nitrogen 25 mg/dL (7-17); Calcium 9.6 mg/dL (8.4-10.2); Carbon Dioxide 31 mmol/L (22-30); Chloride 99 mmol/L (98-107); Glucose 80 mg/dL (74-99); Non-African American GFR(CKD) 84 (>60 ml/min/1.73 sqM); Potassium 5.3 mmol/L (3.5-5.1); Sodium 134 mmol/L (137-145)
--- NOTE | 2024-10-06 08:38 | P.PN ---
Subjective Progress Note Date: 10/06/24 Principal diagnosis: Left pleural effusion with associated left lower lobe atelectasis, pericardial effusion, acute hypoxic respiratory failure, left lower lobe pneumonia. History of stage IV lung cancer with right sided pneumonectomy in 2019 subsequent chemotherapy, subsequent finding of brain metastasis status post radiation therapy, maintained on Tagrisso, previous tobacco dependence, COPD, previous EtOH use, hypertension, hyperlipidemia, seizure disorder, paroxysmal atrial fibrillation on [facility] outpatient for anticoagulation POD #1 left Pleurx catheter placement under fluoroscopy with removal of 750 mL serous fluid The patient was seen and examined this morning laying in bed on the cardiac stepdown unit. Remains on BiPAP but does appear a bit more comfortable. She does complain of pain and requesting pain medication. Left-sided Pleurx catheter present and connected to atrium to continuous wall suction, 150 mL serous output since placement last night. Chest x-ray reviewed. No other new concerns. Objective - Vital Signs Vital signs: Vital Signs Temp 98.1 F 10/05/24 21:20 Pulse 96 10/05/24 20:45 Resp 19 10/06/24 04:35 BP 121/76 10/06/24 04:35 Pulse Ox 100 10/06/24 04:35 FiO2 70 10/06/24 04:53 Intake & Output 10/05/24 10/06/24 10/06/24 18:59 06:59 18:59 Intake Total 410 125 Output Total 600 101 Balance -190 24 Weight 54.5 kg Intake: IV 410 125 Lactated Ringers 1,000 ml 160 @ 20 mls/hr IV .Q24H [facility] Rx#:[id number] Output: Chest Tube Drainage 100 Pleural Catheter Left 100 Lower Anterior Chest Urine 600 Straight 600 Estimated Blood Loss 1 Other: Voiding Method External Catheter External Catheter - Exam CONSTITUTIONAL: Appears somewhat comfortable, cooperative, no acute distress RESPIRATORY: Lungs sounds absent on the right, diminished in the left base, coarse throughout the left side. Respirations even, nonlabored. Currently on BiPAP, FiO2 50%, IPAP 10, EPAP 5 with oxygen saturation 100% CARDIOVASCULAR: S1, S2 present. Regular rate and rhythm, sinus rhythm to sinus tach on telemetry. Palpable peripheral pulses bilaterally. No edema present. No calf pain or tenderness noted. SCDs present. GASTROINTESTINAL: Abdomen soft, nontender, nondistended. Hypo active bowel sounds present 4 quadrants GENITOURINARY: Continues to void clear, yellow urine, external catheter present INTEGUMENTARY: Skin is warm and dry NEUROLOGIC: Cranial nerves II through XII intact MUSKULOSKELETAL: Able to move all extremities, strength equal bilaterally PSYCHIATRIC: Alert and oriented to person place and time INVASIVE LINES AND TUBES: Left Pleurx catheter present connected to atrium, 150 mL serosanguineous drainage since placement last night - Allied health notes Allied health notes reviewed: nursing - Labs CBC & Chem 7: 10/06/24 06:58 10/06/24 06:58 Labs: Abnormal Lab Results - Last 24 Hours (Table) 10/06/24 Range/Units 06:58 Hgb 10.7 L (11.4-16.0) gm/dL MCHC 30.4 L (31.0-37.0) g/dL - Imaging and Cardiology Chest x-ray: image reviewed Assessment and Plan Assessment: Left pleural effusion, status post Pleurx catheter placement Pericardial effusion Acute hypoxic respiratory failure, currently on BiPAP Left lower lobe pneumonia, currently on cefepime Shortness of breath secondary to above History of stage IV lung cancer with right sided pneumonectomy in 2019 subsequent chemotherapy, subsequent finding of brain metastasis status post radiation therapy, maintained on Tagrisso Previous tobacco dependence COPD Previous EtOH use Hypertension Hyperlipidemia Seizure disorder with last seizure 9 months ago Paroxysmal atrial fibrillation on Eliquis outpatient for anticoagulation, currently sinus, last dose of Eliquis 10/03/24 AM Plan: Will cap Pleurx catheter placement today. Patient can be drained every day, every other day, once a week, drainage is dependent on patient's symptomatology and is considered palliative BiPAP management per pulmonology Patient was made no code which is appropriate. Recommend hospice Continue to hold Eliquis. If patient goes hospice Eliquis should be discontinued permanently. Even if she does not go hospice there is no indication for Eliquis currently especially with the potential for pericardial drainage If it is felt patient must have pericardial drainage pericardial window could be completed, however would be high risk and patient likely would not come off the ventilator Continue colchicine Pain control per current medication regimen, continue Ativan Medical management of other comorbidities per internal medicine, cardiology, pulmonology More recommendations to follow
--- NOTE | 2024-10-06 13:47 | P.PN ---
Subjective Progress Note Date: 10/06/24 HISTORY OF PRESENTING ILLNESS This is a pleasant 69-year-old with past medical history significant for hyp ertension, hyperlipidemia, family history of CAD, seizures, questionable previous stroke on Plavix, lung cancer stage IV in remission per patient and atrial fibrillation. She has never seen a transmission specialist however was seen by myself 2 months ago. Patient has a history of non-small cell lung cancer in 2019, had undergone pneumonectomy and remains onTagrisso on an outpatient basis. She has had a number of hospitalizations over the last 6 months. She states in general she had felt somewhat better however over the last 3 months especially she has noticed significant shortness breath with any sort of activity. Denies any fevers or chills. She was initially seen on 10/01 by pulmonology and tr eated for COPD exacerbation and a CT chest was obtained. CT chest showed complete right hemithorax white out and loculated pleural effusion measuring up to 14 cm. This is similar to prior from July 2024. There additionally was new small to moderate left pleural effusion as well as moderate pericardial effusion measuring 2.1 cm versus previous measurement of 1.3 cm and 2 cm groundglass opacity in the left upper lobe. Echocardiogram was performed which showed ejection fraction 55% with moderate pericardial effusion and tamponade physiology. 10/04 Patient requiring increasing oxygen demand initially on a Ventimask and now on a nonrebreather. She is sitting up in bed with some mild tachypnea. She is being moved to cardiac floor. She denies any chest pain or pressure. She states she is feeling worse than yesterday. 10/05 Patient seen and examined on the cardiac stepdown unit. Patient has been transferred from the [facility] floor. She is currently on BiPAP unable to have this removed. She is scheduled for Pleurx catheter insertion today. Patient has not been taking her oral medications as she is complaining of difficulties with some swallowing. Heart rate is 10 9-1 23, respiratory rate 29, pulse ox 95% on 70% BiPAP, blood pressure 142/76. Repeat blood work reveals hemoglobin 11, sodium 133, potassium 5.4, creatinine 0.7. Chest x-ray: On going complete whiteout of the right hemithorax. Ongoing [id number] left pleural effusion with prominent adjacent atelectasis and/or consolidation extending up to the mid lung level. 10/06 Yesterday, patient underwent Pleurx catheter placement by CTS. Patient continues to have bilateral wheezing. Heart rate and respiratory rate are improved. Patient is currently hemodynamically stable. Blood pressure 113/74, heart rate 106, pulse ox 96% on high flow nasal cannula. Repeat blood work reveals hemoglobin 10.7, sodium 135, potassium 5.3, BUN 25 and creatinine 0.74. PHYSICAL EXAMINATION Vital signs reviewed. CONSTITUTIONAL: No apparent distress. HEENT: Head is normocephalic. Pupils are equal, round. Sclerae anicteric. Mucous membranes of the mouth are moist. No JVD. No carotid bruit. CHEST EXAMINATION: Lungs are clear to auscultation. Decreased breath sounds on the right HEART EXAMINATION: Regular rate and rhythm. S1, S2 heard. No murmurs, gallops or rub. ABDOMEN: Soft, nontender. Positive bowel sounds. EXTREMITIES: 2+ peripheral pulses, no lower extremity edema and no calf tenderness. NEUROLOGIC EXAMINATION: Patient is awake, alert and oriented x3. ASSESSMENT Pericardial effusion with tamponade physiology, chronic Paroxysmal atrial fibrillation on Eliquis--on hold for Pleurx catheter Acute on chronic hypoxic respiratory failure Acute exacerbation of COPD Left lower lobe pneumonia Non-small cell lung cancer with previous right pneumonectomy 2019 with metastatic disease to the brain s/p radiation therapy to the brain Seizure disorder History of stroke previously on Plavix Family history of CAD PLAN Patient with worsening respiratory distress. Cardiothoracic surgery saw patient and case discussed with Dr. Parsons. He believes pericardial effusion is more chronic. Patient however with Tamponade physiology and worsening clinical picture and will continue to monitor closely. Status post Pleurx catheter placement by CTS Patient is currently hemodynamically stable and plan is to monitor her closely, no plan for pericardiocentesis at this point. Nurse practitioner note has been reviewed, I agree with documented findings and plan of care. Patient was seen and examined. Objective - Vital Signs Vital signs: Vital Signs Temp 97.7 F 10/06/24 07:43 Pulse 95 10/06/24 07:43 Resp 25 H 10/06/24 07:43 BP 136/86 10/06/24 07:43 Pulse Ox 99 10/06/24 07:43 FiO2 50 10/06/24 08:06 Intake & Output 12/04/24 12/05/24 12/05/24 18:59 06:59 18:59 Intake Total 410 125 Output Total 600 101 0 Balance -190 24 0 Weight 54.5 kg Intake: IV 410 125 Lactated Ringers 1,000 ml 160 @ 20 mls/hr IV .Q24H [facility] Rx#:[id number] Output: Chest Tube Drainage 100 0 Pleural Catheter Left 100 0 Lower Anterior Chest Drainage 0 Left Chest 0 Urine 600 Straight 600 Estimated Blood Loss 1 Other: Voiding Method External Catheter External Catheter - Labs CBC & Chem 7: 10/06/24 06:58 10/06/24 06:58 Labs: Abnormal Lab Results - Last 24 Hours (Table) 10/06/24 10/06/24 Range/Units 06:58 06:58 Hgb 10.7 L (11.4-16.0) gm/dL MCHC 30.4 L (31.0-37.0) g/dL Sodium 134 L (137-145) mmol/L Potassium 5.3 H (3.5-5.1) mmol/L Carbon Dioxide 31 H (22-30) mmol/L BUN 25 H (7-17) mg/dL
--- NOTE | 2024-10-06 14:45 | P.PN ---
Subjective Progress Note Date: 10/06/24 Patient is a 69 year old female with past medical history of atrial flutter, hypertension, seizure disorder, COPD with 4L home oxygen, lung cancer with metastasis to the brain with previous radiation therapy and right lower lobectomy presented to the ED with worsening shortness of breath. She mentions her symptoms started a couple months ago. She has experienced progressive shortness of breath. She has been admitted twice in the past month for similar symptoms. Everytime she would get discharged she will feel good at first but then her symptoms would recur within 2 weeks prompting another visit to the hospital. She also mentions having lung cancer. She was diagnosed in 2014, at that time she got a right lower lobectomy. There was recurrence of the cancer in 2019 at which point a drain was placed. It was found the cancer has metastasized to her brain for which she underwent radiation therapy. Subsequently she had chemotherapy and is now on chemotherapy pills(Tagrisso). Associated with that she also complains of dysphagia since 3 days and due to which her oral intake has been very poor. Also reports having runny nose and sometime blocked nose. Denies any reflux or regurgitation or past medical history of GERD, fever, chills, sore throat. Additionally she mentions having in her lower abdomen while having bowel movement. Denies constipation or diarrhea. Denies palpitations, nausea, vomiting, dysuria, hematuria, hematochezia, melena, numbness, tingling, joint pain, muscle aches. ED documentation reviewed. In the ED patient was treated with Percocet, Nebulised albuterol, Morphine, Levetiracetam. Vitals on admission T 99 F, VT 121, RR 18, BP 127/87, O2 sat 95% on 4 L nasal cannula EKG independently interpreted as sinus tachycardia, rate 116 bpm, QTc 495 ms Chest x-ray shows ongoing complete whiteout of the right hemithorax, slight increasing no vpkir-[id number] left pleural effusion with adjacent atelectasis/consolidation Labs on admission show WBC 5.7, hemoglobin 11.4, sodium 136, magnesium 1.5, troponin I <0.012 Respiratory panel is negative 10/02/2024 Patient is eval today in follow-up in the medical floor. She is reporting significant shortness of breath. She continues on oxygen via nasal cannula at 4 L. Patient had a repeat chest CT which shows a complete whiteout of the right hemithorax with a chronic loculated effusion. There is a new small to moderate left pleural effusion with moderate pericardial effusion. Patient does have known small cell lung cancer and also has a right pnuemonectomy. She also has a noted left upper lobe nodule. She continues on IV cefepime with concern for postobstructive pneumonia. Pulmonary is following this patient closely. Work today reveals a white blood cell count of 4.31, hemoglobin 10.6, sodium of 136, potassium of 5.1. BUN of 12.3 creatinine 0.8. Her proBNP is less than 20. Her viral panel is negative. 10-03-24 Patient seen and examined at bedside. No events overnight. Patient continues to have shortness of breath and cough that she states has not improved. WBC 5.08, sodium 137, potassium 5.9, BUN 11.0, creatinine 0.9, glucose 113. Hyperkalemia noted, discontinued valsartan. Echocardiogram finding significant for pericardial effusion and right atrial and right ventricular diastolic collapse consistent with tamponade. Cardiology consulted. Pulmonology continues to follow. 10-04-24 Patient seen and examined at bedside. Patient sitting up in bed and found with worsening respiratory distress. On BiPAP 10/5 and 100% FiO2. Ultrasound chest performed with large left pleural effusion. Chest x-ray also completed with left-sided pleural effusion noted in right hemithorax whiteout. No plans for thoracentesis by pulmonology. She is being followed by CT surgery who will plan for Pleurx catheter tomorrow. Eliquis on hold. Patient started on colchicine for pericardial effusion. She remains on cefepime and bronchodilators. CODE STATUS was discussed by patient who wishes to be no code. Labs WBC 7.3, hemoglobin 11.2, platelets 339, sodium 140, potassium 5.4, bicarb 29, BUN 10.2, creatinine 0.8. CT surgery, pulmonary, cardiology notes reviewed. 10-05-24 Patient seen and examined at bedside. Patient sitting up in bed on BiPAP 10/5 and 70% FiO2. Work of breathing improved since yesterday. She is unable to tolerating oral medications at this time as she states it gives he throat pain. She is being followed by CT surgery who will plan for Pleurx catheter today. Eliquis on hold. Colchicine ordered for pericardial effusion. She remains on cefepime and bronchodilators. Labs WBC 5.8, hemoglobin 11.0, platelets 313, sodium 133, potassium 5.4, bicarb 34, BUN 17, creatinine 0.7. 10-06-24 Patient seen and examined at bedside. Pleurx catheter placed yesterday by CT surgery with drainage of 750 cc. This morning drainage of 150 cc. Operative note reviewed. Patient sitting up in bed on BiPAP 10/5 and 50% FiO2 will attempt to transition to O2 high flow nasal cannula. Breathing overall improved patient states she is more comfortable today. She remains on cefepime and bronchodilators. Labs labs WBC 6.8, hemoglobin 10.7, platelets 302, sodium 134, potassium 5.3, bicarb 31, gap 4, BUN 25, creatinine 0.74, glucose 80. Repeat chest x-ray with persistent completely opacified right hemithorax, improved left lower lung opacity. Review of Systems: Reviewed, pertinent positives and negatives as per HPI PHYSICAL EXAMINATION: GENERAL: The patient is alert and oriented x3. Anxious, well developed, well nourished. HEENT: Pupils are round and equally reacting to light. EOMI. No scleral icterus. No conjunctival pallor. Normocephalic, atraumatic. CARDIOVASCULAR: S1 and S2 present. No murmurs, rubs, or gallops. PULMONARY: Absent right-sided breath sounds, left-sided upper rhonchi, improvement base ABDOMEN: Soft, nontender, nondistended, normoactive bowel sounds. No palpable organomegaly. MUSCULOSKELETAL: No joint swelling or deformity. EXTREMITIES: No cyanosis, clubbing, or pedal edema. NEUROLOGICAL: Gross neurological examination did not reveal any focal deficits. SKIN: No rashes. Assessment and Plan Right hemithorax with chronic loculated effusion. Status post Pleurx catheter placement Small to moderate left pleural effusion Moderate pericardial effusion Acute on chronic hypoxemic respiratory failure secondary to above Acute exacerbation of COPD Hyperkalemia, given Lokelma History of nonsmall cell lung cancer with prior chemoradiation and right pne umonectomy in 2019; this is stage IV with brain metastasis Paroxysmal Atrial fibrillation, rate controlled on eliquis for anticoagulation Anxiety/depression History of seizure disorder maintained on keppra Hyperlipidemia Hypertension GI prophylaxis DVT prophylaxis No Code Plan Continue IV cefepime Continue bronchodilators Continue holding valsartan, given Lokelma Status post Pleurx catheter placement, continue colchicine, resume Eliquis Echocardiogram with pericardial effusion measuring 1.4 cm, right atrial and right ventricular diastolic collapse consistent with tamponade physiology Cardiology following CT surgery following Pulmonary following Dr. Keaton MD I have performed a history and physical examination and medical decision making of this patient, discussed the same with the dictator, and agree with the dictators assessment and plan as written, documented as a scribe. Based on total visit time, I have performed more than 50% of this visit. Objective - Vital Signs Vital signs: Vital Signs Temp 97.8 F 10/06/24 11:00 Pulse 106 H 10/06/24 13:09 Resp 24 10/06/24 11:00 BP 113/74 10/06/24 11:00 Pulse Ox 96 10/06/24 11:29 FiO2 60 10/06/24 12:02 Intake & Output 10/05/24 10/06/24 10/06/24 18:59 06:59 18:59 Intake Total 410 125 Output Total 600 101 275 Balance -190 24 -275 Weight 54.5 kg 54.5 kg Intake: IV 410 125 Lactated Ringers 1,000 ml 160 @ 20 mls/hr IV .Q24H [facility] Rx#:[id number] Output: Chest Tube Drainage 100 0 Pleural Catheter Left 100 0 Lower Anterior Chest Drainage 0 Left Chest 0 Urine 600 275 Straight 600 Estimated Blood Loss 1 Other: Voiding Method External Catheter External Catheter Bedside Commode - Labs CBC & Chem 7: 10/06/24 06:58 10/06/24 06:58 Labs: Abnormal Lab Results - Last 24 Hours (Table) 10/06/24 10/06/24 Range/Units 06:58 06:58 Hgb 10.7 L (11.4-16.0) gm/dL MCHC 30.4 L (31.0-37.0) g/dL Sodium 134 L (137-145) mmol/L Potassium 5.3 H (3.5-5.1) mmol/L Carbon Dioxide 31 H (22-30) mmol/L BUN 25 H (7-17) mg/dL
[2024-10-06] MEDS: ENOXAPARIN 40 MG/0.4 ML SYRINGE SQ SCH (14:52)
--- NOTE | 2024-10-06 16:20 | P.PN ---
Subjective Progress Note Date: 10/06/24 Principal diagnosis: Acute exacerbation of COPD with acute hypoxic respiratory failure This is a 69-year-old female patient was being admitted for worsening shortness of breath. The patient is known to have non-small cell lung cancer the patient has undergone a previous pneumonectomy on the right back in 2018 and the patient remains on Tagrisso on outpatient basis. She was hospitalized back in July 2024 for a COPD exacerbation and left lung pneumonia with area of consolidation in the left lower lobe. She was treated accordingly. Her condition was stabilized and she was discharged home. She had another hospitalization on 09/01/2024 for worsening shortness of breath and COPD exacerbation. The patient was treated in discharged home on 09/02/2024. The patient is coming in for increased dyspnea, limited cough. No significant sputum production. No hemoptysis or pleurisy. She is afebrile. Hemodynamically stable encouraged and 40 Suboxone by nasal cannula. Chest x-ray shows pneumonectomy on the right, some atelectatic changes and small effusion on the left. The white cell count is 5.7 hemoglobin 11.4 and platelet count is at 323. Sodium is at 136, bicarb is at 24, BUN is 12 with a creatinine of 0.7. Troponins are negative. The viral screen has been negative. No altered mentation. No seizure activity has been reported. On 10/02/24, the patient is being seen for a FU. The patient is stable and she is still on 02 at 4 L /min nasal canula and she is still having dyspnea with limited cough and sputum and she is has some minimal wheezing. The CT of the chest was completed and the patient has right pneumonectomy and she has airspace disease in the left lung base and she has also developed a left sided pleural effusion and there is a concern for a LLL pneumonia and based on that the patient was started on IV cefepime. Labs from today were noted the white cell count is at 4.06 and a platelet count of 317. The potassium level is at one 5.1, BUN is 12 with a creatinine of 0.8. proBNP level is less than 20. Meanwhile, the patient remains on Tagrisso. The patient remains on anticoagulation with Eliquis. The patient remains on DuoNeb updrafts and antibiotic coverage with IV cefepime. CAT scan of the chest also showed a small to moderate-sized pericardial effusion along with background COPD and some mild rectal edematous changes. Another 2 cm focus of groundglass opacity was seen in the left upper lobe The patient is seen today October 03, 2024 in follow-up on the regular medical floor. She is currently sitting up in bed. Awake and alert in no acute distress. Maintaining O2 saturations in the 90s on 3 L/min per nasal cannula. She has been afebrile. Hemodynamically stable. Echocardiogram reveals preserved left ventricular systolic function with ejection fraction 55 to 60%. White count 5.0. Hemoglobin 9.6. Platelets 304. Sodium 137. Potassium 5.9. Bicarb 30. BUN 11. Creatinine 0.9. Glucose 113. Procalcitonin was negative at 0.03. Is currently on cefepime. Continued on DuoNeb and elations. Anticoagulated with Eliquis. Continued on her Tagrisso. The patient is seen today October 04, 2024 in follow-up on the regular medical floor. She was having increasing complaints of shortness of breath today. She was placed on BiPAP 10/5 and 100% FiO2. She is continued on DuoNeb inhalations. Ultrasound of the left chest did not reveal any significant pleural effusion. Pocket measured 5.0 cm. Chest x-ray revealed redemonstrated complete whiteout of the right hemithorax. Small to moderate left pleural effusion with adjacent atelectasis and/or consolidation. White count 7.3. Hemoglobin 11.2. Platelets 339. Sodium 140. Potassium 5.4. Bicarb 29. BUN 10. Creatinine 0.8. Procalcitonin was negative at 0.03. She is currently on cefepime. Echocardiogram revealed preserved left ventricular systolic function with ejection fraction 55 to 60%. There is a moderate pericardial effusion measuring 1.4 cm with significant tricuspid valve respiratory variation greater than 50%, right atrial and right ventricular diastolic collapse consistent with tamponade physiology. Patient was evaluated today on 10/05/2024, continues to have shortness of breath continues to have intermittent cough and wheezing chest x-ray has left-sided pleural effusion and left lower lobe atelectasis. Patient does not feel any better today compared to her baseline. She feels actually that she may even be worse. WBC count is 5.8 hemoglobin is 11 electrolytes are normal renal profile is normal procalcitonin level is 0.03 Seen today on 10/06/2024, patient is now postoperative day #1 status post left Pleurx catheter placement and she had 750 mL of fluid removed from the left pleural space. Patient continues to have the Pleurx catheter contacted to Pleur-evac, no air leak noted, continues to have some serosanguineous drainage noted. Patient is feeling better however she remains on Airvo at 50% FiO2 and 50 L flow. Patient has been on BiPAP 08/06/50% chest x-ray showed significant improvement in left pleural effusion continues to have left lower lobe atelectasis/retrocardiac opacity. Cytology on the fluid is pending and chemical profile on the pleural effusion fluid is also pending there is a concern of possible malignancy/malignant pleural effusion needs to be ruled out Objective - Vital Signs Vital signs: Vital Signs Temp 97.8 F 10/06/24 15:00 Pulse 105 H 10/06/24 15:00 Resp 23 10/06/24 15:00 BP 129/84 10/06/24 15:00 Pulse Ox 93 L 10/06/24 15:00 FiO2 50 10/06/24 15:14 Intake & Output 10/05/24 10/06/24 10/06/24 18:59 06:59 18:59 Intake Total 410 125 Output Total 600 101 525 Balance -190 24 -525 Weight 54.5 kg 54.5 kg Intake: IV 410 125 Lactated Ringers 1,000 ml 160 @ 20 mls/hr IV .Q24H [facility] Rx#:[id number] Output: Chest Tube Drainage 100 0 Pleural Catheter Left 100 0 Lower Anterior Chest Drainage 0 Left Chest 0 Urine 600 525 Straight 600 Estimated Blood Loss 1 Other: Voiding Method External Catheter External Catheter Bedside Commode - Exam GENERAL EXAM: 69-year-old female on Airvo HEAD: Normocephalic. EYES: Normal reaction of pupils, equal size. NOSE: Clear with pink turbinates. THROAT: No erythema or exudates. NECK: No masses, no JVD. CHEST: No chest wall deformity. LUNGS: Rhonchi and wheezes noted on the left side breath sounds are diminished on the right side Pleurx catheter is connected to Pleur-evac CVS: S1 and S2 normal with no audible murmur, regular rhythm. ABDOMEN: No hepatosplenomegaly, normal bowel sounds, no guarding or rigidity. SKIN: No rashes CENTRAL NERVOUS SYSTEM: No focal deficits, tone is normal in all 4 extremities. EXTREMITIES: There is no peripheral edema. No clubbing, no cyanosis. Peripheral pulses are intact. - Labs CBC & Chem 7: 10/06/24 06:58 12 06:58 Labs: Abnormal Lab Results - Last 24 Hours (Table) 10/06/24 10/06/24 Range/Units 06:58 06:58 Hgb 10.7 L (11.4-16.0) gm/dL MCHC 30.4 L (31.0-37.0) g/dL Sodium 134 L (137-145) mmol/L Potassium 5.3 H (3.5-5.1) mmol/L Carbon Dioxide 31 H (22-30) mmol/L BUN 25 H (7-17) mg/dL Assessment and Plan Assessment: Impression:POD #1 left Pleurx catheter placement under fluoroscopy with removal of 750 mL serous fluid Acute exacerbation of COPD Left lower lobe pneumonia and a small left sided pleural effusion. Ultrasound of the chest reveals a 5.0 cm pocket. Acute hypoxic respiratory failure, multifactorial Moderate pericardial effusion measuring 1.4 cm with significant tricuspid valve respiratory variation greater than 50%, right atrial and right ventricular diastolic collapse consistent with tamponade physiology. Cardiology and cardiothoracic surgery on the case. This may be chronic in nature and no plans for emergent procedure Previous history of non-small cell lung cancer with previous right pneumonectomy 2018 and the patient has been maintained on Tagrisso on outpatient basis. The patient had metastatic disease to the brain at time of admission the patient has received radiation therapy to her brain Seizure disorder maintained on Keppra Paroxysmal atrial fibrillation/flutter, maintained on long-term anticoagulation with Eliquis and the patient is currently in normal sinus rhythm Moderate mitral regurgitation/valvular heart disease Hypertension Hyperlipidemia Recommendation: Continue present supportive care measures Continue Pleurx catheter to Pleur-evac drainage Continue to hold Eliquis Continue bronchodilators and antibiotics/cefepime Continue to titrate FiO2 accordingly incentive spirometry Encourage deep coughing deep breathing Long-term prognosis is extremely poor and guarded We will continue to follow Time with Patient: Less than 30
[2024-10-06] MEDS ORDERED: APIXABAN 5 MG TAB PO SCH (21:00)
--- NOTE | 2024-10-07 08:20 | XR ---
EXAMINATION TYPE: XR chest 1V portable DATE OF EXAM: 10/07/2024 6:48 AM COMPARISON: 10/05/2024 CLINICAL INDICATION: Female, 69 years old with history of Status post Pleurx catheter placement, left side, , FINDINGS: Ongoing complete white out of right hemithorax. Interstitial densities left lung persists as well. Wo rsening retrocardiac and left basilar opacity. Left basilar pleural catheter again noted. Right heart margin entirely obscured by pleural parenchymal opacity. Sclerosis right humeral head is unchanged. Chronic full-thickness rotator cuff tear right shoulder redemonstrated. IMPRESSION: 1. Ongoing complete white out right hemithorax. 2. Ongoing interstitial opacities left lung. 3. Slight worsening retrocardiac and left basilar opacity. 4. Left basilar pleural catheter in place. [facility], , 10/07/2024 8:18 AM
[2024-10-07 09:04] LABS: HCT 33.7 % (34.0-46.0); HGB 10.4 gm/dL (11.4-16.0); Hypochromasia Marked; MCH 26.9 pg (25.0-35.0); MCHC 30.9 g/dL (31.0-37.0); Mean Platelet Volume 8.4; Platelet Count 283 k/uL (150-450); RBC 3.87 m/uL (3.80-5.40); RDW 14.8 % (11.5-15.5); WBC 8.8 k/uL (3.8-10.6)
[2024-10-07] MEDS: METOPROLOL SUCCINATE (ER) 25 MG TAB.ER.24H PO SCH (09:09)
[2024-10-07 09:36] LABS: African American GFR (CKD) >90 (>60 ml/min/1.73 sqM); Anion Gap 3 mmol/L; Blood Urea Nitrogen 25 mg/dL (7-17); Calcium 9.2 mg/dL (8.4-10.2); Carbon Dioxide 33 mmol/L (22-30); Chloride 97 mmol/L (98-107); Glucose 124 mg/dL (74-99); Magnesium 1.5 mg/dL (1.6-2.3); Non-African American GFR(CKD) >90 (>60 ml/min/1.73 sqM); Sodium 133 mmol/L (137-145)
[2024-10-07] MEDS: SCOPOLAMINE 1 MG/72 HR PATCH TRANSDERM SCH (11:47)
--- NOTE | 2024-10-07 11:47 | P.PN ---
Subjective Progress Note Date: 10/07/24 HISTORY OF PRESENTING ILLNESS This is a pleasant 69-year-old with past medical history significant for hyp ertension, hyperlipidemia, family history of CAD, seizures, questionable previous stroke on Plavix, lung cancer stage IV in remission per patient and atrial fibrillation. She has never seen a edge gluer however was seen by myself 2 months ago. Patient has a history of non-small cell lung cancer in 2019, had undergone pneumonectomy and remains onTagrisso on an outpatient basis. She has had a number of hospitalizations over the last 6 months. She states in general she had felt somewhat better however over the last 3 months especially she has noticed significant shortness breath with any sort of activity. Denies any fevers or chills. She was initially seen on 10/01 by pulmonology and tr eated for COPD exacerbation and a CT chest was obtained. CT chest showed complete right hemithorax white out and loculated pleural effusion measuring up to 14 cm. This is similar to prior from July 2024. There additionally was new small to moderate left pleural effusion as well as moderate pericardial effusion measuring 2.1 cm versus previous measurement of 1.3 cm and 2 cm groundglass opacity in the left upper lobe. Echocardiogram was performed which showed ejection fraction 55% with moderate pericardial effusion and tamponade physiology. 10/04 Patient requiring increasing oxygen demand initially on a Ventimask and now on a nonrebreather. She is sitting up in bed with some mild tachypnea. She is being moved to cardiac floor. She denies any chest pain or pressure. She states she is feeling worse than yesterday. 10/05 Patient seen and examined on the cardiac stepdown unit. Patient has been transferred from the [facility] floor. She is currently on BiPAP unable to have this removed. She is scheduled for Pleurx catheter insertion today. Patient has not been taking her oral medications as she is complaining of difficulties with some swallowing. Heart rate is 10 9-1 23, respiratory rate 29, pulse ox 95% on 70% BiPAP, blood pressure 142/76. Repeat blood work reveals hemoglobin 11, sodium 133, potassium 5.4, creatinine 0.7. Chest x-ray: On going complete whiteout of the right hemithorax. Ongoing [id number]-[id number] left pleural effusion with prominent adjacent atelectasis and/or consolidation extending up to the mid lung level. 10/06 Yesterday, patient underwent Pleurx catheter placement by CTS. Patient continues to have bilateral wheezing. Heart rate and respiratory rate are improved. Patient is currently hemodynamically stable. Blood pressure 113/74, heart rate 106, pulse ox 96% on high flow nasal cannula. Repeat blood work reveals hemoglobin 10.7, sodium 135, potassium 5.3, BUN 25 and creatinine 0.74. 10/07/24 Patient is seen and examined. She complains of difficulty in breathing and is trying to remove her mask. Her heart rate is sinus rhythm in the 120s. Blood pressure 113/79, pulse ox 6% on 50% FiO2 BiPAP. Repeat blood work reveals WBC 8.8, hemoglobin 10.4. Sodium 133, potassium 4, BUN 25 creatinine 0.66. Chest x-ray reveals complete whiteout right hemithorax, ongoing interstitial opacities left lung, slight worsening retrocardiac and left basilar opacity, left basilar pleural catheter. Pulmonary medicine recommend continuing to hold Eliquis PHYSICAL EXAMINATION Vital signs reviewed. CONSTITUTIONAL: No apparent distress. HEENT: Head is normocephalic. Pupils are equal, round. Sclerae anicteric. Mucous membranes of the mouth are moist. No JVD. No carotid bruit. CHEST EXAMINATION: Lungs are clear to auscultation. Decreased breath sounds on the right HEART EXAMINATION: Regular rate and rhythm. S1, S2 heard. No murmurs, gallops or rub. ABDOMEN: Soft, nontender. Positive bowel sounds. EXTREMITIES: 2+ peripheral pulses, no lower extremity edema and no calf tenderness. NEUROLOGIC EXAMINATION: Patient is awake, alert and oriented x3. ASSESSMENT Pericardial effusion with tamponade physiology, chronic Paroxysmal atrial fibrillation on Eliquis--on hold per pulmonary medicine Sinus tachycardia Acute on chronic hypoxic respiratory failure Acute exacerbation of COPD Left lower lobe pneumonia Non-small cell lung cancer with previous right pneumonectomy 2019 with metastatic disease to the brain s/p radiation therapy to the brain Seizure disorder History of stroke previously on Plavix Family history of CAD PLAN Patient with worsening respiratory distress. Cardiothoracic surgery saw patient and case discussed with Dr. Parsons. He believes pericardial effusion is more chronic. Patient however with Tamponade physiology and worsening clinical picture and will continue to monitor closely. Status post Pleurx catheter placement by CTS Add metoprolol succinate 25 mg daily. Nurse practitioner note has been reviewed, I agree with documented findings and plan of care. Patient was seen and examined. Objective - Vital Signs Vital signs: Vital Signs Temp 98.1 F 10/07/24 03:00 Pulse 123 H 10/07/24 08:26 Resp 25 H 10/07/24 03:00 BP 125/72 10/07/24 03:00 Pulse Ox 96 10/07/24 08:22 FiO2 50 10/07/24 08:22 Intake & Output 10/06/24 10/07/24 10/07/24 18:59 06:59 18:59 Intake Total 540 Output Total 525 200 Balance 15 -200 Weight 54.5 kg 52.5 kg Intake: Oral 540 Output: Chest Tube Drainage 0 Pleural Catheter Left 0 Lower Anterior Chest Drainage 0 Left Chest 0 Urine 525 200 Other: Voiding Method Bedside Commode Bedside Commode - Labs CBC & Chem 7: 10/07/24 08:52 10/07/24 08:52
--- NOTE | 2024-10-07 11:54 | P.PN ---
Subjective Progress Note Date: 10/07/24 Patient is a 69 year old female with past medical history of atrial flutter, hypertension, seizure disorder, COPD with 4L home oxygen, lung cancer with metastasis to the brain with previous radiation therapy and right lower lobectomy presented to the ED with worsening shortness of breath. She mentions her symptoms started a couple months ago. She has experienced progressive shortness of breath. She has been admitted twice in the past month for similar symptoms. Everytime she would get discharged she will feel good at first but then her symptoms would recur within 2 weeks prompting another visit to the hospital. She also mentions having lung cancer. She was diagnosed in 2014, at that time she got a right lower lobectomy. There was recurrence of the cancer in 2019 at which point a drain was placed. It was found the cancer has metastasized to her brain for which she underwent radiation therapy. Subsequently she had chemotherapy and is now on chemotherapy pills(Tagrisso). Associated with that she also complains of dysphagia since 3 days and due to which her oral intake has been very poor. Also reports having runny nose and sometime blocked nose. Denies any reflux or regurgitation or past medical history of GERD, fever, chills, sore throat. Additionally she mentions having in her lower abdomen while having bowel movement. Denies constipation or diarrhea. Denies palpitations, nausea, vomiting, dysuria, hematuria, hematochezia, melena, numbness, tingling, joint pain, muscle aches. ED documentation reviewed. In the ED patient was treated with Percocet, Nebulised albuterol, Morphine, Levetiracetam. Vitals on admission T 99 F, HI 121, RR 18, BP 127/87, O2 sat 95% on 4 L nasal cannula EKG independently interpreted as sinus tachycardia, rate 116 bpm, QTc 495 ms Chest x-ray shows ongoing complete whiteout of the right hemithorax, slight increasing no [id number] left pleural effusion with adjacent atelectasis/consolidation Labs on admission show WBC 5.7, hemoglobin 11.4, sodium 136, magnesium 1.5, troponin I <0.012 Respiratory panel is negative 10/02/2024 Patient is eval today in follow-up in the medical floor. She is reporting significant shortness of breath. She continues on oxygen via nasal cannula at 4 L. Patient had a repeat chest CT which shows a complete whiteout of the right hemithorax with a chronic loculated effusion. There is a new small to moderate left pleural effusion with moderate pericardial effusion. Patient does have known small cell lung cancer and also has a right pnuemonectomy. She also has a noted left upper lobe nodule. She continues on IV cefepime with concern for postobstructive pneumonia. Pulmonary is following this patient closely. Work today reveals a white blood cell count of 4.31, hemoglobin 10.6, sodium of 136, potassium of 5.1. BUN of 12.3 creatinine 0.8. Her proBNP is less than 20. Her viral panel is negative. 10-03-24 Patient seen and examined at bedside. No events overnight. Patient continues to have shortness of breath and cough that she states has not improved. WBC 5.08, sodium 137, potassium 5.9, BUN 11.0, creatinine 0.9, glucose 113. Hyperkalemia noted, discontinued valsartan. Echocardiogram finding significant for pericardial effusion and right atrial and right ventricular diastolic collapse consistent with tamponade. Cardiology consulted. Pulmonology continues to follow. 10-04-24 Patient seen and examined at bedside. Patient sitting up in bed and found with worsening respiratory distress. On BiPAP 10/5 and 100% FiO2. Ultrasound chest performed with large left pleural effusion. Chest x-ray also completed with left-sided pleural effusion noted in right hemithorax whiteout. No plans for thoracentesis by pulmonology. She is being followed by CT surgery who will plan for Pleurx catheter tomorrow. Eliquis on hold. Patient started on colchicine for pericardial effusion. She remains on cefepime and bronchodilators. CODE STATUS was discussed by patient who wishes to be no code. Labs WBC 7.3, hemoglobin 11.2, platelets 339, sodium 140, potassium 5.4, bicarb 29, BUN 10.2, creatinine 0.8. CT surgery, pulmonary, cardiology notes reviewed. 10-05-24 Patient seen and examined at bedside. Patient sitting up in bed on BiPAP 10/5 and 70% FiO2. Work of breathing improved since yesterday. She is unable to tolerating oral medications at this time as she states it gives he throat pain. She is being followed by CT surgery who will plan for Pleurx catheter today. Eliquis on hold. Colchicine ordered for pericardial effusion. She remains on cefepime and bronchodilators. Labs WBC 5.8, hemoglobin 11.0, platelets 313, sodium 133, potassium 5.4, bicarb 34, BUN 17, creatinine 0.7. 10-06-24 Patient seen and examined at bedside. Pleurx catheter placed yesterday by CT surgery with drainage of 750 cc. This morning drainage of 150 cc. Operative note reviewed. Patient sitting up in bed on BiPAP 10/5 and 50% FiO2 will attempt to transition to O2 high flow nasal cannula. Breathing overall improved patient states she is more comfortable today. She remains on cefepime and bronchodilators. Labs labs WBC 6.8, hemoglobin 10.7, platelets 302, sodium 134, potassium 5.3, bicarb 31, gap 4, BUN 25, creatinine 0.74, glucose 80. Repeat chest x-ray with persistent completely opacified right hemithorax, improved left lower lung opacity. 10-07-24 Patient seen and examined at bedside. She was on BiPAP overnight and transition to nasal cannula 5 L this morning, satting at 93%. States her breathing is somewhat improved from yesterday. She continues to have significant sputum production and cough. Given scopolamine patch. Continue holding Eliquis. She remains on cefepime and bronchodilators. Today's chest x-ray is relatively unchanged with stable left lower opacity. Labs labs WBC 8.8, hemoglobin 10.4, sodium 133, potassium 4.0, bicarb 33, BUN 25, glucose 124. Review of Systems: Reviewed, pertinent positives and negatives as per HPI PHYSICAL EXAMINATION: GENERAL: The patient is alert and oriented x3. No acute distress, well developed, well nourished. HEENT: Pupils are round and equally reacting to light. EOMI. No scleral icterus. No conjunctival pallor. Normocephalic, atraumatic. CARDIOVASCULAR: S1 and S2 present. No murmurs, rubs, or gallops. PULMONARY: Absent right-sided breath sounds, left-sided upper rhonchi, improvement base ABDOMEN: Soft, nontender, nondistended, normoactive bowel sounds. No palpable organomegaly. MUSCULOSKELETAL: No joint swelling or deformity. EXTREMITIES: No cyanosis, clubbing, or pedal edema. NEUROLOGICAL: Gross neurological examination did not reveal any focal deficits. SKIN: No rashes. Assessment and Plan Right hemithorax with chronic loculated effusion. Status post Pleurx catheter placement Small to moderate left pleural effusion Moderate pericardial effusion Acute on chronic hypoxemic respiratory failure secondary to above Acute exacerbation of COPD Hyperkalemia, given Lokelma History of nonsmall cell lung cancer with prior chemoradiation and right pneumonectomy in 2019; this is stage IV with brain metastasis Paroxysmal Atrial fibrillation, rate controlled on eliquis for anticoagulation Anxiety/depression History of seizure disorder maintained on keppra Hyperlipidemia Hypertension GI prophylaxis DVT prophylaxis No Code Plan Continue IV cefepime Continue bronchodilators Continue holding valsartan, given Lokelma Status post Pleurx catheter placement, continue colchicine, resume Eliquis Echocardiogram with pericardial effusion measuring 1.4 cm, right atrial and right ventricular diastolic collapse consistent with tamponade physiology Cardiology following CT surgery following Pulmonary following Dr. Keaton MD I have performed a history and physical examination and medical decision making of this patient, discussed the same with the dictator, and agree with the dic tators assessment and plan as written, documented as a scribe. Based on total visit time, I have performed more than 50% of this visit. Objective - Vital Signs Vital signs: Vital Signs Temp 99.2 F 10/07/24 08:00 Pulse 126 H 10/07/24 08:38 Resp 18 10/07/24 08:00 BP 113/79 10/07/24 08:00 Pulse Ox 93 L 10/07/24 11:19 FiO2 50 10/07/24 08:22 Intake & Output 10/06/24 10/07/24 10/07/24 18:59 06:59 18:59 Intake Total 540 118 Output Total 525 200 Balance 15 -200 118 Weight 54.5 kg 52.5 kg Intake: Oral 540 118 Output: Chest Tube Drainage 0 Pleural Catheter Left 0 Lower Anterior Chest Drainage 0 Left Chest 0 Urine 525 200 Other: Voiding Method Bedside Commode Bedside Commode Bedside Commode # Voids 2 - Labs CBC & Chem 7: 10/07/24 08:52 10/07/24 08:52 Labs: Abnormal Lab Results - Last 24 Hours (Table) 10/07/24 10/07/24 Range/Units 08:52 08:52 Hgb 10.4 L (11.4-16.0) gm/dL Hct 33.7 L (34.0-46.0) % MCHC 30.9 L (31.0-37.0) g/dL Sodium 133 L (137-145) mmol/L Chloride 97 L (98-107) mmol/L Carbon Dioxide 33 H (22-30) mmol/L BUN 25 H (7-17) mg/dL Glucose 124 H (74-99) mg/dL Magnesium 1.5 L (1.6-2.3) mg/dL
--- NOTE | 2024-10-07 17:14 | P.PN ---
Subjective Progress Note Date: 10/07/24 Principal diagnosis: Acute exacerbation of COPD with acute hypoxic respiratory failure This is a 69-year-old female patient was being admitted for worsening shortness of breath. The patient is known to have non-small cell lung cancer the patient has undergone a previous pneumonectomy on the right back in 2018 and the patient remains on Tagrisso on outpatient basis. She was hospitalized back in July 2024 for a COPD exacerbation and left lung pneumonia with area of consolidation in the left lower lobe. She was treated accordingly. Her condition was stabilized and she was discharged home. She had another hospitalization on 09/01/2024 for worsening shortness of breath and COPD exacerbation. The patient was treated in discharged home on 09/02/2024. The patient is coming in for increased dyspnea, limited cough. No significant sputum production. No hemoptysis or pleurisy. She is afebrile. Hemodynamically stable encouraged and 40 Suboxone by nasal cannula. Chest x-ray shows pneumonectomy on the right, some atelectatic changes and small effusion on the left. The white cell count is 5.7 hemoglobin 11.4 and platelet count is at 323. Sodium is at 136, bicarb is at 24, BUN is 12 with a creatinine of 0.7. Troponins are negative. The viral screen has been negative. No altered mentation. No seizure activity has been reported. On 10/02/24, the patient is being seen for a FU. The patient is stable and she is still on 02 at 4 L /min nasal canula and she is still having dyspnea with limited cough and sputum and she is has some minimal wheezing. The CT of the chest was completed and the patient has right pneumonectomy and she has airspace disease in the left lung base and she has also developed a left sided pleural effusion and there is a concern for a LLL pneumonia and based on that the patient was started on IV cefepime. Labs from today were noted the white cell count is at 4.06 and a platelet count of 317. The potassium level is at one 5.1, BUN is 12 with a creatinine of 0.8. proBNP level is less than 20. Meanwhile, the patient remains on Tagrisso. The patient remains on anticoagulation with Eliquis. The patient remains on DuoNeb updrafts and antibiotic coverage with IV cefepime. CAT scan of the chest also showed a small to moderate-sized pericardial effusion along with background COPD and some mild rectal edematous changes. Another 2 cm focus of groundglass opacity was seen in the left upper lobe The patient is seen today October 03, 2024 in follow-up on the regular medical floor. She is currently sitting up in bed. Awake and alert in no acute distress. Maintaining O2 saturations in the 90s on 3 L/min per nasal cannula. She has been afebrile. Hemodynamically stable. Echocardiogram reveals preserved left ventricular systolic function with ejection fraction 55 to 60%. White count 5.0. Hemoglobin 9.6. Platelets 304. Sodium 137. Potassium 5.9. Bicarb 30. BUN 11. Creatinine 0.9. Glucose 113. Procalcitonin was negative at 0.03. Is currently on cefepime. Continued on DuoNeb and elations. Anticoagulated with Eliquis. Continued on her Tagrisso. The patient is seen today October 04, 2024 in follow-up on the regular medical floor. She was having increasing complaints of shortness of breath today. She was placed on BiPAP 10/5 and 100% FiO2. She is continued on DuoNeb inhalations. Ultrasound of the left chest did not reveal any significant pleural effusion. Pocket measured 5.0 cm. Chest x-ray revealed redemonstrated complete whiteout of the right hemithorax. Small to moderate left pleural effusion with adjacent atelectasis and/or consolidation. White count 7.3. Hemoglobin 11.2. Platelets 339. Sodium 140. Potassium 5.4. Bicarb 29. BUN 10. Creatinine 0.8. Procalcitonin was negative at 0.03. She is currently on cefepime. Echocardiogram revealed preserved left ventricular systolic function with ejection fraction 55 to 60%. There is a moderate pericardial effusion measuring 1.4 cm with significant tricuspid valve respiratory variation greater than 50%, right atrial and right ventricular diastolic collapse consistent with tamponade physiology. Patient was evaluated today on 10/05/2024, continues to have shortness of breath continues to have intermittent cough and wheezing chest x-ray has left-sided pleural effusion and left lower lobe atelectasis. Patient does not feel any better today compared to her baseline. She feels actually that she may even be worse. WBC count is 5.8 hemoglobin is 11 electrolytes are normal renal profile is normal procalcitonin level is 0.03 Seen today on 10/06/2024, patient is now postoperative day #1 status post left Pleurx catheter placement and she had 750 mL of fluid removed from the left pleural space. Patient continues to have the Pleurx catheter contacted to Pleur-evac, no air leak noted, continues to have some serosanguineous drainage noted. Patient is feeling better however she remains on Airvo at 50% FiO2 and 50 L flow. Patient has been on BiPAP 08/06/50% chest x-ray showed significant improvement in left pleural effusion continues to have left lower lobe atelectasis/retrocardiac opacity. Cytology on the fluid is pending and chemical profile on the pleural effusion fluid is also pending there is a concern of possible malignancy/malignant pleural effusion needs to be ruled out Patient was seen today on 10/07/2024, patient remains on the medical floor she is now postoperative day #2 status post left Pleurx catheter placement. Doing better she is now on nasal cannula, does not seem to be in distress. On 5 L nasal cannula, O2 saturation 97%. She does have cough which is productive she has some difficulty clearing her secretions but able to do this with effort. Chest x-ray was reviewed continues to have left basilar atelectasis and improvement in her left pleural effusion her WBC count is 8.8 hemoglobin 10.4 basic metabolic profile is normal renal profile is normal Objective - Vital Signs Vital signs: Vital Signs Temp 97.4 F L 10/07/24 12:00 Pulse 100 10/07/24 12:00 Resp 20 10/07/24 12:00 BP 128/80 10/07/24 12:00 Pulse Ox 97 10/07/24 16:51 FiO2 50 10/07/24 08:22 Intake & Output 10/06/24 10/07/24 10/07/24 18:59 06:59 18:59 Intake Total 540 118 Output Total 525 200 400 Balance 15 -200 -282 Weight 54.5 kg 52.5 kg Intake: Oral 540 118 Output: Chest Tube Drainage 0 Pleural Catheter Left 0 Lower Anterior Chest Drainage 0 Left Chest 0 Urine 525 200 400 Other: Voiding Method Bedside Commode Bedside Commode Bedside Commode # Voids 2 - Exam GENERAL EXAM: 69-year-old female 5 L nasal cannula HEAD: Normocephalic. EYES: Normal reaction of pupils, equal size. NOSE: Clear with pink turbinates. THROAT: No erythema or exudates. NECK: No masses, no JVD. CHEST: No chest wall deformity. LUNGS: Scattered rhonchi noted on the left side CVS: S1 and S2 normal with no audible murmur, regular rhythm. ABDOMEN: No hepatosplenomegaly, normal bowel sounds, no guarding or rigidity. SKIN: No rashes CENTRAL NERVOUS SYSTEM: No focal deficits, tone is normal in all 4 extremities. EXTREMITIES: There is no peripheral edema. No clubbing, no cyanosis. Peripheral pulses are intact. - Labs CBC & Chem 7: 10/07/24 08:52 12 08:52 Labs: Abnormal Lab Results - Last 24 Hours (Table) 10/07/24 10/07/24 Range/Units 08:52 08:52 Hgb 10.4 L (11.4-16.0) gm/dL Hct 33.7 L (34.0-46.0) % MCHC 30.9 L (31.0-37.0) g/dL Sodium 133 L (137-145) mmol/L Chloride 97 L (98-107) mmol/L Carbon Dioxide 33 H (22-30) mmol/L BUN 25 H (7-17) mg/dL Glucose 124 H (74-99) mg/dL Magnesium 1.5 L (1.6-2.3) mg/dL Assessment and Plan Assessment: Impression:POD #2 left Pleurx catheter placement under fluoroscopy with removal of 750 mL serous fluid Acute exacerbation of COPD Left lower lobe pneumonia and a small left sided pleural effusion. Ultrasound of the chest reveals a 5.0 cm pocket. Acute hypoxic respiratory failure, multifactorial Moderate pericardial effusion measuring 1.4 cm with significant tricuspid valve respiratory variation greater than 50%, right atrial and right ventricular diastolic collapse consistent with tamponade physiology. Cardiology and cardiothoracic surgery on the case. This may be chronic in nature and no plans for emergent procedure Previous history of non-small cell lung cancer with previous right pneumonectomy 2018 and the patient has been maintained on Tagrisso on outpatient basis. The anthony painting had metastatic disease to the brain at time of admission the patient has received radiation therapy to her brain Seizure disorder maintained on Keppra Paroxysmal atrial fibrillation/flutter, maintained on long-term anticoagulation with Eliquis and the patient is currently in normal sinus rhythm Moderate mitral regurgitation/valvular heart disease Hypertension Hyperlipidemia Recommendation: Continue oxygen and titrate accordingly now she is off Airvo and on nasal cannula Continue present supportive care measures Evacuation of Pleurx catheter every other day Consider resuming Eliquis Continue bronchodilators and antibiotics Continue to titrate FiO2 accordingly incentive spirometry Encourage deep coughing deep breathing Long-term prognosis is extremely poor and guarded We will continue to follow Time with Patient: Less than 30
[2024-10-07] MEDS: MAGNESIUM SULFATE-D5W PMX 1 GM in DEXTROSE/WATER 1 100ML.BAG IVPB SCH (20:16)
[2024-10-08 05:51] LABS: Appearance,BF Slightly Hazy (Clear)
[2024-10-08 07:03] LABS: HCT 33.3 % (34.0-46.0); HGB 10.5 gm/dL (11.4-16.0); Hypochromasia Moderate; MCHC 31.4 g/dL (31.0-37.0); Platelet Count 299 k/uL (150-450); RBC 3.87 m/uL (3.80-5.40); RDW 14.8 % (11.5-15.5); WBC 6.3 k/uL (3.8-10.6)
[2024-10-08 07:31] LABS: African American GFR (CKD) >90 (>60 ml/min/1.73 sqM); Anion Gap 2 mmol/L; Blood Urea Nitrogen 21 mg/dL (7-17); Carbon Dioxide 36 mmol/L (22-30); Chloride 94 mmol/L (98-107); Glucose 94 mg/dL (74-99); Non-African American GFR(CKD) >90 (>60 ml/min/1.73 sqM); Potassium 4.2 mmol/L (3.5-5.1); Sodium 132 mmol/L (137-145)
--- NOTE | 2024-10-08 11:20 | P.PN ---
Subjective Progress Note Date: 10/08/24 HISTORY OF PRESENTING ILLNESS This is a pleasant 69-year-old with past medical history significant for hyp ertension, hyperlipidemia, family history of CAD, seizures, questionable previous stroke on Plavix, lung cancer stage IV in remission per patient and atrial fibrillation. She has never seen a cord maker however was seen by myself 2 months ago. Patient has a history of non-small cell lung cancer in 2019, had undergone pneumonectomy and remains onTagrisso on an outpatient basis. She has had a number of hospitalizations over the last 6 months. She states in general she had felt somewhat better however over the last 3 months especially she has noticed significant shortness breath with any sort of activity. Denies any fevers or chills. She was initially seen on 10/01 by pulmonology and tr eated for COPD exacerbation and a CT chest was obtained. CT chest showed complete right hemithorax white out and loculated pleural effusion measuring up to 14 cm. This is similar to prior from July 2024. There additionally was new small to moderate left pleural effusion as well as moderate pericardial effusion measuring 2.1 cm versus previous measurement of 1.3 cm and 2 cm groundglass opacity in the left upper lobe. Echocardiogram was performed which showed ejection fraction 55% with moderate pericardial effusion and tamponade physiology. 10/04 Patient requiring increasing oxygen demand initially on a Ventimask and now on a nonrebreather. She is sitting up in bed with some mild tachypnea. She is being moved to cardiac floor. She denies any chest pain or pressure. She states she is feeling worse than yesterday. 10/05 Patient seen and examined on the cardiac stepdown unit. Patient has been transferred from the [facility] floor. She is currently on BiPAP unable to have this removed. She is scheduled for Pleurx catheter insertion today. Patient has not been taking her oral medications as she is complaining of difficulties with some swallowing. Heart rate is 10 9-1 23, respiratory rate 29, pulse ox 95% on 70% BiPAP, blood pressure 142/76. Repeat blood work reveals hemoglobin 11, sodium 133, potassium 5.4, creatinine 0.7. Chest x-ray: On going complete whiteout of the right hemithorax. Ongoing [id number] left pleural effusion with prominent adjacent atelectasis and/or consolidation extending up to the mid lung level. 10/06 Yesterday, patient underwent Pleurx catheter placement by CTS. Patient continues to have bilateral wheezing. Heart rate and respiratory rate are improved. Patient is currently hemodynamically stable. Blood pressure 113/74, heart rate 106, pulse ox 96% on high flow nasal cannula. Repeat blood work reveals hemoglobin 10.7, sodium 135, potassium 5.3, BUN 25 and creatinine 0.74. 10/07/24 Patient is seen and examined. She complains of difficulty in breathing and is trying to remove her mask. Her heart rate is sinus rhythm in the 120s. Blood pressure 113/79, pulse ox 6% on 50% FiO2 BiPAP. Repeat blood work reveals WBC 8.8, hemoglobin 10.4. Sodium 133, potassium 4, BUN 25 creatinine 0.66. Chest x-ray reveals complete whiteout right hemithorax, ongoing interstitial opacities left lung, slight worsening retrocardiac and left basilar opacity, left basilar pleural catheter. Pulmonary medicine recommend continuing to hold Eliquis 10/08/24 Patient seen and examined. Respiratory status is much improved and now she is on nasal cannula at 6 L with pulse ox of 95%, heart rate is in the 80s and 90s, blood pressure 133/75. Yesterday we added metoprolol succinate for heart rate control. Remains with Pleurx catheter in place with drainage. PHYSICAL EXAMINATION Vital signs reviewed. CONSTITUTIONAL: No apparent distress. HEENT: Head is normocephalic. Pupils are equal, round. Sclerae anicteric.No JVD. No carotid bruit. CHEST EXAMINATION: Lungs are clear to auscultation. Decreased breath sounds on the right HEART EXAMINATION: Regular rate and rhythm. S1, S2 heard. No murmurs, gallops or rub. ABDOMEN: Soft, nontender. Positive bowel sounds. EXTREMITIES: 2+ peripheral pulses, no lower extremity edema and no calf tenderness. NEUROLOGIC EXAMINATION: Patient is awake, alert and oriented x3. ASSESSMENT Pericardial effusion with tamponade physiology, chronic Paroxysmal atrial fibrillation on Eliquis--on hold per pulmonary medicine Sinus tachycardia Acute on chronic hypoxic respiratory failure Acute exacerbation of COPD Left lower lobe pneumonia Non-small cell lung cancer with previous right pneumonectomy 2019 with metastatic disease to the brain s/p radiation therapy to the brain Seizure disorder History of stroke previously on Plavix Family history of CAD PLAN Status post Pleurx catheter placement by CTS Add metoprolol succinate 25 mg daily. Monitor patient closely Nurse practitioner note has been reviewed, I agree with documented findings and plan of care. Patient was seen and examined. Objective - Vital Signs Vital signs: Vital Signs Temp 97.5 F L 10/07/24 20:15 Pulse 97 10/08/24 03:33 Resp 20 10/08/24 03:33 BP 126/82 10/08/24 03:33 Pulse Ox 95 10/08/24 03:33 FiO2 50 10/07/24 08:22 Intake & Output 10/07/24 10/08/24 10/08/24 18:59 06:59 18:59 Intake Total 236 Output Total 1000 250 Balance -764 -250 Weight 60.9 kg Intake: Oral 236 Output: Urine 1000 250 Other: Voiding Method Bedside Commode Bedside Commode # Voids 2 - Labs CBC & Chem 7: 10/08/24 06:17 10/08/24 06:17 Labs: Abnormal Lab Results - Last 24 Hours (Table) 10/07/24 10/07/24 10/08/24 Range/Units 08:52 12:00 06:17 Hgb 10.5 L (11.4-16.0) gm/dL Hct 33.3 L (34.0-46.0) % Sodium 133 L (137-145) mmol/L Chloride 97 L (98-107) mmol/L Carbon Dioxide 33 H (22-30) mmol/L BUN 25 H (7-17) mg/dL Glucose 124 H (74-99) mg/dL Magnesium 1.5 L (1.6-2.3) mg/dL Fluid Appearance Slightly Hazy A (Clear) 10/08/24 Range/Units 06:17 Hgb (11.4-16.0) gm/dL Hct (34.0-46.0) % Sodium 132 L (137-145) mmol/L Chloride 94 L (98-107) mmol/L Carbon Dioxide 36 H (22-30) mmol/L BUN 21 H (7-17) mg/dL Glucose (74-99) mg/dL Magnesium (1.6-2.3) mg/dL Fluid Appearance (Clear)
--- NOTE | 2024-10-08 12:27 | P.PN ---
Subjective Progress Note Date: 10/08/24 Patient is a 69 year old female with past medical history of atrial flutter, hypertension, seizure disorder, COPD with 4L home oxygen, lung cancer with metastasis to the brain with previous radiation therapy and right lower lobectomy presented to the ED with worsening shortness of breath. She mentions her symptoms started a couple months ago. She has experienced progressive shortness of breath. She has been admitted twice in the past month for similar symptoms. Everytime she would get discharged she will feel good at first but then her symptoms would recur within 2 weeks prompting another visit to the hospital. She also mentions having lung cancer. She was diagnosed in 2014, at that time she got a right lower lobectomy. There was recurrence of the cancer in 2019 at which point a drain was placed. It was found the cancer has metastasized to her brain for which she underwent radiation therapy. Subsequently she had chemotherapy and is now on chemotherapy pills(Tagrisso). Associated with that she also complains of dysphagia since 3 days and due to which her oral intake has been very poor. Also reports having runny nose and sometime blocked nose. Denies any reflux or regurgitation or past medical history of GERD, fever, chills, sore throat. Additionally she mentions having in her lower abdomen while having bowel movement. Denies constipation or diarrhea. Denies palpitations, nausea, vomiting, dysuria, hematuria, hematochezia, melena, numbness, tingling, joint pain, muscle aches. ED documentation reviewed. In the ED patient was treated with Percocet, Nebulised albuterol, Morphine, Levetiracetam. Vitals on admission T 99 F, KS 121, RR 18, BP 127/87, O2 sat 95% on 4 L nasal cannula EKG independently interpreted as sinus tachycardia, rate 116 bpm, QTc 495 ms Chest x-ray shows ongoing complete whiteout of the right hemithorax, slight increasing no [id number] left pleural effusion with adjacent atelectasis/consolidation Labs on admission show WBC 5.7, hemoglobin 11.4, sodium 136, magnesium 1.5, troponin I <0.012 Respiratory panel is negative 10/02/2024 Patient is eval today in follow-up in the medical floor. She is reporting significant shortness of breath. She continues on oxygen via nasal cannula at 4 L. Patient had a repeat chest CT which shows a complete whiteout of the right hemithorax with a chronic loculated effusion. There is a new small to moderate left pleural effusion with moderate pericardial effusion. Patient does have known small cell lung cancer and also has a right pnuemonectomy. She also has a noted left upper lobe nodule. She continues on IV cefepime with concern for postobstructive pneumonia. Pulmonary is following this patient closely. Work today reveals a white blood cell count of 4.31, hemoglobin 10.6, sodium of 136, potassium of 5.1. BUN of 12.3 creatinine 0.8. Her proBNP is less than 20. Her viral panel is negative. 10-03-24 Patient seen and examined at bedside. No events overnight. Patient continues to have shortness of breath and cough that she states has not improved. WBC 5.08, sodium 137, potassium 5.9, BUN 11.0, creatinine 0.9, glucose 113. Hyperkalemia noted, discontinued valsartan. Echocardiogram finding significant for pericardial effusion and right atrial and right ventricular diastolic collapse consistent with tamponade. Cardiology consulted. Pulmonology continues to follow. 10-04-24 Patient seen and examined at bedside. Patient sitting up in bed and found with worsening respiratory distress. On BiPAP 10/5 and 100% FiO2. Ultrasound chest performed with large left pleural effusion. Chest x-ray also completed with left-sided pleural effusion noted in right hemithorax whiteout. No plans for thoracentesis by pulmonology. She is being followed by CT surgery who will plan for Pleurx catheter tomorrow. Eliquis on hold. Patient started on colchicine for pericardial effusion. She remains on cefepime and bronchodilators. CODE STATUS was discussed by patient who wishes to be no code. Labs WBC 7.3, hemoglobin 11.2, platelets 339, sodium 140, potassium 5.4, bicarb 29, BUN 10.2, creatinine 0.8. CT surgery, pulmonary, cardiology notes reviewed. 10-05-24 Patient seen and examined at bedside. Patient sitting up in bed on BiPAP 10/5 and 70% FiO2. Work of breathing improved since yesterday. She is unable to tolerating oral medications at this time as she states it gives he throat pain. She is being followed by CT surgery who will plan for Pleurx catheter today. Eliquis on hold. Colchicine ordered for pericardial effusion. She remains on cefepime and bronchodilators. Labs WBC 5.8, hemoglobin 11.0, platelets 313, sodium 133, potassium 5.4, bicarb 34, BUN 17, creatinine 0.7. 10-06-24 Patient seen and examined at bedside. Pleurx catheter placed yesterday by CT surgery with drainage of 750 cc. This morning drainage of 150 cc. Operative note reviewed. Patient sitting up in bed on BiPAP 10/5 and 50% FiO2 will attempt to transition to O2 high flow nasal cannula. Breathing overall improved patient states she is more comfortable today. She remains on cefepime and bronchodilators. Labs labs WBC 6.8, hemoglobin 10.7, platelets 302, sodium 134, potassium 5.3, bicarb 31, gap 4, BUN 25, creatinine 0.74, glucose 80. Repeat chest x-ray with persistent completely opacified right hemithorax, improved left lower lung opacity. 10-07-24 Patient seen and examined at bedside. She was on BiPAP overnight and transition to nasal cannula 5 L this morning, satting at 93%. States her breathing is somewhat improved from yesterday. She continues to have significant sputum production and cough. Given scopolamine patch. Continue holding Eliquis. She remains on cefepime and bronchodilators. Today's chest x-ray is relatively unchanged with stable left lower opacity. Labs labs WBC 8.8, hemoglobin 10.4, sodium 133, potassium 4.0, bicarb 33, BUN 25, glucose 124. 10-08-24 Patient seen and examined at bedside. She is postop day #3 status post left Pleurx catheter placement. She is on 5 L nasal cannula O2 saturation 97%. States her breathing continues to improve, no apparent cough. Continue scopolamine patch. She states she has not had regular bowel movements. She remains on cefepime and bronchodilators. Begin metoprolol 25 mg p.o. daily. Labs today WBC 6.3, hemoglobin 10.5, sodium 132, potassium 4.2, chloride 94, bic arb 36, gap 2, BUN 21, creatinine 0.60. Pleural fluid slightly hazy WBC 1897, RBC 9000. Review of Systems: Reviewed, pertinent positives and negatives as per HPI PHYSICAL EXAMINATION: GENERAL: The patient is alert and oriented x3. No acute distress, well developed, well nourished. HEENT: Pupils are round and equally reacting to light. EOMI. No scleral icterus. No conjunctival pallor. Normocephalic, atraumatic. CARDIOVASCULAR: S1 and S2 present. No murmurs, rubs, or gallops. PULMONARY: Absent right-sided breath sounds, left-sided upper rhonchi, improvement base ABDOMEN: Soft, nontender, nondistended, normoactive bowel sounds. No palpable organomegaly. MUSCULOSKELETAL: No joint swelling or deformity. EXTREMITIES: No cyanosis, clubbing, or pedal edema. NEUROLOGICAL: Gross neurological examination did not reveal any focal deficits. SKIN: No rashes. Assessment and Plan Right hemithorax with chronic loculated effusion. Status post Pleurx catheter placement Small to moderate left pleural effusion Moderate pericardial effusion Acute on chronic hypoxemic respiratory failure secondary to above Acute exacerbation of COPD Hyperkalemia, given Lokelma Hyponatremia Constipation History of nonsmall cell lung cancer with prior chemoradiation and right pneumonectomy in 2019; this is stage IV with brain metastasis Paroxysmal Atrial fibrillation, rate controlled on eliquis for anticoagulation Anxiety/depression History of seizure disorder maintained on keppra Hyperlipidemia Hypertension GI prophylaxis DVT prophylaxis No Code Plan Continue IV cefepime Continue bronchodilators Continue holding valsartan, given Lokelma Begin metoprolol Increase IV NS to 75cc/hr Status post Pleurx catheter placement, continue colchicine, resume Eliquis Echocardiogram with pericardial effusion measuring 1.4 cm, right atrial and right ventricular diastolic collapse consistent with tamponade physiology Cardiology following CT surgery following Pulmonary following Dr. Keaton MD I have performed a history and physical examination and medical decision making of this patient, discussed the same with the dictator, and agree with the dictators assessment and plan as written, documented as a scribe. Based on total visit time, I have performed more than 50% of this visit. Objective - Vital Signs Vital signs: Vital Signs Temp 97.5 F L 10/07/24 20:15 Pulse 88 10/08/24 09:37 Resp 16 10/08/24 08:00 BP 133/75 10/08/24 08:00 Pulse Ox 95 10/08/24 08:00 FiO2 50 10/07/24 08:22 Intake & Output 10/07/24 10/08/24 10/08/24 18:59 06:59 18:59 Intake Total 236 240 Output Total 1000 250 200 Balance -764 -250 40 Weight 60.9 kg Intake: Oral 236 240 Output: Urine 1000 250 200 Other: Voiding Method Bedside Commode Bedside Commode Bedside Commode # Voids 2 - Labs CBC & Chem 7: 10/08/24 06:17 12 06:17 Labs: Abnormal Lab Results - Last 24 Hours (Table) 10/07/24 10/08/24 10/08/24 Range/Units 12:00 06:17 06:17 Hgb 10.5 L (11.4-16.0) gm/dL Hct 33.3 L (34.0-46.0) % Sodium 132 L (137-145) mmol/L Chloride 94 L (98-107) mmol/L Carbon Dioxide 36 H (22-30) mmol/L BUN 21 H (7-17) mg/dL Fluid Appearance Slightly Hazy A (Clear)
[2024-10-08] MEDS: PANTOPRAZOLE 40 MG/10 ML VIAL IVP SCH (12:57)
[2024-10-08] MEDS: SENNOSIDES 8.6 MG TAB PO SCH (12:57)
--- NOTE | 2024-10-08 15:37 | P.PN ---
Subjective Progress Note Date: 10/08/24 Principal diagnosis: Acute exacerbation of COPD with acute hypoxic respiratory failure This is a 69-year-old female patient was being admitted for worsening shortness of breath. The patient is known to have non-small cell lung cancer the patient has undergone a previous pneumonectomy on the right back in 2018 and the patient remains on Tagrisso on outpatient basis. She was hospitalized back in July 2024 for a COPD exacerbation and left lung pneumonia with area of consolidation in the left lower lobe. She was treated accordingly. Her condition was stabilized and she was discharged home. She had another hospitalization on 09/01/2024 for worsening shortness of breath and COPD exacerbation. The patient was treated in discharged home on 09/02/2024. The patient is coming in for increased dyspnea, limited cough. No significant sputum production. No hemoptysis or pleurisy. She is afebrile. Hemodynamically stable encouraged and 40 Suboxone by nasal cannula. Chest x-ray shows pneumonectomy on the right, some atelectatic changes and small effusion on the left. The white cell count is 5.7 hemoglobin 11.4 and platelet count is at 323. Sodium is at 136, bicarb is at 24, BUN is 12 with a creatinine of 0.7. Troponins are negative. The viral screen has been negative. No altered mentation. No seizure activity has been reported. On 10/02/24, the patient is being seen for a FU. The patient is stable and she is still on 02 at 4 L /min nasal canula and she is still having dyspnea with limited cough and sputum and she is has some minimal wheezing. The CT of the chest was completed and the patient has right pneumonectomy and she has airspace disease in the left lung base and she has also developed a left sided pleural effusion and there is a concern for a LLL pneumonia and based on that the patient was started on IV cefepime. Labs from today were noted the white cell count is at 4.06 and a platelet count of 317. The potassium level is at one 5.1, BUN is 12 with a creatinine of 0.8. proBNP level is less than 20. Meanwhile, the patient remains on Tagrisso. The patient remains on anticoagulation with Eliquis. The patient remains on DuoNeb updrafts and antibiotic coverage with IV cefepime. CAT scan of the chest also showed a small to moderate-sized pericardial effusion along with background COPD and some mild rectal edematous changes. Another 2 cm focus of groundglass opacity was seen in the left upper lobe The patient is seen today October 03, 2024 in follow-up on the regular medical floor. She is currently sitting up in bed. Awake and alert in no acute distress. Maintaining O2 saturations in the 90s on 3 L/min per nasal cannula. She has been afebrile. Hemodynamically stable. Echocardiogram reveals preserved left ventricular systolic function with ejection fraction 55 to 60%. White count 5.0. Hemoglobin 9.6. Platelets 304. Sodium 137. Potassium 5.9. Bicarb 30. BUN 11. Creatinine 0.9. Glucose 113. Procalcitonin was negative at 0.03. Is currently on cefepime. Continued on DuoNeb and elations. Anticoagulated with Eliquis. Continued on her Tagrisso. The patient is seen today October 04, 2024 in follow-up on the regular medical floor. She was having increasing complaints of shortness of breath today. She was placed on BiPAP 10/5 and 100% FiO2. She is continued on DuoNeb inhalations. Ultrasound of the left chest did not reveal any significant pleural effusion. Pocket measured 5.0 cm. Chest x-ray revealed redemonstrated complete whiteout of the right hemithorax. Small to moderate left pleural effusion with adjacent atelectasis and/or consolidation. White count 7.3. Hemoglobin 11.2. Platelets 339. Sodium 140. Potassium 5.4. Bicarb 29. BUN 10. Creatinine 0.8. Procalcitonin was negative at 0.03. She is currently on cefepime. Echocardiogram revealed preserved left ventricular systolic function with ejection fraction 55 to 60%. There is a moderate pericardial effusion measuring 1.4 cm with significant tricuspid valve respiratory variation greater than 50%, right atrial and right ventricular diastolic collapse consistent with tamponade physiology. Patient was evaluated today on 10/05/2024, continues to have shortness of breath continues to have intermittent cough and wheezing chest x-ray has left-sided pleural effusion and left lower lobe atelectasis. Patient does not feel any better today compared to her baseline. She feels actually that she may even be worse. WBC count is 5.8 hemoglobin is 11 electrolytes are normal renal profile is normal procalcitonin level is 0.03 Seen today on 10/06/2024, patient is now postoperative day #1 status post left Pleurx catheter placement and she had 750 mL of fluid removed from the left pleural space. Patient continues to have the Pleurx catheter contacted to Pleur-evac, no air leak noted, continues to have some serosanguineous drainage noted. Patient is feeling better however she remains on Airvo at 50% FiO2 and 50 L flow. Patient has been on BiPAP 08/06/50% chest x-ray showed significant improvement in left pleural effusion continues to have left lower lobe atelectasis/retrocardiac opacity. Cytology on the fluid is pending and chemical profile on the pleural effusion fluid is also pending there is a concern of possible malignancy/malignant pleural effusion needs to be ruled out Patient was seen today on 10/07/2024, patient remains on the medical floor she is now postoperative day #2 status post left Pleurx catheter placement. Doing better she is now on nasal cannula, does not seem to be in distress. On 5 L nasal cannula, O2 saturation 97%. She does have cough which is productive she has some difficulty clearing her secretions but able to do this with effort. Chest x-ray was reviewed continues to have left basilar atelectasis and improvement in her left pleural effusion her WBC count is 8.8 hemoglobin 10.4 basic metabolic profile is normal renal profile is normal Seen today on 10/08/2024, patient is now postoperative day #3 status post left Pleurx catheter placement. Doing well, feeling better breathing easier nonetheless continues to have intermittent cough and wheezing, she is trying h patrick to keep her lungs clear with deep coughing and deep breathing. Remains on bronchodilators,No chest x-ray was done today, I did review her chest x-ray from yesterday. WBC count is 6.3 hemoglobin 10.5 basic metabolic profile is normal renal profile is normal Objective - Vital Signs Vital signs: Vital Signs Temp 97.5 F L 10/07/24 20:15 Pulse 76 10/08/24 12:44 Resp 16 10/08/24 12:00 BP 116/67 10/08/24 12:00 Pulse Ox 95 10/08/24 12:00 FiO2 50 10/07/24 08:22 Intake & Output 10/07/24 10/08/24 10/08/24 18:59 06:59 18:59 Intake Total 236 240 Output Total 1000 250 200 Balance -764 -250 40 Weight 60.9 kg Intake: Oral 236 240 Output: Urine 1000 250 200 Other: Voiding Method Bedside Commode Bedside Commode Bedside Commode # Voids 2 - Exam GENERAL EXAM: 69-year-old female 5 L nasal cannula HEAD: Normocephalic. EYES: Normal reaction of pupils, equal size. NOSE: Clear with pink turbinates. THROAT: No erythema or exudates. NECK: No masses, no JVD. CHEST: No chest wall deformity. LUNGS: Scattered rhonchi noted on the left side CVS: S1 and S2 normal with no audible murmur, regular rhythm. ABDOMEN: No hepatosplenomegaly, normal bowel sounds, no guarding or rigidity. SKIN: No rashes CENTRAL NERVOUS SYSTEM: No focal deficits, tone is normal in all 4 extremities. EXTREMITIES: There is no peripheral edema. No clubbing, no cyanosis. Peripheral pulses are intact. - Labs CBC & Chem 7: 10/08/24 06:17 10/08/24 06:17 Labs: Abnormal Lab Results - Last 24 Hours (Table) 12/06/24 12/24 10/08/24 Range/Units 12:00 06:17 06:17 Hgb 10.5 L (11.4-16.0) gm/dL Hct 33.3 L (34.0-46.0) % Sodium 132 L (137-145) mmol/L Chloride 94 L (98-107) mmol/L Carbon Dioxide 36 H (22-30) mmol/L BUN 21 H (7-17) mg/dL Fluid Appearance Slightly Hazy A (Clear) Assessment and Plan Assessment: Impression:POD #3 left Pleurx catheter placement under fluoroscopy with removal of 750 mL serous fluid Acute exacerbation of COPD Left lower lobe pneumonia and a small left sided pleural effusion. Ultrasound of the chest reveals a 5.0 cm pocket. Acute hypoxic respiratory failure, multifactorial Moderate pericardial effusion measuring 1.4 cm with significant tricuspid valve respiratory variation greater than 50%, right atrial and right ventricular diastolic collapse consistent with tamponade physiology. Cardiology and cardiothoracic surgery on the case. This may be chronic in nature and no plans for emergent procedure Previous history of non-small cell lung cancer with previous right pneumonectomy 2018 and the patient has been maintained on Tagrisso on outpatient basis. The patient had metastatic disease to the brain at time of admission the patient has received radiation therapy to her brain Seizure disorder maintained on Keppra Paroxysmal atrial fibrillation/flutter, maintained on long-term anticoagulation with Eliquis and the patient is currently in normal sinus rhythm Moderate mitral regurgitation/valvular heart disease Hypertension Hyperlipidemia Recommendation: Continue oxygen and titrate accordingly Continue present supportive care measures Evacuation of Pleurx catheter every other day Consider resuming Eliquis Continue bronchodilators and antibiotics Encourage deep coughing deep breathing awaiting the results of the cytology from the pleural effusion We will continue to follow Time with Patient: Less than 30
[2024-10-09] MEDS: ALBUTEROL HFA INHALER INHALATION PRN (03:06)
[2024-10-09 08:27] LABS: HGB 10.7 gm/dL (11.4-16.0); Hypochromasia Marked; MCH 26.5 pg (25.0-35.0); MCHC 30.7 g/dL (31.0-37.0); MCV 86.3 fL (80.0-100.0); Mean Platelet Volume 8.6; Platelet Count 334 k/uL (150-450); RBC 4.05 m/uL (3.80-5.40); RDW 14.8 % (11.5-15.5); WBC 5.9 k/uL (3.8-10.6)
[2024-10-09 08:37] LABS: African American GFR (CKD) >90 (>60 ml/min/1.73 sqM); Anion Gap 3 mmol/L; Blood Urea Nitrogen 16 mg/dL (7-17); Calcium 9.4 mg/dL (8.4-10.2); Carbon Dioxide 36 mmol/L (22-30); Chloride 95 mmol/L (98-107); Glucose 100 mg/dL (74-99); Non-African American GFR(CKD) >90 (>60 ml/min/1.73 sqM); Potassium 3.9 mmol/L (3.5-5.1); Sodium 134 mmol/L (137-145)
--- NOTE | 2024-10-09 12:32 | P.PN ---
Subjective Progress Note Date: 10/09/24 HISTORY OF PRESENTING ILLNESS This is a pleasant 69-year-old with past medical history significant for hyp ertension, hyperlipidemia, family history of CAD, seizures, questionable previous stroke on Plavix, lung cancer stage IV in remission per patient and atrial fibrillation. She has never seen a dining services director however was seen by myself 2 months ago. Patient has a history of non-small cell lung cancer in 2019, had undergone pneumonectomy and remains onTagrisso on an outpatient basis. She has had a number of hospitalizations over the last 6 months. She states in general she had felt somewhat better however over the last 3 months especially she has noticed significant shortness breath with any sort of activity. Denies any fevers or chills. She was initially seen on 10/01 by pulmonology and tr eated for COPD exacerbation and a CT chest was obtained. CT chest showed complete right hemithorax white out and loculated pleural effusion measuring up to 14 cm. This is similar to prior from July 2024. There additionally was new small to moderate left pleural effusion as well as moderate pericardial effusion measuring 2.1 cm versus previous measurement of 1.3 cm and 2 cm groundglass opacity in the left upper lobe. Echocardiogram was performed which showed ejection fraction 55% with moderate pericardial effusion and tamponade physiology. 10/04 Patient requiring increasing oxygen demand initially on a Ventimask and now on a nonrebreather. She is sitting up in bed with some mild tachypnea. She is being moved to cardiac floor. She denies any chest pain or pressure. She states she is feeling worse than yesterday. 10/05 Patient seen and examined on the cardiac stepdown unit. Patient has been transferred from the [facility] floor. She is currently on BiPAP unable to have this removed. She is scheduled for Pleurx catheter insertion today. Patient has not been taking her oral medications as she is complaining of difficulties with some swallowing. Heart rate is 10 9-1 23, respiratory rate 29, pulse ox 95% on 70% BiPAP, blood pressure 142/76. Repeat blood work reveals hemoglobin 11, sodium 133, potassium 5.4, creatinine 0.7. Chest x-ray: On going complete whiteout of the right hemithorax. Ongoing [id number] left pleural effusion with prominent adjacent atelectasis and/or consolidation extending up to the mid lung level. 10/06 Yesterday, patient underwent Pleurx catheter placement by CTS. Patient continues to have bilateral wheezing. Heart rate and respiratory rate are improved. Patient is currently hemodynamically stable. Blood pressure 113/74, heart rate 106, pulse ox 96% on high flow nasal cannula. Repeat blood work reveals hemoglobin 10.7, sodium 135, potassium 5.3, BUN 25 and creatinine 0.74. 10/07/24 Patient is seen and examined. She complains of difficulty in breathing and is trying to remove her mask. Her heart rate is sinus rhythm in the 120s. Blood pressure 113/79, pulse ox 6% on 50% FiO2 BiPAP. Repeat blood work reveals WBC 8.8, hemoglobin 10.4. Sodium 133, potassium 4, BUN 25 creatinine 0.66. Chest x-ray reveals complete whiteout right hemithorax, ongoing interstitial opacities left lung, slight worsening retrocardiac and left basilar opacity, left basilar pleural catheter. Pulmonary medicine recommend continuing to hold Eliquis 10/08/24 Patient seen and examined. Respiratory status is much improved and now she is on nasal cannula at 6 L with pulse ox of 95%, heart rate is in the 80s and 90s, blood pressure 133/75. Yesterday we added metoprolol succinate for heart rate control. Remains with Pleurx catheter in place with drainage. 09/09/2024 Patient's breathing status is slowly improving. She is now on 5 L nasal cannula with a pulse ox of 97%, heart rate in the 90s, blood pressure 118/71. Patient's Eliquis was on hold for Pleurx catheter and waiting to see if there is any other procedures that patient needed. PHYSICAL EXAMINATION Vital signs reviewed. CONSTITUTIONAL: No apparent distress. HEENT: Head is normocephalic. Pupils are equal, round. Sclerae anicteric.No JVD. No carotid bruit. CHEST EXAMINATION: Lungs are clear to auscultation. Decreased breath sounds on the right HEART EXAMINATION: Regular rate and rhythm. S1, S2 heard. No murmurs, gallops or rub. ABDOMEN: Soft, nontender. Positive bowel sounds. EXTREMITIES: 2+ peripheral pulses, no lower extremity edema and no calf tenderness. NEUROLOGIC EXAMINATION: Patient is awake, alert and oriented x3. ASSESSMENT Pericardial effusion with tamponade physiology, chronic Paroxysmal atrial fibrillation on Eliquis Sinus tachycardia Acute on chronic hypoxic respiratory failure Acute exacerbation of COPD Left lower lobe pneumonia Non-small cell lung cancer with previous right pneumonectomy 2019 with metastatic disease to the brain s/p radiation therapy to the brain Seizure disorder History of stroke previously on Plavix Family history of CAD PLAN Status post Pleurx catheter placement by CTS on 10/05 Continue the addition of metoprolol succinate 25 mg daily. Resume patient on Eliquis 5 mg twice daily Further recommendations as patient progresses. Nurse practitioner note has been reviewed, I agree with documented findings and plan of care. Patient was seen and examined. Objective - Vital Signs Vital signs: Vital Signs Temp 98.2 F 10/08/24 20:25 Pulse 96 10/09/24 08:00 Resp 16 10/09/24 08:00 BP 118/71 10/09/24 08:00 Pulse Ox 97 10/09/24 08:00 FiO2 50 10/07/24 08:22 Intake & Output 10/08/24 10/09/24 10/09/24 18:59 06:59 18:59 Intake Total 720 240 Output Total 200 300 Balance 520 -300 240 Weight 60.9 kg Intake: Oral 720 240 Output: Urine 200 300 Other: Voiding Method Bedside Commode Bedside Commode Bedside Commode - Labs CBC & Chem 7: 10/09/24 08:09 10/09/24 08:09 Labs: Abnormal Lab Results - Last 24 Hours (Table) 10/09/24 10/09/24 Range/Units 08:09 08:09 Hgb 10.7 L (11.4-16.0) gm/dL MCHC 30.7 L (31.0-37.0) g/dL Sodium 134 L (137-145) mmol/L Chloride 95 L (98-107) mmol/L Carbon Dioxide 36 H (22-30) mmol/L Glucose 100 H (74-99) mg/dL Microbiology - Last 24 Hours (Table) 10/07/24 12:00 Gram Stain - Preliminary Pleural Fluid Body Fluid Culture - Preliminary
--- NOTE | 2024-10-09 13:21 | P.PN ---
Subjective Progress Note Date: 10/09/24 Patient is a 69 year old female with past medical history of atrial flutter, hypertension, seizure disorder, COPD with 4L home oxygen, lung cancer with metastasis to the brain with previous radiation therapy and right lower lobectomy presented to the ED with worsening shortness of breath. She mentions her symptoms started a couple months ago. She has experienced progressive shortness of breath. She has been admitted twice in the past month for similar symptoms. Everytime she would get discharged she will feel good at first but then her symptoms would recur within 2 weeks prompting another visit to the hospital. She also mentions having lung cancer. She was diagnosed in 2014, at that time she got a right lower lobectomy. There was recurrence of the cancer in 2019 at which point a drain was placed. It was found the cancer has metastasized to her brain for which she underwent radiation therapy. Subsequently she had chemotherapy and is now on chemotherapy pills(Tagrisso). Associated with that sh e also complains of dysphagia since 3 days and due to which her oral intake has been very poor. Also reports having runny nose and sometime blocked nose. Denies any reflux or regurgitation or past medical history of GERD, fever, chills, sore throat. Additionally she mentions having in her lower abdomen while having bowel movement. Denies constipation or diarrhea. Denies palpitations, nausea, vomit ing, dysuria, hematuria, hematochezia, melena, numbness, tingling, joint pain, muscle aches. ED documentation reviewed. In the ED patient was treated with Percocet, Nebulised albuterol, Morphine, Levetiracetam. Vitals on admission T 99 F, NE 121, RR 18, BP 127/87, O2 sat 95% on 4 L nasal cannula EKG independently interpreted as sinus tachycardia, rate 116 bpm, QTc 495 ms Chest x-ray shows ongoing complete whiteout of the right hemithorax, slight increasing no [id number] left pleural effusion with adjacent atelectasis/consolidation Labs on admission show WBC 5.7, hemoglobin 11.4, sodium 136, magnesium 1.5, troponin I <0.012 Respiratory panel is negative 10/02/2024 Patient is eval today in follow-up in the medical floor. She is reporting significant shortness of breath. She continues on oxygen via nasal cannula at 4 L. Patient had a repeat chest CT which shows a complete whiteout of the right hemithorax with a chronic loculated effusion. There is a new small to moderate left pleural effusion with moderate pericardial effusion. Patient does have known small cell lung cancer and also has a right pnuemonectomy. She also has a noted left upper lobe nodule. She continues on IV cefepime with concern for postobstructive pneumonia. Pulmonary is following this patient closely. Work today reveals a white blood cell count of 4.31, hemoglobin 10.6, sodium of 136, potassium of 5.1. BUN of 12.3 creatinine 0.8. Her proBNP is less than 20. Her viral panel is negative. 10-03-24 Patient seen and examined at bedside. No events overnight. Patient continues to have shortness of breath and cough that she states has not improved. WBC 5.08, sodium 137, potassium 5.9, BUN 11.0, creatinine 0.9, glucose 113. Hyperkalemia noted, discontinued valsartan. Echocardiogram finding significant for pericardial effusion and right atrial and right ventricular diastolic collapse consistent with tamponade. Cardiology consulted. Pulmonology continues to follow. 10-04-24 Patient seen and examined at bedside. Patient sitting up in bed and found with worsening respiratory distress. On BiPAP 10/5 and 100% FiO2. Ultrasound chest performed with large left pleural effusion. Chest x-ray also completed with left-sided pleural effusion noted in right hemithorax whiteout. No plans for thoracentesis by pulmonology. She is being followed by CT surgery who will plan for Pleurx catheter tomorrow. Eliquis on hold. Patient started on colchicine for pericardial effusion. She remains on cefepime and bronchodilators. CODE STATUS was discussed by patient who wishes to be no code. Labs WBC 7.3, hemoglobin 11.2, platelets 339, sodium 140, potassium 5.4, bicarb 29, BUN 10.2, creatinine 0.8. CT surgery, pulmonary, cardiology notes reviewed. 10-05-24 Patient seen and examined at bedside. Patient sitting up in bed on BiPAP 10/5 and 70% FiO2. Work of breathing improved since yesterday. She is unable to tolerating oral medications at this time as she states it gives he throat pain. She is being followed by CT surgery who will plan for Pleurx catheter today. Eliquis on hold. Colchicine ordered for pericardial effusion. She remains on cefepime and bronchodilators. Labs WBC 5.8, hemoglobin 11.0, platelets 313, sodium 133, potassium 5.4, bicarb 34, BUN 17, creatinine 0.7. 10-06-24 Patient seen and examined at bedside. Pleurx catheter placed yesterday by CT surgery with drainage of 750 cc. This morning drainage of 150 cc. Operative note reviewed. Patient sitting up in bed on BiPAP 10/5 and 50% FiO2 will attempt to transition to O2 high flow nasal cannula. Breathing overall improved patient states she is more comfortable today. She remains on cefepime and bronchodilators. Labs labs WBC 6.8, hemoglobin 10.7, platelets 302, sodium 134, potassium 5.3, bicarb 31, gap 4, BUN 25, creatinine 0.74, glucose 80. Repeat chest x-ray with persistent completely opacified right hemithorax, improved left lower lung opacity. 10-07-24 Patient seen and examined at bedside. She was on BiPAP overnight and transition to nasal cannula 5 L this morning, satting at 93%. States her breathing is somewhat improved from yesterday. She continues to have significant sputum production and cough. Given scopolamine patch. Continue holding Eliquis. She remains on cefepime and bronchodilators. Today's chest x-ray is relatively unchanged with stable left lower opacity. Labs labs WBC 8.8, hemoglobin 10.4, sodium 133, potassium 4.0, bicarb 33, BUN 25, glucose 124. 10-08-24 Patient seen and examined at bedside. She is postop day #3 status post left Pleurx catheter placement. She is on 5 L nasal cannula O2 saturation 97%. States her breathing continues to improve, no apparent cough. Continue scopolamine patch. She states she has not had regular bowel movements. She remains on cefepime and bronchodilators. Begin metoprolol 25 mg p.o. daily. Labs today WBC 6.3, hemoglobin 10.5, sodium 132, potassium 4.2, chloride 94, bi carb 36, gap 2, BUN 21, creatinine 0.60. Pleural fluid slightly hazy WBC 1897, RBC 9000. 10/09/2024 Patient evaluated today in follow-up on the cardiac unit. She is postoperative day #4 left Pleurx catheter placement with plans to drain the Pleurx catheter today. She does report improvement in her shortness of breath. Patient continues on bronchodilators. She is not having regular bowel movements although she states that she feels that she may have 1 today she is refusing any other laxatives or stool softeners at this time. Sodium level today is 134, BUN of 3, creatinine of 16. Review of Systems Constitutional: Denied any fatigue denied any fever. Cardio vascular: denied any chest pain, palpitations Gastrointestinal: denied any nausea, vomiting, diarrhea Pulmonary: Reports shortness of breath cough Neurologic denied any new focal deficits All inpatient medications were reviewed and appropriate changes in these medications as dictated in the interval history and assessment and plan. PHYSICAL EXAMINATION: GENERAL: The patient is alert and oriented x3. No acute distress, well developed, well nourished. HEENT: Pupils are round and equally reacting to light. EOMI. No scleral icterus. No conjunctival pallor. Normocephalic, atraumatic. CARDIOVASCULAR: S1 and S2 present. No murmurs, rubs, or gallops. PULMONARY: Absent right-sided breath sounds, left-sided upper rhonchi, improvement base ABDOMEN: Soft, nontender, nondistended, normoactive bowel sounds. No palpable organomegaly. MUSCULOSKELETAL: No joint swelling or deformity. EXTREMITIES: No cyanosis, clubbing, or pedal edema. NEUROLOGICAL: Gross neurological examination did not reveal any focal deficits. SKIN: No rashes. Assessment and Plan Right hemithorax with chronic loculated effusion. Status post Pleurx catheter placement Small to moderate left pleural effusion Moderate pericardial effusion Acute on chronic hypoxemic respiratory failure secondary to above Acute exacerbation of COPD Hyperkalemia, given Lokelma Hyponatremia Constipation History of nonsmall cell lung cancer with prior chemoradiation and right pneumonectomy in 2019; this is stage IV with brain metastasis Paroxysmal Atrial fibrillation, rate controlled on eliquis for anticoagulation Anxiety/depression History of seizure disorder maintained on keppra Hyperlipidemia Hypertension GI prophylaxis DVT prophylaxis No Code Plan Cefepime has been discontinued at this time Continue bronchodilators Continue holding valsartan, given Lokelma potassium is improved at 3.9 Begin metoprolol Increase IV NS to 75cc/hr Status post Pleurx catheter placement, continue colchicine, resume Eliquis Echocardiogram with pericardial effusion measuring 1.4 cm, right atrial and right ventricular diastolic collapse consistent with tamponade physiology Cardiology following CT surgery following Pulmonary following The impression and plan of care has been dictated by Debby Sarkar Nurse Practitioner as directed. Dr. Keaton MD I have performed a history and physical examination and medical decision making of this patient, discussed the same with the dictator, and agree with the dictators assessment and plan as written, documented as a scribe. Based on total visit time, I have performed more than 50% of this visit. Objective - Vital Signs Vital signs: Vital Signs Temp 98.2 F 10/08/24 20:25 Pulse 96 10/09/24 08:00 Resp 16 10/09/24 08:00 BP 118/71 10/09/24 08:00 Pulse Ox 97 10/09/24 08:00 FiO2 50 10/07/24 08:22 Intake & Output 10/08/24 10/09/24 10/09/24 18:59 06:59 18:59 Intake Total 720 240 Output Total 200 300 Balance 520 -300 240 Weight 60.9 kg Intake: Oral 720 240 Output: Urine 200 300 Other: Voiding Method Bedside Commode Bedside Commode - Labs CBC & Chem 7: 10/09/24 08:09 10/09/24 08:09 Labs: Abnormal Lab Results - Last 24 Hours (Table) 10/09/24 10/09/24 Range/Units 08:09 08:09 Hgb 10.7 L (11.4-16.0) gm/dL MCHC 30.7 L (31.0-37.0) g/dL Sodium 134 L (137-145) mmol/L Chloride 95 L (98-107) mmol/L Carbon Dioxide 36 H (22-30) mmol/L Glucose 100 H (74-99) mg/dL Assessment and Plan Time with Patient: Less than 30
[2024-10-09] MEDS: APIXABAN 5 MG TAB PO SCH (14:34)
--- NOTE | 2024-10-09 14:53 | P.PN ---
Subjective Progress Note Date: 10/09/24 Principal diagnosis: Acute exacerbation of COPD with acute hypoxic respiratory failure This is a 69-year-old female patient was being admitted for worsening shortness of breath. The patient is known to have non-small cell lung cancer the patient has undergone a previous pneumonectomy on the right back in 2018 and the patient remains on Tagrisso on outpatient basis. She was hospitalized back in July 2024 for a COPD exacerbation and left lung pneumonia with area of consolidation in the left lower lobe. She was treated accordingly. Her condition was stabilized and she was discharged home. She had another hospitalization on 09/01/2024 for worsening shortness of breath and COPD exacerbation. The patient was treated in discharged home on 09/02/2024. The patient is coming in for increased dyspnea, limited cough. No significant sputum production. No hemoptysis or pleurisy. She is afebrile. Hemodynamically stable encouraged and 40 Suboxone by nasal cannula. Chest x-ray shows pneumonectomy on the right, some atelectatic changes and small effusion on the left. The white cell count is 5.7 hemoglobin 11.4 and platelet count is at 323. Sodium is at 136, bicarb is at 24, BUN is 12 with a creatinine of 0.7. Troponins are negative. The viral screen has been negative. No altered mentation. No seizure activity has been reported. On 10/02/24, the patient is being seen for a FU. The patient is stable and she is still on 02 at 4 L /min nasal canula and she is still having dyspnea with limited cough and sputum and she is has some minimal wheezing. The CT of the chest was completed and the patient has right pneumonectomy and she has airspace disease in the left lung base and she has also developed a left sided pleural effusion and there is a concern for a LLL pneumonia and based on that the patient was started on IV cefepime. Labs from today were noted the white cell count is at 4.06 and a platelet count of 317. The potassium level is at one 5.1, BUN is 12 with a creatinine of 0.8. proBNP level is less than 20. Meanwhile, the patient remains on Tagrisso. The patient remains on anticoagulation with Eliquis. The patient remains on DuoNeb updrafts and antibiotic coverage with IV cefepime. CAT scan of the chest also showed a small to moderate-sized pericardial effusion along with background COPD and some mild rectal edematous changes. Another 2 cm focus of groundglass opacity was seen in the left upper lobe The patient is seen today October 03, 2024 in follow-up on the regular medical floor. She is currently sitting up in bed. Awake and alert in no acute distress. Maintaining O2 saturations in the 90s on 3 L/min per nasal cannula. She has been afebrile. Hemodynamically stable. Echocardiogram reveals preserved left ventricular systolic function with ejection fraction 55 to 60%. White count 5.0. Hemoglobin 9.6. Platelets 304. Sodium 137. Potassium 5.9. Bicarb 30. BUN 11. Creatinine 0.9. Glucose 113. Procalcitonin was negative at 0.03. Is currently on cefepime. Continued on DuoNeb and elations. Anticoagulated with Eliquis. Continued on her Tagrisso. The patient is seen today October 04, 2024 in follow-up on the regular medical floor. She was having increasing complaints of shortness of breath today. She was placed on BiPAP 10/5 and 100% FiO2. She is continued on DuoNeb inhalations. Ultrasound of the left chest did not reveal any significant pleural effusion. Pocket measured 5.0 cm. Chest x-ray revealed redemonstrated complete whiteout of the right hemithorax. Small to moderate left pleural effusion with adjacent atelectasis and/or consolidation. White count 7.3. Hemoglobin 11.2. Platelets 339. Sodium 140. Potassium 5.4. Bicarb 29. BUN 10. Creatinine 0.8. Procalcitonin was negative at 0.03. She is currently on cefepime. Echocardiogram revealed preserved left ventricular systolic function with ejection fraction 55 to 60%. There is a moderate pericardial effusion measuring 1.4 cm with significant tricuspid valve respiratory variation greater than 50%, right atrial and right ventricular diastolic collapse consistent with tamponade physiology. Patient was evaluated today on 10/05/2024, continues to have shortness of breath continues to have intermittent cough and wheezing chest x-ray has left-sided pleural effusion and left lower lobe atelectasis. Patient does not feel any better today compared to her baseline. She feels actually that she may even be worse. WBC count is 5.8 hemoglobin is 11 electrolytes are normal renal profile is normal procalcitonin level is 0.03 Seen today on 10/06/2024, patient is now postoperative day #1 status post left Pleurx catheter placement and she had 750 mL of fluid removed from the left pleural space. Patient continues to have the Pleurx catheter contacted to Pleur-evac, no air leak noted, continues to have some serosanguineous drainage noted. Patient is feeling better however she remains on Airvo at 50% FiO2 and 50 L flow. Patient has been on BiPAP 08/06/50% chest x-ray showed significant improvement in left pleural effusion continues to have left lower lobe atelectasis/retrocardiac opacity. Cytology on the fluid is pending and chemical profile on the pleural effusion fluid is also pending there is a concern of possible malignancy/malignant pleural effusion needs to be ruled out Patient was seen today on 10/07/2024, patient remains on the medical floor she is now postoperative day #2 status post left Pleurx catheter placement. Doing better she is now on nasal cannula, does not seem to be in distress. On 5 L nasal cannula, O2 saturation 97%. She does have cough which is productive she has some difficulty clearing her secretions but able to do this with effort. Chest x-ray was reviewed continues to have left basilar atelectasis and improvement in her left pleural effusion her WBC count is 8.8 hemoglobin 10.4 basic metabolic profile is normal renal profile is normal Seen today on 10/08/2024, patient is now postoperative day #3 status post left Pleurx catheter placement. Doing well, feeling better breathing easier nonetheless continues to have intermittent cough and wheezing, she is trying h patrick to keep her lungs clear with deep coughing and deep breathing. Remains on bronchodilators,No chest x-ray was done today, I did review her chest x-ray from yesterday. WBC count is 6.3 hemoglobin 10.5 basic metabolic profile is normal renal profile is normal 10/09/2024, patient is steadily improving but slowly. She is now postoperative day #4,On 5 L nasal cannula with O2 sats of 96% her WBC count is 5.9 hemoglobin 10.7 electrolytes are normal renal profile is normal bicarb is 36 cytology on the pleural effusion is pending, Cultures on the pleural effusion are pending negative Gram stain so far. Objective - Vital Signs Vital signs: Vital Signs Temp 98.2 F 10/08/24 20:25 Pulse 86 10/09/24 14:38 Resp 16 10/09/24 14:38 BP 106/74 10/09/24 14:38 Pulse Ox 96 10/09/24 14:38 FiO2 50 10/07/24 08:22 Intake & Output 10/08/24 10/09/24 10/09/24 18:59 06:59 18:59 Intake Total 720 240 Output Total 200 300 Balance 520 -300 240 Weight 60.9 kg Intake: Oral 720 240 Output: Urine 200 300 Other: Voiding Method Bedside Commode Bedside Commode Bedside Commode - Exam GENERAL EXAM: 69-year-old female 5 L nasal cannula HEAD: Normocephalic. EYES: Normal reaction of pupils, equal size. NOSE: Clear with pink turbinates. THROAT: No erythema or exudates. NECK: No masses, no JVD. CHEST: No chest wall deformity. LUNGS: Scattered rhonchi noted on the left side CVS: S1 and S2 normal with no audible murmur, regular rhythm. ABDOMEN: No hepatosplenomegaly, normal bowel sounds, no guarding or rigidity. SKIN: No rashes CENTRAL NERVOUS SYSTEM: No focal deficits, tone is normal in all 4 extremities. EXTREMITIES: There is no peripheral edema. No clubbing, no cyanosis. Peripheral pulses are intact. - Labs CBC & Chem 7: 10/09/24 08:09 10/09/24 08:09 Labs: Abnormal Lab Results - Last 24 Hours (Table) 10/09/24 10/09/24 Range/Units 08:09 08:09 Hgb 10.7 L (11.4-16.0) gm/dL MCHC 30.7 L (31.0-37.0) g/dL Sodium 134 L (137-145) mmol/L Chloride 95 L (98-107) mmol/L Carbon Dioxide 36 H (22-30) mmol/L Glucose 100 H (74-99) mg/dL Microbiology - Last 24 Hours (Table) 10/07/24 12:00 Gram Stain - Preliminary Pleural Fluid Body Fluid Culture - Preliminary Assessment and Plan Assessment: Impression:POD #4 left Pleurx catheter placement under fluoroscopy with removal of 750 mL serous fluid Acute exacerbation of COPD Left lower lobe pneumonia and a small left sided pleural effusion. Acute hypoxic respiratory failure, multifactorial Moderate pericardial effusion measuring 1.4 cm with significant tricuspid valve respiratory variation greater than 50%, right atrial and right ventricular diastolic collapse consistent with tamponade physiology. Cardiology and cardiothoracic surgery on the case. This may be chronic in nature and no plans for emergent procedure Previous history of non-small cell lung cancer with previous right pneumonectomy 2018 and the patient has been maintained on Tagrisso on outpatient basis. The patient had metastatic disease to the brain at time of admission the patient has received radiation therapy to her brain Seizure disorder maintained on Keppra Paroxysmal atrial fibrillation/flutter, maintained on long-term anticoagulation with Eliquis and the patient is currently in normal sinus rhythm Moderate mitral regurgitation/valvular heart disease Hypertension Hyperlipidemia Recommendation: Continue oxygen and titrate accordingly Continue present supportive care measures Evacuation of Pleurx catheter every other day, awaiting for cytology from the pleural effusion which was sent from the Pleurx catheter Eliquis was restarted Continue bronchodilators and antibiotics Encourage deep coughing deep breathing We will continue to follow Time with Patient: Less than 30
[2024-10-09] MEDS: IPRATROPIUM-ALBUTEROL 3 ML NEB INHALATION SCH (15:30)
[2024-10-10 08:26] LABS: African American GFR (CKD) >90 (>60 ml/min/1.73 sqM); Anion Gap 1 mmol/L; Blood Urea Nitrogen 14 mg/dL (7-17); Carbon Dioxide 36 mmol/L (22-30); Chloride 95 mmol/L (98-107); Glucose 90 mg/dL (74-99); Non-African American GFR(CKD) 89 (>60 ml/min/1.73 sqM); Potassium 4.1 mmol/L (3.5-5.1); Sodium 132 mmol/L (137-145)
--- NOTE | 2024-10-10 12:26 | P.PN ---
Subjective Progress Note Date: 10/10/24 Patient is a 69 year old female with past medical history of atrial flutter, hypertension, seizure disorder, COPD with 4L home oxygen, lung cancer with metastasis to the brain with previous radiation therapy and right lower lobectomy presented to the ED with worsening shortness of breath. She mentions her symptoms started a couple months ago. She has experienced progressive shortness of breath. She has been admitted twice in the past month for similar symptoms. Everytime she would get discharged she will feel good at first but then her symptoms would recur within 2 weeks prompting another visit to the hospital. She also mentions having lung cancer. She was diagnosed in 2014, at that time she got a right lower lobectomy. There was recurrence of the cancer in 2019 at which point a drain was placed. It was found the cancer has metastasized to her brain for which she underwent radiation therapy. Subsequently she had chemotherapy and is now on chemotherapy pills(Tagrisso). Associated with that she also complains of dysphagia since 3 days and due to which her oral intake has been very poor. Also reports having runny nose and sometime blocked nose. Denies any reflux or regurgitation or past medical history of GERD, fever, chills, sore throat. Additionally she mentions having in her lower abdomen while having bowel movement. Denies constipation or diarrhea. Denies palpitations, nausea, vomiting, dysuria, hematuria, hematochezia, melena, numbness, tingling, joint pain, muscle aches. ED documentation reviewed. In the ED patient was treated with Percocet, Nebulised albuterol, Morphine, Levetiracetam. Vitals on admission T 99 F, HI 121, RR 18, BP 127/87, O2 sat 95% on 4 L nasal cannula EKG independently interpreted as sinus tachycardia, rate 116 bpm, QTc 495 ms Chest x-ray shows ongoing complete whiteout of the right hemithorax, slight increasing no [id number] left pleural effusion with adjacent atelectasis/consolidation Labs on admission show WBC 5.7, hemoglobin 11.4, sodium 136, magnesium 1.5, troponin I <0.012 Respiratory panel is negative 10/02/2024 Patient is eval today in follow-up in the medical floor. She is reporting significant shortness of breath. She continues on oxygen via nasal cannula at 4 L. Patient had a repeat chest CT which shows a complete whiteout of the right hemithorax with a chronic loculated effusion. There is a new small to moderate left pleural effusion with moderate pericardial effusion. Patient does have known small cell lung cancer and also has a right pnuemonectomy. She also has a noted left upper lobe nodule. She continues on IV cefepime with concern for postobstructive pneumonia. Pulmonary is following this patient closely. Work today reveals a white blood cell count of 4.31, hemoglobin 10.6, sodium of 136, potassium of 5.1. BUN of 12.3 creatinine 0.8. Her proBNP is less than 20. Her viral panel is negative. 10-03-24 Patient seen and examined at bedside. No events overnight. Patient continues to have shortness of breath and cough that she states has not improved. WBC 5.08, sodium 137, potassium 5.9, BUN 11.0, creatinine 0.9, glucose 113. Hyperkalemia noted, discontinued valsartan. Echocardiogram finding significant for pericardial effusion and right atrial and right ventricular diastolic collapse consistent with tamponade. Cardiology consulted. Pulmonology continues to follow. 10-04-24 Patient seen and examined at bedside. Patient sitting up in bed and found with worsening respiratory distress. On BiPAP 10/5 and 100% FiO2. Ultrasound chest performed with large left pleural effusion. Chest x-ray also completed with left-sided pleural effusion noted in right hemithorax whiteout. No plans for thoracentesis by pulmonology. She is being followed by CT surgery who will plan for Pleurx catheter tomorrow. Eliquis on hold. Patient started on colchicine for pericardial effusion. She remains on cefepime and bronchodilators. CODE STATUS was discussed by patient who wishes to be no code. Labs WBC 7.3, hemoglobin 11.2, platelets 339, sodium 140, potassium 5.4, bicarb 29, BUN 10.2, creatinine 0.8. CT surgery, pulmonary, cardiology notes reviewed. 10-05-24 Patient seen and examined at bedside. Patient sitting up in bed on BiPAP 10/5 and 70% FiO2. Work of breathing improved since yesterday. She is unable to tolerating oral medications at this time as she states it gives he throat pain. She is being followed by CT surgery who will plan for Pleurx catheter today. Eliquis on hold. Colchicine ordered for pericardial effusion. She remains on cefepime and bronchodilators. Labs WBC 5.8, hemoglobin 11.0, platelets 313, sodium 133, potassium 5.4, bicarb 34, BUN 17, creatinine 0.7. 10-06-24 Patient seen and examined at bedside. Pleurx catheter placed yesterday by CT surgery with drainage of 750 cc. This morning drainage of 150 cc. Operative note reviewed. Patient sitting up in bed on BiPAP 10/5 and 50% FiO2 will attempt to transition to O2 high flow nasal cannula. Breathing overall improved patient states she is more comfortable today. She remains on cefepime and bronchodilators. Labs labs WBC 6.8, hemoglobin 10.7, platelets 302, sodium 134, potassium 5.3, bicarb 31, gap 4, BUN 25, creatinine 0.74, glucose 80. Repeat chest x-ray with persistent completely opacified right hemithorax, improved left lower lung opacity. 10-07-24 Patient seen and examined at bedside. She was on BiPAP overnight and transition to nasal cannula 5 L this morning, satting at 93%. States her breathing is somewhat improved from yesterday. She continues to have significant sputum production and cough. Given scopolamine patch. Continue holding Eliquis. She remains on cefepime and bronchodilators. Today's chest x-ray is relatively unchanged with stable left lower opacity. Labs labs WBC 8.8, hemoglobin 10.4, sodium 133, potassium 4.0, bicarb 33, BUN 25, glucose 124. 10-08-24 Patient seen and examined at bedside. She is postop day #3 status post left Pleurx catheter placement. She is on 5 L nasal cannula O2 saturation 97%. States her breathing continues to improve, no apparent cough. Continue scopolamine patch. She states she has not had regular bowel movements. She remains on cefepime and bronchodilators. Begin metoprolol 25 mg p.o. daily. Labs today WBC 6.3, hemoglobin 10.5, sodium 132, potassium 4.2, chloride 94, bic arb 36, gap 2, BUN 21, creatinine 0.60. Pleural fluid slightly hazy WBC 1897, RBC 9000. 10/09/2024 Patient evaluated today in follow-up on the cardiac unit. She is postoperative day #4 left Pleurx catheter placement with plans to drain the Pleurx catheter today. She does report improvement in her shortness of breath. Patient continues on bronchodilators. She is not having regular bowel movements although she states that she feels that she may have 1 today she is refusing any other laxatives or stool softeners at this time. Sodium level today is 134, BUN of 3, creatinine of 16. 10/10/2024 Patient examined and evaluated sitting up at bedside. She is postoperative day #5 left Pleurx catheter placement, no plans to remove fluid today. She continues on 5 L normal cannula with stated continued breathing improvement. Patient continues on bronchodilators. Sodium 132 despite normal saline, will discontinue and limit fluid to 1500 cc/day possibly secondary to SIADH. Lab potassium 4.1, chloride 95, bicarb 36. Review of Systems: Reviewed, pertinent positives and negatives as per HPI PHYSICAL EXAMINATION: GENERAL: The patient is alert and oriented x3. No acute distress, well developed, well nourished. HEENT: Pupils are round and equally reacting to light. EOMI. No scleral icterus. No conjunctival pallor. Normocephalic, atraumatic. CARDIOVASCULAR: S1 and S2 present. No murmurs, rubs, or gallops. PULMONARY: Absent right-sided breath sounds, left-sided upper rhonchi impr ovement. ABDOMEN: Soft, nontender, nondistended, normoactive bowel sounds. No palpable organomegaly. MUSCULOSKELETAL: No joint swelling or deformity. EXTREMITIES: No cyanosis, clubbing, or pedal edema. NEUROLOGICAL: Gross neurological examination did not reveal any focal deficits. SKIN: No rashes. Assessment and Plan Right hemithorax with chronic loculated effusion. Status post Pleurx catheter placement Small to moderate left pleural effusion Moderate pericardial effusion Acute on chronic hypoxemic respiratory failure secondary to above Acute exacerbation of COPD Hyperkalemia, given Lokelma, resolved Hyponatremia, possible SIADH Constipation History of nonsmall cell lung cancer with prior chemoradiation and right pneumonectomy in 2019; this is stage IV with brain metastasis Paroxysmal Atrial fibrillation, rate controlled on eliquis for anticoagulation Anxiety/depression History of seizure disorder maintained on keppra Hyperlipidemia Hypertension GI prophylaxis DVT prophylaxis No Code Plan Cefepime has been discontinued at this time Continue bronchodilators Continue holding valsartan, given Lokelma potassium now WNL Continue metoprolol Discontinue IV NS Status post Pleurx catheter placement, continue colchicine, resume Eliquis Echocardiogram with pericardial effusion measuring 1.4 cm, right atrial and right ventricular diastolic collapse consistent with tamponade physiology Cardiology following CT surgery following Pulmonary following Dr. Keaton MD I have performed a history and physical examination and medical decision making of this patient, discussed the same with the dictator, and agree with the dictators assessment and plan as written, documented as a scribe. Based on total visit time, I have performed more than 50% of this visit. Objective - Vital Signs Vital signs: Vital Signs Temp 97.9 F 10/10/24 08:00 Pulse 90 10/10/24 11:47 Resp 18 10/10/24 08:00 BP 106/71 10/10/24 08:00 Pulse Ox 99 10/10/24 08:45 FiO2 50 10/07/24 08:22 Intake & Output 10/09/24 10/10/24 10/10/24 18:59 06:59 18:59 Intake Total 780 Output Total 300 100 Balance 480 -100 Weight 60.7 kg 60.7 kg Intake: Oral 780 Output: Urine 300 100 Other: Voiding Method Bedside Commode Bedside Commode # Voids 1 # Bowel Movements 1 - Labs CBC & Chem 7: 10/09/24 08:09 10/10/24 06:45 Labs: Abnormal Lab Results - Last 24 Hours (Table) 10/10/24 Range/Units 06:45 Sodium 132 L (137-145) mmol/L Chloride 95 L (98-107) mmol/L Carbon Dioxide 36 H (22-30) mmol/L Microbiology - Last 24 Hours (Table) 10/07/24 12:00 Gram Stain - Preliminary Pleural Fluid Body Fluid Culture - Preliminary
[2024-10-10] MEDS: DILTIAZEM 125 MG in SODIUM CHLORIDE 0.9% 100 ML IV SCH (15:59)
--- NOTE | 2024-10-10 16:13 | P.PN ---
Subjective Progress Note Date: 10/10/24 Principal diagnosis: Pleural effusion. This is a 69-year-old female patient was being admitted for worsening shortness of breath. The patient is known to have non-small cell lung cancer the patient has undergone a previous pneumonectomy on the right back in 2018 and the patient remains on Tagrisso on outpatient basis. She was hospitalized back in July 2024 for a COPD exacerbation and left lung pneumonia with area of consolidation in the left lower lobe. She was treated accordingly. Her condition was stabilized and she was discharged home. She had another hospitalization on 09/01/2024 for worsening shortness of breath and COPD exacerbation. The patient was treated in discharged home on 09/02/2024. The patient is coming in for increased dyspnea, limited cough. No significant sputum production. No hemoptysis or pleurisy. She is afebrile. Hemodynamically stable encouraged and 40 Suboxone by nasal cannula. Chest x-ray shows pneumonectomy on the right, so me atelectatic changes and small effusion on the left. The white cell count is 5.7 hemoglobin 11.4 and platelet count is at 323. Sodium is at 136, bicarb is at 24, BUN is 12 with a creatinine of 0.7. Troponins are negative. The viral screen has been negative. No altered mentation. No seizure activity has been reported. On 10/02/24, the patient is being seen for a FU. The patient is stable and she is still on 02 at 4 L /min nasal canula and she is still having dyspnea with limited cough and sputum and she is has some minimal wheezing. The CT of the chest was completed and the patient has right pneumonectomy and she has airspace disease in the left lung base and she has also developed a left sided pleural effusion and there is a concern for a LLL pneumonia and based on that the patien t was started on IV cefepime. Labs from today were noted the white cell count is at 4.06 and a platelet count of 317. The potassium level is at one 5.1, BUN is 12 with a creatinine of 0.8. proBNP level is less than 20. Meanwhile, the patient remains on Tagrisso. The patient remains on anticoagulation with Eliquis. The patient remains on DuoNeb updrafts and antibiotic coverage with IV cefepime. CAT scan of the chest also showed a small to moderate-sized pericardial effusion along with background COPD and some mild rectal edematous changes. Another 2 cm focus of groundglass opacity was seen in the left upper lobe The patient is seen today October 03, 2024 in follow-up on the regular medical floor. She is currently sitting up in bed. Awake and alert in no acute distress. Maintaining O2 saturations in the 90s on 3 L/min per nasal cannula. She has been afebrile. Hemodynamically stable. Echocardiogram reveals preserved left ventricular systolic function with ejection fraction 55 to 60%. White count 5.0. Hemoglobin 9.6. Platelets 304. Sodium 137. Potassium 5.9. Bicarb 30. BUN 11. Creatinine 0.9. Glucose 113. Procalcitonin was negative at 0.03. Is currently on cefepime. Continued on DuoNeb and elations. Anticoagulated with Eliquis. Continued on her Tagrisso. The patient is seen today October 04, 2024 in follow-up on the regular medical floor. She was having increasing complaints of shortness of breath today. She was placed on BiPAP 10/5 and 100% FiO2. She is continued on DuoNeb inhalations. Ultrasound of the left chest did not reveal any significant pleural effusion. Pocket measured 5.0 cm. Chest x-ray revealed redemonstrated complete whiteout of the right hemithorax. Small to moderate left pleural effusion with adjacent atelectasis and/or consolidation. White count 7.3. Hemoglobin 11.2. Platelets 339. Sodium 140. Potassium 5.4. Bicarb 29. BUN 10. Creatinine 0.8. Procalcitonin was negative at 0.03. She is currently on cefepime. Echocardiogram revealed preserved left ventricular systolic function with ejection fraction 55 to 60%. There is a moderate pericardial effusion measuring 1.4 cm with significant tricuspid valve respiratory variation greater than 50%, right atrial and right ventricular diastolic collapse consistent with tamponade physiology. Patient was evaluated today on 10/05/2024, continues to have shortness of breath continues to have intermittent cough and wheezing chest x-ray has left-sided pleural effusion and left lower lobe atelectasis. Patient does not feel any better today compared to her baseline. She feels actually that she may even be worse. WBC count is 5.8 hemoglobin is 11 electrolytes are normal renal profile is normal procalcitonin level is 0.03 Seen today on 10/06/2024, patient is now postoperative day #1 status post left Pleurx catheter placement and she had 750 mL of fluid removed from the left pleural space. Patient continues to have the Pleurx catheter contacted to Pleur-evac, no air leak noted, continues to have some serosanguineous drainage noted. Patient is feeling better however she remains on Airvo at 50% FiO2 and 50 L flow. Patient has been on BiPAP 08/06/50% chest x-ray showed significant improvement in left pleural effusion continues to have left lower lobe atel ectasis/retrocardiac opacity. Cytology on the fluid is pending and chemical profile on the pleural effusion fluid is also pending there is a concern of possible malignancy/malignant pleural effusion needs to be ruled out Patient was seen today on 10/07/2024, patient remains on the medical floor she is now postoperative day #2 status post left Pleurx catheter placement. Doing better she is now on nasal cannula, does not seem to be in distress. On 5 L nasal cannula, O2 saturation 97%. She does have cough which is productive she has some difficulty clearing her secretions but able to do this with effort. Chest x-ray was reviewed continues to have left basilar atelectasis and improvement in her left pleural effusion her WBC count is 8.8 hemoglobin 10.4 basic metabolic profile is normal renal profile is normal Seen today on 10/08/2024, patient is now postoperative day #3 status post left Pleurx catheter placement. Doing well, feeling better breathing easier nonetheless continues to have intermittent cough and wheezing, she is trying hard to keep her lungs clear with deep coughing and deep breathing. Remains on bronchodilators,No chest x-ray was done today, I did review her chest x-ray from yesterday. WBC count is 6.3 hemoglobin 10.5 basic metabolic profile is normal renal profile is normal 10/09/2024, patient is steadily improving but slowly. She is now postoperative day #4,On 5 L nasal cannula with O2 sats of 96% her WBC count is 5.9 hemoglobin 10.7 electrolytes are normal renal profile is normal bicarb is 36 cytology on the pleural effusion is pending, Cultures on the pleural effusion are pending negative Gram stain so far. Progress note dated October 10, 2024. 69-year-old female seen today in room 359. The patient is currently on 5 L nasal cannula. She is getting saline at 20 cc an hour. She had a Pleurx catheter placed on the left side, on October 08. She did not use the BiPAP device last night. Currently, she is resting comfortably in bed. She is in no distress. Current labs include sodium 132, potassium 4.1, chlorides 95, CO2 36, BUN 14, creatinine 0.70. Glucose is 89. Calcium is 9.0. No chest x-ray today. Objective - Vital Signs Vital signs: Vital Signs Temp 97.9 F 10/10/24 08:00 Pulse 150 H 10/10/24 15:44 Resp 18 10/10/24 13:54 BP 104/67 10/10/24 12:00 Pulse Ox 98 10/10/24 12:00 FiO2 50 10/07/24 08:22 Intake & Output 10/09/24 10/10/24 10/10/24 18:59 06:59 18:59 Intake Total 780 0 Output Total 300 100 Balance 480 -100 0 Weight 60.7 kg 60.7 kg Intake: Oral 780 0 Output: Urine 300 100 Other: Voiding Method Bedside Commode Bedside Commode # Voids 1 # Bowel Movements 1 - Exam No acute distress, oriented 3. No respiratory distress currently on 5 L. HEENT examination is grossly unremarkable. Mucous membranes are moist. No oral lesions. Neck supple. Full range of motion. No adenopathy thyromegaly or neck vein distention. Cardiovascular examination reveals regular rhythm rate. S1-S2 normal. No S3 or S4. No discernible murmur noted. Lungs reveal tattered rhonchi. No wheezes or crackles. Left-sided Pleurx catheter is noted. Abdomen soft bowel sounds are heard. No masses or tenderness. Extremities are intact. No cyanosis clubbing or edema. Skin is without rash or lesion. Neurologic examination is brief but nonfocal. - Labs CBC & Chem 7: 10/09/24 08:09 10/10/24 06:45 Labs: Abnormal Lab Results - Last 24 Hours (Table) 10/07/24 10/10/24 Range/Units 12:00 06:45 Sodium 132 L (137-145) mmol/L Chloride 95 L (98-107) mmol/L Carbon Dioxide 36 H (22-30) mmol/L Rhinovirus (PCR) DETECTED A (Not detected) Microbiology - Last 24 Hours (Table) 10/07/24 12:00 Gram Stain - Preliminary Pleural Fluid Body Fluid Culture - Preliminary Assessment and Plan Assessment: Postoperative day #5, status post left-sided Pleurx catheter placement, for left-sided pleural effusion. Acute exacerbation of COPD. Possible left lower lobe pneumonia. Acute hypoxemic respiratory failure. Moderate pericardial effusion, measuring 1.4 cm. History of non-small cell lung cancer, with previous right pneumonectomy, 2019. 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 Paroxysmal atrial fibrillation/flutter. Moderate mitral regurgitation. History of hypertension. History of hyperlipidemia. Plan: Plan dated October 10, 2024. The patient is seen today in room 359. She continues on nasal O2 at 5 L. She is getting saline at 20 cc an hour. On October 08, she had a left Pleurx cat heter placed. We will continue to follow make recommendations along the way. The BiPAP device is in the room but she did not use it last night. We will continue to follow the patient, and make recommendations, with labs, x-rays, and all medications being reviewed. Time with Patient: Less than 30
--- NOTE | 2024-10-10 19:02 | P.PN ---
Subjective Patient is resting comfortably in bed denies any chest discomfort dizziness or lightheadedness she is in sinus rhythm this morning She underwent Pleurx catheter placement by CT surgery Anticoagulation is on hold Heart sounds are normal and regular Breath sounds are clear Impression Pericardial tamponade History of atrial fibrillation Plan resume anticoagulation per CT surgery/pulmonary medicine Update I was called by the nurse stating that she went to atrial fibrillation with RVR Recommend starting IV Cardizem Understand the patient is on colchicine Will switch to p.o. medications tomorrow Objective - Vital Signs Vital signs: Vital Signs Temp 97.9 F 10/10/24 08:00 Pulse 90 10/10/24 16:00 Resp 18 10/10/24 16:00 BP 103/68 10/10/24 16:00 Pulse Ox 94 L 10/10/24 16:00 FiO2 50 10/07/24 08:22 Intake & Output 10/10/24 10/10/24 10/11/24 06:59 18:59 06:59 Intake Total 240 Output Total 100 Balance -100 240 Weight 60.7 kg 60.7 kg Intake: Oral 240 Output: Urine 100 Other: Voiding Method Bedside Commode - Labs CBC & Chem 7: 10/09/24 08:09 10/10/24 06:45 Labs: Abnormal Lab Results - Last 24 Hours (Table) 10/07/24 10/10/24 Range/Units 12:00 06:45 Sodium 132 L (137-145) mmol/L Chloride 95 L (98-107) mmol/L Carbon Dioxide 36 H (22-30) mmol/L Rhinovirus (PCR) DETECTED A (Not detected) Microbiology - Last 24 Hours (Table) 10/07/24 12:00 Gram Stain - Preliminary Pleural Fluid Body Fluid Culture - Preliminary
[2024-10-11 07:32] LABS: HCT 31.4 % (34.0-46.0); HGB 9.7 gm/dL (11.4-16.0); Hypochromasia Marked; MCH 26.7 pg (25.0-35.0); MCHC 30.8 g/dL (31.0-37.0); MCV 86.4 fL (80.0-100.0); Mean Platelet Volume 8.9; Platelet Count 324 k/uL (150-450); RBC 3.63 m/uL (3.80-5.40); RDW 14.9 % (11.5-15.5); WBC 7.1 k/uL (3.8-10.6)
[2024-10-11 08:07] LABS: African American GFR (CKD) >90 (>60 ml/min/1.73 sqM); Anion Gap 0 mmol/L; Blood Urea Nitrogen 13 mg/dL (7-17); Calcium 8.7 mg/dL (8.4-10.2); Carbon Dioxide 35 mmol/L (22-30); Chloride 97 mmol/L (98-107); Glucose 101 mg/dL (74-99); Non-African American GFR(CKD) >90 (>60 ml/min/1.73 sqM); Potassium 3.9 mmol/L (3.5-5.1); Sodium 132 mmol/L (137-145)
--- NOTE | 2024-10-11 09:16 | XR ---
EXAMINATION TYPE: XR chest 1V DATE OF EXAM: 10/11/2024 7:27 AM COMPARISON: Chest radiographs from 10/07/2024 CLINICAL INDICATION: Female, 69 years old with history of pleural effusion; [facility] TECHNIQUE: XR chest 1V Frontal view of the chest. FINDINGS: Lungs/Pleura: Air bronchograms in the left lung base over the heart. Complete opacities in the right chest. No pneumothorax visualized. Pulmonary vascularity: Unremarkable. Heart/mediastinum: Cardiomediastinal silhouette is unremarkable. Musculoskeletal: No acute osseous pathology. Stable sclerotic area in the proximal right humerus. IMPRESSION: Complete opacification of the right lung correlate for large pleural effusion with atelectasis. Consi chante thoracentesis. Left basilar airspace consolidation correlate for atelectasis versus developing pneumonia. [facility], , 10/11/2024 9:13 AM
[2024-10-11] MEDS: METOPROLOL SUCCINATE (ER) 25 MG TAB.ER.24H PO STA (09:49)
--- NOTE | 2024-10-11 11:41 | P.PN ---
Subjective HISTORY OF PRESENT ILLNESS: HISTORY OF PRESENTING ILLNESS This is a pleasant 69-year-old with past medical history significant for hypertension, hyperlipidemia, family history of CAD, seizures, questionable previous stroke on Plavix, lung cancer stage IV in remission per patient and atrial fibrillation. She has never seen a health assessment and treatment teacher however was seen by myself 2 months ago. Patient has a history of non-small cell lung cancer in 2019, had undergone pneumonectomy and remains onTagrisso on an outpatient basis. She has had a number of hospitalizations over the last 6 months. She states in general she had felt somewhat better however over the last 3 months especially she has noticed significant shortness breath with any sort of activity. Denies any fevers or chills. She was initially seen on 10/01 by pulmonology and treated for COPD exacerbation and a CT chest was obtained. CT chest showed complete right hemithorax white out and loculated pleural effusion measuring up to 14 cm. This is similar to prior from July 2024. There additionally was new small to moderate left pleural effusion as well as moderate pericardial e ffusion measuring 2.1 cm versus previous measurement of 1.3 cm and 2 cm groundglass opacity in the left upper lobe. Echocardiogram was performed which showed ejection fraction 55% with moderate pericardial effusion and tamponade physiology. 10/04 Patient requiring increasing oxygen demand initially on a Ventimask and now on a nonrebreather. She is sitting up in bed with some mild tachypnea. She is being moved to cardiac floor. She denies any chest pain or pressure. She states she is feeling worse than yesterday. 10/05 Patient seen and examined on the cardiac stepdown unit. Patient has been transferred from the Med[facility] floor. She is currently on BiPAP unable to have this removed. She is scheduled for Pleurx catheter insertion today. Patient has not been taking her oral medications as she is complaining of difficulties with some swallowing. Heart rate is 10 9-1 23, respiratory rate 29, pulse ox 95% on 70% BiPAP, blood pressure 142/76. Repeat blood work reveals hemoglobin 11, sodium 133, potassium 5.4, creatinine 0.7. Chest x-ray: On going complete whiteout of the right hemithorax. Ongoing [id number] left pleural effusion with prominent adjacent atelectasis and/or consolidation extending up to the mid lung level. 12/5 Yesterday, patient underwent Pleurx catheter placement by CTS. Patient continues to have bilateral wheezing. Heart rate and respiratory rate are improved. Patient is currently hemodynamically stable. Blood pressure 113/74, heart rate 106, pulse ox 96% on high flow nasal cannula. Repeat blood work reveals hemoglobin 10.7, sodium 135, potassium 5.3, BUN 25 and creatinine 0.74. 10/07/24 Patient is seen and examined. She complains of difficulty in breathing and is trying to remove her mask. Her heart rate is sinus rhythm in the 120s. Blood pressure 113/79, pulse ox 6% on 50% FiO2 BiPAP. Repeat blood work reveals WBC 8.8, hemoglobin 10.4. Sodium 133, potassium 4, BUN 25 creatinine 0.66. Chest x-ray reveals complete whiteout right hemithorax, ongoing interstitial opacities left lung, slight worsening retrocardiac and left basilar opacity, left basilar pleural catheter. Pulmonary medicine recommend continuing to hold Eliquis 10/08/24 Patient seen and examined. Respiratory status is much improved and now she is on nasal cannula at 6 L with pulse ox of 95%, heart rate is in the 80s and 90s, blood pressure 133/75. Yesterday we added metoprolol succinate for heart rate control. Remains with Pleurx catheter in place with drainage. 10/09/2024 Patient's breathing status is slowly improving. She is now on 5 L nasal cannula with a pulse ox of 97%, heart rate in the 90s, blood pressure 118/71. Patient's Eliquis was on hold for Pleurx catheter and waiting to see if there is any other procedures that patient needed. 10/11/2024 Patient examined this morning the bedside. Patient currently denies chest pain or pressure. She denies shortness of breath. Telemetry reveals sinus mechanism with a heart rate in the 80s. PHYSICAL EXAM: VITAL SIGNS: Reviewed. GENERAL: Well-developed in no acute distress. NECK: Supple. No JVD or thyromegaly LUNGS: Respirations even and unlabored. Lungs essentially clear to auscultation bilaterally. HEART: Regular rate and rhythm. S1 and S2 heard. EXTREMITIES: Normal range of motion. No clubbing or cyanosis. Peripheral pulses intact. 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 Signing provider agrees with the documented findings, assessment, and plan of care documented by INSTRUMENT MAKER APPRENTICE as a scribe. Objective - Vital Signs Vital signs: Vital Signs Temp 97.6 F 10/11/24 08:04 Pulse 86 10/11/24 09:14 Resp 16 10/11/24 08:04 BP 103/65 10/11/24 08:04 Pulse Ox 98 10/11/24 08:04 FiO2 50 10/07/24 08:22 Intake & Output 10/10/24 10/11/24 10/11/24 18:59 06:59 18:59 Intake Total 240 665 200 Output Total 600 Balance 240 65 200 Weight 60.7 kg 60.4 kg Intake: Intake, IV Titration 125 Amount Diltiazem 125 mg In 125 Sodium Chloride 0.9% 100 ml @ 10 MG/HR 10 mls/hr IV .[id number] [facility] Rx#: [id number] Oral 240 540 200 Output: Urine 600 Other: Voiding Method Bedside Commode Bedside Commode # Bowel Movements 2 - Labs CBC & Chem 7: 10/11/24 06:58 10/11/24 06:58 Labs: Abnormal Lab Results - Last 24 Hours (Table) 10/07/24 10/11/24 10/11/24 Range/Units 12:00 06:58 06:58 RBC 3.63 L (3.80-5.40) m/uL Hgb 9.7 L (11.4-16.0) gm/dL Hct 31.4 L (34.0-46.0) % MCHC 30.8 L (31.0-37.0) g/dL Sodium 132 L (137-145) mmol/L Chloride 97 L (98-107) mmol/L Carbon Dioxide 35 H (22-30) mmol/L Glucose 101 H (74-99) mg/dL Rhinovirus (PCR) DETECTED A (Not detected) Microbiology - Last 24 Hours (Table) 10/07/24 12:00 Gram Stain - Preliminary Pleural Fluid Body Fluid Culture - Preliminary
--- NOTE | 2024-10-11 12:25 | P.PN ---
Subjective Progress Note Date: 10/11/24 Principal diagnosis: Pleural effusion. This is a 69-year-old female patient was being admitted for worsening shortness of breath. The patient is known to have non-small cell lung cancer the patient has undergone a previous pneumonectomy on the right back in 2018 and the patient remains on Tagrisso on outpatient basis. She was hospitalized back in July 2024 for a COPD exacerbation and left lung pneumonia with area of consolidation in the left lower lobe. She was treated accordingly. Her condition was stabilized and she was discharged home. She had another hospitalization on 09/01/2024 for worsening shortness of breath and COPD exacerbation. The patient was treated in discharged home on 09/02/2024. The patient is coming in for increased dyspnea, limited cough. No significant sputum production. No hemoptysis or pleurisy. She is afebrile. Hemodynamically stable encouraged and 40 Suboxone by nasal cannula. Chest x-ray shows pneumonectomy on the right, so me atelectatic changes and small effusion on the left. The white cell count is 5.7 hemoglobin 11.4 and platelet count is at 323. Sodium is at 136, bicarb is at 24, BUN is 12 with a creatinine of 0.7. Troponins are negative. The viral screen has been negative. No altered mentation. No seizure activity has been reported. On 10/02/24, the patient is being seen for a FU. The patient is stable and she is still on 02 at 4 L /min nasal canula and she is still having dyspnea with limited cough and sputum and she is has some minimal wheezing. The CT of the chest was completed and the patient has right pneumonectomy and she has airspace disease in the left lung base and she has also developed a left sided pleural effusion and there is a concern for a LLL pneumonia and based on that the patien t was started on IV cefepime. Labs from today were noted the white cell count is at 4.06 and a platelet count of 317. The potassium level is at one 5.1, BUN is 12 with a creatinine of 0.8. proBNP level is less than 20. Meanwhile, the patient remains on Tagrisso. The patient remains on anticoagulation with Eliquis. The patient remains on DuoNeb updrafts and antibiotic coverage with IV cefepime. CAT scan of the chest also showed a small to moderate-sized pericardial effusion along with background COPD and some mild rectal edematous changes. Another 2 cm focus of groundglass opacity was seen in the left upper lobe The patient is seen today October 03, 2024 in follow-up on the regular medical floor. She is currently sitting up in bed. Awake and alert in no acute distress. Maintaining O2 saturations in the 90s on 3 L/min per nasal cannula. She has been afebrile. Hemodynamically stable. Echocardiogram reveals preserved left ventricular systolic function with ejection fraction 55 to 60%. White count 5.0. Hemoglobin 9.6. Platelets 304. Sodium 137. Potassium 5.9. Bicarb 30. BUN 11. Creatinine 0.9. Glucose 113. Procalcitonin was negative at 0.03. Is currently on cefepime. Continued on DuoNeb and elations. Anticoagulated with Eliquis. Continued on her Tagrisso. The patient is seen today October 04, 2024 in follow-up on the regular medical floor. She was having increasing complaints of shortness of breath today. She was placed on BiPAP 10/5 and 100% FiO2. She is continued on DuoNeb inhalations. Ultrasound of the left chest did not reveal any significant pleural effusion. Pocket measured 5.0 cm. Chest x-ray revealed redemonstrated complete whiteout of the right hemithorax. Small to moderate left pleural effusion with adjacent atelectasis and/or consolidation. White count 7.3. Hemoglobin 11.2. Platelets 339. Sodium 140. Potassium 5.4. Bicarb 29. BUN 10. Creatinine 0.8. Procalcitonin was negative at 0.03. She is currently on cefepime. Echocardiogram revealed preserved left ventricular systolic function with ejection fraction 55 to 60%. There is a moderate pericardial effusion measuring 1.4 cm with significant tricuspid valve respiratory variation greater than 50%, right atrial and right ventricular diastolic collapse consistent with tamponade physiology. Patient was evaluated today on 10/05/2024, continues to have shortness of breath continues to have intermittent cough and wheezing chest x-ray has left-sided pleural effusion and left lower lobe atelectasis. Patient does not feel any better today compared to her baseline. She feels actually that she may even be worse. WBC count is 5.8 hemoglobin is 11 electrolytes are normal renal profile is normal procalcitonin level is 0.03 Seen today on 10/06/2024, patient is now postoperative day #1 status post left Pleurx catheter placement and she had 750 mL of fluid removed from the left pleural space. Patient continues to have the Pleurx catheter contacted to Pleur-evac, no air leak noted, continues to have some serosanguineous drainage noted. Patient is feeling better however she remains on Airvo at 50% FiO2 and 50 L flow. Patient has been on BiPAP 08/06/50% chest x-ray showed significant improvement in left pleural effusion continues to have left lower lobe atel ectasis/retrocardiac opacity. Cytology on the fluid is pending and chemical profile on the pleural effusion fluid is also pending there is a concern of possible malignancy/malignant pleural effusion needs to be ruled out Patient was seen today on 10/07/2024, patient remains on the medical floor she is now postoperative day #2 status post left Pleurx catheter placement. Doing better she is now on nasal cannula, does not seem to be in distress. On 5 L nasal cannula, O2 saturation 97%. She does have cough which is productive she has some difficulty clearing her secretions but able to do this with effort. Chest x-ray was reviewed continues to have left basilar atelectasis and improvement in her left pleural effusion her WBC count is 8.8 hemoglobin 10.4 basic metabolic profile is normal renal profile is normal Seen today on 10/08/2024, patient is now postoperative day #3 status post left Pleurx catheter placement. Doing well, feeling better breathing easier nonetheless continues to have intermittent cough and wheezing, she is trying hard to keep her lungs clear with deep coughing and deep breathing. Remains on bronchodilators,No chest x-ray was done today, I did review her chest x-ray from yesterday. WBC count is 6.3 hemoglobin 10.5 basic metabolic profile is normal renal profile is normal 10/09/2024, patient is steadily improving but slowly. She is now postoperative day #4,On 5 L nasal cannula with O2 sats of 96% her WBC count is 5.9 hemoglobin 10.7 electrolytes are normal renal profile is normal bicarb is 36 cytology on the pleural effusion is pending, Cultures on the pleural effusion are pending negative Gram stain so far. Progress note dated October 10, 2024. 69-year-old female seen today in room 359. The patient is currently on 5 L nasal cannula. She is getting saline at 20 cc an hour. She had a Pleurx catheter placed on the left side, on October 08. She did not use the BiPAP device last night. Currently, she is resting comfortably in bed. She is in no distress. Current labs include sodium 132, potassium 4.1, chlorides 95, CO2 36, BUN 14, creatinine 0.70. Glucose is 89. Calcium is 9.0. No chest x-ray today. Progress note dated October 11, 2024. 69-year-old female seen today in room 359. The patient continues on nasal O2 at 5 L. No IV fluids. She did not use the BiPAP last night. Current labs include a white count 7.1, hemoglobin 9.7, hematocrit 31.4, and a normal platelet count. Sodium 132, potassium 3.9, chlorides 97, CO2 35, BUN 13, creatinine 0.68. The patient appears to be relatively stable. She did apparently have an episode of tachycardia last night. Most recent heart rates have been in the 80s. Chest x- ray from today, is evaluated. Objective - Vital Signs Vital signs: Vital Signs Temp 98.1 F 10/11/24 11:08 Pulse 84 10/11/24 12:09 Resp 16 10/11/24 11:08 BP 95/62 10/11/24 11:08 Pulse Ox 96 10/11/24 11:08 FiO2 50 10/07/24 08:22 Intake & Output 10/10/24 10/11/24 10/11/24 18:59 06:59 18:59 Intake Total 240 665 200 Output Total 600 Balance 240 65 200 Weight 60.7 kg 60.4 kg Intake: Intake, IV Titration 125 Amount Diltiazem 125 mg In 125 Sodium Chloride 0.9% 100 ml @ 10 MG/HR 10 mls/hr IV .[id number] [facility] Rx#: [id number] Oral 240 540 200 Output: Urine 600 Other: Voiding Method Bedside Commode Bedside Commode # Bowel Movements 2 - Exam No acute distress, oriented 3. No respiratory distress currently on 5 L. HEENT examination is grossly unremarkable. Mucous membranes are moist. No oral lesions. Neck supple. Full range of motion. No adenopathy thyromegaly or neck vein distention. Cardiovascular examination reveals regular rhythm rate. S1-S2 normal. No S3 or S4. No discernible murmur noted. Lungs reveal tattered rhonchi. No wheezes or crackles. Left-sided Pleurx catheter is noted. Abdomen soft bowel sounds are heard. No masses or tenderness. Extremities are intact. No cyanosis clubbing or edema. Skin is without rash or lesion. Neurologic examination is brief but nonfocal. - Labs CBC & Chem 7: 10/11/24 06:58 12 06:58 Labs: Abnormal Lab Results - Last 24 Hours (Table) 10/07/24 10/11/24 10/11/24 Range/Units 12:00 06:58 06:58 RBC 3.63 L (3.80-5.40) m/uL Hgb 9.7 L (11.4-16.0) gm/dL Hct 31.4 L (34.0-46.0) % MCHC 30.8 L (31.0-37.0) g/dL Sodium 132 L (137-145) mmol/L Chloride 97 L (98-107) mmol/L Carbon Dioxide 35 H (22-30) mmol/L Glucose 101 H (74-99) mg/dL Rhinovirus (PCR) DETECTED A (Not detected) Microbiology - Last 24 Hours (Table) 10/07/24 12:00 Gram Stain - Preliminary Pleural Fluid Body Fluid Culture - Preliminary Assessment and Plan Assessment: Postoperative day #6, status post left-sided Pleurx catheter placement, for left-sided pleural effusion. Acute exacerbation of COPD. Possible left lower lobe pneumonia. Acute hypoxemic respiratory failure. Moderate pericardial effusion, measuring 1.4 cm. History of non-small cell lung cancer, with previous right pneumonectomy, 2019. 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 Paroxysmal atrial fibrillation/flutter. Moderate mitral regurgitation. History of hypertension. History of hyperlipidemia. Plan: Plan dated October 10, 2024. The patient is seen today in room 359. She continues on nasal O2 at 5 L. She is getting saline at 20 cc an hour. On October 08, she had a left Pleurx catheter placed. We will continue to follow make recommendations along the way. The BiPAP device is in the room but she did not use it last night. We will continue to follow the patient, and make recommendations, with labs, x-rays, and all medications being reviewed. Plan dated October 11, 2024. The patient is seen today in room 359. She remains on 5 L of oxygen. No respiratory distress. She did not use the BiPAP device last night. She states that she had an episode of tachycardia last night. More recently, her heart rates have been in the 80s. Labs, x-rays, and medications are reviewed. Prognosis is guarded. We will continue to follow the patient, make recommen dations along the way. Time with Patient: Less than 30
--- NOTE | 2024-10-11 12:55 | P.PN ---
Subjective Progress Note Date: 10/11/24 Patient is a 69 year old female with past medical history of atrial flutter, hypertension, seizure disorder, COPD with 4L home oxygen, lung cancer with metastasis to the brain with previous radiation therapy and right lower lobectomy presented to the ED with worsening shortness of breath. She mentions her symptoms started a couple months ago. She has experienced progressive shortness of breath. She has been admitted twice in the past month for similar symptoms. Everytime she would get discharged she will feel good at first but then her symptoms would recur within 2 weeks prompting another visit to the hospital. She also mentions having lung cancer. She was diagnosed in 2014, at that time she got a right lower lobectomy. There was recurrence of the cancer in 2019 at which point a drain was placed. It was found the cancer has metastasized to her brain for which she underwent radiation therapy. Subsequently she had chemotherapy and is now on chemotherapy pills(Tagrisso). Associated with that she also complains of dysphagia since 3 days and due to which her oral intake has been very poor. Also reports having runny nose and sometime blocked nose. Denies any reflux or regurgitation or past medical history of GERD, fever, chills, sore throat. Additionally she mentions having in her lower abdomen while having bowel movement. Denies constipation or diarrhea. Denies palpitations, nausea, vomiting, dysuria, hematuria, hematochezia, melena, numbness, tingling, joint pain, muscle aches. ED documentation reviewed. In the ED patient was treated with Percocet, Nebulised albuterol, Morphine, Levetiracetam. Vitals on admission T 99 F, VA 121, RR 18, BP 127/87, O2 sat 95% on 4 L nasal cannula EKG independently interpreted as sinus tachycardia, rate 116 bpm, QTc 495 ms Chest x-ray shows ongoing complete whiteout of the right hemithorax, slight increasing no [id number] left pleural effusion with adjacent atelectasis/consolidation Labs on admission show WBC 5.7, hemoglobin 11.4, sodium 136, magnesium 1.5, troponin I <0.012 Respiratory panel is negative 10/02/2024 Patient is eval today in follow-up in the medical floor. She is reporting significant shortness of breath. She continues on oxygen via nasal cannula at 4 L. Patient had a repeat chest CT which shows a complete whiteout of the right hemithorax with a chronic loculated effusion. There is a new small to moderate left pleural effusion with moderate pericardial effusion. Patient does have known small cell lung cancer and also has a right pnuemonectomy. She also has a noted left upper lobe nodule. She continues on IV cefepime with concern for postobstructive pneumonia. Pulmonary is following this patient closely. Work today reveals a white blood cell count of 4.31, hemoglobin 10.6, sodium of 136, potassium of 5.1. BUN of 12.3 creatinine 0.8. Her proBNP is less than 20. Her viral panel is negative. 10-03-24 Patient seen and examined at bedside. No events overnight. Patient continues to have shortness of breath and cough that she states has not improved. WBC 5.08, sodium 137, potassium 5.9, BUN 11.0, creatinine 0.9, glucose 113. Hyperkalemia noted, discontinued valsartan. Echocardiogram finding significant for pericardial effusion and right atrial and right ventricular diastolic collapse consistent with tamponade. Cardiology consulted. Pulmonology continues to follow. 10-04-24 Patient seen and examined at bedside. Patient sitting up in bed and found with worsening respiratory distress. On BiPAP 10/5 and 100% FiO2. Ultrasound chest performed with large left pleural effusion. Chest x-ray also completed with left-sided pleural effusion noted in right hemithorax whiteout. No plans for thoracentesis by pulmonology. She is being followed by CT surgery who will plan for Pleurx catheter tomorrow. Eliquis on hold. Patient started on colchicine for pericardial effusion. She remains on cefepime and bronchodilators. CODE STATUS was discussed by patient who wishes to be no code. Labs WBC 7.3, hemoglobin 11.2, platelets 339, sodium 140, potassium 5.4, bicarb 29, BUN 10.2, creatinine 0.8. CT surgery, pulmonary, cardiology notes reviewed. 10-05-24 Patient seen and examined at bedside. Patient sitting up in bed on BiPAP 10/5 and 70% FiO2. Work of breathing improved since yesterday. She is unable to tolerating oral medications at this time as she states it gives he throat pain. She is being followed by CT surgery who will plan for Pleurx catheter today. Eliquis on hold. Colchicine ordered for pericardial effusion. She remains on cefepime and bronchodilators. Labs WBC 5.8, hemoglobin 11.0, platelets 313, sodium 133, potassium 5.4, bicarb 34, BUN 17, creatinine 0.7. 10-06-24 Patient seen and examined at bedside. Pleurx catheter placed yesterday by CT surgery with drainage of 750 cc. This morning drainage of 150 cc. Operative note reviewed. Patient sitting up in bed on BiPAP 10/5 and 50% FiO2 will attempt to transition to O2 high flow nasal cannula. Breathing overall improved patient states she is more comfortable today. She remains on cefepime and bronchodilators. Labs labs WBC 6.8, hemoglobin 10.7, platelets 302, sodium 134, potassium 5.3, bicarb 31, gap 4, BUN 25, creatinine 0.74, glucose 80. Repeat chest x-ray with persistent completely opacified right hemithorax, improved left lower lung opacity. 10-07-24 Patient seen and examined at bedside. She was on BiPAP overnight and transition to nasal cannula 5 L this morning, satting at 93%. States her breathing is somewhat improved from yesterday. She continues to have significant sputum production and cough. Given scopolamine patch. Continue holding Eliquis. She remains on cefepime and bronchodilators. Today's chest x-ray is relatively unchanged with stable left lower opacity. Labs labs WBC 8.8, hemoglobin 10.4, sodium 133, potassium 4.0, bicarb 33, BUN 25, glucose 124. 10-08-24 Patient seen and examined at bedside. She is postop day #3 status post left Pleurx catheter placement. She is on 5 L nasal cannula O2 saturation 97%. States her breathing continues to improve, no apparent cough. Continue scopolamine patch. She states she has not had regular bowel movements. She remains on cefepime and bronchodilators. Begin metoprolol 25 mg p.o. daily. Labs today WBC 6.3, hemoglobin 10.5, sodium 132, potassium 4.2, chloride 94, bic arb 36, gap 2, BUN 21, creatinine 0.60. Pleural fluid slightly hazy WBC 1897, RBC 9000. 10/09/2024 Patient evaluated today in follow-up on the cardiac unit. She is postoperative day #4 left Pleurx catheter placement with plans to drain the Pleurx catheter today. She does report improvement in her shortness of breath. Patient continues on bronchodilators. She is not having regular bowel movements although she states that she feels that she may have 1 today she is refusing any other laxatives or stool softeners at this time. Sodium level today is 134, BUN of 3, creatinine of 16. 10/10/2024 Patient examined and evaluated sitting up at bedside. She is postoperative day #5 left Pleurx catheter placement, no plans to remove fluid today. She continues on 5 L normal cannula with stated continued breathing improvement. Patient continues on bronchodilators. Sodium 132 despite normal saline, will discontinue and limit fluid to 1500 cc/day possibly secondary to SIADH. Lab potassium 4.1, chloride 95, bicarb 36. 10/11/2024 Patient seen and examined sitting up at bedside. Overnight patient had A-fib with RVR rate 145 and was given metoprolol and placed on IV Cardizem. Plan to switch to orals today. Scopolamine patch discontinued. She is postop day #6 left proximal catheter placement. She continues on 5 L normal cannula with stated continued breathing improvement. No BiPAP overnight. Patient continues on bronchodilators. Sodium 132, potassium 3.9, chloride 97, bicarb 35. Chest x-ray with right-sided whiteout, left-sided opacities slightly improved. Review of Systems: Reviewed, pertinent positives and negatives as per HPI PHYSICAL EXAMINATION: GENERAL: The patient is alert and oriented x3. No acute distress, well developed, well nourished. HEENT: Pupils are round and equally reacting to light. EOMI. No scleral icterus. No conjunctival pallor. Normocephalic, atraumatic. CARDIOVASCULAR: S1 and S2 present. No murmurs, rubs, or gallops. PULMONARY: Absent right-sided breath sounds, left-sided normal breathing sounds, no wheeze or rhonchi. ABDOMEN: Soft, nontender, nondistended, normoactive bowel sounds. No palpable organomegaly. MUSCULOSKELETAL: No joint swelling or deformity. EXTREMITIES: No cyanosis, clubbing, or pedal edema. NEUROLOGICAL: Gross neurological examination did not reveal any focal deficits. SKIN: No rashes. Assessment and Plan Right hemithorax with chronic loculated effusion. Status post Pleurx catheter placement Small to moderate left pleural effusion Moderate pericardial effusion Acute on chronic hypoxemic respiratory failure secondary to above Acute exacerbation of COPD Hyperkalemia, given Lokelma, resolved Hyponatremia, possible SIADH Constipation History of nonsmall cell lung cancer with prior chemoradiation and right pneumonectomy in 2019; this is stage IV with brain metastasis Paroxysmal Atrial fibrillation, rate controlled on eliquis for anticoagulation Anxiety/depression History of seizure disorder maintained on keppra Hyperlipidemia Hypertension GI prophylaxis DVT prophylaxis No Code Plan Cefepime has been discontinued at this time Continue bronchodilators Continue holding valsartan, given Lokelma potassium now WNL Continue metoprolol Discontinue IV NS, scopolamine patch Status post Pleurx catheter placement, continue colchicine, resume Eliquis Echocardiogram with pericardial effusion measuring 1.4 cm, right atrial and right ventricular diastolic collapse consistent with tamponade physiology Cardiology following CT surgery following Pulmonary following Dr. Keaton MD I have performed a history and physical examination and medical decision making of this patient, discussed the same with the dictator, and agree with the dictators assessment and plan as written, documented as a scribe. Based on total visit time, I have performed more than 50% of this visit. Objective - Vital Signs Vital signs: Vital Signs Temp 97.6 F 10/11/24 08:04 Pulse 86 10/11/24 09:14 Resp 16 10/11/24 08:04 BP 103/65 10/11/24 08:04 Pulse Ox 98 10/11/24 08:04 FiO2 50 10/07/24 08:22 Intake & Output 10/10/24 10/11/24 10/11/24 18:59 06:59 18:59 Intake Total 240 665 200 Output Total 600 Balance 240 65 200 Weight 60.7 kg 60.4 kg Intake: Intake, IV Titration 125 Amount Diltiazem 125 mg In 125 Sodium Chloride 0.9% 100 ml @ 10 MG/HR 10 mls/hr IV .[id number] [facility] Rx#: [id number] Oral 240 540 200 Output: Urine 600 Other: Voiding Method Bedside Commode Bedside Commode # Bowel Movements 2 - Labs CBC & Chem 7: 10/11/24 06:58 10/11/24 06:58 Labs: Abnormal Lab Results - Last 24 Hours (Table) 10/07/24 10/11/24 10/11/24 Range/Units 12:00 06:58 06:58 RBC 3.63 L (3.80-5.40) m/uL Hgb 9.7 L (11.4-16.0) gm/dL Hct 31.4 L (34.0-46.0) % MCHC 30.8 L (31.0-37.0) g/dL Sodium 132 L (137-145) mmol/L Chloride 97 L (98-107) mmol/L Carbon Dioxide 35 H (22-30) mmol/L Glucose 101 H (74-99) mg/dL Rhinovirus (PCR) DETECTED A (Not detected) Microbiology - Last 24 Hours (Table) 10/07/24 12:00 Gram Stain - Preliminary Pleural Fluid Body Fluid Culture - Preliminary
[2024-10-12 07:54] LABS: HCT 32.9 % (34.0-46.0); Hypochromasia Marked; MCH 26.5 pg (25.0-35.0); MCHC 30.3 g/dL (31.0-37.0); MCV 87.6 fL (80.0-100.0); Mean Platelet Volume 9.2; Platelet Count 322 k/uL (150-450); RBC 3.76 m/uL (3.80-5.40); WBC 6.7 k/uL (3.8-10.6)
[2024-10-12 08:27] LABS: African American GFR (CKD) 85 (>60 ml/min/1.73 sqM); Anion Gap 2 mmol/L; Blood Urea Nitrogen 11 mg/dL (7-17); Calcium 9.2 mg/dL (8.4-10.2); Carbon Dioxide 36 mmol/L (22-30); Chloride 96 mmol/L (98-107); Glucose 80 mg/dL (74-99); Non-African American GFR(CKD) 74 (>60 ml/min/1.73 sqM); Potassium 3.8 mmol/L (3.5-5.1); Sodium 134 mmol/L (137-145)
[2024-10-12] MEDS: METOPROLOL SUCCINATE (ER) 50 MG TAB.ER.24H PO SCH (08:49)
--- NOTE | 2024-10-12 11:49 | P.PN ---
Subjective HISTORY OF PRESENT ILLNESS: HISTORY OF PRESENTING ILLNESS This is a pleasant 69-year-old with past medical history significant for hypertension, hyperlipidemia, family history of CAD, seizures, questionable previous stroke on Plavix, lung cancer stage IV in remission per patient and atrial fibrillation. She has never seen a fishing reel assembler however was seen by myself 2 months ago. Patient has a history of non-small cell lung cancer in 2019, had undergone pneumonectomy and remains onTagrisso on an outpatient basis. She has had a number of hospitalizations over the last 6 months. She states in general she had felt somewhat better however over the last 3 months especially she has noticed significant shortness breath with any sort of activity. Denies any fevers or chills. She was initially seen on 10/01 by pulmonology and treated for COPD exacerbation and a CT chest was obtained. CT chest showed complete right hemithorax white out and loculated pleural effusion measuring up to 14 cm. This is similar to prior from July 2024. There additionally was new small to moderate left pleural effusion as well as moderate pericardial e ffusion measuring 2.1 cm versus previous measurement of 1.3 cm and 2 cm groundglass opacity in the left upper lobe. Echocardiogram was performed which showed ejection fraction 55% with moderate pericardial effusion and tamponade physiology. 10/04 Patient requiring increasing oxygen demand initially on a Ventimask and now on a nonrebreather. She is sitting up in bed with some mild tachypnea. She is being moved to cardiac floor. She denies any chest pain or pressure. She states she is feeling worse than yesterday. 10/05 Patient seen and examined on the cardiac stepdown unit. Patient has been transferred from the Med[facility] floor. She is currently on BiPAP unable to have this removed. She is scheduled for Pleurx catheter insertion today. Patient has not been taking her oral medications as she is complaining of difficulties with some swallowing. Heart rate is 10 9-1 23, respiratory rate 29, pulse ox 95% on 70% BiPAP, blood pressure 142/76. Repeat blood work reveals hemoglobin 11, sodium 133, potassium 5.4, creatinine 0.7. Chest x-ray: On going complete whiteout of the right hemithorax. Ongoing dhrgg-vm-exdxbpez left pleural effusion with prominent adjacent atelectasis and/or consolidation extending up to the mid lung level. 12/5 Yesterday, patient underwent Pleurx catheter placement by CTS. Patient continues to have bilateral wheezing. Heart rate and respiratory rate are improved. Patient is currently hemodynamically stable. Blood pressure 113/74, heart rate 106, pulse ox 96% on high flow nasal cannula. Repeat blood work reveals hemoglobin 10.7, sodium 135, potassium 5.3, BUN 25 and creatinine 0.74. 10/07/24 Patient is seen and examined. She complains of difficulty in breathing and is trying to remove her mask. Her heart rate is sinus rhythm in the 120s. Blood pressure 113/79, pulse ox 6% on 50% FiO2 BiPAP. Repeat blood work reveals WBC 8.8, hemoglobin 10.4. Sodium 133, potassium 4, BUN 25 creatinine 0.66. Chest x-ray reveals complete whiteout right hemithorax, ongoing interstitial opacities left lung, slight worsening retrocardiac and left basilar opacity, left basilar pleural catheter. Pulmonary medicine recommend continuing to hold Eliquis 10/08/24 Patient seen and examined. Respiratory status is much improved and now she is on nasal cannula at 6 L with pulse ox of 95%, heart rate is in the 80s and 90s, blood pressure 133/75. Yesterday we added metoprolol succinate for heart rate control. Remains with Pleurx catheter in place with drainage. 10/09/2024 Patient's breathing status is slowly improving. She is now on 5 L nasal cannula with a pulse ox of 97%, heart rate in the 90s, blood pressure 118/71. Patient's Eliquis was on hold for Pleurx catheter and waiting to see if there is any other procedures that patient needed. 10/11/2024 Patient examined this morning the bedside. Patient currently denies chest pain or pressure. She denies shortness of breath. Telemetry reveals sinus mechanism with a heart rate in the 80s. 10/12/2024 Patient examined this morning at the bedside. Patient currently denies any chest pain or pressure. She remains in sinus mechanism with heart rate in the 90s. PHYSICAL EXAM: VITAL SIGNS: Reviewed. GENERAL: Well-developed in no acute distress. NECK: Supple. No JVD or thyromegaly LUNGS: Respirations even and unlabored. Lungs essentially clear to auscultation bilaterally. HEART: Regular rate and rhythm. S1 and S2 heard. EXTREMITIES: Normal range of motion. No clubbing or cyanosis. Peripheral pulses intact. No lower extremity edema ASSESSMENT: Pericardial effusion with tamponade physiology, chronic Status post left Pleurx catheter placement, 10/05/2024 Paroxysmal atrial fibrillation on Eliquis Sinus tachycardia Acute on chronic hypoxic respiratory failure Acute exacerbation of COPD Left lower lobe pneumonia Non-small cell lung cancer with previous right pneumonectomy 2019 with metastatic disease to the brain s/p radiation therapy to the brain Seizure disorder History of stroke previously on Plavix Family history of CAD PLAN: Continue current cardiac medications Add low-dose amiodarone 200 mg daily to maintain sinus mechanism Continue telemetry monitoring No further inpatient recommendations from a cardiac standpoint We will sign off. Please reconsult if needed. Nurse practitioner note has been reviewed by physician. Signing provider agrees with the documented findings, assessment, and plan of care documented by SURGERY SCHEDULING COORDINATOR as a scribe. Objective - Vital Signs Vital signs: Vital Signs Temp 98.5 F 10/12/24 08:45 Pulse 92 10/12/24 09:18 Resp 20 10/12/24 09:18 BP 121/79 10/12/24 08:45 Pulse Ox 97 10/12/24 09:09 FiO2 50 10/07/24 08:22 Intake & Output 10/11/24 10/12/24 10/12/24 18:59 06:59 18:59 Intake Total 1617 480 240 Output Total 200 600 Balance 1417 -120 240 Weight 60.2 kg Intake: Oral 1617 480 240 Output: Urine 200 600 Other: Voiding Method Bedside Commode Bedside Commode Bedside Commode # Voids 1 1 - Labs CBC & Chem 7: 10/12/24 06:35 10/12/24 06:35 Labs: Abnormal Lab Results - Last 24 Hours (Table) 10/12/24 10/12/24 Range/Units 06:35 06:35 RBC 3.76 L (3.80-5.40) m/uL Hgb 10.0 L (11.4-16.0) gm/dL Hct 32.9 L (34.0-46.0) % MCHC 30.3 L (31.0-37.0) g/dL Sodium 134 L (137-145) mmol/L Chloride 96 L (98-107) mmol/L Carbon Dioxide 36 H (22-30) mmol/L Microbiology - Last 24 Hours (Table) 10/07/24 12:00 Gram Stain - Final Pleural Fluid Body Fluid Culture - Final
[2024-10-12] MEDS: AMIODARONE 200 MG TAB PO SCH (12:01)
--- NOTE | 2024-10-12 13:05 | P.PN ---
Subjective Progress Note Date: 10/12/24 Patient is a 69 year old female with past medical history of atrial flutter, hypertension, seizure disorder, COPD with 4L home oxygen, lung cancer with metastasis to the brain with previous radiation therapy and right lower lobectomy presented to the ED with worsening shortness of breath. She mentions her symptoms started a couple months ago. She has experienced progressive shortness of breath. She has been admitted twice in the past month for similar symptoms. Everytime she would get discharged she will feel good at first but then her symptoms would recur within 2 weeks prompting another visit to the hospital. She also mentions having lung cancer. She was diagnosed in 2014, at that time she got a right lower lobectomy. There was recurrence of the cancer in 2019 at which point a drain was placed. It was found the cancer has metastasized to her brain for which she underwent radiation therapy. Subsequently she had chemotherapy and is now on chemotherapy pills(Tagrisso). Associated with that she also complains of dysphagia since 3 days and due to which her oral intake has been very poor. Also reports having runny nose and sometime blocked nose. Denies any reflux or regurgitation or past medical history of GERD, fever, chills, sore throat. Additionally she mentions having in her lower abdomen while having bowel movement. Denies constipation or diarrhea. Denies palpitations, nausea, vomiting, dysuria, hematuria, hematochezia, melena, numbness, tingling, joint pain, muscle aches. ED documentation reviewed. In the ED patient was treated with Percocet, Nebulised albuterol, Morphine, Levetiracetam. Vitals on admission T 99 F, GA 121, RR 18, BP 127/87, O2 sat 95% on 4 L nasal cannula EKG independently interpreted as sinus tachycardia, rate 116 bpm, QTc 495 ms Chest x-ray shows ongoing complete whiteout of the right hemithorax, slight increasing no [id number] left pleural effusion with adjacent atelectasis/consolidation Labs on admission show WBC 5.7, hemoglobin 11.4, sodium 136, magnesium 1.5, troponin I <0.012 Respiratory panel is negative 10/02/2024 Patient is eval today in follow-up in the medical floor. She is reporting significant shortness of breath. She continues on oxygen via nasal cannula at 4 L. Patient had a repeat chest CT which shows a complete whiteout of the right hemithorax with a chronic loculated effusion. There is a new small to moderate left pleural effusion with moderate pericardial effusion. Patient does have known small cell lung cancer and also has a right pnuemonectomy. She also has a noted left upper lobe nodule. She continues on IV cefepime with concern for postobstructive pneumonia. Pulmonary is following this patient closely. Work today reveals a white blood cell count of 4.31, hemoglobin 10.6, sodium of 136, potassium of 5.1. BUN of 12.3 creatinine 0.8. Her proBNP is less than 20. Her viral panel is negative. 10-03-24 Patient seen and examined at bedside. No events overnight. Patient continues to have shortness of breath and cough that she states has not improved. WBC 5.08, sodium 137, potassium 5.9, BUN 11.0, creatinine 0.9, glucose 113. Hyperkalemia noted, discontinued valsartan. Echocardiogram finding significant for pericardial effusion and right atrial and right ventricular diastolic collapse consistent with tamponade. Cardiology consulted. Pulmonology continues to follow. 10-04-24 Patient seen and examined at bedside. Patient sitting up in bed and found with worsening respiratory distress. On BiPAP 10/5 and 100% FiO2. Ultrasound chest performed with large left pleural effusion. Chest x-ray also completed with left-sided pleural effusion noted in right hemithorax whiteout. No plans for thoracentesis by pulmonology. She is being followed by CT surgery who will plan for Pleurx catheter tomorrow. Eliquis on hold. Patient started on colchicine for pericardial effusion. She remains on cefepime and bronchodilators. CODE STATUS was discussed by patient who wishes to be no code. Labs WBC 7.3, hemoglobin 11.2, platelets 339, sodium 140, potassium 5.4, bicarb 29, BUN 10.2, creatinine 0.8. CT surgery, pulmonary, cardiology notes reviewed. 10-05-24 Patient seen and examined at bedside. Patient sitting up in bed on BiPAP 10/5 and 70% FiO2. Work of breathing improved since yesterday. She is unable to tolerating oral medications at this time as she states it gives he throat pain. She is being followed by CT surgery who will plan for Pleurx catheter today. Eliquis on hold. Colchicine ordered for pericardial effusion. She remains on cefepime and bronchodilators. Labs WBC 5.8, hemoglobin 11.0, platelets 313, sodium 133, potassium 5.4, bicarb 34, BUN 17, creatinine 0.7. 10-06-24 Patient seen and examined at bedside. Pleurx catheter placed yesterday by CT surgery with drainage of 750 cc. This morning drainage of 150 cc. Operative note reviewed. Patient sitting up in bed on BiPAP 10/5 and 50% FiO2 will attempt to transition to O2 high flow nasal cannula. Breathing overall improved patient states she is more comfortable today. She remains on cefepime and bronchodilators. Labs labs WBC 6.8, hemoglobin 10.7, platelets 302, sodium 134, potassium 5.3, bicarb 31, gap 4, BUN 25, creatinine 0.74, glucose 80. Repeat chest x-ray with persistent completely opacified right hemithorax, improved left lower lung opacity. 10-07-24 Patient seen and examined at bedside. She was on BiPAP overnight and transition to nasal cannula 5 L this morning, satting at 93%. States her breathing is somewhat improved from yesterday. She continues to have significant sputum production and cough. Given scopolamine patch. Continue holding Eliquis. She remains on cefepime and bronchodilators. Today's chest x-ray is relatively unchanged with stable left lower opacity. Labs labs WBC 8.8, hemoglobin 10.4, sodium 133, potassium 4.0, bicarb 33, BUN 25, glucose 124. 10-08-24 Patient seen and examined at bedside. She is postop day #3 status post left Pleurx catheter placement. She is on 5 L nasal cannula O2 saturation 97%. States her breathing continues to improve, no apparent cough. Continue scopolamine patch. She states she has not had regular bowel movements. She remains on cefepime and bronchodilators. Begin metoprolol 25 mg p.o. daily. Labs today WBC 6.3, hemoglobin 10.5, sodium 132, potassium 4.2, chloride 94, bic arb 36, gap 2, BUN 21, creatinine 0.60. Pleural fluid slightly hazy WBC 1897, RBC 9000. 10/09/2024 Patient evaluated today in follow-up on the cardiac unit. She is postoperative day #4 left Pleurx catheter placement with plans to drain the Pleurx catheter today. She does report improvement in her shortness of breath. Patient continues on bronchodilators. She is not having regular bowel movements although she states that she feels that she may have 1 today she is refusing any other laxatives or stool softeners at this time. Sodium level today is 134, BUN of 3, creatinine of 16. 10/10/2024 Patient examined and evaluated sitting up at bedside. She is postoperative day #5 left Pleurx catheter placement, no plans to remove fluid today. She continues on 5 L normal cannula with stated continued breathing improvement. Patient continues on bronchodilators. Sodium 132 despite normal saline, will discontinue and limit fluid to 1500 cc/day possibly secondary to SIADH. Lab potassium 4.1, chloride 95, bicarb 36. 10/11/2024 Patient seen and examined sitting up at bedside. Overnight patient had A-fib with RVR rate 145 and was given metoprolol and placed on IV Cardizem. Plan to switch to orals today. Scopolamine patch discontinued. She is postop day #6 left proximal catheter placement. She continues on 5 L normal cannula with stated continued breathing improvement. No BiPAP overnight. Patient continues on bronchodilators. Sodium 132, potassium 3.9, chloride 97, bicarb 35. Chest x-ray with right-sided whiteout, left-sided opacities slightly improved. 10/12/2024 Patient seen and examined sitting up in chair. She continues on 4 L normal cannula with stated continued breathing improvement. No BiPAP overnight. Patient continues on bronchodilators. HR stable in 90s. Add low-dose amiodarone 200 mg daily. Labs hemoglobin 10.0, sodium 134, potassium 3.8, bicarb 36, glu cose 80. Review of Systems: Reviewed, pertinent positives and negatives as per HPI PHYSICAL EXAMINATION: GENERAL: The patient is alert and oriented x3. No acute distress, well developed, well nourished. HEENT: Pupils are round and equally reacting to light. EOMI. No scleral icterus. No conjunctival pallor. Normocephalic, atraumatic. CARDIOVASCULAR: S1 and S2 present. No murmurs, rubs, or gallops. PULMONARY: Absent right-sided breath sounds, left-sided upper rhonchi ABDOMEN: Soft, nontender, nondistended, normoactive bowel sounds. No palpable organomegaly. MUSCULOSKELETAL: No joint swelling or deformity. EXTREMITIES: No cyanosis, clubbing, or pedal edema. NEUROLOGICAL: Gross neurological examination did not reveal any focal deficits. SKIN: No rashes. Assessment and Plan Right hemithorax with chronic loculated effusion. Status post Pleurx catheter placement Small to moderate left pleural effusion Moderate pericardial effusion Acute on chronic hypoxemic respiratory failure secondary to above Acute exacerbation of COPD Hyperkalemia, given Lokelma, resolved Hyponatremia, possible SIADH Constipation History of nonsmall cell lung cancer with prior chemoradiation and right p neumonectomy in 2019; this is stage IV with brain metastasis Paroxysmal Atrial fibrillation, rate controlled on eliquis for anticoagulation Anxiety/depression History of seizure disorder maintained on keppra Hyperlipidemia Hypertension GI prophylaxis DVT prophylaxis No Code Plan Cefepime has been discontinued at this time Continue bronchodilators Continue holding valsartan, given Lokelma potassium now WNL Continue metoprolol Discontinue IV NS, scopolamine patch d/c Status post Pleurx catheter placement, continue colchicine, resume Eliquis Echocardiogram with pericardial effusion measuring 1.4 cm, right atrial and right ventricular diastolic collapse consistent with tamponade physiology Cardiology following CT surgery following Pulmonary following Plan discharge tomorrow Dr. Keaton MD I have performed a history and physical examination and medical decision making of this patient, discussed the same with the dictator, and agree with the dictators assessment and plan as written, documented as a scribe. Based on total visit time, I have performed more than 50% of this visit. Objective - Vital Signs Vital signs: Vital Signs Temp 98.5 F 10/12/24 08:45 Pulse 96 10/12/24 12:00 Resp 18 10/12/24 12:00 BP 115/77 10/12/24 12:00 Pulse Ox 90 L 10/12/24 12:00 FiO2 50 10/07/24 08:22 Intake & Output 10/11/24 10/12/24 10/12/24 18:59 06:59 18:59 Intake Total 1617 480 240 Output Total 200 600 Balance 1417 -120 240 Weight 60.2 kg Intake: Oral 1617 480 240 Output: Urine 200 600 Other: Voiding Method Bedside Commode Bedside Commode Bedside Commode # Voids 1 1 - Labs CBC & Chem 7: 10/12/24 06:35 10/12/24 06:35 Labs: Abnormal Lab Results - Last 24 Hours (Table) 10/12/24 10/12/24 Range/Units 06:35 06:35 RBC 3.76 L (3.80-5.40) m/uL Hgb 10.0 L (11.4-16.0) gm/dL Hct 32.9 L (34.0-46.0) % MCHC 30.3 L (31.0-37.0) g/dL Sodium 134 L (137-145) mmol/L Chloride 96 L (98-107) mmol/L Carbon Dioxide 36 H (22-30) mmol/L Microbiology - Last 24 Hours (Table) 10/07/24 12:00 Gram Stain - Final Pleural Fluid Body Fluid Culture - Final
--- NOTE | 2024-10-12 15:02 | P.PN ---
Subjective Progress Note Date: 10/12/24 Principal diagnosis: Pleural effusion. This is a 69-year-old female patient was being admitted for worsening shortness of breath. The patient is known to have non-small cell lung cancer the patient has undergone a previous pneumonectomy on the right back in 2018 and the patient remains on Tagrisso on outpatient basis. She was hospitalized back in July 2024 for a COPD exacerbation and left lung pneumonia with area of consolidation in the left lower lobe. She was treated accordingly. Her condition was stabilized and she was discharged home. She had another hospitalization on 09/01/2024 for worsening shortness of breath and COPD exacerbation. The patient was treated in discharged home on 09/02/2024. The patient is coming in for increased dyspnea, limited cough. No significant sputum production. No hemoptysis or pleurisy. She is afebrile. Hemodynamically stable encouraged and 40 Suboxone by nasal cannula. Chest x-ray shows pneumonectomy on the right, so me atelectatic changes and small effusion on the left. The white cell count is 5.7 hemoglobin 11.4 and platelet count is at 323. Sodium is at 136, bicarb is at 24, BUN is 12 with a creatinine of 0.7. Troponins are negative. The viral screen has been negative. No altered mentation. No seizure activity has been reported. On 10/02/24, the patient is being seen for a FU. The patient is stable and she is still on 02 at 4 L /min nasal canula and she is still having dyspnea with limited cough and sputum and she is has some minimal wheezing. The CT of the chest was completed and the patient has right pneumonectomy and she has airspace disease in the left lung base and she has also developed a left sided pleural effusion and there is a concern for a LLL pneumonia and based on that the patien t was started on IV cefepime. Labs from today were noted the white cell count is at 4.06 and a platelet count of 317. The potassium level is at one 5.1, BUN is 12 with a creatinine of 0.8. proBNP level is less than 20. Meanwhile, the patient remains on Tagrisso. The patient remains on anticoagulation with Eliquis. The patient remains on DuoNeb updrafts and antibiotic coverage with IV cefepime. CAT scan of the chest also showed a small to moderate-sized pericardial effusion along with background COPD and some mild rectal edematous changes. Another 2 cm focus of groundglass opacity was seen in the left upper lobe The patient is seen today October 03, 2024 in follow-up on the regular medical floor. She is currently sitting up in bed. Awake and alert in no acute distress. Maintaining O2 saturations in the 90s on 3 L/min per nasal cannula. She has been afebrile. Hemodynamically stable. Echocardiogram reveals preserved left ventricular systolic function with ejection fraction 55 to 60%. White count 5.0. Hemoglobin 9.6. Platelets 304. Sodium 137. Potassium 5.9. Bicarb 30. BUN 11. Creatinine 0.9. Glucose 113. Procalcitonin was negative at 0.03. Is currently on cefepime. Continued on DuoNeb and elations. Anticoagulated with Eliquis. Continued on her Tagrisso. The patient is seen today October 04, 2024 in follow-up on the regular medical floor. She was having increasing complaints of shortness of breath today. She was placed on BiPAP 10/5 and 100% FiO2. She is continued on DuoNeb inhalations. Ultrasound of the left chest did not reveal any significant pleural effusion. Pocket measured 5.0 cm. Chest x-ray revealed redemonstrated complete whiteout of the right hemithorax. Small to moderate left pleural effusion with adjacent atelectasis and/or consolidation. White count 7.3. Hemoglobin 11.2. Platelets 339. Sodium 140. Potassium 5.4. Bicarb 29. BUN 10. Creatinine 0.8. Procalcitonin was negative at 0.03. She is currently on cefepime. Echocardiogram revealed preserved left ventricular systolic function with ejection fraction 55 to 60%. There is a moderate pericardial effusion measuring 1.4 cm with significant tricuspid valve respiratory variation greater than 50%, right atrial and right ventricular diastolic collapse consistent with tamponade physiology. Patient was evaluated today on 10/05/2024, continues to have shortness of breath continues to have intermittent cough and wheezing chest x-ray has left-sided pleural effusion and left lower lobe atelectasis. Patient does not feel any better today compared to her baseline. She feels actually that she may even be worse. WBC count is 5.8 hemoglobin is 11 electrolytes are normal renal profile is normal procalcitonin level is 0.03 Seen today on 10/06/2024, patient is now postoperative day #1 status post left Pleurx catheter placement and she had 750 mL of fluid removed from the left pleural space. Patient continues to have the Pleurx catheter contacted to Pleur-evac, no air leak noted, continues to have some serosanguineous drainage noted. Patient is feeling better however she remains on Airvo at 50% FiO2 and 50 L flow. Patient has been on BiPAP 08/06/50% chest x-ray showed significant improvement in left pleural effusion continues to have left lower lobe atel ectasis/retrocardiac opacity. Cytology on the fluid is pending and chemical profile on the pleural effusion fluid is also pending there is a concern of possible malignancy/malignant pleural effusion needs to be ruled out Patient was seen today on 10/07/2024, patient remains on the medical floor she is now postoperative day #2 status post left Pleurx catheter placement. Doing better she is now on nasal cannula, does not seem to be in distress. On 5 L nasal cannula, O2 saturation 97%. She does have cough which is productive she has some difficulty clearing her secretions but able to do this with effort. Chest x-ray was reviewed continues to have left basilar atelectasis and improvement in her left pleural effusion her WBC count is 8.8 hemoglobin 10.4 basic metabolic profile is normal renal profile is normal Seen today on 10/08/2024, patient is now postoperative day #3 status post left Pleurx catheter placement. Doing well, feeling better breathing easier nonetheless continues to have intermittent cough and wheezing, she is trying hard to keep her lungs clear with deep coughing and deep breathing. Remains on bronchodilators,No chest x-ray was done today, I did review her chest x-ray from yesterday. WBC count is 6.3 hemoglobin 10.5 basic metabolic profile is normal renal profile is normal 10/09/2024, patient is steadily improving but slowly. She is now postoperative day #4,On 5 L nasal cannula with O2 sats of 96% her WBC count is 5.9 hemoglobin 10.7 electrolytes are normal renal profile is normal bicarb is 36 cytology on the pleural effusion is pending, Cultures on the pleural effusion are pending negative Gram stain so far. Progress note dated October 10, 2024. 69-year-old female seen today in room 359. The patient is currently on 5 L nasal cannula. She is getting saline at 20 cc an hour. She had a Pleurx catheter placed on the left side, on October 08. She did not use the BiPAP device last night. Currently, she is resting comfortably in bed. She is in no distress. Current labs include sodium 132, potassium 4.1, chlorides 95, CO2 36, BUN 14, creatinine 0.70. Glucose is 89. Calcium is 9.0. No chest x-ray today. Progress note dated October 11, 2024. 69-year-old female seen today in room 359. The patient continues on nasal O2 at 5 L. No IV fluids. She did not use the BiPAP last night. Current labs include a white count 7.1, hemoglobin 9.7, hematocrit 31.4, and a normal platelet count. Sodium 132, potassium 3.9, chlorides 97, CO2 35, BUN 13, creatinine 0.68. The patient appears to be relatively stable. She did apparently have an episode of tachycardia last night. Most recent heart rates have been in the 80s. Chest x- ray from today, is evaluated. Progress note dated October 12, 2024. 69-year-old female seen today in room 359. She continues on oxygen, although it has been weaned down to 4 L. Saturations are 97%. She is not receiving any IV fluids. Clinically, she is doing better. She feels better. White count 6.7, hemoglobin 10, hematocrit 32.9, platelet count is normal. Sodium 134, potassium 3.8, chlorides 96, CO2 36, BUN 11, creatinine 0.82. Calcium 9.2. X-ray from October 11 has been reviewed. Objective - Vital Signs Vital signs: Vital Signs Temp 98.5 F 10/12/24 08:45 Pulse 94 10/12/24 13:26 Resp 18 10/12/24 13:26 BP 115/77 10/12/24 12:00 Pulse Ox 90 L 10/12/24 12:00 FiO2 50 10/07/24 08:22 Intake & Output 10/11/24 10/12/24 10/12/24 18:59 06:59 18:59 Intake Total 1617 480 240 Output Total 200 600 Balance 1417 -120 240 Weight 60.2 kg Intake: Oral 1617 480 240 Output: Urine 200 600 Other: Voiding Method Bedside Commode Bedside Commode Bedside Commode # Voids 1 1 - Exam No acute distress, oriented 3. No respiratory distress currently on 4 L. HEENT examination is grossly unremarkable. Mucous membranes are moist. No oral lesions. Neck supple. Full range of motion. No adenopathy thyromegaly or neck vein distention. Cardiovascular examination reveals regular rhythm rate. S1-S2 normal. No S3 or S4. No discernible murmur noted. Lungs reveal tattered rhonchi. No wheezes or crackles. Left-sided Pleurx catheter is noted. Abdomen soft bowel sounds are heard. No masses or tenderness. Extremities are intact. No cyanosis clubbing or edema. Skin is without rash or lesion. Neurologic examination is brief but nonfocal. - Labs CBC & Chem 7: 10/12/24 06:35 10/12/24 06:35 Labs: Abnormal Lab Results - Last 24 Hours (Table) 10/12/24 10/12/24 Range/Units 06:35 06:35 RBC 3.76 L (3.80-5.40) m/uL Hgb 10.0 L (11.4-16.0) gm/dL Hct 32.9 L (34.0-46.0) % MCHC 30.3 L (31.0-37.0) g/dL Sodium 134 L (137-145) mmol/L Chloride 96 L (98-107) mmol/L Carbon Dioxide 36 H (22-30) mmol/L Microbiology - Last 24 Hours (Table) 10/07/24 12:00 Gram Stain - Final Pleural Fluid Body Fluid Culture - Final Assessment and Plan Assessment: Postoperative day #7, status post left-sided Pleurx catheter placement, for left-sided pleural effusion. Acute exacerbation of COPD. Possible left lower lobe pneumonia. Acute hypoxemic respiratory failure. Moderate pericardial effusion, measuring 1.4 cm. History of non-small cell lung cancer, with previous right pneumonectomy, 2019. 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 Paroxysmal atrial fibrillation/flutter. Moderate mitral regurgitation. History of hypertension. History of hyperlipidemia. Plan: Plan dated October 10, 2024. The patient is seen today in room 359. She continues on nasal O2 at 5 L. She is getting saline at 20 cc an hour. On October 08, she had a left Pleurx catheter placed. We will continue to follow make recommendations along the way. The BiPAP device is in the room but she did not use it last night. We will continue to follow the patient, and make recommendations, with labs, x-rays, and all medications being reviewed. Plan dated October 11, 2024. The patient is seen today in room 359. She remains on 5 L of oxygen. No respiratory distress. She did not use the BiPAP device last night. She states that she had an episode of tachycardia last night. More recently, her heart rates have been in the 80s. Labs, x-rays, and medications are reviewed. Prognosis is guarded. We will continue to follow the patient, make recommendations along the way. Plan dated October 12, 2024. The patient is doing very well. The patient is down to 4 L. She was up walking the hallway. Labs, x-rays, medications are reviewed. We will continue to follow the patient, make recommendations along the way. Prognosis is guarded. Time with Patient: Less than 30
[2024-10-13] MEDS: IPRATROPIUM-ALBUTEROL 3 ML NEB INHALATION PRN (05:36)
[2024-10-13 08:37] LABS: HCT 31.5 % (37.2-46.3); HGB 9.4 g/dL (12.0-15.0); MCHC 29.8 g/dL (32.0-37.0); MCV 87.3 FL (80.0-97.0); Mean Platelet Volume 11.8 FL (9.5-12.2); NRBC Per 100 WBC 0 X 10*3/uL (0.00-0.01); Platelet Count 316 X 10*3/uL (140-440); RBC 3.61 X 10*6/uL (4.10-5.20); RDW 15.5 % (11.5-14.5)
[2024-10-13 09:00] LABS: BUN/Creat Ratio 12.43 Ratio (12.00-20.00); Blood Urea Nitrogen 8.7 mg/dL (9.0-27.0); Glucose 103 mg/dL (70-110)
[2024-10-13 09:01] LABS: Calcium 8.9 mg/dL (8.7-10.3); Carbon Dioxide 30.6 mmol/L (21.6-31.8); Chloride 97 mmol/L (96-109); Potassium 4.3 mmol/L (3.5-5.5); Sodium 137 mmol/L (135-145)
--- NOTE | 2024-10-13 13:18 | P.PN ---
Subjective Progress Note Date: 10/13/24 This is a 69-year-old female patient was being admitted for worsening shortness of breath. The patient is known to have non-small cell lung cancer the patient has undergone a previous pneumonectomy on the right back in 2018 and the patient remains on Tagrisso on outpatient basis. She was hospitalized back in July 2024 for a COPD exacerbation and left lung pneumonia with area of consolidation in the left lower lobe. She was treated accordingly. Her condition was stabilized and she was discharged home. She had another hospitalization on 09/01/2024 for worsening shortness of breath and COPD exacerbation. The patient was treated in discharged home on 09/02/2024. The patient is coming in for increased dyspnea, limited cough. No significant sputum production. No hemoptysis or pleurisy. She is afebrile. Hemodynamically stable encouraged and 40 Suboxone by nasal cannula. Chest x-ray shows pneumonectomy on the right, some atelectatic changes and small effusion on the left. The white cell count is 5.7 hemoglobin 11.4 and platelet count is at 323. Sodium is at 136, bicarb is at 24, BUN is 12 with a creatinine of 0.7. Troponins are negative. The viral screen has been negative. No altered mentation. No seizure activity has been reported. On 10/02/24, the patient is being seen for a FU. The patient is stable and she is still on 02 at 4 L /min nasal canula and she is still having dyspnea with limited cough and sputum and she is has some minimal wheezing. The CT of the chest was completed and the patient has right pneumonectomy and she has airspace disease in the left lung base and she has also developed a left sided pleural effusion and there is a concern for a LLL pneumonia and based on that the patient was started on IV cefepime. Labs from today were noted the white cell count is at 4.06 and a platelet count of 317. The potassium level is at one 5.1, BUN is 12 with a creatinine of 0.8. proBNP level is less than 20. Meanwhile, the patient remains on Tagrisso. The patient remains on anticoagulation with Eliquis. The patient remains on DuoNeb updrafts and antibiotic coverage with IV cefepime. CAT scan of the chest also showed a small to moderate-sized aimee cardial effusion along with background COPD and some mild rectal edematous changes. Another 2 cm focus of groundglass opacity was seen in the left upper lobe The patient is seen today October 03, 2024 in follow-up on the regular medical floor. She is currently sitting up in bed. Awake and alert in no acute distress. Maintaining O2 saturations in the 90s on 3 L/min per nasal cannula. She has been afebrile. Hemodynamically stable. Echocardiogram reveals preserved left ventricular systolic function with ejection fraction 55 to 60%. White count 5.0. Hemoglobin 9.6. Platelets 304. Sodium 137. Potassium 5.9. Bicarb 30. BUN 11. Creatinine 0.9. Glucose 113. Procalcitonin was negative at 0.03. Is currently on cefepime. Continued on DuoNeb and elations. Anticoagulated with Eliquis. Continued on her Tagrisso. The patient is seen today October 04, 2024 in follow-up on the regular medical floor. She was having increasing complaints of shortness of breath today. She was placed on BiPAP 10/5 and 100% FiO2. She is continued on DuoNeb inhalations. Ultrasound of the left chest did not reveal any significant pleural effusion. Pocket measured 5.0 cm. Chest x-ray revealed redemonstrated complete whiteout of the right hemithorax. Small to moderate left pleural effusion with adjacent atelectasis and/or consolidation. White count 7.3. Hemoglobin 11.2. Platelets 339. Sodium 140. Potassium 5.4. Bicarb 29. BUN 10. Creatinine 0.8. Procalcitonin was negative at 0.03. She is currently on cefepime. Echocardiogram revealed preserved left ventricular systolic function with ejection fraction 55 to 60%. There is a moderate pericardial effusion measuring 1.4 cm with significant tricuspid valve respiratory variation greater than 50%, right atrial and right ventricular diastolic collapse consistent with tamponade physiology. The patient is seen today October 13, 2024 in follow-up on the regular medical floor. She is currently sitting up in bed. Awake and alert in no acute distress. Maintaining good O2 saturations in the 90s on 3 L/min per nasal cannula. She is continued on DuoNeb inhalations. Anticoagulated with Eliquis. Pleural fluid cultures revealed no growth. Cytology was positive for metastatic pulmonary adenocarcinoma. Continued on her Tagrisso. Count 5.7. Hemoglobin 9.4. Platelets 316. Sodium 137. Potassium 4.3. Bicarb 31. BUN 9. Creatinine 0.7. Glucose 103. Objective - Vital Signs Vital signs: Vital Signs Temp 97.0 F L 10/13/24 07:34 Pulse 95 10/13/24 09:48 Resp 18 10/13/24 08:00 BP 107/70 10/13/24 07:34 Pulse Ox 97 10/13/24 07:34 FiO2 50 10/07/24 08:22 Intake & Output 10/12/24 10/13/24 10/13/24 18:59 06:59 18:59 Intake Total 240 Balance 240 Intake: Oral 240 Other: Voiding Method Bedside Commode # Voids 1 - Exam GENERAL EXAM: Alert, 69-year-old female, in bed, on 3 L nasal cannula, in no acute distress. HEAD: Normocephalic. EYES: Normal reaction of pupils, equal size. NOSE: Clear with pink turbinates. THROAT: No erythema or exudates. NECK: No masses, no JVD. CHEST: No chest wall deformity. Left Pleurx catheter remains in place. LUNGS: Equal air entry with crackles in the left lung base, diminished. Absent on the right. CVS: S1 and S2 normal with no audible murmur, regular rhythm. ABDOMEN: No hepatosplenomegaly, normal bowel sounds, no guarding or rigidity. SPINE: No scoliosis or deformity SKIN: No rashes CENTRAL NERVOUS SYSTEM: No focal deficits, tone is normal in all 4 extremities. EXTREMITIES: There is no peripheral edema. No clubbing, no cyanosis. Peripheral pulses are intact. - Labs CBC & Chem 7: 10/13/24 03:29 10/13/24 03:29 Labs: Abnormal Lab Results - Last 24 Hours (Table) 10/13/24 10/13/24 Range/Units 03:29 03:29 RBC 3.61 L (4.10-5.20) X 10*6/uL Hgb 9.4 L (12.0-15.0) g/dL Hct 31.5 L (37.2-46.3) % MCH 26.0 L (27.0-32.0) pg MCHC 29.8 L (32.0-37.0) g/dL RDW 15.5 H (11.5-14.5) % BUN 8.7 L (9.0-27.0) mg/dL Assessment and Plan Assessment: Acute exacerbation of COPD Left lower lobe pneumonia and left sided pleural effusion. Pleurx catheter placed on 10/05/2024. Pleural fluid positive for metastatic pulmonary adenocarcinoma Acute hypoxic respiratory failure secondary to above Moderate pericardial effusion measuring 1.4 cm with significant tricuspid valve respiratory variation greater than 50%, right atrial and right ventricular diastolic collapse consistent with tamponade physiology. Cardiology and cardiothoracic surgery on the case. This may be chronic in nature and no plans for emergent procedure Previous history of non-small cell lung cancer with previous right pneumonectomy 2018 and the patient has been maintained on Tagrisso on outpatient basis. The patient had metastatic disease to the brain at time of admission the patient has received radiation therapy to her brain Seizure disorder maintained on Keppra Paroxysmal atrial fibrillation/flutter, maintained on long-term anticoagulation with Eliquis and the patient is currently in normal sinus rhythm Moderate mitral regurgitation/valvular heart disease Hypertension Hyperlipidemia Plan: The patient was seen and evaluated Labs and medications reviewed Left Pleurx catheter remains in place Left pleural fluid positive for metastatic pulmonary adenocarcinoma She is continued on Tagrisso Cleared for discharge Plan is for subacute rehab at [facility] This patient was seen independently by the pulmonary nurse practitioner addressing pulmonary issues I have personally seen and examined the patient, performed the documentation and the assessment and plan as written. Number of minutes spent on the visit: 25 Dictation was produced using [employer] dictation software. Please excuse any grammatical, word or spelling errors.
--- NOTE | 2024-10-13 14:07 | P.DS ---
Providers Date of admission: 09/30/24 19:58 Expected date of discharge: 10/13/24 Attending physician: Baldomero Busby MD Consults: 09/30/24 19:54 Consult Physician Routine Consulting Provider: Chhaya Brush Consult Reason/Comments: dyspnea Do you want consulting provider notified?: Yes 10/03/24 15:00 Consult Physician Urgent Consulting Provider: Daniel Parsons Consult Reason/Comments: re: pericardial effusion Do you want consulting provider notified?: Already Contacted Primary care physician: Kathie Presley [facility] Course: Discharge diagnoses; Right hemithorax with chronic loculated effusion Small to moderate left pleural effusion, Status post Pleurx catheter placement Moderate Pericardial effusion Acute on chronic hypoxemic respiratory failure secondary to above Acute exacerbation of COPD Pneumonia Hyperkalemia, resolved Hyponatremia, resolved Constipation History of nonsmall cell lung cancer with prior chemoradiation and right pneumonectomy in 2019; this is stage IV with brain metastasis Paroxysmal Atrial fibrillation, rate controlled on eliquis for anticoagulation Anxiety/depression History of seizure disorder maintained on [facility] course; Patient is discharged in STABLE condition to [facility] rehab facility. She is to continue new medications colchicine, amiodarone, metoprolol. She is to hold Tagrisso during this time. Discontinue valsartan as blood pressure has remained well-controlled. She can otherwise continue on home medications. She is to follow-up with Dr. Parsons as needed, PCP Dr. Guillen, and waitstaff. Specific instructions given in discharge plan for Pleurx discharge instructions. HPI: Patient is a 69 year old female with past medical history of atrial flutter, hypertension, seizure disorder, COPD with 4L home oxygen, lung cancer with metastasis to the brain with previous radiation therapy and right lower lobectomy presented to the ED with worsening shortness of breath. She mentions her symptoms started a couple months ago. She has experienced progressive shortness of breath. She has been admitted twice in the past month for similar symptoms. Everytime she would get discharged she will feel good at first but then her symptoms would recur within 2 weeks prompting another visit to the hospital. She also mentions having lung cancer. She was diagnosed in 2014, at that time she got a right lower lobectomy. There was recurrence of the cancer in 2019 at which point a drain was placed. It was found the cancer has metastasized to her brain for which she underwent radiation therapy. Subsequently she had chemotherapy and is now on chemotherapy pills(Tagrisso). Associated with that she also complains of dysphagia since 3 days and due to which her oral intake has been very poor. Also reports having runny nose and sometime blocked nose. Denies any reflux or regurgitation or past medical history of GERD, fever, chills, sore throat. Additionally she mentions having in her lower abdomen while having bowel movement. Denies constipation or diarrhea. Denies palpitations, nausea, vomiting, dysuria, hematuria, hematochezia, melena, numbness, tingling, joint pain, muscle aches. ED documentation reviewed. In the ED patient was treated with Percocet, Nebulised albuterol, Morphine, Levetiracetam. Vitals on admission T 99 F, MA 121, RR 18, BP 127/87, O2 sat 95% on 4 L nasal cannula EKG independently interpreted as sinus tachycardia, rate 116 bpm, QTc 495 ms Chest x-ray shows ongoing complete whiteout of the right hemithorax, slight increasing no [id number] left pleural effusion with adjacent atelectasis/consolidation Labs on admission show WBC 5.7, hemoglobin 11.4, sodium 136, magnesium 1.5, troponin I <0.012 Respiratory panel is negative During hospital stay patient was treated for acute exacerbation of COPD with pneumonia and acute on chronic hypoxic respiratory failure. She also had paroxysmal A-fib with RVR. During stay she had Pleurx catheter placed with intermittent suction and drainage. She was treated for pneumonia with course of antibiotics. Initially on BiPAP she transitioned to her normal 4 L oxygen nasal cannula. With A-fib with RVR she was started on metoprolol and amiodarone. And for pericardial effusion colchicine. Pleurx catheter to remain in place and she is to follow-up with surgery as indicated in discharge instructions. PHYSICAL EXAMINATION: GENERAL: The patient is alert and oriented x3. No acute distress, well developed, well nourished. HEENT: Pupils are round and equally reacting to light. EOMI. No scleral icterus. No conjunctival pallor. Normocephalic, atraumatic. CARDIOVASCULAR: S1 and S2 present. No murmurs, rubs, or gallops. PULMONARY: Absent right-sided breath sounds, mild left-sided upper rhonchi ABDOMEN: Soft, nontender, nondistended, normoactive bowel sounds. No palpable organomegaly. MUSCULOSKELETAL: No joint swelling or deformity. EXTREMITIES: No cyanosis, clubbing, or pedal edema. NEUROLOGICAL: Gross neurological examination did not reveal any focal deficits. SKIN: No rashes. Dictation was produced using [employer] dictation software. please excuse any grammatical, word or spelling errors. Patient Condition at Discharge: Stable Plan - Discharge Summary Discharge Rx Participant: No New Discharge Prescriptions: New Colchicine [Colcrys] 0.6 mg PO DAILY #30 each Amiodarone [Cordarone] 200 mg PO DAILY #30 tab Metoprolol Succinate (ER) [Toprol XL] 50 mg PO DAILY #30 tab Continue Rosuvastatin Calcium [Crestor] 5 mg PO DAILY@1500 Citalopram Hydrobromide [CeleXA] 20 mg PO DAILY@1500 levETIRAcetam [Keppra] 750 mg PO BID@0900,2100 Albuterol Inhaler [Ventolin Hfa Inhaler] 2 puff INHALATION RT-Q6H PRN PRN Reason: Shortness Of Breath oxyCODONE-APAP 7.5-325MG [Percocet 7.5-325 mg] 1 tab PO Q6H PRN PRN Reason: Pain Ipratropium-Albuterol Nebulize [Duoneb 0.5 mg-3 mg/3 ml Soln] 3 ml INHALATION RT-QID PRN #120 each PRN Reason: Shortness Of Breath Valsartan [Diovan] 80 mg PO DAILY@0900 Milk Thistle 175mg 1 tab PO BID@0900,1500 Vitamin B-12(Unknown Dose) 1 tab PO DAILY@0900 Apixaban [Eliquis] 5 mg PO BID@0900,2100 Discontinued Osimertinib Mesylate [Tagrisso] 80 mg PO DAILY@1500 Discharge Medication List Albuterol Inhaler [Ventolin Hfa Inhaler] 2 puff INHALATION RT-Q6H PRN 07/26/24 [History] Citalopram Hydrobromide [CeleXA] 20 mg PO DAILY@1500 07/26/24 [History] Rosuvastatin Calcium [Crestor] 5 mg PO DAILY@1500 07/26/24 [History] levETIRAcetam [Keppra] 750 mg PO BID@0900,2100 07/26/24 [History] oxyCODONE-APAP 7.5-325MG [Percocet 7.5-325 mg] 1 tab PO Q6H PRN 07/26/24 [History] Milk Thistle 175mg 1 tab PO BID@0900,1500 08/31/24 [History] Ipratropium-Albuterol Nebulize [Duoneb 0.5 mg-3 mg/3 ml Soln] 3 ml INHALATION RT-QID PRN #120 each 09/02/24 [Rx] Apixaban [Eliquis] 5 mg PO BID@0900,2100 09/30/24 [History] Valsartan [Diovan] 80 mg PO DAILY@0900 09/30/24 [History] Vitamin B-12(Unknown Dose) 1 tab PO DAILY@0900 09/30/24 [History] Amiodarone [Cordarone] 200 mg PO DAILY #30 tab 10/13/24 [Rx] Colchicine [Colcrys] 0.6 mg PO DAILY #30 each 10/13/24 [Rx] Metoprolol Succinate (ER) [Toprol XL] 50 mg PO DAILY #30 tab 10/13/24 [Rx] Follow up Appointment(s)/Referral(s): Daniel Parsons MD [STAFF PHYSICIAN] - As Needed (May call office for Pleurx catheter removal once drainage has been less than 50 mL for 3 times in a row) Kathie Guillen MD [Primary Care Provider] - 1-2 days (Office will call you with your appointment date and time) [facility], [NON-STAFF] - As Needed [facility], [NON-STAFF] - Activity/Diet/Wound Care/Special Instructions: PLEURX discharge instructions: 1. Home Care is ordered, they will obtain new bottles. 2. May shower after 24 hours, no tub baths/hot tubs. 3. Do not drain more than 1 liter or 1000 mL in 24 hours. 4. New drainage bottle needed with each drainage. 5. Drainage frequency dictated by patient symptoms, may be every day, every ot her day, weekly, or however often the patient is symptomatic. 6. Please notify [facility]ER or office if temperature >101F, excessive pain at insertion site, drainage consistency changes to cloudy or smells bad, catheter falls out, or anything else that concerns you. 7. Contact surgery office with weekly drainage amounts. May fax the amounts. 8. Once drainage is less than 50 mL three times in a row, notify the surgery office for possible removal. Surgery office: , fax Order for pleurex supplies sent to [facility] ([phone]) . Discharge Disposition: TRANSFER TO SNF/F
[2024-10-13 14:31] VITALS: BMI 25.0
[2024-10-14 07:27] VITALS: RESP 16
[2024-10-14] MEDS ORDERED: PANTOPRAZOLE SODIUM 40 MG GRANULE PKT PO SCH (07:30)
[2024-10-14] MEDS: PANTOPRAZOLE 40 MG TABLET PO SCH (07:34)
[2024-10-14 08:36] LABS: HCT 32.2 % (37.2-46.3); HGB 9.9 g/dL (12.0-15.0); MCH 25.8 pg (27.0-32.0); MCHC 30.7 g/dL (32.0-37.0); MCV 83.9 FL (80.0-97.0); NRBC Per 100 WBC 0 X 10*3/uL (0.00-0.01); Platelet Count 309 X 10*3/uL (140-440); RBC 3.84 X 10*6/uL (4.10-5.20); RDW 15.6 % (11.5-14.5); WBC 5.51 X 10*3/uL (4.50-10.00)
[2024-10-14 08:56] LABS: BUN/Creat Ratio 12.67 Ratio (12.00-20.00); Blood Urea Nitrogen 7.6 mg/dL (9.0-27.0); Calcium 8.8 mg/dL (8.7-10.3); Carbon Dioxide 29.2 mmol/L (21.6-31.8); Chloride 95 mmol/L (96-109); Glucose 101 mg/dL (70-110); Potassium 4.5 mmol/L (3.5-5.5); Sodium 136 mmol/L (135-145)
--- NOTE | 2024-10-14 13:43 | P.PN ---
Subjective Progress Note Date: 10/14/24 This is a 69-year-old female patient was being admitted for worsening shortness of breath. The patient is known to have non-small cell lung cancer the patient has undergone a previous pneumonectomy on the right back in 2018 and the patient remains on Tagrisso on outpatient basis. She was hospitalized back in July 2024 for a COPD exacerbation and left lung pneumonia with area of consolidation in the left lower lobe. She was treated accordingly. Her condition was stabilized and she was discharged home. She had another hospitalization on 09/01/2024 for worsening shortness of breath and COPD exacerbation. The patient was treated in discharged home on 09/02/2024. The patient is coming in for increased dyspnea, limited cough. No significant sputum production. No hemoptysis or pleurisy. She is afebrile. Hemodynamically stable encouraged and 40 Suboxone by nasal cannula. Chest x-ray shows pneumonectomy on the right, some atelectatic changes and small effusion on the left. The white cell count is 5.7 hemoglobin 11.4 and platelet count is at 323. Sodium is at 136, bicarb is at 24, BUN is 12 with a creatinine of 0.7. Troponins are negative. The viral screen has been negative. No altered mentation. No seizure activity has been reported. On 10/02/24, the patient is being seen for a FU. The patient is stable and she is still on 02 at 4 L /min nasal canula and she is still having dyspnea with limited cough and sputum and she is has some minimal wheezing. The CT of the chest was completed and the patient has right pneumonectomy and she has airspace disease in the left lung base and she has also developed a left sided pleural effusion and there is a concern for a LLL pneumonia and based on that the patient was started on IV cefepime. Labs from today were noted the white cell count is at 4.06 and a platelet count of 317. The potassium level is at one 5.1, BUN is 12 with a creatinine of 0.8. proBNP level is less than 20. Meanwhile, the patient remains on Tagrisso. The patient remains on anticoagulation with Eliquis. The patient remains on DuoNeb updrafts and antibiotic coverage with IV cefepime. CAT scan of the chest also showed a small to moderate-sized aimee cardial effusion along with background COPD and some mild rectal edematous changes. Another 2 cm focus of groundglass opacity was seen in the left upper lobe The patient is seen today October 03, 2024 in follow-up on the regular medical floor. She is currently sitting up in bed. Awake and alert in no acute distress. Maintaining O2 saturations in the 90s on 3 L/min per nasal cannula. She has been afebrile. Hemodynamically stable. Echocardiogram reveals preserved left ventricular systolic function with ejection fraction 55 to 60%. White count 5.0. Hemoglobin 9.6. Platelets 304. Sodium 137. Potassium 5.9. Bicarb 30. BUN 11. Creatinine 0.9. Glucose 113. Procalcitonin was negative at 0.03. Is currently on cefepime. Continued on DuoNeb and elations. Anticoagulated with Eliquis. Continued on her Tagrisso. The patient is seen today October 04, 2024 in follow-up on the regular medical floor. She was having increasing complaints of shortness of breath today. She was placed on BiPAP 10/5 and 100% FiO2. She is continued on DuoNeb inhalations. Ultrasound of the left chest did not reveal any significant pleural effusion. Pocket measured 5.0 cm. Chest x-ray revealed redemonstrated complete whiteout of the right hemithorax. Small to moderate left pleural effusion with adjacent atelectasis and/or consolidation. White count 7.3. Hemoglobin 11.2. Platelets 339. Sodium 140. Potassium 5.4. Bicarb 29. BUN 10. Creatinine 0.8. Procalcitonin was negative at 0.03. She is currently on cefepime. Echocardiogram revealed preserved left ventricular systolic function with ejection fraction 55 to 60%. There is a moderate pericardial effusion measuring 1.4 cm with significant tricuspid valve respiratory variation greater than 50%, right atrial and right ventricular diastolic collapse consistent with tamponade physiology. The patient is seen today October 13, 2024 in follow-up on the regular medical floor. She is currently sitting up in bed. Awake and alert in no acute distress. Maintaining good O2 saturations in the 90s on 3 L/min per nasal cannula. She is continued on DuoNeb inhalations. Anticoagulated with Eliquis. Pleural fluid cultures revealed no growth. Cytology was positive for metastatic pulmonary adenocarcinoma. Continued on her Tagrisso. Count 5.7. Hemoglobin 9.4. Platelets 316. Sodium 137. Potassium 4.3. Bicarb 31. BUN 9. Creatinine 0.7. Glucose 103. The patient is seen today October 14, 2024 in follow-up on the regular medical floor. She is currently resting comfortably in bed. Awake and alert in no acute distress. She is maintaining good O2 saturations in the 90s on 4 L/min per nasal cannula. She is afebrile. Hemodynamically stable. White count 5.5. Hemoglobin 9.9. Platelets 309. Sodium 136. Potassium 4.5. Bicarb 29. BUN 8. Creatinine 0.6. Glucose 101. She remains on DuoNeb inhalations. Ant icoagulated with Eliquis. Continued on Tagrisso. Fluid cytology from the left lung was positive for metastatic pulmonary adenocarcinoma. Objective - Vital Signs Vital signs: Vital Signs Temp 98.1 F 10/14/24 07:01 Pulse 84 10/14/24 13:34 Resp 16 10/14/24 08:00 BP 125/83 10/14/24 07:01 Pulse Ox 95 10/14/24 07:01 FiO2 50 10/07/24 08:22 Intake & Output 10/13/24 10/14/24 10/14/24 18:59 06:59 18:59 Weight 60.2 kg Other: # Voids 1 - Exam GENERAL EXAM: Alert, 69-year-old female, resting comfortably in bed, on 4 L nasal cannula, in no acute distress. HEAD: Normocephalic. EYES: Normal reaction of pupils, equal size. NOSE: Clear with pink turbinates. THROAT: No erythema or exudates. NECK: No masses, no JVD. CHEST: No chest wall deformity. Left Pleurx catheter remains in place. LUNGS: Equal air entry with crackles in the left lung base, diminished. Absent on the right. CVS: S1 and S2 normal with no audible murmur, regular rhythm. ABDOMEN: No hepatosplenomegaly, normal bowel sounds, no guarding or rigidity. SPINE: No scoliosis or deformity SKIN: No rashes CENTRAL NERVOUS SYSTEM: No focal deficits, tone is normal in all 4 extremities. EXTREMITIES: There is no peripheral edema. No clubbing, no cyanosis. Peripheral pulses are intact. - Labs CBC & Chem 7: 10/14/24 04:27 10/14/24 04:27 Labs: Abnormal Lab Results - Last 24 Hours (Table) 10/14/24 10/14/24 Range/Units 04:27 04:27 RBC 3.84 L (4.10-5.20) X 10*6/uL Hgb 9.9 L (12.0-15.0) g/dL Hct 32.2 L (37.2-46.3) % MCH 25.8 L (27.0-32.0) pg MCHC 30.7 L (32.0-37.0) g/dL RDW 15.6 H (11.5-14.5) % Chloride 95 L (96-109) mmol/L BUN 7.6 L (9.0-27.0) mg/dL Assessment and Plan Assessment: Acute exacerbation of COPD Left lower lobe pneumonia and left sided pleural effusion. Pleurx catheter placed on 10/05/2024. Pleural fluid positive for metastatic pulmonary adenocarcinoma Acute hypoxic respiratory failure secondary to above Moderate pericardial effusion measuring 1.4 cm with significant tricuspid valve respiratory variation greater than 50%, right atrial and right ventricular diastolic collapse consistent with tamponade physiology. Cardiology and cardiothoracic surgery on the case. This may be chronic in nature and no plans for emergent procedure Previous history of non-small cell lung cancer with previous right pneumonectomy 2018 and the patient has been maintained on Tagrisso on outpatient basis. The patient had metastatic disease to the brain at time of admission the patient has received radiation therapy to her brain Seizure disorder maintained on Keppra Paroxysmal atrial fibrillation/flutter, maintained on long-term anticoagulation with Eliquis and the patient is currently in normal sinus rhythm Moderate mitral regurgitation/valvular heart disease Hypertension Hyperlipidemia Plan: The patient was seen and evaluated Labs and medications reviewed Stable on 4 L nasal cannula Left Pleurx catheter remains in place CT services to drain the catheter today She is continued on Tagrisso Plan is for subacute rehab at [facility] This patient was seen independently by the pulmonary nurse practitioner addressing pulmonary issues I have personally seen and examined the patient, performed the documentation and the assessment and plan as written. Number of minutes spent on the visit: 24 Dictation was produced using [employer] dictation software. Please excuse any grammatical, word or spelling errors.
[2024-10-14 15:58] VITALS: BP 119/79; PULSE 80; TEMP 98.4
--- NOTE | 2024-10-14 16:36 | P.PN ---
Subjective Progress Note Date: 10/14/24 Patient is a 69 year old female with past medical history of atrial flutter, hypertension, seizure disorder, COPD with 4L home oxygen, lung cancer with metastasis to the brain with previous radiation therapy and right lower lobectomy presented to the ED with worsening shortness of breath. She mentions her symptoms started a couple months ago. She has experienced progressive shortness of breath. She has been admitted twice in the past month for similar symptoms. Everytime she would get discharged she will feel good at first but then her symptoms would recur within 2 weeks prompting another visit to the hospital. She also mentions having lung cancer. She was diagnosed in 2014, at that time she got a right lower lobectomy. There was recurrence of the cancer in 2019 at which point a drain was placed. It was found the cancer has metastasized to her brain for which she underwent radiation therapy. Subsequently she had chemotherapy and is now on chemotherapy pills(Tagrisso). Associated with that she also complains of dysphagia since 3 days and due to which her oral intake has been very poor. Also reports having runny nose and sometime blocked nose. Denies any reflux or regurgitation or past medical history of GERD, fever, chills, sore throat. Additionally she mentions having in her lower abdomen while having bowel movement. Denies constipation or diarrhea. Denies palpitations, nausea, vomiting, dysuria, hematuria, hematochezia, melena, numbness, tingling, joint pain, muscle aches. ED documentation reviewed. In the ED patient was treated with Percocet, Nebulised albuterol, Morphine, Levetiracetam. Vitals on admission T 99 F, UT 121, RR 18, BP 127/87, O2 sat 95% on 4 L nasal cannula EKG independently interpreted as sinus tachycardia, rate 116 bpm, QTc 495 ms Chest x-ray shows ongoing complete whiteout of the right hemithorax, slight increasing no [id number] left pleural effusion with adjacent atelectasis/consolidation Labs on admission show WBC 5.7, hemoglobin 11.4, sodium 136, magnesium 1.5, troponin I <0.012 Respiratory panel is negative 10/02/2024 Patient is eval today in follow-up in the medical floor. She is reporting significant shortness of breath. She continues on oxygen via nasal cannula at 4 L. Patient had a repeat chest CT which shows a complete whiteout of the right hemithorax with a chronic loculated effusion. There is a new small to moderate left pleural effusion with moderate pericardial effusion. Patient does have known small cell lung cancer and also has a right pnuemonectomy. She also has a noted left upper lobe nodule. She continues on IV cefepime with concern for postobstructive pneumonia. Pulmonary is following this patient closely. Work today reveals a white blood cell count of 4.31, hemoglobin 10.6, sodium of 136, potassium of 5.1. BUN of 12.3 creatinine 0.8. Her proBNP is less than 20. Her viral panel is negative. 10-03-24 Patient seen and examined at bedside. No events overnight. Patient continues to have shortness of breath and cough that she states has not improved. WBC 5.08, sodium 137, potassium 5.9, BUN 11.0, creatinine 0.9, glucose 113. Hyperkalemia noted, discontinued valsartan. Echocardiogram finding significant for pericardial effusion and right atrial and right ventricular diastolic collapse consistent with tamponade. Cardiology consulted. Pulmonology continues to follow. 10-04-24 Patient seen and examined at bedside. Patient sitting up in bed and found with worsening respiratory distress. On BiPAP 10/5 and 100% FiO2. Ultrasound chest performed with large left pleural effusion. Chest x-ray also completed with left-sided pleural effusion noted in right hemithorax whiteout. No plans for thoracentesis by pulmonology. She is being followed by CT surgery who will plan for Pleurx catheter tomorrow. Eliquis on hold. Patient started on colchicine for pericardial effusion. She remains on cefepime and bronchodilators. CODE STATUS was discussed by patient who wishes to be no code. Labs WBC 7.3, hemoglobin 11.2, platelets 339, sodium 140, potassium 5.4, bicarb 29, BUN 10.2, creatinine 0.8. CT surgery, pulmonary, cardiology notes reviewed. 10-05-24 Patient seen and examined at bedside. Patient sitting up in bed on BiPAP 10/5 and 70% FiO2. Work of breathing improved since yesterday. She is unable to tolerating oral medications at this time as she states it gives he throat pain. She is being followed by CT surgery who will plan for Pleurx catheter today. Eliquis on hold. Colchicine ordered for pericardial effusion. She remains on cefepime and bronchodilators. Labs WBC 5.8, hemoglobin 11.0, platelets 313, sodium 133, potassium 5.4, bicarb 34, BUN 17, creatinine 0.7. 10-06-24 Patient seen and examined at bedside. Pleurx catheter placed yesterday by CT surgery with drainage of 750 cc. This morning drainage of 150 cc. Operative note reviewed. Patient sitting up in bed on BiPAP 10/5 and 50% FiO2 will attempt to transition to O2 high flow nasal cannula. Breathing overall improved patient states she is more comfortable today. She remains on cefepime and bronchodilators. Labs labs WBC 6.8, hemoglobin 10.7, platelets 302, sodium 134, potassium 5.3, bicarb 31, gap 4, BUN 25, creatinine 0.74, glucose 80. Repeat chest x-ray with persistent completely opacified right hemithorax, improved left lower lung opacity. 10-07-24 Patient seen and examined at bedside. She was on BiPAP overnight and transition to nasal cannula 5 L this morning, satting at 93%. States her breathing is somewhat improved from yesterday. She continues to have significant sputum production and cough. Given scopolamine patch. Continue holding Eliquis. She remains on cefepime and bronchodilators. Today's chest x-ray is relatively unchanged with stable left lower opacity. Labs labs WBC 8.8, hemoglobin 10.4, sodium 133, potassium 4.0, bicarb 33, BUN 25, glucose 124. 10-08-24 Patient seen and examined at bedside. She is postop day #3 status post left Pleurx catheter placement. She is on 5 L nasal cannula O2 saturation 97%. States her breathing continues to improve, no apparent cough. Continue scopolamine patch. She states she has not had regular bowel movements. She remains on cefepime and bronchodilators. Begin metoprolol 25 mg p.o. daily. Labs today WBC 6.3, hemoglobin 10.5, sodium 132, potassium 4.2, chloride 94, bic arb 36, gap 2, BUN 21, creatinine 0.60. Pleural fluid slightly hazy WBC 1897, RBC 9000. 10/09/2024 Patient evaluated today in follow-up on the cardiac unit. She is postoperative day #4 left Pleurx catheter placement with plans to drain the Pleurx catheter today. She does report improvement in her shortness of breath. Patient continues on bronchodilators. She is not having regular bowel movements although she states that she feels that she may have 1 today she is refusing any other laxatives or stool softeners at this time. Sodium level today is 134, BUN of 3, creatinine of 16. 10/10/2024 Patient examined and evaluated sitting up at bedside. She is postoperative day #5 left Pleurx catheter placement, no plans to remove fluid today. She continues on 5 L normal cannula with stated continued breathing improvement. Patient continues on bronchodilators. Sodium 132 despite normal saline, will discontinue and limit fluid to 1500 cc/day possibly secondary to SIADH. Lab potassium 4.1, chloride 95, bicarb 36. 10/11/2024 Patient seen and examined sitting up at bedside. Overnight patient had A-fib with RVR rate 145 and was given metoprolol and placed on IV Cardizem. Plan to switch to orals today. Scopolamine patch discontinued. She is postop day #6 left proximal catheter placement. She continues on 5 L normal cannula with stated continued breathing improvement. No BiPAP overnight. Patient continues on bronchodilators. Sodium 132, potassium 3.9, chloride 97, bicarb 35. Chest x-ray with right-sided whiteout, left-sided opacities slightly improved. 10/12/2024 Patient seen and examined sitting up in chair. She continues on 4 L normal cannula with stated continued breathing improvement. No BiPAP overnight. Patient continues on bronchodilators. HR stable in 90s. Add low-dose amiodarone 200 mg daily. Labs hemoglobin 10.0, sodium 134, potassium 3.8, bicarb 36, glu cose 80. 10/13/2024 Patient continues on 4 L of oxygen satting well. Continue on bronchodilators. Today's labs WBC 5.51, sodium 136, potassium 4.5, BUN 7.6, creatinine 0.6. She is awaiting discharge to acute rehab facility. Review of Systems: Reviewed, pertinent positives and negatives as per HPI PHYSICAL EXAMINATION: GENERAL: The patient is alert and oriented x3. No acute distress, well developed, well nourished. HEENT: Pupils are round and equally reacting to light. EOMI. No scleral icterus. No conjunctival pallor. Normocephalic, atraumatic. CARDIOVASCULAR: S1 and S2 present. No murmurs, rubs, or gallops. PULMONARY: Absent right-sided breath sounds, left-sided upper rhonchi ABDOMEN: Soft, nontender, nondistended, normoactive bowel sounds. No palpable organomegaly. MUSCULOSKELETAL: No joint swelling or deformity. EXTREMITIES: No cyanosis, clubbing, or pedal edema. NEUROLOGICAL: Gross neurological examination did not reveal any focal deficits. SKIN: No rashes. Assessment and Plan Right hemithorax with chronic loculated effusion. Status post Pleurx catheter placement Small to moderate left pleural effusion Moderate pericardial effusion Acute on chronic hypoxemic respiratory failure secondary to above Acute exacerbation of COPD Hyperkalemia, given Lokelma, resolved Hyponatremia, possible SIADH Constipation History of nonsmall cell lung cancer with prior chemoradiation and right pneumonectomy in 2019; this is stage IV with brain metastasis Paroxysmal Atrial fibrillation, rate controlled on eliquis for anticoagulation Anxiety/depression History of seizure disorder maintained on keppra Hyperlipidemia Hypertension GI prophylaxis DVT prophylaxis No Code Plan Cefepime has been discontinued at this time Continue bronchodilators Continue holding valsartan, given Lokelma potassium now WNL Continue metoprolol Discontinue IV NS, scopolamine patch d/c Status post Pleurx catheter placement, continue colchicine, resume Eliquis Echocardiogram with pericardial effusion measuring 1.4 cm, right atrial and right ventricular diastolic collapse consistent with tamponade physiology Cardiology following CT surgery following Pulmonary following Plan discharge today Attestation I have seen and examined this patient with my resident , discussed the same with the resident/MATILDA, and agree with the dictator's assessment and plan as written Dr. Nasir olivas Objective - Vital Signs Vital signs: Vital Signs Temp 98.4 F 10/14/24 13:27 Pulse 84 10/14/24 13:48 Resp 16 10/14/24 13:27 BP 119/79 10/14/24 13:27 Pulse Ox 97 10/14/24 13:27 FiO2 50 10/07/24 08:22 Intake & Output 10/13/24 10/14/24 10/14/24 18:59 06:59 18:59 Weight 60.2 kg Other: # Voids 1 - Labs CBC & Chem 7: 10/14/24 04:27 10/14/24 04:27 Labs: Abnormal Lab Results - Last 24 Hours (Table) 10/14/24 10/14/24 Range/Units 04:27 04:27 RBC 3.84 L (4.10-5.20) X 10*6/uL Hgb 9.9 L (12.0-15.0) g/dL Hct 32.2 L (37.2-46.3) % MCH 25.8 L (27.0-32.0) pg MCHC 30.7 L (32.0-37.0) g/dL RDW 15.6 H (11.5-14.5) % Chloride 95 L (96-109) mmol/L BUN 7.6 L (9.0-27.0) mg/dL
== END 2024-10-14 19:24 | DRG 180 ==
LOC: EC 17:50 → 5NMEDONC 19:58 → 3SCARD 10-04 13:03 → 4SSUR 10-12 15:55
PROVIDERS: ADMIT Internal Medicine; ATTEND Internal Medicine
PROC: 5A09357 Assistance with Respiratory Ventilation, Less than 24 Consecutive Hours, Continuous Positive Airway Pressure (ICD-10-PCS; 2024-10-04)
PROC: 0W9B30Z Drainage of Left Pleural Cavity with Drainage Device, Percutaneous Approach (ICD-10-PCS; principal; 2024-10-05 15:25)
DX: C78.02 Secondary malignant neoplasm of left lung (principal); J18.9 Pneumonia, unspecified organism; J96.21 Acute and chronic respiratory failure with hypoxia; I31.4 Cardiac tamponade; I31.39 Other pericardial effusion (noninflammatory); J94.2 Hemothorax; E22.2 Syndrome of inappropriate secretion of antidiuretic hormone; C79.31 Secondary malignant neoplasm of brain; J44.1 Chronic obstructive pulmonary disease with (acute) exacerbation; J44.0 Chronic obstructive pulmonary disease with (acute) lower respiratory infection; J91.0 Malignant pleural effusion; J98.19 Other pulmonary collapse; R13.10 Dysphagia, unspecified; Z99.81 Dependence on supplemental oxygen; I48.0 Paroxysmal atrial fibrillation; G40.909 Epilepsy, unspecified, not intractable, without status epilepticus; F10.21 Alcohol dependence, in remission; F32.A Depression, unspecified; I10 Essential (primary) hypertension; I34.0 Nonrheumatic mitral (valve) insufficiency; F41.9 Anxiety disorder, unspecified; E87.5 Hyperkalemia; E78.5 Hyperlipidemia, unspecified; K59.00 Constipation, unspecified; Z79.01 Long term (current) use of anticoagulants; Z90.2 Acquired absence of lung [part of]; Z87.891 Personal history of nicotine dependence; Z85.118 Personal history of other malignant neoplasm of bronchus and lung; Z82.5 Family history of asthma and other chronic lower respiratory diseases; Z92.21 Personal history of antineoplastic chemotherapy; Z92.3 Personal history of irradiation; Z80.1 Family history of malignant neoplasm of trachea, bronchus and lung; Z79.899 Other long term (current) drug therapy; Z86.73 Personal history of transient ischemic attack (TIA), and cerebral infarction without residual deficits; Z87.01 Personal history of pneumonia (recurrent)
CPT/HCPCS: 36415; 71045; 71046; 71260; 76604; 80048; 83605; 83735; 83880; 84145; 84484; 85025; 85027; 85610; 85730; 86850; 86900; 86901; 87070; 87102; 87205; 87496; 87498; 87502; 87529; 87634; 87635; 87636; 87798; 88108; 88305; 88341; 88342; 89050; 93005; 93308; 94640; 94660; 94760; 96365; 96375; 96376; 99285